=== PATIENT | male | born 1945 | race Hispanic/Latino ===

== ENCOUNTER 2019-01-19 22:57 | Inpatient (IN) | payer MEDICARE, MEDICAID ==
[2019-01-19 23:26] LABS: Mean Corpuscular HGB CONC 32.3 g/dL (32.0-36.0); Mean Corpuscular Hemoglobin 27.6 pg (27.0-31.0); Mean Corpuscular Volume 85.4 fL (78.0-98.0); Mean Platelet Volume 9.8 fL (7.4-10.4); Platelet Count 172 thou/uL (130-400); RBC Distribution Width 13.4 % (11.5-14.5); Red Blood Cell (RBC) Count 4.71 mill/uL (4.70-6.10)
[2019-01-19 23:33] LABS: Actual Bicarbonate (HCO3a) 19.3 mEq/L (22-28); Analyzer IN Cardio ER; Base Excess (BEa) -4.5 mEq/L (-2.0 to +3.0); CO2 Tension 31.7 mmHg (35.0-45.0); Calcium, Ionized 1.06 mmol/L (1.12-1.30); Carboxyhemoglobin (COHb) 0.2 gm% (0.0-3.0); Hemoglobin (Hb) 13.2 g/dL (14.0-18.0); Potassium - ABG Lab 3.93 mmol/L (3.70-5.30)
[2019-01-19 23:34] LABS: Puncture Site LRA
[2019-01-19 23:35] LABS: ALV-art Gradient 305.175 (0-20)
[2019-01-19] MEDS ORDERED: cefTRIAXone\\ROCEPHIN 1 GM VIAL ONE (23:39)
[2019-01-19 23:43] LABS: Band 10 % (5-11); Eosinophils 3 % (0-10); Lymphocytes 7 % (21-51); MDiff Complete? YES; Monocytes 11 % (0-10); Neutrophil 69 % (42-75)
--- NOTE | 2019-01-20 00:06 | RAD ---
PORTABLE CHEST: 01/19/19 HISTORY: Dyspnea. COMPARISON: 05/25/15. Heart size is upper normal. Vascularity upper normal. There is hazy perihilar opacity bilaterally whi ch could represent edema or infiltrate. No confluent consolidation. No significant effusion. IMPRESSION: Perihilar haziness which may represent mild perihilar edema. Follow-up recommended. POS: [facility]
[2019-01-20 00:08] LABS: CKMB 3.6 ng/mL (0-6.6)
[2019-01-20] MEDS ORDERED: methylPREDNISolone Sod Succ/PF 125 MG/2 ML VIAL ONE (00:23)
[2019-01-20 00:36] LABS: ALT (SGPT) 85 U/L (8-55); AST (SGOT) 91 U/L (5-34); Albumin 3.9 g/dL (3.4-4.8); Alkaline Phosphatase 138 U/L (40-150); Anion Gap 16 mmol/L (10-20); BUN (Urea Nitrogen) 77 mg/dL (8.4-25.7); Bilirubin, Total 0.5 mg/dL (0.2-1.2); Calc. Creatinine Clearance 0 mL/min (70-130); Calcium 8.5 mg/dL (7.8-10.44); Carbon Dioxide 20 mmol/L (23-31); Chloride 107 mmol/L (98-107); Estimated GFR-MDRD 16; Globulin 3.3 g/dL (2.4-3.5); Glucose 137 mg/dL (83-110); Potassium 5.4 mmol/L (3.5-5.1); Protein, Total 7.2 g/dL (5.8-8.1); Sodium 138 mmol/L (136-145)
[2019-01-20 00:49] LABS: Bilirubin Negative (Negative); Blood, Urine Large (Negative); Clarity CLEAR (Clear); Glucose, Urine (Dipstick) 100 mg/dL (Negative); Leukocyte Negative (Negative); Nitrite Negative (Negative); Protein, Urine (Dipstick) 300 mg/dL (Neg-Trace); Specific Gravity, Urine 1.017 (1.002-1.036); Urobilinogen 0.2 mg/dL (0.2-1.0)
[2019-01-20 00:58] LABS: Bacteria/HPF Rare-Few HPF (None Seen); Hyaline Casts/LPF 0-3 HYALINE CAST LPF (0-3 Hyaline); Other Casts/LPF 0-3 COARSE GRAN LPF (0-3 Hyaline); RBC/HPF 0-3 HPF (0-3); Squamous Epithelial 0-3 HPF (0-3); WBC/HPF 0-3 HPF (0-3)
[2019-01-20] MEDS ORDERED: Aspirin Chewable 81 MG TAB ONE (01:12)
[2019-01-20] MEDS ORDERED: Acetaminophen 500 MG TAB ONE (01:12)
[2019-01-20] MEDS ORDERED: Bisacodyl 5 MG TAB PO PRN (03:17)
[2019-01-20] MEDS ORDERED: Guaifenesin DM 100-10/5 ML UDCUP PO PRN (03:17)
[2019-01-20] MEDS ORDERED: Acetaminophen 325 MG TAB PO PRN (03:17)
[2019-01-20] MEDS ORDERED: Senokot S 8.6-50 MG TAB PO PRN (03:17)
[2019-01-20] MEDS ORDERED: Dextrose 5% in Water 1,000 ML IV PRN (03:21)
[2019-01-20] MEDS ORDERED: Dextrose 50% Abboject 50 ML SYRINGE SLOW IVP PRN (03:21)
[2019-01-20 04:01] LABS: Troponin I 0.773 ng/mL (< 0.028)
[2019-01-20] MEDS ORDERED: cefTRIAXone\\ROCEPHIN 1 GM in Sodium Chloride 0.9% 100 ML IVPB SCH (05:00)
[2019-01-20 06:27] LABS: Troponin I 1.041 ng/mL (< 0.028)
[2019-01-20 06:28] LABS: Band 13 % (5-11); Hemoglobin 12.6 g/dL (14.0-18.0); Lymphocytes 11 % (21-51); MDiff Complete? YES; Mean Corpuscular HGB CONC 33.5 g/dL (32.0-36.0); Mean Corpuscular Hemoglobin 28.5 pg (27.0-31.0); Mean Corpuscular Volume 85.1 fL (78.0-98.0); Mean Platelet Volume 9.9 fL (7.4-10.4); Neutrophil 76 % (42-75); Platelet Count 141 thou/uL (130-400); Platelet Morphology Comment Appears Adequate; RBC Distribution Width 13.3 % (11.5-14.5); Red Blood Cell (RBC) Count 4.42 mill/uL (4.70-6.10); White Blood Cell (WBC) Count 7.4 thou/uL (4.8-10.8)
[2019-01-20 06:30] LABS: Anion Gap 15 mmol/L (10-20); BUN (Urea Nitrogen) 76 mg/dL (8.4-25.7); Calc. Creatinine Clearance 0 mL/min (70-130); Calcium 8.6 mg/dL (7.8-10.44); Carbon Dioxide 17 mmol/L (23-31); Chloride 110 mmol/L (98-107); Estimated GFR-MDRD 16; Glucose 168 mg/dL (83-110); Potassium 4.8 mmol/L (3.5-5.1); Sodium 137 mmol/L (136-145)
[2019-01-20 06:33] VITALS: BMI 31.6
--- NOTE | 2019-01-20 06:52 | HP ---
CHIEF COMPLAINT: Shortness of breath, fever. HISTORY OF PRESENT ILLNESS: The patient is a 73-year-old male with a history of diabetes, hypertension, who presents to the hospital with complaints of shortness of breath and fever. The patient's daughter who is at the bedside stated that the patient was in [place] about 2 weeks ago. After his return, he has been feeling well. However, today the patient had sudden onset of chills, chest pain and some shortness of breath. At this time, the daughter brought him to the hospital for further evaluation. The patient denies any nausea, however, stated that he did have some diarrhea about a couple days ago. He denies any sick contacts; however, per the patient's while he was in [place], he had been exposed to some friends who had TB. This is unclear, if they had a history of TB or actually having TB currently, this is very unclear. The patient's daughter who is at the bedside could not clarify this with me. The patient denies any weight loss or any night sweats. The patient currently denies any chest pain, shortness of breath. He is sleeping without any discomfort. PAST MEDICAL HISTORY: 1. Diabetes. 2. Hypertension. 3. Hyperlipidemia. 4. BPH. 5. Chronic iron deficiency anemia. PAST SURGICAL HISTORY: 1. He has had a stomach surgery. 2. Appendectomy. 3. EGD and colonoscopy. MEDICATIONS: As of the following, the patient is on; 1. Norvasc 5 mg daily. 2. Aspirin 81 mg daily. 3. Atorvastatin 20 mg daily. 4. Carvedilol 6.25 daily. 5. Clopidogrel 75 mg daily. 6. Fluoxetine 30 mg daily. 7. Iron 325 daily. 8. Insulin 16 units q.a.m. ALLERGIES: THE PATIENT HAS ALLERGIES TO PENICILLIN. FAMILY HISTORY: The patient has no family history of heart disease or strokes. SOCIAL HISTORY: He denies any alcohol use, drug use. He is a nonsmoker. He lives with family and is a full code. REVIEW OF SYSTEMS: All negative for the ones mentioned above in HPI. PHYSICAL EXAMINATION: VITAL SIGNS: As of the following; temperature of 98.8, the patient did have a fever in the ER of 102, blood pressure of 130/60, heart rate of 78, 99% on room air. GENERAL: He is awake, alert, and oriented x3. Does not appear in distress. HEENT: Normocephalic, atraumatic. NECK: No lymphadenopathy noted. CV: S1, S2 present. No murmurs, rubs, or gallops. LUNGS: Clear to auscultation. No rhonchi or wheezes noted. ABDOMEN: Soft and nontender. Bowel sounds are present x2. EXTREMITIES: No edema. Pedal pulses are present x2. NEUROVASCULAR: No focal deficits noted. SKIN: No cuts, lesions, bruises noted. LABORATORY RESULTS: WBC of 7.0, hemoglobin of 13.0, hematocrit of 40.2. His urine today was completely benign, which has had some large amount of blood. Chemistry: Sodium of 138, potassium of 5.4, BUN of 77, creatinine of 3.68. His initial troponin was 0.054. BNP was 295. The patient did have a chest x-ray, which indicated perihilar haziness, which may represent mild perihilar edema. Opacity versus edema was noted on the chest x-ray. ASSESSMENT AND PLAN: 1. The patient is a 73-year-old male who presents to the hospital with chest pain and shortness of breath. 2. Pneumonia. I will start the patient on Levaquin based on his renal function. Blood cultures are done. Influenza was negative. The patient currently does not have a cough. The patient's interferon gold was sent, unlikely to be tuberculosis. However, I will get a CT chest for better evaluation of his lungs. I will add a mild dose of vancomycin on this patient that will cover the atypicals and also possibly any staphylococcus. 3. Acute kidney injury on chronic kidney disease. We will continue to monitor. We will consult Dr. Brown. He does have a mild elevated potassium of 5.0. We will continue to monitor. 4. Elevated troponins. The patient has not had an echocardiogram since 2014. I will go ahead and order an echocardiogram. The patient currently is chest pain-free. We will trend the troponins. This could be secondary to demand ischemia. I will continue to follow along. 5. Diabetes. We will start the patient on his home medications and we will check Accu-Cheks before meals and at bedtime. 6. Deep venous thrombosis prophylaxis. We will put the patient on some sequential compression devices. 7. If his troponins continue to trend up, may consider getting Cardiology involved. However, currently patient is chest pain free and only has some elevated troponins. This could be from demand ischemia. Job ID: [id number]
--- NOTE | 2019-01-20 08:59 | CT ---
CT CHEST WITHOUT CONTRAST: HISTORY: Shortness of breath. FINDINGS: Limited evaluation of the mediastinum by the lack of IV contrast. No mediastinal mass, lymphadenopath y, or hematoma. Heart size is normal. No significant pericardial fluid. There are coronary artery calcifications. Visualized aorta has a normal caliber. Visualized solid organs are unremarkable. A 2 cm cyst in the right renal cortex is noted. Trachea and central bronchi are patent. There are patchy groundglass and interstitial opacities which may be due to edema or infiltrate. A 2 mm nodule in the right upper lobe. There are groundglass and linear opacities involving both lower lobes due to edema or infiltrate. Small bilateral effusions with adjacent consolidation. There is thickening of the left major fissure. No lytic or blastic lesions. Previous bariatric surgical changes along the greater curvature of the stomach are suspected. IMPRESSION: Predominantly bibasilar interstitial and groundglass opacities suggesting edema or infiltrate. Contin ued surveillance is recommended. Transcribed Date/Time: 01/20/2019 9:16 AM
[2019-01-20] MEDS ORDERED: Non-Formulary Item 1 EACH (Insulin Glargine,Hum.Rec.Anlog [Lantus Solostar] 16 UNIT) SQ SCH (09:00)
[2019-01-20] MEDS ORDERED: Vancomycin HCl 500 MG in Sodium Chloride 0.9% 100 ML IVPB SCH ×2 (09:00→23:59)
[2019-01-20] MEDS: Ferrous Sulfate 325 MG TAB PO SCH (10:48)
[2019-01-20] MEDS: Sodium Bicarbonate Tab 325 MG TAB PO SCH ×2 (10:48→22:22)
[2019-01-20] MEDS: Famotidine 20 MG TAB PO SCH (10:48)
[2019-01-20] MEDS: Aspirin 81 mg Enteric Coated Tablet PO SCH (10:48)
[2019-01-20] MEDS: DULoxetine 30 MG CAP PO SCH (10:48)
[2019-01-20] MEDS: Amlodipine 5 MG TAB PO SCH (10:49)
[2019-01-20] MEDS: Heparin 5,000 UNITS/ML VIAL SC SCH ×3 (10:50→22:23)
[2019-01-20] MEDS: Clopidogrel Bisulfate 75 MG TAB PO SCH (10:50)
[2019-01-20] MEDS: Insulin Glargine 16 UNITS in Pre-Filled Syringe 1 EACH SC SCH (10:50)
--- NOTE | 2019-01-20 11:04 | PDOC.PN ---
- Subjective Encounter Start Date: 01/20/19 Encounter Start Time: 08:00 -: old records requested/rev pt has dyspnea, cough, and fever, no chest pain Patient seen and examined. No overnight events - Objective Resuscitation Status - Order Detail: 01/20/19 03:17 Resuscitation Status Routine Resuscitation Status: FULL: Full Resuscitation MAR Reviewed: Yes Vital Signs & Weight: Vital Signs (12 hours) Temp Pulse Resp BP BP Pulse Ox 01/20/19 10:49 58 L 151/75 H 01/20/19 07:27 60 12 01/20/19 06:12 98 F 58 L 18 151/75 H 96 Weight Weight 190 lb 6 oz Result Diagrams: 01/20/19 05:28 01/20/19 05:28 Additional Labs: Accuchecks 01/20/19 10:38 POC Glucose 223 H Radiology Reviewed by me: Yes (chest xray and CT chest reviewed) EKG Reviewed by me: Yes Phys Exam - Physical Examination Constitutional: NAD HEENT: PERRLA, moist MMs, sclera anicteric Neck: no JVD, supple Respiratory: no wheezing, no rhonchi bilateral basilar rales, more on right side Cardiovascular: RRR, no significant murmur, no rub Gastrointestinal: soft, non-tender, no distention, positive bowel sounds obesity+ Musculoskeletal: pulses present, edema present Neurological: non-focal, normal sensation, moves all 4 limbs Lymphatic: no nodes Psychiatric: normal affect, A&O x 3 Skin: no rash, normal turgor Dx/Plan (1) Acute on chronic diastolic ACC/AHA stage C congestive heart failure Code(s): I50.33 - ACUTE ON CHRONIC DIASTOLIC (CONGESTIVE) HEART FAILURE Status : Acute (2) Acute respiratory failure with hypoxia Code(s): J96.01 - ACUTE RESPIRATORY FAILURE WITH HYPOXIA Status: Acute (3) Community acquired bacterial pneumonia Code(s): J15.9 - UNSPECIFIED BACTERIAL PNEUMONIA Status: Acute (4) Hyperkalemia Code(s): E87.5 - HYPERKALEMIA Status: Acute (5) Severe sepsis Code(s): A41.9 - SEPSIS, UNSPECIFIED ORGANISM; R65.20 - SEVERE SEPSIS WITHOUT SEPTIC SHOCK Status: Acute (6) Type [address] elevation Code(s): I21.A1 - MYOCARDIAL INFARCTION TYPE 2 Status: Acute (7) Anxiety and depression Code(s): F41.9 - ANXIETY DISORDER, UNSPECIFIED; F32.9 - MAJOR DEPRESSIVE DISORDER, SINGLE EPISODE, UNSPECIFIED Status: Chronic (8) BPH (benign prostatic hyperplasia) Code(s): N40.0 - BENIGN PROSTATIC HYPERPLASIA WITHOUT LOWER URINRY TRACT SYMP Status: Chronic (9) CKD (chronic kidney disease) stage 4, GFR 15-29 ml/min Code(s): N18.4 - CHRONIC KIDNEY DISEASE, STAGE 4 (SEVERE) Status: Chronic (10) Diabetes type 2, controlled Code(s): E11.9 - TYPE 2 DIABETES MELLITUS WITHOUT COMPLICATIONS Status: Chronic (11) Dyslipidemia Code(s): E78.5 - HYPERLIPIDEMIA, UNSPECIFIED Status: Chronic (12) Hypertension Code(s): I10 - ESSENTIAL (PRIMARY) HYPERTENSION Status: Chronic (13) Obesity (BMI 30.0-34.9) Code(s): E66.9 - OBESITY, UNSPECIFIED Status: Chronic - Plan cont current plan of care, plan discussed w/ family, continue antibiotics, respiratory therapy * suspecting diastolic CHF, will give one time lasix 80 mg * cardiology consulted for elevated troponin * will get echo today * pt is on empirically antibiotics, vancomycin, levaquin * follow up on culture result * medication reviewed as below * symptomatic treatment * discussed with daughter bedside. Review of Systems - Review of Systems Constitutional: fever, weakness. negative: chills, sweats, malaise, other ENT: negative: Ear Pain, Ear Discharge, Nose Pain, Nose Discharge, Nose Congestion, Mouth Pain, Mouth Swelling, Throat Pain, Throat Swelling, Other Respiratory: Cough, Shortness of Breath, SOB with Excertion. negative: Dry, Hemoptysis, Pleuritic Pain, Sputum, Wheezing Cardiovascular: edema. negative: chest pain, palpitations, orthopnea, paroxysmal nocturnal dyspnea, light headedness, other Gastrointestinal: negative: Nausea, Vomiting, Abdominal Pain, Diarrhea, Constipation, Melena, Hematochezia, Other Genitourinary: negative: Dysuria, Frequency, Incontinence, Hematuria, Retention , Other Musculoskeletal: negative: Neck Pain, Shoulder Pain, Arm Pain, Back Pain, Hand Pain, Leg Pain, Foot Pain, Other Skin: negative: Rash, Lesions, Brian, Bruising, Other - Medications/Allergies Allergies/Adverse Reactions: Allergies Allergy/AdvReac Type Severity Reaction Status Date / Time Penicillins Allergy Intermediate Short of Verified 01/20/19 08:28 Breath Medications: Current Medications Acetaminophen (Tylenol) 650 mg PO Q4H PRN PRN Reason: Headache/Fever/Mild Pain (1-3) Albuterol/Ipratropium (Duoneb) 3 ml NEB [id number] [facility] Last Admin: 01/20/19 07:27 Dose: 3 ml Amitriptyline HCl (Elavil) 75 mg PO HS [facility] Amlodipine Besylate (Norvasc) 5 mg PO DAILY [facility] Last Admin: 01/20/19 10:49 Dose: 5 mg Aspirin (Ecotrin) 81 mg PO DAILY [facility] Last Admin: 01/20/19 10:48 Dose: 81 mg Atorvastatin Calcium (Lipitor) 20 mg PO QPM [facility] Bisacodyl (Dulcolax) 10 mg PO DAILYPRN PRN PRN Reason: Constipation Carvedilol (Coreg) 6.25 mg PO QPM [facility] Cholecalciferol (Vitamin D3) 1,000 units PO QAM [facility] Last Admin: 01/20/19 10:50 Dose: 1,000 units Clopidogrel Bisulfate (Plavix) 75 mg PO DAILY [facility] Last Admin: 01/20/19 10:50 Dose: 75 mg Dextrose/Water (Dextrose 50%) 25 gm SLOW IVP PRN PRN PRN Reason: Hypoglycemia Duloxetine HCl (Cymbalta) 30 mg PO DAILY [facility] Last Admin: 01/20/19 10:48 Dose: 30 mg Famotidine (Pepcid) 20 mg PO QAM [facility] Last Admin: 01/20/19 10:48 Dose: 20 mg Ferrous Sulfate (Feosol) 325 mg PO QAM [facility] Last Admin: 01/20/19 10:48 Dose: 325 mg Furosemide (Lasix) 80 mg SLOW IVP ONE [facility] Glucagon (Glucagon) 1 mg IM PRN PRN PRN Reason: Hypoglycemia Guaifenesin/Dextromethorphan (Robitussin Dm) 15 ml PO Q4H PRN PRN Reason: Cough Heparin Sodium (Porcine) (Heparin) 5,000 units SC TID [facility] Last Admin: 01/20/19 10:50 Dose: 5,000 units Dextrose/Water (D5w) 1,000 mls @ 0 mls/hr IV .Q0M PRN PRN Reason: Hypoglycemia Insulin Glargine 16 units/ (Miscellaneous Medication) 0.16 mls @ 0 mls/hr SC QAM [facility] Last Admin: 01/20/19 10:50 Dose: 0.16 mls Levofloxacin 250 mg/ Device 50 mls @ 100 mls/hr IVPB Q48H [facility] Last Admin: 01/20/19 10:47 Dose: 50 mls Vancomycin HCl 500 mg/ Sodium (Chloride) 100 mls @ 100 mls/hr IVPB 2359 [place] Insulin Human Lispro (Humalog) 0 units SC .MILD SLIDING SCALE PRN PRN Reason: Mild Correctional Scale Miscellaneous Medication (Pharmacy To Dose) 1 each IVPB PRN PRN PRN Reason: Pharmacy to dose Senna/Docusate Sodium (Senokot S) 2 tab PO BIDPRN PRN PRN Reason: Constipation Sodium Bicarbonate (Bicarbonate, Sodium) 650 mg PO BID [facility] Last Admin: 01/20/19 10:48 Dose: 650 mg Sodium Chloride (Flush - Normal Saline) 10 ml IVF Q12HR [facility] Last Admin: 01/20/19 10:51 Dose: 10 ml Sodium Chloride (Flush - Normal Saline) 10 ml IVF PRN PRN PRN Reason: Saline Flush
[2019-01-20] MEDS ORDERED: Furosemide 100 MG/10 ML VIAL SLOW IVP SCH (11:15)
--- NOTE | 2019-01-20 13:06 | CON ---
DATE OF CONSULTATION: 01/20/2019 CONSULTING PHYSICIAN: Sujatha Amaya MD REASON FOR CONSULTATION: Chronic kidney disease stage 4. REASON FOR ADMISSION: Shortness of breath, stable. HISTORY OF PRESENT ILLNESS: A 73-year-old male with history of diabetes, hypertension, who came to the hospital with shortness of breath and evaluated for possible pneumonia. Nephrology consulted for elevated creatinine. The patient denies any nausea or vomiting. No chest pain or palpitation, but he is having fever and not feeling well. PAST MEDICAL HISTORY: Positive for type 2 diabetes, hypertension, hyperlipidemia, BPH, anemia. PAST SURGICAL HISTORY: Appendectomy, EGD, and colonoscopy. HOME MEDICATIONS: 1. Norvasc. 2. Aspirin. 3. Atorvastatin. 4. Carvedilol. 5. Clopidogrel. 6. Fluoxetine. 7. Iron. 8. Insulin. ALLERGIES: TO PENICILLIN. SOCIAL HISTORY: No smoking, alcohol, or illicit drugs. FAMILY HISTORY: No history of heart or kidney disease. REVIEW OF SYSTEMS: CONSTITUTIONAL: Negative for weight loss or gain, ability to conduct usual activities. SKIN: Negative for rash, itching. EYES: Negative for double vision, pain. ENT/MOUTH: Negative for nose bleeding, neck stiffness, pain, tenderness. CARDIOVASCULAR: Negative for palpitations, dyspnea on exertion, orthopnea. RESPIRATORY: Negative for shortness of breath, wheezing, cough, hemoptysis, fever or night sweats. GASTROINTESTINAL: Negative for poor appetite, abdominal pain, heartburn, nausea, vomiting, constipation, or diarrhea. GENITOURINARY: Negative for urgency, frequency, dysuria, nocturia. MUSCULOSKELETAL: Negative for pain, swelling. NEUROLOGIC/PSYCHIATRIC: Negative for anxiety, depression. ALLERGY/IMMUNOLOGIC: Negative for skin rash, bleeding tendency. PHYSICAL EXAMINATION: GENERAL: This is an elderly male, in no apparent distress. VITAL SIGNS: Temperature 98.0, pulse 60, respiratory rate 18, blood pressure 150/75. HEENT: Atraumatic and normocephalic. Oral mucosa is moist. NECK: Supple. CV: S1 and S2 heard. Rate and rhythm are regular. RESPIRATORY: Clear. GASTROINTESTINAL: Abdomen is soft. MUSCULOSKELETAL: 1+ edema. DERMATOLOGIC: No skin rash. NEUROLOGIC: Alert and awake. PSYCHIATRIC: Mood and affect normal. LABORATORY DATA: Hemoglobin is 12.6. Potassium is 4.8, BUN is 76, creatinine is 3.7. ASSESSMENT AND PLAN: 1. Chronic kidney disease, stage 4, stable. 2. Hyperkalemia, better. 3. Metabolic acidosis. 4. Edema. 5. Elevated BNP. 6. Anemia, mild. 7. Overall renal function is stable. His baseline creatinine is around 3.8 to 4 and is currently 3.7. We will monitor. Avoid nephrotoxins. Continue supportive care. We will continue to follow. Thank you for the consult. Job ID: [id number]
[2019-01-20] MEDS ORDERED: Prevnar 13-Val Conj/PF 0.5 ML SYRINGE IM ONE (13:15)
--- NOTE | 2019-01-20 13:26 | CON ---
DATE OF CONSULTATION: 01/20/2019 REASON FOR CONSULTATION: Elevated troponins. PRIMARY REAMING MACHINE TENDER: Dr. Adalberto Corley. HISTORY OF PRESENT ILLNESS: Mr. Diego Montelongo is a pleasant 73-year-old gentleman, [place]erratian-speaking only, who comes to the hospital for fevers and chills. He was in [place] and came back about 2 weeks ago. He started noticing fevers and chills. He came in, he was 102.8, and admitted with a possible diagnosis of pneumonia. He did have an episode of chest pain before coming in as well. Currently, he is pain free. PAST MEDICAL HISTORY: 1. Type 2 diabetes. 2. Hypertension. 3. Hyperlipidemia. 4. BPH. 5. Chronic iron-deficiency anemia. 6. Chronic kidney disease stage 4. PAST SURGICAL HISTORY: 1. Appendectomy. 2. EGD. 3. Colonoscopy. OUTPATIENT MEDICATIONS: 1. Norvasc 5 mg a day. 2. Aspirin 81 mg a day. 3. Atorvastatin 20 mg at bedtime. 4. Carvedilol 6.25 b.i.d. 5. Plavix 75 mg a day. 6. Fluoxetine 30 mg a day. 7. Iron supplements. 8. Insulin 60 units q.a.m. ALLERGIES: PENICILLIN. FAMILY HISTORY: Noncontributory. SOCIAL HISTORY: No alcohol, tobacco, or drugs. REVIEW OF SYSTEMS: A 12-point review of systems was done and was all negative unless stated in the History of Present Illness. PHYSICAL EXAMINATION: VITAL SIGNS: Temperature 98.2, pulse 66, respiratory rate 18, saturating 95% on room air, blood pressure 149/73. GENERAL: Awake, alert, oriented x3. No distress. HEENT: Normocephalic and atraumatic. NECK: Supple. LUNGS: No crackles. ABDOMEN: Soft. Positive bowel sounds. EXTREMITIES: Trace edema. SKIN: Warm and dry. LABORATORY DATA: Laboratory work was reviewed. CBC with a white count of 7, hemoglobin of 13, hematocrit of 40, platelet count of 172. ABG was reviewed. Chemistries were reviewed. Troponin has increased from 0.05 to 0.7 to 1.0, but his creatinine is above baseline at 3.7 with a potassium of 5.4 on admission, now 4.8. The AST and ALT are elevated. UA was unremarkable. EKG was reviewed. Chest x-ray and CT of the chest were reviewed. ASSESSMENT: 1. Type 2 [employer] type of infarct demand ischemia. 2. Acute kidney injury on chronic kidney disease. 3. Possible pneumonia. 4. Possible tuberculosis exposure, however, when talking with him, he does not know where this story came from. He has not had any tuberculosis exposure recently as far as he can tell. PLAN: 1. Conservative therapy. At this time, he is pain free. 2. Continue to treat pneumonia per Primary Team. 3. He will be prohibitive to perform a heart catheterization given elevated creatinine. We have had several attempts to try to do heart catheterization on him in the past, however, his creatinine was never letting us do this, and he had an abnormal stress with an inferior scar, so he probably does have coronary artery disease, however, at this point, prohibitive to further risk stratify. 4. Echocardiogram pending. 5. Further recommendations per results of echo. Already on medical therapy for his heart. Job ID: [id number]
[2019-01-20] MEDS ORDERED: Non-Formulary Item 1 EACH (Pravastatin Sodium [Pravastatin Sodium] 80 MG) PO SCH (21:00)
[2019-01-20] MEDS: Carvedilol 6.25 MG TAB PO SCH (22:21)
[2019-01-20] MEDS: Atorvastatin Calcium 20 MG TAB PO SCH (22:21)
[2019-01-20] MEDS: HumaLOG 300 UNITS/3 ML VIAL SC PRN (22:27)
[2019-01-20 23:56] LABS: Vancomycin, Random 10.5 ug/mL (See Comment)
[2019-01-21 05:21] LABS: #Lymphocytes 0.6 thou/uL (1.20-3.40); #Monocytes 0.9 thou/uL (0.11-0.59); #Neutrophils 10.4 thou/uL (1.40-6.50); %Lymphocytes 5.1 % (21.0-51.0); %Monocytes 7.7 % (0.0-10.0); %Neutrophils 87.1 % (42.0-75.0); Hemoglobin 11.2 g/dL (14.0-18.0); Mean Corpuscular HGB CONC 32.7 g/dL (32.0-36.0); Mean Corpuscular Hemoglobin 27.8 pg (27.0-31.0); Mean Corpuscular Volume 85.1 fL (78.0-98.0); Mean Platelet Volume 9.4 fL (7.4-10.4); Platelet Count 132 thou/uL (130-400); RBC Distribution Width 13.1 % (11.5-14.5); Red Blood Cell (RBC) Count 4.02 mill/uL (4.70-6.10); White Blood Cell (WBC) Count 11.9 thou/uL (4.8-10.8)
[2019-01-21 05:40] LABS: Anion Gap 16 mmol/L (10-20); BUN (Urea Nitrogen) 90 mg/dL (8.4-25.7); Calc. Creatinine Clearance 20 mL/min (70-130); Calcium 8.7 mg/dL (7.8-10.44); Carbon Dioxide 18 mmol/L (23-31); Chloride 108 mmol/L (98-107); Estimated GFR-MDRD 15; Glucose 130 mg/dL (83-110); Potassium 4.4 mmol/L (3.5-5.1); Sodium 138 mmol/L (136-145)
[2019-01-21] MEDS: Clopidogrel Bisulfate 75 MG TAB PO SCH (10:01)
[2019-01-21] MEDS: Amlodipine 5 MG TAB PO SCH (10:02)
[2019-01-21] MEDS: Famotidine 20 MG TAB PO SCH (10:02)
[2019-01-21] MEDS: Aspirin 81 mg Enteric Coated Tablet PO SCH (10:03)
[2019-01-21] MEDS: Ferrous Sulfate 325 MG TAB PO SCH (10:05)
[2019-01-21] MEDS: DULoxetine 30 MG CAP PO SCH (10:05)
[2019-01-21] MEDS: Sodium Bicarbonate Tab 325 MG TAB PO SCH ×2 (10:06→20:59)
[2019-01-21] MEDS: Heparin 5,000 UNITS/ML VIAL SC SCH ×3 (10:11→21:00)
[2019-01-21] MEDS: Insulin Glargine 16 UNITS in Pre-Filled Syringe 1 EACH SC SCH (10:15)
[2019-01-21] MEDS: Bicitra 30 ML UDCUP PO SCH ×4 (10:29→21:02)
--- NOTE | 2019-01-21 13:14 | PDOC.PN ---
- Subjective Encounter Start Date: 01/21/19 Encounter Start Time: 13:12 Patient seen and examined, daughter at bedside, no new issues. - Objective Resuscitation Status - Order Detail: 01/20/19 03:17 Resuscitation Status Routine Resuscitation Status: FULL: Full Resuscitation Vital Signs & Weight: Vital Signs (12 hours) Temp Pulse Resp BP BP Pulse Ox 01/21/19 11:39 92 L 01/21/19 11:31 99.4 F 73 20 165/82 H 79 L 01/21/19 11:30 79 24 H 01/21/19 10:02 59 L 147/84 H 01/21/19 07:59 98.4 F 59 L 18 147/84 H 92 L 01/21/19 06:35 62 16 01/21/19 04:00 98.1 F 61 19 146/76 H 92 L Weight Weight 190 lb 6 oz Result Diagrams: 01/21/19 05:00 01/21/19 05:00 Additional Labs: Accuchecks 01/21/19 01/21/19 01/21/19 10:48 10:16 06:06 POC Glucose 129 H 125 H 123 H 01/20/19 01/20/19 20:10 16:53 POC Glucose 254 H 300 H Phys Exam - Physical Examination Constitutional: NAD HEENT: PERRLA, moist MMs, sclera anicteric Neck: no nodes, no JVD, supple Respiratory: no wheezing, no rales, no rhonchi Cardiovascular: RRR, no significant murmur, no rub Gastrointestinal: soft, non-tender, no distention Musculoskeletal: no edema, pulses present Dx/Plan (1) Acute on chronic diastolic ACC/AHA stage C congestive heart failure Code(s): I50.33 - ACUTE ON CHRONIC DIASTOLIC (CONGESTIVE) HEART FAILURE Status : Acute (2) Community acquired bacterial pneumonia Code(s): J15.9 - UNSPECIFIED BACTERIAL PNEUMONIA Status: Acute (3) Hyperkalemia Code(s): E87.5 - HYPERKALEMIA Status: Acute (4) Type [address] elevation Code(s): I21.A1 - MYOCARDIAL INFARCTION TYPE 2 Status: Acute (5) Anxiety and depression Code(s): F41.9 - ANXIETY DISORDER, UNSPECIFIED; F32.9 - MAJOR DEPRESSIVE DISORDER, SINGLE EPISODE, UNSPECIFIED Status: Chronic (6) CKD (chronic kidney disease) stage 4, GFR 15-29 ml/min Code(s): N18.4 - CHRONIC KIDNEY DISEASE, STAGE 4 (SEVERE) Status: Chronic (7) Diabetes type 2, controlled Code(s): E11.9 - TYPE 2 DIABETES MELLITUS WITHOUT COMPLICATIONS Status: Chronic (8) Dyslipidemia Code(s): E78.5 - HYPERLIPIDEMIA, UNSPECIFIED Status: Chronic (9) Hypertension Code(s): I10 - ESSENTIAL (PRIMARY) HYPERTENSION Status: Chronic - Plan * will DC vanc * start bicitra * unlikely TB but work up being gone so will wait for results * no changes in plan of care for now * patient appears to be close to dialysis and will need close follow up out patient with nephrology * for now continue current plan of care with above mentioned changes * labs in AM * case and plan d/w patient and daughter at length, they understood and agreed with this plan.
--- NOTE | 2019-01-21 15:35 | PRG ---
DATE OF SERVICE: 01/21/2019 SUBJECTIVE: Patient was seen and examined at bedside and overnight events noted. Patient denies any shortness of breath or chest pain or palpitation. No history of nausea or vomiting or diarrhea or fever or chills or cramps. OBJECTIVE: GENERAL: This is a well-built male in no apparent distress. VITAL SIGNS: Temperature 99.5. Heart rate 76. Respiratory rate 20. Blood pressure 165/82. HEENT: Atraumatic, normocephalic. Oral mucosa is moist NECK: Supple. CARDIOVASCULAR: S1, S2 heard. Rate and rhythm regular. RESPIRATORY: Clear to auscultation. GASTROINTESTINAL: Abdomen is soft. MUSCULOSKELETAL: No tenderness. No edema. DERMATOLOGIC: No skin rash. NEUROLOGIC: Alert and awake and oriented X3. No focal neurologic deficits. Moving all the extremities. PSYCHIATRIC: Mood and affect normal. LABORATORY DATA: Potassium 4.4, BUN is 90, creatinine is 3.9. ASSESSMENT AND PLAN: 1. Chronic kidney disease, stage 4, stable. 2. Metabolic acidosis. 3. Edema. 4. Anemia. Overall renal function is stable. Avoid nephrotoxins. We will continue to follow. Job ID: [id number]
--- NOTE | 2019-01-21 16:39 | RAD ---
Exam: Chest one view HISTORY:Dyspnea. Chest pain. Decreased O2 saturation. Comparison: 01/19/2019 FINDINGS: Cardiac silhouette:Enlarged. Pulmonary vessels: Prominent Costophrenic angles: Clear LUNGS: Bilateral perihilar interstitial and alveolar infiltrates. Pneumothorax: None Osseous abnormalities: None IMPRESSION: Cardiomegaly. Bilateral perihilar initial and alveolar infiltrates due to volume overload/congestive heart failure.
[2019-01-21 17:19] LABS: Actual Bicarbonate (HCO3a) 21.4 mEq/L (22-28); CO2 Tension 32.8 mmHg (35.0-45.0); Calcium, Ionized 1.18 mmol/L (1.12-1.30); Carboxyhemoglobin (COHb) 0.8 gm% (0.0-3.0); Hemoglobin (Hb) 13.4 g/dL (14.0-18.0); Potassium - ABG Lab 4.02 mmol/L (3.70-5.30); pH, Arterial 7.43 (7.35-7.45)
[2019-01-21 17:25] LABS: Troponin I 0.541 ng/mL (< 0.028)
[2019-01-21 17:28] LABS: O2 Tension (PaO2) 48.7 mmHg (> 70.0)
[2019-01-21 17:29] LABS: Puncture Site RRA
[2019-01-21] MEDS ORDERED: Furosemide 20 MG/2 ML VIAL SLOW IVP SCH (17:30)
--- NOTE | 2019-01-21 17:37 | PDOC.CTH ---
Cardiology Progress Note - Subjective He is much more SOB today. Needing venti mask to maintain sats. - Objective Vital Signs Temp Pulse Resp BP BP Pulse Ox 01/21/19 16:01 100.9 F H 88 20 156/84 H 89 L 01/21/19 15:18 73 16 01/21/19 11:39 92 L 01/21/19 11:31 99.4 F 73 20 165/82 H 79 L 01/21/19 11:30 79 24 H 01/21/19 11:23 93 L 01/21/19 10:02 59 L 147/84 H 01/21/19 10:01 92 L 01/21/19 07:59 98.4 F 59 L 18 147/84 H 92 L 01/21/19 06:35 62 16 Weight 190 lb 6 oz - Physical Examination General/Neuro: alert & oriented x3, other: (mode resp distress. ) Neck: no JVD present Lungs: other: (Crackles at bases.) Heart: RRR Abdomen: NT/ND Extremities: + edema B (1+) - Telemetry Telemetry Rhythm: NSR - Labs Result Diagrams: 01/21/19 05:00 01/21/19 05:00 Troponin/CKMB CK-MB (CK-2) 3.6 ng/mL (0-6.6) 01/19/19 23:20 Troponin I 0.541 ng/mL (< 0.028) H* 01/21/19 16:45 - Assessment/Plan 1. Acute on chronic systolic heart failure., 2. Ischemic CM EF at 45% 3. Never had a cath due to renal dysfunction 4. Inferior ischemia on MPI in the past. 5. MELY on CKD 6. Pneumonia PLAN: - Agree with IV diuresis. Will increase dose to 80 mg IV twice a day. - Abx per primary team.
--- NOTE | 2019-01-21 20:57 | CON ---
DATE OF CONSULTATION: HISTORY OF PRESENT ILLNESS: Reginald Cortez is a 73-year-old gentleman, who presented to the ER after being 2 weeks in [place] with a temperature of 102.8, fever, and chills. His sats were 86% on 4 L. Called today to see the patient on an emergency basis 6:00 p.m. in the evening after he was having worsening hypoxemia on a non-rebreather. He was transferred to the ICU and placed on a non-invasive ventilation. He appears to be in less distress at this present time. He is coughing sputum, which is relatively clear. PAST MEDICAL HISTORY: Pertinent for end-stage renal disease, CHF, diabetes, hypertension, hyperlipidemia, previous RI. I reviewed his previous extensive history. In the past, he has been here several times, referred by Cardiology, mainly Dr. Corley. He has a known coronary artery disease and apparently because of his renal function, they have not done a cath. PAST SURGICAL HISTORY: Appendix, EGD, colonoscopy. HOME MEDICATIONS: 1. Insulin. 2. Myrbetriq 25. 3. Neurontin 200 three times a day. 4. Dexilant 60. 5. Coreg 12.5. 6. Amlodipine 10. 7. Aspirin 81. 8. Lasix 40 b.i.d. 9. Plavix 75. 10. Actos 15. ALLERGIES: PENICILLIN. SOCIAL HISTORY: No alcohol. No tobacco. No drugs. PHYSICAL EXAMINATION: VITAL SIGNS: Sats are 94% on the BiPAP, pulse 80, blood pressure 138/80. CHEST: Minimal crackles. CARDIAC: Normal S1 and S2. No gallops. ABDOMEN: No masses. IMAGING STUDIES: X-ray shows findings consistent with fluid overload CHF. I do not see any masses, consolidation, or cavitary infiltrates to suggest TB. IMPRESSION: 1. Probably viral syndrome, possibly superimposed atypical pneumonia. 2. Renal failure. 3. Diabetes. 4. Hypertension. 5. Cardiomyopathy. PLAN: The patient does not have TB at least on x-ray findings. Most suggestive of fluid overload. Continue treatment as per Cardiology and Nephrology. He may require dialysis, empiric antibiotics. I agree sputum for culture. If condition gets worse, he may require intubation and support. TIME SPENT: This is a 45-minute critical time. Job ID: [id number]
[2019-01-21] MEDS: Atorvastatin Calcium 20 MG TAB PO SCH (20:59)
[2019-01-21] MEDS: Cefepime 0.5 GM in Sodium Chloride 0.9% 100 ML IVPB SCH (21:00)
[2019-01-21] MEDS: Carvedilol 6.25 MG TAB PO SCH (21:00)
[2019-01-22 01:12] LABS: Troponin I 1.749 ng/mL (< 0.028)
[2019-01-22] MEDS: Furosemide 100 MG/10 ML VIAL SLOW IVP SCH ×2 (05:16→14:11)
[2019-01-22 06:24] LABS: #Lymphocytes 0.7 thou/uL (1.20-3.40); #Monocytes 0.9 thou/uL (0.11-0.59); #Neutrophils 12.6 thou/uL (1.40-6.50); %Basophils 0.1 % (0.0-1.0); %Eosinophils 0.1 % (0.0-10.0); %Monocytes 6.4 % (0.0-10.0); %Neutrophils 88.4 % (42.0-75.0); Hemoglobin 12.2 g/dL (14.0-18.0); Mean Corpuscular HGB CONC 31.6 g/dL (32.0-36.0); Mean Corpuscular Hemoglobin 26.8 pg (27.0-31.0); Mean Corpuscular Volume 84.8 fL (78.0-98.0); Mean Platelet Volume 9.6 fL (7.4-10.4); Platelet Count 139 thou/uL (130-400); RBC Distribution Width 13.3 % (11.5-14.5); Red Blood Cell (RBC) Count 4.56 mill/uL (4.70-6.10); White Blood Cell (WBC) Count 14.3 thou/uL (4.8-10.8)
[2019-01-22 06:42] LABS: Anion Gap 17 mmol/L (10-20); BUN (Urea Nitrogen) 84 mg/dL (8.4-25.7); Calc. Creatinine Clearance 20 mL/min (70-130); Carbon Dioxide 23 mmol/L (23-31); Chloride 104 mmol/L (98-107); Estimated GFR-MDRD 15; Glucose 102 mg/dL (83-110); Potassium 3.6 mmol/L (3.5-5.1); Sodium 140 mmol/L (136-145)
[2019-01-22 07:07] LABS: CKMB 4.5 ng/mL (0-6.6)
[2019-01-22] MEDS: Mometasone/Formoterol 120 PUFF INHALER INH SCH ×2 (07:47→18:49)
[2019-01-22] MEDS ORDERED: Furosemide 40 MG/4 ML VIAL SLOW IVP SCH (09:00)
[2019-01-22] MEDS: Sodium Bicarbonate Tab 325 MG TAB PO SCH ×2 (09:06→21:13)
[2019-01-22] MEDS: Famotidine 20 MG TAB PO SCH (09:07)
[2019-01-22] MEDS: DULoxetine 30 MG CAP PO SCH (09:07)
[2019-01-22] MEDS: Ferrous Sulfate 325 MG TAB PO SCH (09:07)
[2019-01-22] MEDS: Clopidogrel Bisulfate 75 MG TAB PO SCH (09:08)
[2019-01-22] MEDS: Cefepime 0.5 GM in Sodium Chloride 0.9% 100 ML IVPB SCH ×2 (09:08→21:15)
[2019-01-22] MEDS: Amlodipine 5 MG TAB PO SCH (09:08)
[2019-01-22] MEDS: Aspirin 81 mg Enteric Coated Tablet PO SCH (09:08)
[2019-01-22] MEDS: Insulin Glargine 16 UNITS in Pre-Filled Syringe 1 EACH SC SCH (09:09)
[2019-01-22] MEDS: Heparin 5,000 UNITS/ML VIAL SC SCH ×2 (09:09→14:11)
--- NOTE | 2019-01-22 10:14 | RAD ---
CHEST 1 VIEW: HISTORY: Decreased O2 saturation. Pain. Congestive heart failure. FINDINGS: Slight improved aeration of lung parenchyma. Persistent bilateral interstitial and alveolar infiltra finn do remain. Persistent cardiomegaly. No pneumothorax. IMPRESSION: Slight improved aeration. There is still radiographic evidence for congestive heart failure. POS: OFF
[2019-01-22] MEDS: Bicitra 30 ML UDCUP PO SCH ×4 (10:40→21:12)
--- NOTE | 2019-01-22 12:52 | PRG ---
DATE OF SERVICE: 01/22/2019 SUBJECTIVE: The patient was transferred to ICU and then IMCU because of the shortness of breath and currently getting some breathing treatment. OBJECTIVE: GENERAL: This is a well-built, seen in IMCU. VITAL SIGNS: Temperature 98.8, pulse 76, respiratory rate 24, and blood pressure 155/75. HEENT: Atraumatic, normocephalic. Oral mucosa is moist NECK: Supple. CARDIOVASCULAR: S1, S2 heard. Rate and rhythm regular. RESPIRATORY: Clear to auscultation. GASTROINTESTINAL: Abdomen is soft. MUSCULOSKELETAL: 1+ edema. DERMATOLOGIC: No skin rash. NEUROLOGIC: Alert and awake and oriented X3. No focal neurologic deficits. Moving all the extremities. PSYCHIATRIC: Mood and affect normal. LABORATORY DATA: Hemoglobin is 12.2, potassium 3.6, BUN is 84, and creatinine is 3.8 from 3.9 yesterday. ASSESSMENT AND PLAN: 1. Chronic kidney disease, stage 4. Stable labs. Currently on Lasix 80 mg IV b.i.d., continue. 2. Cardiorenal syndrome. Follow with Cardiology. 3. Edema. Agree with Lasix and monitor renal function. If worsens, might need renal replacement therapy. 4. Metabolic acidosis. 5. Anemia of chronic disease. 6. Hypertension, stable. 7. Obesity. Plan to continue Lasix and monitor renal function closely. Job ID: [id number]
--- NOTE | 2019-01-22 14:56 | PDOC.PN ---
- Subjective Encounter Start Date: 01/22/19 Encounter Start Time: 14:54 Patient seen and examined, no new issues or complaints. - Objective Resuscitation Status - Order Detail: 01/20/19 03:17 Resuscitation Status Routine Resuscitation Status: FULL: Full Resuscitation Vital Signs & Weight: Vital Signs (12 hours) Temp Pulse Resp BP Pulse Ox 01/22/19 14:46 73 26 H 91 L 01/22/19 11:14 96 01/22/19 11:11 76 21 H 968 H 01/22/19 10:04 94 L 01/22/19 09:08 71 171/79 H 01/22/19 08:00 98.8 F 94 L 01/22/19 07:37 71 01/22/19 07:36 71 21 H 95 01/22/19 04:00 98.7 F Weight Weight 187 lb 7.417 oz Most Recent Monitor Data Heart Rate from ECG 72 NIBP 132/48 NIBP BP-Mean 76 Respiration from ECG 24 SpO2 92 I&O: 01/21/19 01/22/19 01/23/19 06:59 06:59 06:59 Intake Total 800 340 Output Total 2300 1275 Balance -1500 -935 Result Diagrams: 01/22/19 06:15 01/22/19 06:15 Additional Labs: Accuchecks 01/22/19 01/22/19 01/21/19 10:16 05:45 20:39 POC Glucose 130 H 93 124 H 01/21/19 16:51 POC Glucose 115 H Phys Exam - Physical Examination Constitutional: NAD HEENT: PERRLA, moist MMs Neck: no nodes, no JVD, supple Respiratory: no wheezing, no rales, no rhonchi Cardiovascular: RRR, no significant murmur Gastrointestinal: soft, non-tender, no distention, positive bowel sounds Musculoskeletal: pulses present, edema present (trace) Dx/Plan (1) Acute on chronic diastolic ACC/AHA stage C congestive heart failure Code(s): I50.33 - ACUTE ON CHRONIC DIASTOLIC (CONGESTIVE) HEART FAILURE Status : Acute (2) Community acquired bacterial pneumonia Code(s): J15.9 - UNSPECIFIED BACTERIAL PNEUMONIA Status: Acute (3) Hyperkalemia Code(s): E87.5 - HYPERKALEMIA Status: Acute (4) Type [address] elevation Code(s): I21.A1 - MYOCARDIAL INFARCTION TYPE 2 Status: Acute (5) Anxiety and depression Code(s): F41.9 - ANXIETY DISORDER, UNSPECIFIED; F32.9 - MAJOR DEPRESSIVE DISORDER, SINGLE EPISODE, UNSPECIFIED Status: Chronic (6) CKD (chronic kidney disease) stage 4, GFR 15-29 ml/min Code(s): N18.4 - CHRONIC KIDNEY DISEASE, STAGE 4 (SEVERE) Status: Chronic (7) Diabetes type 2, controlled Code(s): E11.9 - TYPE 2 DIABETES MELLITUS WITHOUT COMPLICATIONS Status: Chronic (8) Dyslipidemia Code(s): E78.5 - HYPERLIPIDEMIA, UNSPECIFIED Status: Chronic (9) Hypertension Code(s): I10 - ESSENTIAL (PRIMARY) HYPERTENSION Status: Chronic (10) NSTEMI (non-ST elevated myocardial infarction) Code(s): I21.4 - NON-ST ELEVATION (NSTEMI) MYOCARDIAL INFARCTION Status: Acute - Plan * Patient having worsening SOB yestrerday evening and chest pain, I placed orders to transfer patient to CCU and place on bipap and obtain troponins, the patient's trops this AM are 2.5, will start heparin drip, cardio following * vitals stable * high risk for renal injury if cardiac cath needed, final decision on cardiac cath to be made by cardiology team * cont current plan of care otherwise * case and plan d/w patient and family at length, they understood and agreed with this plan.
[2019-01-22 15:14] LABS: Hemoglobin 12.5 g/dL (14.0-18.0); Platelet Count 134 thou/uL (130-400)
[2019-01-22] MEDS: hydrALAZINE 25 MG TAB PO SCH ×2 (15:32→21:13)
[2019-01-22] MEDS: Isosorbide Dinitrate 20 MG TAB PO SCH ×2 (15:32→21:14)
[2019-01-22] MEDS: Heparin 25,000 units/D5W 500 ML IVPB SCH (15:33)
[2019-01-22] MEDS: Heparin 10,000 UNITS/ 10 ML VIAL SLOW IVP SCH (15:45)
[2019-01-22] MEDS: Atorvastatin Calcium 20 MG TAB PO SCH (21:13)
[2019-01-22] MEDS: Carvedilol 6.25 MG TAB PO SCH (21:15)
[2019-01-23] MEDS: Furosemide 100 MG/10 ML VIAL SLOW IVP SCH ×2 (05:42→14:34)
[2019-01-23] MEDS: Mometasone/Formoterol 120 PUFF INHALER INH SCH ×2 (06:39→18:35)
[2019-01-23] MEDS: Famotidine 20 MG TAB PO SCH (08:52)
[2019-01-23] MEDS: Aspirin 81 mg Enteric Coated Tablet PO SCH (08:52)
[2019-01-23] MEDS: Ferrous Sulfate 325 MG TAB PO SCH (08:53)
[2019-01-23] MEDS: Sodium Bicarbonate Tab 325 MG TAB PO SCH ×2 (08:53→21:34)
[2019-01-23] MEDS: DULoxetine 30 MG CAP PO SCH (08:53)
[2019-01-23] MEDS: Clopidogrel Bisulfate 75 MG TAB PO SCH (08:53)
[2019-01-23] MEDS: Isosorbide Dinitrate 20 MG TAB PO SCH ×3 (08:53→21:32)
[2019-01-23] MEDS: hydrALAZINE 25 MG TAB PO SCH ×3 (08:53→21:33)
[2019-01-23] MEDS: Amlodipine 5 MG TAB PO SCH (08:53)
[2019-01-23] MEDS: Cefepime 0.5 GM in Sodium Chloride 0.9% 100 ML IVPB SCH ×2 (08:54→21:31)
[2019-01-23] MEDS: Insulin Glargine 16 UNITS in Pre-Filled Syringe 1 EACH SC SCH (08:54)
[2019-01-23] MEDS: Bicitra 30 ML UDCUP PO SCH ×4 (08:54→21:35)
--- NOTE | 2019-01-23 10:44 | PRG ---
DATE OF SERVICE: 01/23/2019 SUBJECTIVE: Reginald Cortez is a 73-year-old Palestinian gentleman, on high-flow oxygen. OBJECTIVE: VITAL SIGNS: His saturations are blood pressure 154/73, pulse 67, afebrile. CHEST: Decreased breath sounds. No wheezing. CARDIAC: Normal S1 and S2. No gallops. ABDOMEN: Soft. No masses. IMPRESSION: Respiratory failure, renal failure, congestive heart failure, abnormal troponin, febrile illness. PLAN: Continue Maxipime, adjust for renal failure. Await input from Cardiology. PT, supportive care. We will follow. Job ID: [id number]
[2019-01-23] MEDS: HumaLOG 300 UNITS/3 ML VIAL SC PRN (11:04)
[2019-01-23 12:13] LABS: Anion Gap 14 mmol/L (10-20); BUN (Urea Nitrogen) 68 mg/dL (8.4-25.7); Calc. Creatinine Clearance 20 mL/min (70-130); Calcium 8.2 mg/dL (7.8-10.44); Carbon Dioxide 30 mmol/L (23-31); Chloride 98 mmol/L (98-107); Estimated GFR-MDRD 16; Glucose 249 mg/dL (83-110); Sodium 139 mmol/L (136-145)
[2019-01-23 12:15] LABS: Potassium 2.9 mmol/L (3.5-5.1)
[2019-01-23] MEDS: Potassium Chloride 20 MEQ TAB PO SCH ×2 (12:38→21:32)
--- NOTE | 2019-01-23 12:42 | PRG ---
DATE OF SERVICE: 01/23/2019 SUBJECTIVE: Patient was seen and examined at bedside and overnight events noted. Patient denies any shortness of breath or chest pain or palpitation. No history of nausea or vomiting or diarrhea or fever or chills or cramps. OBJECTIVE: GENERAL: This is a well-built male, in no apparent distress. VITAL SIGNS: Temperature . HEENT: Atraumatic, normocephalic. Oral mucosa is moist NECK: Supple. CARDIOVASCULAR: S1, S2 heard. Rate and rhythm regular. RESPIRATORY: Clear to auscultation. GASTROINTESTINAL: Abdomen is soft. MUSCULOSKELETAL: No tenderness. No edema. DERMATOLOGIC: No skin rash. NEUROLOGIC: Alert and awake and oriented x3. No focal neurologic deficits. Moving all the extremities. PSYCHIATRIC: Mood and affect normal. LABORATORY DATA: Not done today. ASSESSMENT AND PLAN: 1. Acute kidney injury on chronic kidney disease, stage 4 . 2. Metabolic acidosis. 3. Hypertension, stable. 4. Obesity. Continue Lasix and monitor renal function. Job ID: [id number]
--- NOTE | 2019-01-23 14:02 | PDOC.PN ---
- Subjective Encounter Start Date: 01/23/19 Encounter Start Time: 13:54 Patient seen and examined, no new issues or complaints. - Objective Resuscitation Status - Order Detail: 01/20/19 03:17 Resuscitation Status Routine Resuscitation Status: FULL: Full Resuscitation Vital Signs & Weight: Vital Signs (12 hours) Temp Pulse Resp BP Pulse Ox 01/23/19 11:03 97.6 F 01/23/19 11:00 100 01/23/19 10:59 67 20 100 01/23/19 08:53 66 134/72 01/23/19 07:30 93 L 01/23/19 07:03 98.6 F 01/23/19 06:39 98 01/23/19 06:38 62 17 98 01/23/19 03:43 99.0 F 01/23/19 02:31 96 Weight Weight 184 lb 11.2 oz Most Recent Monitor Data Heart Rate from ECG 73 NIBP 161/75 NIBP BP-Mean 103 Respiration from ECG 22 SpO2 99 I&O: 01/22/19 01/23/19 01/24/19 06:59 06:59 06:59 Intake Total 800 1989 Output Total 2300 3850 Balance -1500 -1861 Result Diagrams: 01/22/19 15:06 01/23/19 11:38 Additional Labs: Accuchecks 01/23/19 01/23/19 01/22/19 10:42 05:33 19:49 POC Glucose 255 H 123 H 209 H 01/22/19 16:09 POC Glucose 168 H Phys Exam - Physical Examination Constitutional: NAD HEENT: PERRLA, moist MMs, sclera anicteric Neck: no nodes, no JVD, supple Respiratory: no wheezing, no rales, no rhonchi Cardiovascular: RRR, no significant murmur, no rub Gastrointestinal: soft, non-tender, no distention Dx/Plan (1) Acute on chronic diastolic ACC/AHA stage C congestive heart failure Code(s): I50.33 - ACUTE ON CHRONIC DIASTOLIC (CONGESTIVE) HEART FAILURE Status : Acute (2) Community acquired bacterial pneumonia Code(s): J15.9 - UNSPECIFIED BACTERIAL PNEUMONIA Status: Acute (3) Hyperkalemia Code(s): E87.5 - HYPERKALEMIA Status: Acute (4) Type [address] elevation Code(s): I21.A1 - MYOCARDIAL INFARCTION TYPE 2 Status: Acute (5) Anxiety and depression Code(s): F41.9 - ANXIETY DISORDER, UNSPECIFIED; F32.9 - MAJOR DEPRESSIVE DISORDER, SINGLE EPISODE, UNSPECIFIED Status: Chronic (6) CKD (chronic kidney disease) stage 4, GFR 15-29 ml/min Code(s): N18.4 - CHRONIC KIDNEY DISEASE, STAGE 4 (SEVERE) Status: Chronic (7) Diabetes type 2, controlled Code(s): E11.9 - TYPE 2 DIABETES MELLITUS WITHOUT COMPLICATIONS Status: Chronic (8) Dyslipidemia Code(s): E78.5 - HYPERLIPIDEMIA, UNSPECIFIED Status: Chronic (9) Hypertension Code(s): I10 - ESSENTIAL (PRIMARY) HYPERTENSION Status: Chronic (10) NSTEMI (non-ST elevated myocardial infarction) Code(s): I21.4 - NON-ST ELEVATION (NSTEMI) MYOCARDIAL INFARCTION Status: Acute - Plan * remains on high flow in ICU * cont heparin drip for NSTEMI * cardio and renal following * potassium very low, will replace * repeat labs in AM * case and plan d/w patient and daughter at length, in panamanian, they understood and agreed with this plan.
[2019-01-23] MEDS: Heparin 25,000 units/D5W 500 ML IVPB SCH (14:35)
[2019-01-23] MEDS: Atorvastatin Calcium 20 MG TAB PO SCH (21:32)
[2019-01-23] MEDS: Carvedilol 6.25 MG TAB PO SCH (21:33)
[2019-01-24 03:32] LABS: #Eosinphils 0.3 thou/uL (0.0-0.7); #Lymphocytes 0.7 thou/uL (1.20-3.40); #Monocytes 0.5 thou/uL (0.11-0.59); #Neutrophils 5.3 thou/uL (1.40-6.50); %Basophils 0.3 % (0.0-1.0); %Eosinophils 4.7 % (0.0-10.0); %Lymphocytes 10.9 % (21.0-51.0); %Neutrophils 77.1 % (42.0-75.0); Mean Corpuscular HGB CONC 32.4 g/dL (32.0-36.0); Mean Corpuscular Hemoglobin 27.8 pg (27.0-31.0); Mean Corpuscular Volume 85.7 fL (78.0-98.0); Mean Platelet Volume 9.1 fL (7.4-10.4); Platelet Count 139 thou/uL (130-400); RBC Distribution Width 12.9 % (11.5-14.5); Red Blood Cell (RBC) Count 4.33 mill/uL (4.70-6.10); White Blood Cell (WBC) Count 6.8 thou/uL (4.8-10.8)
[2019-01-24] MEDS: Heparin 10,000 UNITS/ 10 ML VIAL SLOW IVP SCH ×3 (03:50→22:44)
[2019-01-24 03:57] LABS: ALT (SGPT) 29 U/L (8-55); AST (SGOT) 18 U/L (5-34); Albumin 3.1 g/dL (3.4-4.8); Alkaline Phosphatase 66 U/L (40-150); Anion Gap 16 mmol/L (10-20); BUN (Urea Nitrogen) 75 mg/dL (8.4-25.7); Bilirubin, Total 0.9 mg/dL (0.2-1.2); Calc. Creatinine Clearance 20 mL/min (70-130); Calcium 8.4 mg/dL (7.8-10.44); Carbon Dioxide 30 mmol/L (23-31); Chloride 98 mmol/L (98-107); Estimated GFR-MDRD 15; Globulin 3.4 g/dL (2.4-3.5); Glucose 197 mg/dL (83-110); Potassium 3.6 mmol/L (3.5-5.1); Protein, Total 6.5 g/dL (5.8-8.1); Sodium 140 mmol/L (136-145)
[2019-01-24] MEDS: Furosemide 100 MG/10 ML VIAL SLOW IVP SCH ×2 (05:55→13:18)
[2019-01-24] MEDS: HumaLOG 300 UNITS/3 ML VIAL SC PRN ×4 (05:56→20:38)
[2019-01-24] MEDS: Mometasone/Formoterol 120 PUFF INHALER INH SCH ×2 (07:30→19:00)
--- NOTE | 2019-01-24 07:57 | PRG ---
DATE OF SERVICE: 01/22/2019 SUBJECTIVE: Reginald Cortez this morning, is awake, alert, responsive, on BiPAP, appears to be in no distress. OBJECTIVE: VITAL SIGNS: His saturations are clearly low. Blood pressure 154/74, saturations are , respiratory rate 18, and pulse 80. CHEST: Decreased breath sounds. Bilateral crackles. CARDIAC: Normal S1 and S2. No gallops or masses. LABORATORY DATA: Lab shows white count of 14,000, H and H 12 and 38. BUN and creatinine are elevated at 84 and 3.8. His chest x-ray shows bilateral interstitial alveolar infiltrates consistent with CHF. IMPRESSION: 1. Respiratory failure. 2. Renal failure. 3. . 4. Abnormal troponin. 5. Diabetes. 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 He is going to need some coronary intervention to assess the cause of his pulmonary edema. He may very well require dialysis. Await sputum results, though I doubt this is MTB. Will follow. Job ID: [id number]
--- NOTE | 2019-01-24 08:36 | PRG ---
DATE OF SERVICE: 01/24/2019 SUBJECTIVE: This morning, he is better. X-ray looks surprisingly much improved. OBJECTIVE: VITAL SIGNS: His sats are on high-flow 100%, blood pressure 138/80, respirations 18, pulse 80. CHEST: Decreased breath sounds. No wheezing. CARDIAC: Normal S1 and S2. No gallops. ABDOMEN: No masses. IMPRESSION: Congestive heart failure, renal failure, coronary artery disease, no evidence of any tuberculosis. PLAN: Discontinue TB isolation. Switch over to oral antibiotics, neb treatment, supportive care. We will follow. Job ID: [id number]
[2019-01-24] MEDS: Amlodipine 5 MG TAB PO SCH (08:52)
[2019-01-24] MEDS: Cefdinir 300 MG CAP PO SCH ×2 (08:53→20:36)
[2019-01-24] MEDS: Ferrous Sulfate 325 MG TAB PO SCH (08:53)
[2019-01-24] MEDS: Famotidine 20 MG TAB PO SCH (08:53)
[2019-01-24] MEDS: Aspirin 81 mg Enteric Coated Tablet PO SCH (08:53)
[2019-01-24] MEDS: DULoxetine 30 MG CAP PO SCH (08:53)
[2019-01-24] MEDS: Clopidogrel Bisulfate 75 MG TAB PO SCH (08:53)
[2019-01-24] MEDS: hydrALAZINE 25 MG TAB PO SCH ×3 (08:54→20:37)
[2019-01-24] MEDS: Insulin Glargine 16 UNITS in Pre-Filled Syringe 1 EACH SC SCH (08:54)
[2019-01-24] MEDS: Isosorbide Dinitrate 20 MG TAB PO SCH ×3 (08:54→20:36)
[2019-01-24] MEDS: Sodium Bicarbonate Tab 325 MG TAB PO SCH ×2 (08:54→20:36)
[2019-01-24] MEDS: Bicitra 30 ML UDCUP PO SCH ×4 (08:55→22:44)
--- NOTE | 2019-01-24 09:04 | RAD ---
CHEST 1 VIEW: INDICATION: CHF. COMPARISON: Prior exam dated 01/22/2019. FINDINGS: There is stable cardiomegaly and pulmonary vascular congestion. The extent of the pulmonary edema resendiz s improved. No pneumothorax is evident. IMPRESSION: Improving central edema pattern. Persistent cardiomegaly and pulmonary vascular congestion. POS: BH
--- NOTE | 2019-01-24 10:28 | PDOC.PN ---
- Subjective Encounter Start Date: 01/24/19 Encounter Start Time: 11:40 Subjective: Patient doing better. Breathing more easily. No fever. Mild cough. Weaning -: O2 down. - Objective Resuscitation Status - Order Detail: 01/20/19 03:17 Resuscitation Status Routine Resuscitation Status: FULL: Full Resuscitation MAR Reviewed: Yes Vital Signs & Weight: Vital Signs (12 hours) Temp Pulse Resp Pulse Ox 01/24/19 08:54 70 01/24/19 08:52 70 01/24/19 08:00 97 01/24/19 07:31 97.6 F 01/24/19 07:29 99 01/24/19 07:27 68 16 99 01/24/19 04:00 98.6 F 01/24/19 02:22 93 L 01/24/19 00:00 99.4 F Weight Weight 182 lb 15.739 oz Most Recent Monitor Data Heart Rate from ECG 73 NIBP 150/79 NIBP BP-Mean 102 Respiration from ECG 21 SpO2 95 I&O: 01/23/19 01/24/19 01/25/19 06:59 06:59 06:59 Intake Total 1988 1669 Output Total 3850 2225 Balance -8971 -053 Result Diagrams: 01/24/19 15:20 01/24/19 03:24 Additional Labs: Accuchecks 01/24/19 01/23/19 01/23/19 05:52 20:14 16:45 POC Glucose 156 H 208 H 168 H 01/23/19 10:42 POC Glucose 255 H Phys Exam - Physical Examination Constitutional: NAD HEENT: moist MMs Respiratory: no wheezing, no rales, no rhonchi Cardiovascular: RRR, no significant murmur Gastrointestinal: soft, positive bowel sounds Neurological: non-focal Psychiatric: normal affect, A&O x 3 Dx/Plan (1) Acute respiratory failure with hypoxia Code(s): J96.01 - ACUTE RESPIRATORY FAILURE WITH HYPOXIA Status: Acute Comment: O2 weaned down to 3L, improving with diuresis over the weekend (2) Acute on chronic diastolic ACC/AHA stage C congestive heart failure Code(s): I50.33 - ACUTE ON CHRONIC DIASTOLIC (CONGESTIVE) HEART FAILURE Status : Acute (3) Community acquired bacterial pneumonia Code(s): J15.9 - UNSPECIFIED BACTERIAL PNEUMONIA Status: Acute Comment: Cefepime d/c'd and on Omnicef and Levaquin (4) Hypokalemia Code(s): E87.6 - HYPOKALEMIA Status: Resolved (5) CKD (chronic kidney disease) stage 4, GFR 15-29 ml/min Code(s): N18.4 - CHRONIC KIDNEY DISEASE, STAGE 4 (SEVERE) Status: Chronic (6) Type [address] elevation Code(s): I21.A1 - MYOCARDIAL INFARCTION TYPE 2 Status: Acute Comment: on heparin drip, unable to cath due to renal function (7) Diabetes type 2, controlled Code(s): E11.9 - TYPE 2 DIABETES MELLITUS WITHOUT COMPLICATIONS Status: Chronic (8) Dyslipidemia Code(s): E78.5 - HYPERLIPIDEMIA, UNSPECIFIED Status: Chronic (9) Hypertension Code(s): I10 - ESSENTIAL (PRIMARY) HYPERTENSION Status: Chronic (10) Obesity (BMI 30.0-34.9) Code(s): E66.9 - OBESITY, UNSPECIFIED Status: Chronic - Plan cont current plan of care, continue antibiotics, PT/OT, respiratory therapy, DVT proph w/heparin * . - Discharge Day Encounter end time: 11:50
--- NOTE | 2019-01-24 11:41 | PDOC.CTH ---
Cardiology Progress Note - Subjective Breathing better. No more fevers. - Objective Vital Signs Temp Pulse Resp Pulse Ox 01/24/19 11:15 98.4 F 01/24/19 11:11 76 15 99 01/24/19 08:54 70 01/24/19 08:52 70 01/24/19 08:00 97 01/24/19 07:31 97.6 F 01/24/19 07:29 99 01/24/19 07:27 68 16 99 01/24/19 04:00 98.6 F 01/24/19 02:22 93 L 01/24/19 00:00 99.4 F Weight 182 lb 15.739 oz 01/23/19 01/24/19 01/25/19 06:59 06:59 06:59 Intake Total 19880 Output Total 385 222 500 Balance -1566 -023 -819 - Physical Examination General/Neuro: alert & oriented x3, NAD Neck: no JVD present Lungs: CTA, unlabored respirations Heart: RRR Abdomen: NT/ND Extremities: + edema B (1+) - Telemetry Telemetry Rhythm: NSR - Labs Result Diagrams: 01/24/19 03:24 01/24/19 03:24 Troponin/CKMB CK-MB (CK-2) 4.5 ng/mL (0-6.6) 01/22/19 06:15 Troponin I 2.357 ng/mL (< 0.028) H* 01/22/19 06:15 - Assessment/Plan 1. Acute on chronic systolic heart failure., 2. Ischemic CM EF at 45% 3. Never had a cath due to renal dysfunction 4. Inferior ischemia on MPI in the past. 5. MELY on CKD 6. Pneumonia PLAN: - Diuresing well, continue for now. - Abx per primary team. - We had a long conversation about how to proceed to check for ischemia. He is not at the point of needing dialysis and a LHC would increase his risk of having to undergo permanent dialysis significantly. Will continue to treat medically for now. - heparin for a total of 48 hrs, May stop tomorrow.
--- NOTE | 2019-01-24 12:13 | PRG ---
DATE OF SERVICE: 01/24/2019 SUBJECTIVE: A 73-year-old gentleman being seen for acute kidney injury. The patient denies any nausea, vomiting, or chest pain. OBJECTIVE: CONSTITUTIONAL: The patient is awake and alert. VITAL SIGNS: Pulse 80, breathing 16, and blood pressure 150/79. GENERAL APPEARANCE AND MENTAL STATUS: Fair. HEAD/NECK: Normocephalic. Atraumatic. EYES: EOMI. No deformity. EARS: Clear. No ulcers. NOSE: Intact. No lesions. MOUTH: Clear. No discharge. THROAT: Clear. No exudate. LUNGS: Clear. No crackles. CARDIAC: S1, S2. No rub. ABDOMEN: Benign. Bowel sounds positive. GENITALIA/RECTUM: [place] absent. BACK/EXTREMITIES: Edema 0+. NEUROLOGICAL: Alert and motor intact. SKIN: LABORATORY DATA: Reviewed. IMPRESSION: 1. Chronic kidney disease, stage 4, stable. 2. Hypertension, stable. 3. Anemia, stable. 4. No indication for dialysis. We will follow renal function closely. If the renal function does not improve, we will consider renal replacement therapy. Job ID: [id number]
[2019-01-24] MEDS: Heparin 25,000 units/D5W 500 ML IVPB SCH (13:17)
--- NOTE | 2019-01-24 13:43 | PQF ---
DATE: 01-24-19 ATTN: DR. ALBER CEDILLO Please exercise your independent, professional judgment in responding to the clarification form. Clinical indicators are provided on the bottom of this form for your review Please check appropriate box(s) to clarify if the following diagnosis has been ruled in or ruled out: SEVERE SEPSIS [ X ] Ruled in diagnosis [ ] Continue to treat [ X ] Resolved [ ] Ruled out diagnosis [ ] Other diagnosis [ ] Unable to determine In addition, please specify: Present on Admission (POA): [ X ] Yes [ ] No [ ] Unable to determine For continuity of documentation, please document condition throughout progress notes and discharge summary. Thank You. CLINICAL INDICATORS - SIGNS / SYMPTOMS / LABS: ER DX: SEPSIS, BILATERAL PNEUMONIA, RESPIRATORY DISTRESS H&P: PNEUMONIA, MELY ON CKD PN DR. SHEIKH 01-20-19: ACUTE ON CHRONIC DIASTOLIC CHF, ACUTE RESPIRATORY FAILURE W/ HYPOXIA, COMMUNITY ACQUIRED BACTERIAL PNEUMONIA, SEVERE SEPSIS WBC: 01-19-19: 7.0 01-21-19: 11.9 01-22-19: 14.3 BANDS: 01-19-19: 10% 01-20-19: 13% TEMP: 01-21-19: 100.9 ER: 102.8 RR: ER: 24, 28, 32, 32, 23, 23 RISK FACTORS: ER: HX RENAL FAILURE, CHF, DM, HTN, HYPERLIPIDEMIA, DE ER DX: SEPSIS, BILATERAL PNEUMONIA, RESPIRATORY DISTRESS TREATMENTS: ER: VANCOMYCIN IV, CEFTRIAXONE IV MAR: 01-21-19: CEFEPIME IV (This form is maintained as a part of the permanent medical record) 2014 [employer]. All Rights Reserved ABHIJIT [email or web address] Office: [phone] DELANEY
[2019-01-24 15:28] LABS: Hemoglobin 12.2 g/dL (14.0-18.0); Platelet Count 158 thou/uL (130-400)
[2019-01-24] MEDS: Carvedilol 6.25 MG TAB PO SCH (20:36)
[2019-01-24] MEDS: Atorvastatin Calcium 20 MG TAB PO SCH (20:36)
[2019-01-25 05:08] LABS: #Eosinphils 0.4 thou/uL (0.0-0.7); #Lymphocytes 0.9 thou/uL (1.20-3.40); #Monocytes 0.6 thou/uL (0.11-0.59); #Neutrophils 5.1 thou/uL (1.40-6.50); %Basophils 0.6 % (0.0-1.0); %Eosinophils 5.7 % (0.0-10.0); %Lymphocytes 12.4 % (21.0-51.0); %Monocytes 8.8 % (0.0-10.0); %Neutrophils 72.5 % (42.0-75.0); Hemoglobin 11.6 g/dL (14.0-18.0); Mean Corpuscular HGB CONC 32.6 g/dL (32.0-36.0); Mean Corpuscular Hemoglobin 27.7 pg (27.0-31.0); Mean Platelet Volume 9.1 fL (7.4-10.4); Platelet Count 153 thou/uL (130-400); RBC Distribution Width 12.7 % (11.5-14.5); Red Blood Cell (RBC) Count 4.17 mill/uL (4.70-6.10)
[2019-01-25 05:26] LABS: Anion Gap 19 mmol/L (10-20); BUN (Urea Nitrogen) 80 mg/dL (8.4-25.7); Calc. Creatinine Clearance 19 mL/min (70-130); Calcium 8.4 mg/dL (7.8-10.44); Carbon Dioxide 28 mmol/L (23-31); Chloride 96 mmol/L (98-107); Estimated GFR-MDRD 15; Glucose 141 mg/dL (83-110); Potassium 3.1 mmol/L (3.5-5.1); Sodium 140 mmol/L (136-145)
[2019-01-25] MEDS: Potassium Chloride 20 MEQ TAB PO SCH ×2 (06:12→11:58)
[2019-01-25] MEDS: Furosemide 100 MG/10 ML VIAL SLOW IVP SCH ×2 (06:12→14:16)
[2019-01-25] MEDS: Mometasone/Formoterol 120 PUFF INHALER INH SCH ×2 (07:27→19:12)
--- NOTE | 2019-01-25 08:34 | PDOC.CTH ---
Cardiology Progress Note - Subjective No new issues. Breathing better. No edema. - Objective Vital Signs Temp Pulse Resp BP Pulse Ox 01/25/19 07:32 98 01/25/19 07:27 99 01/25/19 07:23 66 14 99 01/25/19 07:11 98.2 F 01/25/19 03:57 99.2 F 01/25/19 00:28 99.5 F 01/24/19 20:37 80 129/83 01/24/19 20:36 129/83 Weight 181 lb 14.4 oz 01/24/19 01/25/19 01/26/19 06:59 06:59 06:59 Intake Total 1670 1040 Output Total 2225 2300 Balance -555 -1260 - Physical Examination General/Neuro: alert & oriented x3, NAD Neck: no JVD present Lungs: unlabored respirations Heart: RRR Abdomen: NT/ND Extremities: other: (no edema) - Telemetry Telemetry Rhythm: NSR - Labs Result Diagrams: 01/25/19 04:53 01/25/19 04:53 Troponin/CKMB CK-MB (CK-2) 4.5 ng/mL (0-6.6) 01/22/19 06:15 Troponin I 2.357 ng/mL (< 0.028) H* 01/22/19 06:15 - Assessment/Plan 1. Acute on chronic systolic heart failure, improved. 2. Ischemic CM EF at 45% 3. Never had a cath due to renal dysfunction 4. Inferior ischemia on MPI in the past. 5. MELY on CKD 6. Pneumonia 7. Type 2 MN, NSTEMI, demand ischemia from pneumonia likely. PLAN: - Continues to diurese. Will cut back on Lasix today to 40 IV BID. - Abx per primary team. - Continue medical therapy for his elevated troponins. - Stop heparin drip today, switch to DVT prophylaxis. - Replace K.
[2019-01-25] MEDS: Amlodipine 5 MG TAB PO SCH (08:53)
[2019-01-25] MEDS: Clopidogrel Bisulfate 75 MG TAB PO SCH (08:53)
[2019-01-25] MEDS: Famotidine 20 MG TAB PO SCH (08:53)
[2019-01-25] MEDS: Cefdinir 300 MG CAP PO SCH ×2 (08:53→20:27)
[2019-01-25] MEDS: Ferrous Sulfate 325 MG TAB PO SCH (08:54)
[2019-01-25] MEDS: Sodium Bicarbonate Tab 325 MG TAB PO SCH ×2 (08:54→20:28)
[2019-01-25] MEDS: Aspirin 81 mg Enteric Coated Tablet PO SCH (08:54)
[2019-01-25] MEDS: hydrALAZINE 25 MG TAB PO SCH ×3 (08:54→20:27)
[2019-01-25] MEDS: Isosorbide Dinitrate 20 MG TAB PO SCH ×3 (08:54→20:27)
[2019-01-25] MEDS: DULoxetine 30 MG CAP PO SCH (08:54)
[2019-01-25] MEDS: Insulin Glargine 16 UNITS in Pre-Filled Syringe 1 EACH SC SCH (08:55)
[2019-01-25] MEDS: Bicitra 30 ML UDCUP PO SCH ×4 (08:55→20:31)
--- NOTE | 2019-01-25 09:19 | PDOC.PN ---
- Subjective Encounter Start Date: 01/25/19 Encounter Start Time: 12:10 Subjective: Patient without complaints. Breathing easily at rest. No chest pain. - Objective Resuscitation Status - Order Detail: 01/20/19 03:17 Resuscitation Status Routine Resuscitation Status: FULL: Full Resuscitation MAR Reviewed: Yes Vital Signs & Weight: Vital Signs (12 hours) Temp Pulse Resp BP Pulse Ox 01/25/19 08:54 75 174/92 H 01/25/19 08:53 75 174/92 H 01/25/19 07:32 98 01/25/19 07:27 99 01/25/19 07:23 66 14 99 01/25/19 07:11 98.2 F 01/25/19 03:57 99.2 F 01/25/19 00:28 99.5 F Weight Weight 181 lb 14.4 oz Most Recent Monitor Data Heart Rate from ECG 68 NIBP 174/92 NIBP BP-Mean 119 Respiration from ECG 9 SpO2 99 I&O: 01/24/19 01/25/19 01/26/19 06:59 06:59 06:59 Intake Total 1670 1040 Output Total 2225 2300 Balance -555 -1260 Result Diagrams: 01/25/19 04:53 01/25/19 04:53 Additional Labs: Accuchecks 01/25/19 01/24/19 01/24/19 05:49 20:01 16:44 POC Glucose 141 H 269 H 247 H 01/24/19 10:38 POC Glucose 189 H Phys Exam - Physical Examination Constitutional: NAD HEENT: moist MMs Respiratory: no wheezing, no rales, no rhonchi Cardiovascular: RRR Gastrointestinal: soft, non-tender, positive bowel sounds Musculoskeletal: no edema Neurological: non-focal, moves all 4 limbs Psychiatric: normal affect, A&O x 3 Dx/Plan (1) Acute respiratory failure with hypoxia Code(s): J96.01 - ACUTE RESPIRATORY FAILURE WITH HYPOXIA Status: Acute Comment: O2 weaned down to 1L, improving with diuresis over the weekend (2) Acute on chronic diastolic ACC/AHA stage C congestive heart failure Code(s): I50.33 - ACUTE ON CHRONIC DIASTOLIC (CONGESTIVE) HEART FAILURE Status : Acute (3) Community acquired bacterial pneumonia Code(s): J15.9 - UNSPECIFIED BACTERIAL PNEUMONIA Status: Acute Comment: Cefepime d/c'd and on Omnicef and Levaquin (4) Hypokalemia Code(s): E87.6 - HYPOKALEMIA Status: Acute Comment: continue oral replacement (5) CKD (chronic kidney disease) stage 4, GFR 15-29 ml/min Code(s): N18.4 - CHRONIC KIDNEY DISEASE, STAGE 4 (SEVERE) Status: Chronic (6) Type [address] elevation Code(s): I21.A1 - MYOCARDIAL INFARCTION TYPE 2 Status: Acute Comment: unable to cath due to renal function, heparin drip stopped by cardiology (7) Diabetes type 2, controlled Code(s): E11.9 - TYPE 2 DIABETES MELLITUS WITHOUT COMPLICATIONS Status: Chronic (8) Dyslipidemia Code(s): E78.5 - HYPERLIPIDEMIA, UNSPECIFIED Status: Chronic (9) Hypertension Code(s): I10 - ESSENTIAL (PRIMARY) HYPERTENSION Status: Chronic (10) Obesity (BMI 30.0-34.9) Code(s): E66.9 - OBESITY, UNSPECIFIED Status: Chronic - Plan cont current plan of care, continue antibiotics, out of bed/ambulate * . - Discharge Day Encounter end time: 12:25
--- NOTE | 2019-01-25 09:42 | PRG ---
DATE OF SERVICE: SUBJECTIVE: This morning, he is doing much better. OBJECTIVE: VITAL SIGNS: His sats are 98% on 3 L. His pulse is 66, respiratory rate 14, and blood pressure 174/92. CHEST: Decreased breath sounds. No wheezing. CARDIAC: Normal S1 and S2. No gallops. ABDOMEN: No masses. IMPRESSION: Respiratory failure , congestive heart failure, probably atypical pneumonia, culture negative. PLAN: Switch over to oral antibiotics. PT, supportive care. DISPOSITION: As per Cardiology. We will follow. Job ID: [id number]
[2019-01-25] MEDS ORDERED: Furosemide 100 MG/10 ML VIAL SLOW IVP SCH (10:00)
[2019-01-25] MEDS: Heparin 5,000 UNITS/ML VIAL SC SCH ×3 (10:09→20:26)
[2019-01-25] MEDS: HumaLOG 300 UNITS/3 ML VIAL SC PRN ×3 (11:58→20:26)
--- NOTE | 2019-01-25 13:31 | PRG ---
DATE OF SERVICE: 01/25/2019 SUBJECTIVE: This is a 73-year-old gentleman being seen for acute kidney injury. The patient denies nausea, vomiting, or chest pain. OBJECTIVE: CONSTITUTIONAL: The patient is awake and alert. VITAL SIGNS: Afebrile, pulse 75, breathing 16, blood pressure 164/72. GENERAL APPEARANCE AND MENTAL STATUS: Fair. HEAD/NECK: Normocephalic. Atraumatic. EYES: EOMI. No deformity. EARS: Clear. No ulcers. NOSE: Intact. No lesions. MOUTH: Clear. No discharge. THROAT: Clear. No exudate. LUNGS: Clear. No crackles. CARDIAC: S1, S2. No rub. ABDOMEN: Benign. Bowel sounds positive. GENITALIA/RECTUM: [place] absent. BACK/EXTREMITIES: Edema 0+. NEUROLOGICAL: Alert and motor intact. SKIN: LYMPHATICS: LABORATORY DATA: Labs show creatinine 3.8, potassium 3.1. ASSESSMENT AND PLAN: 1. Chronic kidney disease, stage 4, stable. 2. Hypertension, stable. 3. Anemia, stable. 4. Hypokalemia. Recommend high potassium diet. Recheck labs. No indication for dialysis. Job ID: [id number]
[2019-01-25 20:07] LABS: QuantiFERON-TB Gold Plus Negative (Negative)
[2019-01-25] MEDS: Atorvastatin Calcium 20 MG TAB PO SCH (20:27)
[2019-01-25] MEDS: Carvedilol 6.25 MG TAB PO SCH (20:27)
[2019-01-26] MEDS: Furosemide 100 MG/10 ML VIAL SLOW IVP SCH ×2 (05:34→13:51)
[2019-01-26] MEDS: Mometasone/Formoterol 120 PUFF INHALER INH SCH (07:30)
[2019-01-26] MEDS: Insulin Glargine 16 UNITS in Pre-Filled Syringe 1 EACH SC SCH (09:18)
[2019-01-26] MEDS: Sodium Bicarbonate Tab 325 MG TAB PO SCH (09:19)
[2019-01-26] MEDS: Bicitra 30 ML UDCUP PO SCH ×2 (09:19→13:51)
[2019-01-26] MEDS: DULoxetine 30 MG CAP PO SCH (09:20)
[2019-01-26] MEDS: Famotidine 20 MG TAB PO SCH (09:20)
[2019-01-26] MEDS: Isosorbide Dinitrate 20 MG TAB PO SCH ×2 (09:20→14:05)
[2019-01-26] MEDS: Aspirin 81 mg Enteric Coated Tablet PO SCH (09:20)
[2019-01-26] MEDS: hydrALAZINE 25 MG TAB PO SCH ×2 (09:21→14:04)
[2019-01-26] MEDS: Clopidogrel Bisulfate 75 MG TAB PO SCH (09:21)
[2019-01-26] MEDS: Amlodipine 5 MG TAB PO SCH (09:21)
[2019-01-26] MEDS: Heparin 5,000 UNITS/ML VIAL SC SCH ×2 (09:22→13:52)
[2019-01-26] MEDS: Ferrous Sulfate 325 MG TAB PO SCH (09:22)
--- NOTE | 2019-01-26 09:22 | PRG ---
DATE OF SERVICE: 01/26/2019 SUBJECTIVE: This morning, he is awake, alert, and responsive. OBJECTIVE: VITAL SIGNS: His saturations are 98% on liter, temperature 97, pulse 72, blood pressure 160/70. GENERAL: Denies any pain or discomfort. In fact, he walked the halls without getting markedly short of breath. CHEST: Decreased breath sounds. No wheezing. CARDIAC: Normal S1, S2. No gallops. ABDOMEN: No masses. IMPRESSION AND PLAN: Status post respiratory failure, probably combination of fluid overload from congestive heart failure, chronic disease and renal failure. No evidence of any TB. No evidence of any obvious pneumonia, but he may have atypical process. Otherwise, he can be discharged home any time as per the primary care physician. Follow up with his invoice checker and lead housekeeper. Job ID: [id number]
[2019-01-26 11:39] VITALS: TEMP 98.2
--- NOTE | 2019-01-26 11:40 | PDOC.PN ---
- Subjective Encounter Start Date: 01/26/19 Encounter Start Time: 11:30 Subjective: Patient with no complaints today. Was a little light headed on first -: getting up and ambulating yesterday, but doing better now. Did well -: with PT. Off O2. No SOB. No cough. - Objective Resuscitation Status - Order Detail: 01/20/19 03:17 Resuscitation Status Routine Resuscitation Status: FULL: Full Resuscitation MAR Reviewed: Yes Vital Signs & Weight: Vital Signs (12 hours) Temp Pulse Resp BP Pulse Ox 01/26/19 10:35 80 19 98 01/26/19 09:21 70 173/94 H 01/26/19 07:43 97.0 F L 01/26/19 07:41 99 01/26/19 07:32 96 01/26/19 07:30 72 12 96 01/26/19 03:48 98.3 F 01/25/19 23:43 99.4 F Weight Weight 177 lb 3.2 oz Most Recent Monitor Data Heart Rate from ECG 90 NIBP 155/75 NIBP BP-Mean 101 Respiration from ECG 19 SpO2 94 I&O: 01/25/19 01/26/19 01/27/19 06:59 06:59 06:59 Intake Total 1040 1767.7 Output Total 2300 1125 Balance -1260 642.7 Result Diagrams: 01/25/19 04:53 01/25/19 04:53 Additional Labs: Accuchecks 01/26/19 01/26/19 01/25/19 11:28 06:01 20:10 POC Glucose 148 H 126 H 216 H 01/25/19 16:27 POC Glucose 227 H Phys Exam - Physical Examination Constitutional: NAD HEENT: moist MMs Respiratory: no wheezing, no rales, no rhonchi Cardiovascular: RRR, no significant murmur Gastrointestinal: soft, positive bowel sounds Musculoskeletal: no edema Neurological: non-focal, moves all 4 limbs Psychiatric: normal affect, A&O x 3 Dx/Plan (1) Acute respiratory failure with hypoxia Code(s): J96.01 - ACUTE RESPIRATORY FAILURE WITH HYPOXIA Status: Resolved Comment: off O2 (2) Acute on chronic diastolic ACC/AHA stage C congestive heart failure Code(s): I50.33 - ACUTE ON CHRONIC DIASTOLIC (CONGESTIVE) HEART FAILURE Status : Acute (3) Community acquired bacterial pneumonia Code(s): J15.9 - UNSPECIFIED BACTERIAL PNEUMONIA Status: Acute Comment: Cefepime d/c'd and on Omnicef and Levaquin, today is 7th day, can d/c abx after today (4) Hypokalemia Code(s): E87.6 - HYPOKALEMIA Status: Acute Comment: continue oral replacement (5) CKD (chronic kidney disease) stage 4, GFR 15-29 ml/min Code(s): N18.4 - CHRONIC KIDNEY DISEASE, STAGE 4 (SEVERE) Status: Chronic (6) Type [address] elevation Code(s): I21.A1 - MYOCARDIAL INFARCTION TYPE 2 Status: Acute Comment: unable to cath due to renal function, heparin drip stopped by cardiology (7) Diabetes type 2, controlled Code(s): E11.9 - TYPE 2 DIABETES MELLITUS WITHOUT COMPLICATIONS Status: Chronic (8) Dyslipidemia Code(s): E78.5 - HYPERLIPIDEMIA, UNSPECIFIED Status: Chronic (9) Hypertension Code(s): I10 - ESSENTIAL (PRIMARY) HYPERTENSION Status: Chronic (10) Obesity (BMI 30.0-34.9) Code(s): E66.9 - OBESITY, UNSPECIFIED Status: Chronic - Plan cont current plan of care, continue antibiotics finishing abx today, off O2, cleared for d/c by pulm and cardiology -: d/c home on oral Lasix, f/u Dr. Arrington in one week * . - Discharge Day Encounter end time: 11:55
[2019-01-26 12:36] LABS: Anion Gap 18 mmol/L (10-20); BUN (Urea Nitrogen) 80 mg/dL (8.4-25.7); Calc. Creatinine Clearance 18 mL/min (70-130); Calcium 8.9 mg/dL (7.8-10.44); Carbon Dioxide 30 mmol/L (23-31); Chloride 96 mmol/L (98-107); Estimated GFR-MDRD 14; Glucose 174 mg/dL (83-110); Potassium 3.5 mmol/L (3.5-5.1); Sodium 140 mmol/L (136-145)
[2019-01-26 14:05] VITALS: BP 146/75
--- NOTE | 2019-01-26 15:04 | PRG ---
DATE OF SERVICE: 01/26/2019 SUBJECTIVE: This is a 73-year-old gentleman, being seen for acute kidney injury. The patient denied nausea, vomiting, or chest pain. OBJECTIVE: CONSTITUTIONAL: The patient is awake and alert. VITAL SIGNS: Afebrile. Pulse 75, breathing 16, blood pressure 146/75. GENERAL APPEARANCE AND MENTAL STATUS: Fair. HEAD/NECK: Normocephalic. Atraumatic. EYES: EOMI. No deformity. EARS: Clear. No ulcers. NOSE: Intact. No lesions. MOUTH: Clear. No discharge. THROAT: Clear. No exudate. LUNGS: Clear. No crackles. CARDIAC: S1, S2. No rub. ABDOMEN: Benign. Bowel sounds positive. GENITALIA/RECTUM: [place] absent. BACK/EXTREMITIES: Edema 0+. NEUROLOGICAL: Alert and motor intact. SKIN: LYMPHATICS: LABORATORY DATA: Labs show hemoglobin 11.6. Creatinine is 4.0. ASSESSMENT AND PLAN: 1. Chronic kidney disease, stage 5, with acute kidney injury due to cardiorenal syndrome and diabetes mellitus. No indication for dialysis. 2. Hypertension, stable. 3. Anemia stable. We will follow renal function closely. If potassium gets high or if the patient has decreased urine output, we will start dialysis. Job ID: [id number]
[2019-01-26 15:19] LABS: Hemoglobin 12.4 g/dL (14.0-18.0); Platelet Count 173 thou/uL (130-400)
--- NOTE | 2019-01-26 20:06 | PDOC.CTH ---
Cardiology Progress Note - Subjective Doing much better today, not needing O2 supplementation. - Objective Vital Signs Temp Pulse Resp BP Pulse Ox 01/26/19 14:04 80 146/75 H 01/26/19 11:38 98.2 F 01/26/19 10:35 80 19 98 01/26/19 09:21 70 173/94 H Weight 177 lb 3.2 oz 01/25/19 01/26/19 01/27/19 06:59 06:59 06:59 Intake Total 1040 1767.7 Output Total 2300 1125 Balance -1260 642.7 - Physical Examination General/Neuro: alert & oriented x3, NAD Neck: no JVD present Lungs: unlabored respirations Heart: RRR Abdomen: NT/ND Extremities: other: (no edema) - Telemetry Telemetry Rhythm: NSR - Labs Result Diagrams: 01/26/19 15:06 01/26/19 12:03 Troponin/CKMB CK-MB (CK-2) 4.5 ng/mL (0-6.6) 01/22/19 06:15 Troponin I 2.357 ng/mL (< 0.028) H* 01/22/19 06:15 - Assessment/Plan 1. Acute on chronic systolic heart failure, improved. 2. Ischemic CM EF at 45% 3. Never had a cath due to renal dysfunction 4. Inferior ischemia on MPI in the past. 5. MELY on CKD 6. Pneumonia 7. Type 2 TX, NSTEMI, demand ischemia from pneumonia likely. PLAN: - PO lasix to 40 mg daily. - Abx per primary team. - CV stable. No new recs. May discharge any time from cardiac perspective.
--- NOTE | 2019-01-27 11:33 | DIS ---
DATE OF ADMISSION: 01/20/2019 DATE OF DISCHARGE: 01/26/2019 PRIMARY CARE PHYSICIAN: Dr. Hollis. REASON FOR ADMISSION: Pneumonia and elevated troponin. DIAGNOSES AT DISCHARGE: 1. Community-acquired bacterial pneumonia. 2. Acute respiratory failure with hypoxia, resolved. 3. Acute on chronic diastolic congestive heart failure, stage C. 4. Type 2 nsg-DX-sglovalze myocardial infarction. 5. Hypokalemia. 6. Chronic kidney disease, stage IV. 7. Diabetes mellitus type 2, insulin dependent. 8. Dyslipidemia. 9. Hypertension. 10. Obesity. PROCEDURES: 1. CT of the chest without contrast showing predominantly bibasilar interstitial and ground-glass opacities suggesting edema or infiltrate. 2. Echocardiogram showing an ejection fraction of 45% to 50% and grade 2/3 diastolic dysfunction. CONSULTATIONS: 1. Nephrology, Dr. Siddiqui and Dr. Arrington. 2. Cardiology, Dr. Corley. 3. Pulmonology, Dr. Valenzuela. SUMMARY OF HOSPITAL COURSE: This is a 73-year-old male with history of diabetes and hypertension, who presented to the emergency room with shortness of breath and fever. He had had a recent travel to [place] and has been exposed to some friends who had some TB history, but not notices any active TB. He had no weight loss or night sweats. The patient was admitted to the hospital, found to have a pneumonia, started on antibiotics. Dr. Valenzuela was consulted. We did try and get some sputum; however, he was not really coughing up any sputum and we were unable to get any AFB tests on him. Eventually, it was determined this does not look like tuberculosis at all. The patient did have chronic kidney disease, this was monitored by Dr. Siddiqui and Dr. Arrington in the hospital. The patient was also noted to be in congestive heart failure. He had an echocardiogram done as above. He was increased to IV Lasix from his home p.o. Lasix with good removal of fluid. He initially was hypoxic on room air, requiring large amounts of oxygen. This was able to be weaned off over his hospitalization. The patient did have elevated troponins initially, these went up as high as 2. Dr. Corley was consulted and determined this was a non-ST elevation myocardial infarction type 2. He was put on a heparin drip and they were unable to cath him due to his renal function. The patient improved during his hospitalization. He was asymptomatic at time of discharge. He was cleared by all consultants and is being discharged home. DISCHARGE MANAGEMENT: Discharged home. ACTIVITY: As tolerated. DIET: Diabetic fluid-restricted low-sodium diet. FOLLOWUP: Follow up with Dr. Corley in 1-2 months, with Dr. Arrington in next week, and with Dr. Hollis in 1 to 2 weeks. DISCHARGE MEDICATIONS: 1. Hydralazine 50 mg 3 times a day, 90 tablets dispensed. 2. Isosorbide dinitrate 20 mg 3 times a day, 90 tablets dispensed. 3. Amitriptyline 75 mg at night. 4. Amlodipine 10 mg daily. 5. Aspirin 81 mg daily. 6. Carvedilol was decreased to 6.25 mg daily, 30 tablets dispensed. 7. Continue furosemide 40 mg twice a day. 8. Vitamin D3 1000 units daily. 9. Clopidogrel 75 mg daily. 10. Duloxetine 30 mg daily. 11. Ferrous sulfate 65 mg daily. 12. Pravastatin 80 mg at night. 13. Dexilant 60 mg daily. 14. Dicyclomine 20 mg 3 times a day as needed. 15. Gabapentin 200 mg 3 times a day. 16. Myrbetriq 25 mg daily. The patient is to stop his Actos due to his congestive heart failure. TIME SPENT: Arranging the details of this discharge took 35 minutes. Job ID: [id number]
== END 2019-01-26 15:40 | disposition home or self-care (01) | DRG 871 ==
LOC: ERS 22:57 → 2SE 01-20 02:15 → ERHOLD 01-20 03:09 → 2SE 01-20 05:55 → CCU 01-21 18:47 → IMCU/EMU 01-22 10:00
PROVIDERS: ADMIT Internal Medicine; ATTEND Internal Medicine
DX: A41.9 Sepsis, unspecified organism (principal); J15.9 Unspecified bacterial pneumonia; J96.01 Acute respiratory failure with hypoxia; I50.33 Acute on chronic diastolic (congestive) heart failure; I21.A1 Myocardial infarction type 2; N17.9 Acute kidney failure, unspecified; N18.4 Chronic kidney disease, stage 4 (severe); I13.0 Hypertensive heart and chronic kidney disease with heart failure and stage 1 through stage 4 chronic kidney disease, or unspecified chronic kidney disease; E87.2 Acidosis; E78.5 Hyperlipidemia, unspecified; N40.0 Benign prostatic hyperplasia without lower urinary tract symptoms; D50.9 Iron deficiency anemia, unspecified; E87.5 Hyperkalemia; R65.20 Severe sepsis without septic shock; F41.9 Anxiety disorder, unspecified; F32.9 Major depressive disorder, single episode, unspecified; E11.22 Type 2 diabetes mellitus with diabetic chronic kidney disease; E66.9 Obesity, unspecified; D63.1 Anemia in chronic kidney disease; E87.6 Hypokalemia; Z68.29 Body mass index [BMI] 29.0-29.9, adult; Z79.4 Long term (current) use of insulin; I25.2 Old myocardial infarction; Z79.82 Long term (current) use of aspirin; Z79.899 Other long term (current) drug therapy; Z88.0 Allergy status to penicillin
CPT/HCPCS: 36415; 36416; 71045; 71250; 80048; 80053; 80061; 80202; 81003; 81015; 82553; 82805; 83036; 83605; 83880; 84484; 85014; 85018; 85025; 85049; 85652; 85730; 86480; 87040; 87070; 87086; 87116; 87205; 87206; 87804; 90471; 90670; 93005; 93010; 93306; 94640; 94660; 96365; 96367; 96375; G0009; J0692; J0696; J1644; J1825; J1940; J1956; J2930; J3370; J3490; J7620

== ENCOUNTER 2019-04-29 11:09 | Outpatient (CLI) | payer MEDICARE, MEDICAID ==
--- NOTE | 2019-04-29 13:16 | CT ---
CT OF THE ABDOMEN AND PELVIS NONCONTRAST: INDICATION: Periumbilical pain, fecal incontinence. COMPARISON: 05/09/2013. FINDINGS: There are bilateral areas of perinephric fat stranding. The contrast-opacified small bowel is normal in caliber. No free air or portal vein gas. There is no acute pericolonic inflammation. Scattered vascular disease is present. Mild volume loss is seen at the lung bases. No acute process identifi ed within the unenhanced liver, spleen, pancreas, or adrenal glands. Surgical sutures seen along the left lateral margin of the gastric body. Indistinct hypodensity anteriorly within the right kidney likely represents a cyst, although is incompletely characterized. IMPRESSION: 1. No acute bowel obstruction or colonic inflammation. 2. Nonspecific bilateral perinephric stranding. No overt hydronephrosis. 3. Additional details as described above. POS: [facility]
== END 2019-04-29 11:10 | disposition home or self-care (01) ==
LOC: BICCT 11:09
PROVIDERS: ATTEND Physician Assistant Medical
DX: K21.9 Gastro-esophageal reflux disease without esophagitis (principal); R10.33 Periumbilical pain; R15.9 Full incontinence of feces
CPT/HCPCS: 74176

== ENCOUNTER 2019-05-13 10:02 | Outpatient (CLI) | payer MEDICARE, MEDICAID ==
--- NOTE | 2019-05-13 10:16 | RAD ---
EXAM: Chest PA and lateral: HISTORY: Dyspnea COMPARISON: none FINDINGS: Lung fontanez are clear. Vascular markings are normal. Heart and mediastinum appear unremarkable. Vascularity is normal. Osseous structures are unremarkable. IMPRESSION: Unremarkable chest
== END 2019-05-13 10:03 | disposition home or self-care (01) ==
LOC: RAD 10:02
PROVIDERS: ATTEND Internal Medicine
DX: R06.00 Dyspnea, unspecified (principal)
CPT/HCPCS: 71046

== ENCOUNTER 2019-06-17 20:30 | Outpatient (CLI) | payer MEDICARE, MEDICAID | END 2019-06-17 20:31 | disposition home or self-care (01) | LOC: SLEEPLAB 20:30 | PROVIDERS: ATTEND Internal Medicine | DX: G47.33 Obstructive sleep apnea (adult) (pediatric) (principal); R53.83 Other fatigue; R09.89 Other specified symptoms and signs involving the circulatory and respiratory systems; R35.0 Frequency of micturition; I11.9 Hypertensive heart disease without heart failure; I50.9 Heart failure, unspecified; R06.83 Snoring; G47.10 Hypersomnia, unspecified; E66.3 Overweight; Z68.29 Body mass index [BMI] 29.0-29.9, adult | CPT/HCPCS: 95811 ==

== ENCOUNTER 2019-07-20 18:19 | Emergency (ER) | payer MEDICAID, MEDICARE ==
[2019-07-20] MEDS ORDERED: Metoclopramide HCl 10 MG/2 ML VIAL ONE (18:51)
[2019-07-20 18:56] LABS: Base Excess-Venous -2.9 mmol/L (-2.0 to 3.0); Bicarbonate (HCO3v) 21.7 mmol/L (22.0-28.0); CO2 Tension (PvCO2) 36.4 mmHg (40.0-50.0); Calcium, Ionized 1.05 mmol/L (See Comments:); Chloride 104 mmol/L (98-107); Hemoglobin - Calc 13.9 g/dL (14.0-18.0); Potassium 4.5 mmol/L (3.5-5.1); Sodium 135 mmol/L (138-145); T. Carbon Dioxide 22.8 mmol/L (22.0-28.0); vO2 Saturation-calc 98.6 % (60.0-85.0)
[2019-07-20 18:59] LABS: #Eosinphils 0.2 thou/uL (0.0-0.7); #Monocytes 0.6 thou/uL (0.11-0.59); #Neutrophils 3.3 thou/uL (1.40-6.50); %Basophils 0.6 % (0.0-1.0); %Lymphocytes 20.3 % (21.0-51.0); %Monocytes 11.4 % (0.0-10.0); %Neutrophils 64.7 % (42.0-75.0); Hemoglobin 13.2 g/dL (14.0-18.0); Mean Corpuscular HGB CONC 33.2 g/dL (32.0-36.0); Mean Corpuscular Hemoglobin 28.7 pg (27.0-31.0); Mean Corpuscular Volume 86.5 fL (78.0-98.0); Mean Platelet Volume 8.9 fL (7.4-10.4); Platelet Count 162 thou/uL (130-400); Red Blood Cell (RBC) Count 4.61 mill/uL (4.70-6.10); White Blood Cell (WBC) Count 5.1 thou/uL (4.8-10.8)
--- NOTE | 2019-07-20 19:01 | CT ---
CT BRAIN WITHOUT CONTRAST: HISTORY:Headache COMPARISON:05/21/2015 FINDINGS: There are foci of decreased attenuation in the periventricular white matter, consistent with chronic small vessel ischemic disease. No evidence of acute infarct, hemorrhage, midline shift or abnormal extra-axial fluid collections is seen. The ventricular size is appropriate and the basilar cisterns are patent. The bony calvarium is intact. The visualized paranasal sinuses and mastoid air cells are well aerated. IMPRESSION: No CT evidence of acute intracranial process.
[2019-07-20] MEDS ORDERED: diphenhydrAMINE 50 MG/ML VIAL ONE (19:02)
--- NOTE | 2019-07-20 19:07 | RAD ---
XR Chest 1 View Portable HISTORY: Headache, hypertension, hyperglycemia COMPARISON: 01/24/2019 FINDINGS: The heart size is enlarged.. The lungs are well expanded without focal areas of consolidati on, pneumothorax or pleural effusions. No deanne pulmonary edema is seen. There is continued elevation the right hemidiaphragm. IMPRESSION: No radiographic evidence of acute cardiopulmonary process.
[2019-07-20 19:12] LABS: INR-International Normal Ratio 0.9; Prothrombin Time 12.4 SEC (12.0-14.7)
[2019-07-20 19:13] LABS: PTT 28.8 SEC (22.9-36.1)
[2019-07-20 19:19] LABS: ALT (SGPT) 26 U/L (8-55); AST (SGOT) 21 U/L (5-34); Albumin 3.6 g/dL (3.4-4.8); Alkaline Phosphatase 140 U/L (40-110); Anion Gap 13 mmol/L (10-20); BUN (Urea Nitrogen) 45 mg/dL (8.4-25.7); Bilirubin, Total 0.3 mg/dL (0.2-1.2); CK (CPK) 147 U/L (30-200); Calc. Creatinine Clearance 0 mL/min (70-130); Calcium 8.2 mg/dL (7.8-10.44); Carbon Dioxide 20 mmol/L (23-31); Chloride 104 mmol/L (98-107); Estimated GFR-MDRD 17; Glucose 354 mg/dL (83-110); Lipase 49 U/L (8-78); Potassium 4.4 mmol/L (3.5-5.1); Protein, Total 6.6 g/dL (5.8-8.1); Sodium 133 mmol/L (136-145)
[2019-07-20 19:38] LABS: Bacteria/HPF None Seen HPF (None Seen); Bilirubin Negative (Negative); Blood, Urine Trace (Negative); Clarity Clear (Clear); Glucose, Urine (Dipstick) >=1000 mg/dL (Negative); Leukocyte Negative Leu/uL (Negative); Nitrite Negative (Negative); Protein, Urine (Dipstick) 100 mg/dL (Neg-Trace); RBC/HPF 0-3 HPF (0-3); Squamous Epithelial None Seen HPF (0-3); Urobilinogen Normal mg/dL (Less than 2); WBC/HPF 0-3 HPF (0-3)
[2019-07-20 19:41] LABS: CKMB 4.4 ng/mL (0-6.6)
--- NOTE | 2019-07-22 16:14 | EKG ---
Test Reason : HTN Blood Pressure : / mmHG Vent. Rate : 057 BPM Atrial Rate : 057 BPM P-R Int : 204 ms QRS Dur : 116 ms QT Int : 452 ms P-R-T Axes : 034 -16 109 degrees QTc Int : 439 ms Sinus bradycardia Left ventricular hypertrophy with QRS widening and repolarization abnormality Inferior infarct , age undetermined Abnormal ECG Confirmed by DESMOND BLAND, TRAVIS ([id number]), news video editor OSVALDO CISSE ([id number]) on 07/22/2019 4:13:09 PM Referred By: DESMOND Confirmed By:TRAVIS LOGAN MD
== END 2019-07-20 20:38 | disposition home or self-care (01) ==
LOC: ERS 18:19
DX: I10 Essential (primary) hypertension (principal); E11.65 Type 2 diabetes mellitus with hyperglycemia; E78.5 Hyperlipidemia, unspecified; Z79.899 Other long term (current) drug therapy; Z79.82 Long term (current) use of aspirin
CPT/HCPCS: 36416; 70450; 71045; 80053; 81003; 81015; 82010; 82330; 82550; 82553; 82803; 83690; 84484; 85025; 85610; 85730; 93005; 96365; 96375; J1200; J2765

== ENCOUNTER 2019-08-06 20:31 | Inpatient (IN) | payer MEDICARE, MEDICAID ==
[2019-08-06 21:11] LABS: #Eosinphils 0.1 thou/uL (0.0-0.7); #Lymphocytes 0.9 thou/uL (1.20-3.40); #Monocytes 0.5 thou/uL (0.11-0.59); #Neutrophils 2.9 thou/uL (1.40-6.50); %Basophils 0.7 % (0.0-1.0); %Eosinophils 3.1 % (0.0-10.0); %Lymphocytes 20.9 % (21.0-51.0); %Monocytes 10.5 % (0.0-10.0); %Neutrophils 64.9 % (42.0-75.0); Hemoglobin 13.1 g/dL (14.0-18.0); Mean Corpuscular HGB CONC 32.5 g/dL (32.0-36.0); Mean Corpuscular Volume 86.2 fL (78.0-98.0); Mean Platelet Volume 8.8 fL (7.4-10.4); Platelet Count 176 thou/uL (130-400); RBC Distribution Width 12.7 % (11.5-14.5); Red Blood Cell (RBC) Count 4.66 mill/uL (4.70-6.10); White Blood Cell (WBC) Count 4.5 thou/uL (4.8-10.8)
--- NOTE | 2019-08-06 21:19 | RAD ---
Chest AP view INDICATION: Chest pain and hypertension COMPARISON: July 20, 2019 FINDINGS: Lungs:The lungs are clear Cardiac silhouette:Stable mild cardiomegaly Pulmonary vasculature:Normal Pleural spaces:No pleural effusion or pneumothorax is demonstrated. Upper abdomen:No abnormality seen. Osseous structures: No acute osseous abnormality. Additional findings:None. IMPRESSION: Stable mild cardiomegaly
[2019-08-06 21:36] LABS: ALT (SGPT) 12 U/L (8-55); AST (SGOT) 16 U/L (5-34); Albumin 3.7 g/dL (3.4-4.8); Alkaline Phosphatase 110 U/L (40-110); Anion Gap 15 mmol/L (10-20); BUN (Urea Nitrogen) 55 mg/dL (8.4-25.7); Bilirubin, Total 0.3 mg/dL (0.2-1.2); Calc. Creatinine Clearance 0 mL/min (70-130); Calcium 8.5 mg/dL (7.8-10.44); Carbon Dioxide 21 mmol/L (23-31); Chloride 105 mmol/L (98-107); Estimated GFR-MDRD 15; Glucose 269 mg/dL (83-110); Potassium 4.5 mmol/L (3.5-5.1); Protein, Total 6.7 g/dL (5.8-8.1); Sodium 136 mmol/L (136-145)
[2019-08-06 21:54] LABS: CKMB 3.4 ng/mL (0-6.6)
[2019-08-06] MEDS ORDERED: Aspirin Chewable 81 MG TAB ONE (22:43)
[2019-08-06] MEDS ORDERED: Nitroglycerin 2% Ointment 1 INCH/1 GM Packet ONE (22:43)
[2019-08-06] MEDS ORDERED: Enoxaparin Sodium 80 MG/0.8 ML SYRINGE ONE (23:16)
[2019-08-06 23:39] LABS: Bacteria/HPF None Seen HPF (None Seen); Bilirubin Negative (Negative); Blood, Urine Trace (Negative); Clarity Clear (Clear); Glucose, Urine (Dipstick) 500 mg/dL (Negative); Leukocyte Negative Leu/uL (Negative); Nitrite Negative (Negative); Protein, Urine (Dipstick) 100 mg/dL (Neg-Trace); RBC/HPF 0-3 HPF (0-3); Squamous Epithelial None Seen HPF (0-3); Urobilinogen Normal mg/dL (Less than 2); WBC/HPF None Seen HPF (0-3)
[2019-08-06] MEDS ORDERED: hydrALAZINE 20 MG/ML VIAL ONE (23:57)
[2019-08-07 00:47] LABS: Troponin I 0.053 ng/mL (< 0.028)
[2019-08-07] MEDS ORDERED: Acetaminophen 325 MG TAB PO PRN ×2 (00:51→08:58)
[2019-08-07] MEDS ORDERED: Ondansetron ODT 4 MG TAB SL PRN (00:51)
[2019-08-07] MEDS ORDERED: Ondansetron PF 4 MG/2 ML Vial IVP PRN ×2 (00:51→08:58)
[2019-08-07 03:35] LABS: Troponin I 0.039 ng/mL (< 0.028)
[2019-08-07 03:51] VITALS: BMI 28.0
[2019-08-07] MEDS ORDERED: HumaLOG 300 UNITS/3 ML VIAL SC PRN ×2 (08:58)
[2019-08-07] MEDS ORDERED: HYDROcodone/Acetaminophen 5/325 mg Tablet PO PRN (08:58)
[2019-08-07] MEDS ORDERED: Dextrose 5% in Water 1,000 ML IV PRN (08:58)
[2019-08-07] MEDS ORDERED: Dextrose 50% Abboject 50 ML SYRINGE SLOW IVP PRN (08:58)
[2019-08-07] MEDS ORDERED: Ondansetron ODT 4 MG TAB PO PRN (08:58)
[2019-08-07] MEDS ORDERED: Aspirin 325 MG TAB PO SCH (09:00)
[2019-08-07] MEDS ORDERED: hydrALAZINE 25 MG TAB PO SCH (09:00)
--- NOTE | 2019-08-07 09:24 | HP ---
PRIMARY CARE PHYSICIAN: Colleen Hollis MD. CHIEF COMPLAINT: Elevated blood pressure. HISTORY OF PRESENT ILLNESS: Mr. Diego Montelongo was brought in by his daughter who is also acting as a technician semiconductor development. He was recently hospitalized due to elevated blood pressure. When he was discharged, he was given medication to take if his blood pressure was elevated. He believes the medicine was clonidine. He was told to take it if his blood pressure was more than 180 systolic. Since then, he has had to take the pills at least five times and more recently when he took the medication it would not bring his pressure down. He says that his blood pressure has been elevated most of the time. He also noted a little bit of dizziness when he stood up and he also noted a headache as well and some numbness in his tongue. For this reason, he came to the ER for evaluation. In the ER, it was noted that his blood pressure was 237/104. He was given aspirin as well as nitroglycerin patch was placed and his blood pressure has improved and he is being admitted for hypertensive urgency. It was also noted that his troponins were slightly elevated as well. The patient denies having any chest pain or having any shortness of breath. He denies any PND nor orthopnea. He does note some occasional lower extremity edema off and on, but otherwise no complaints. REVIEW OF SYSTEMS: All systems were reviewed and are negative except for that mentioned in the history of present illness. PAST MEDICAL HISTORY: Significant for hypertension, hyperlipidemia, diabetes mellitus type 2, chronic kidney disease stage 4. PAST SURGICAL HISTORY: He has had an appendectomy and polypectomy. ALLERGIES: TO PENICILLIN. SOCIAL HISTORY: He is retired. He is a nonsmoker and nondrinker. He is , has 6 children. Code status is full code. FAMILY HISTORY: Significant for cancer and diabetes in his brothers. CURRENT MEDICATIONS: He is not sure of the names and doses of his medications and says that his other daughter will bring those up later today. PHYSICAL EXAMINATION: GENERAL: He is alert and oriented. He appears to be in no acute distress. VITAL SIGNS: Currently, blood pressure is 153/70, heart rate 59, respiratory rate of 18, and he is afebrile. HEENT: Pupils are equal, round, and reactive. Extraocular muscles are intact. His sclerae are anicteric. Throat, no erythema, no exudates. NECK: No adenopathy. No bruits. LUNGS: Clear to auscultation. There is no wheezing, no rales, no rhonchi. CARDIOVASCULAR: He has a normal S1 and S2. There is no S3 or S4. No murmurs, clicks, or rubs. He did have slight grade 2/6 systolic murmur. ABDOMEN: Soft, it is nontender and nondistended. Positive for bowel sounds. No rebound. No guarding. He does have a midline abdominal scar. EXTREMITIES: There is no edema. No calf tenderness. No joint effusions. NEUROLOGIC: The exam is grossly intact. SKIN AND INTEGUMENT: No skin changes. No rash. LABORATORY RESULTS: White blood cell count 4.5, hemoglobin 13.1, hematocrit is 40.2, and platelet count is 176. Sodium 136, potassium 4.5, chloride is 105, CO2 is 21, BUN 55, creatinine 3.89, glucose is 269, and troponin is 0.036. Urinalysis was essentially negative. ASSESSMENT: This is a pleasant 73-year-old gentleman who presents with difficult to control blood pressure and hypertensive urgency. I suspect some of the difficulty in managing his blood pressure is due to his advanced kidney disease. He will be admitted and started on his antihypertensive medications after the doses have been reconciled and then we will titrate from there. Given his advanced kidney disease, we will consult his flour inspector to aid in management. 1. Elevated troponins. I suspect this is due to demand ischemia from the elevated blood pressure plus decrease in clearance of the troponin due to his chronic kidney disease. However, he does see a mobile equipment servicer on a regular basis. So therefore, we will consult Cardiology. 2. Diabetes mellitus. We will need to reconcile and restart his home medicines as well as sliding scale insulin. The patient will be placed on deep venous thrombosis and gastrointestinal prophylaxis. Job ID: [id number]
[2019-08-07] MEDS: Famotidine 20 MG TAB PO SCH (09:33)
[2019-08-07] MEDS: Heparin 5,000 UNITS/ML VIAL SC SCH ×3 (09:34→20:22)
[2019-08-07] MEDS: Aspirin 325 mg Enteric Coated Tablet PO SCH (09:42)
[2019-08-07] MEDS ORDERED: Carvedilol 6.25 MG TAB PO SCH (09:45)
--- NOTE | 2019-08-07 13:05 | CON ---
DATE OF CONSULTATION: 08/07/2019 CONSULTING PHYSICIAN: Jean Marie Perrin MD REASON FOR CONSULTATION: Acute kidney injury. REASON FOR ADMISSION: Hypertension. HISTORY OF PRESENT ILLNESS: A 73-year-old male with history of hypertension, hyperlipidemia, and diabetes, came to the hospital with above complaints and not feeling well, headache, and dizziness. The patient is being treated. He does follow with Dr. Arrington. Nephrology consult for acute kidney injury. The patient is feeling better. No chest pain or palpitation. No fever or chills. No nausea or vomiting. PAST MEDICAL HISTORY: Positive for hypertension; hyperlipidemia; type 2 diabetes, and CKD, stage 4. PAST SURGICAL HISTORY: Appendectomy and polypectomy. HOME MEDICATIONS: Include: 1. Clonidine. 2. Lantus. 3. Actos. 4. Dexilant. 5. Plavix. 6. Isosorbide. 7. Furosemide. 8. Pravastatin. 9. Hydralazine. ALLERGIES: PENICILLIN. SOCIAL HISTORY: No smoking, alcohol, or illicit drug abuse. FAMILY HISTORY: Positive for diabetes. REVIEW OF SYSTEMS: CONSTITUTIONAL: Negative for weight loss or gain, ability to conduct usual activities. SKIN: Negative for rash, itching. EYES: Negative for double vision, pain. ENT/MOUTH: Negative for nose bleeding, neck stiffness, pain, tenderness. CARDIOVASCULAR: Negative for palpitations, dyspnea on exertion, orthopnea. RESPIRATORY: Negative for shortness of breath, wheezing, cough, hemoptysis, fever or night sweats. GASTROINTESTINAL: Negative for poor appetite, abdominal pain, heartburn, nausea, vomiting, constipation, or diarrhea. GENITOURINARY: Negative for urgency, frequency, dysuria, nocturia. MUSCULOSKELETAL: Negative for pain, swelling. NEUROLOGIC/PSYCHIATRIC: Negative for anxiety, depression. ALLERGY/IMMUNOLOGIC: Negative for skin rash, bleeding tendency. PHYSICAL EXAMINATION: GENERAL: Reveals a well-built male, in no apparent distress. VITAL SIGNS: Temperature 98.3, pulse 69, respiratory rate 16, blood pressure 133/62. HEENT: Atraumatic and normocephalic. Oral mucosa is moist. NECK: Supple. CARDIOVASCULAR: S1 and S2 heard. Rate and rhythm regular. RESPIRATORY: Clear. GASTROINTESTINAL: Abdomen is soft. MUSCULOSKELETAL: No tenderness. No edema. DERMATOLOGIC: No skin rash. NEUROLOGIC: Alert and awake. PSYCHIATRIC: Mood and affect normal. LABORATORY DATA: Hemoglobin 13.1. Potassium is 4.5, BUN is 55, creatinine is 3.8. ASSESSMENT AND PLAN: 1. Acute kidney injury on chronic kidney disease, stage 4. We will monitor. No acute indication for dialysis. 2. Edema, controlled. 3. History of hypertension. 4. History of anemia. 5. Diabetic nephropathy. No acute indication for dialysis. We will follow. Continue medical management. Job ID: [id number]
[2019-08-07] MEDS: hydrALAZINE 25 MG TAB PO SCH ×2 (14:12→20:23)
[2019-08-07] MEDS: Nitroglycerin 2% Ointment 1 INCH/1 GM Packet TOP SCH ×2 (14:13→21:35)
[2019-08-07] MEDS: hydrALAZINE 20 MG/ML VIAL SLOW IVP PRN ×2 (15:51→23:32)
[2019-08-07] MEDS: Carvedilol 6.25 MG TAB PO SCH (17:40)
[2019-08-07] MEDS: Furosemide 40 MG TAB PO SCH (20:23)
[2019-08-07] MEDS ORDERED: Atorvastatin Calcium 20 MG TAB PO SCH (21:00)
[2019-08-07] MEDS ORDERED: Pravastatin Sodium 40 MG TAB PO SCH (21:00)
[2019-08-08] MEDS: hydrALAZINE 20 MG/ML VIAL SLOW IVP PRN (05:09)
[2019-08-08] MEDS: Nitroglycerin 2% Ointment 1 INCH/1 GM Packet TOP SCH (05:10)
[2019-08-08 05:11] LABS: #Basophils 0.1 thou/uL (0.0-0.2); #Eosinphils 0.1 thou/uL (0.0-0.7); #Monocytes 0.5 thou/uL (0.11-0.59); #Neutrophils 3.6 thou/uL (1.40-6.50); %Basophils 1.6 % (0.0-1.0); %Eosinophils 2.6 % (0.0-10.0); %Lymphocytes 19.2 % (21.0-51.0); %Neutrophils 67.6 % (42.0-75.0); Hemoglobin 13.2 g/dL (14.0-18.0); Mean Corpuscular HGB CONC 32.1 g/dL (32.0-36.0); Mean Corpuscular Hemoglobin 27.7 pg (27.0-31.0); Mean Corpuscular Volume 86.3 fL (78.0-98.0); Mean Platelet Volume 7.9 fL (7.4-10.4); Platelet Count 174 thou/uL (130-400); RBC Distribution Width 12.6 % (11.5-14.5); Red Blood Cell (RBC) Count 4.77 mill/uL (4.70-6.10); White Blood Cell (WBC) Count 5.3 thou/uL (4.8-10.8)
[2019-08-08 05:29] LABS: Anion Gap 12 mmol/L (10-20); BUN (Urea Nitrogen) 55 mg/dL (8.4-25.7); Calc. Creatinine Clearance 19 mL/min (70-130); Calcium 8.2 mg/dL (7.8-10.44); Carbon Dioxide 23 mmol/L (23-31); Chloride 108 mmol/L (98-107); Cholesterol 165 mg/dl (< 200 Desired); Estimated GFR-MDRD 16; Glucose 94 mg/dL (83-110); HDL Cholesterol 33 mg/dL (>60 Neg Risk); LDL Cholesterol, Calculated 105 mg/dL; Potassium 3.9 mmol/L (3.5-5.1); Sodium 139 mmol/L (136-145); Triglycerides 133 mg/dL (Less than 150)
[2019-08-08] MEDS ORDERED: hydrALAZINE 25 MG TAB PO PRN (08:00)
[2019-08-08] MEDS: hydrALAZINE 25 MG TAB PO SCH (08:48)
[2019-08-08] MEDS: Carvedilol 6.25 MG TAB PO SCH (08:49)
[2019-08-08] MEDS: Furosemide 40 MG TAB PO SCH (08:49)
[2019-08-08] MEDS: Aspirin 325 mg Enteric Coated Tablet PO SCH (08:49)
[2019-08-08] MEDS: Famotidine 20 MG TAB PO SCH (08:49)
[2019-08-08] MEDS: Heparin 5,000 UNITS/ML VIAL SC SCH (08:49)
[2019-08-08] MEDS ORDERED: Amlodipine 5 MG TAB PO SCH (09:00)
[2019-08-08] MEDS ORDERED: Insulin Glargine 16 UNITS in Pre-Filled Syringe 1 EACH SC SCH (09:00)
[2019-08-08] MEDS ORDERED: Isosorbide Dinitrate 20 MG TAB PO SCH (09:00)
[2019-08-08] MEDS ORDERED: Non-Formulary Item 1 EACH (Insulin Glargine,Hum.Rec.Anlog [Lantus Solostar] 16 UNIT) SQ SCH (09:00)
[2019-08-08] MEDS ORDERED: Clopidogrel Bisulfate 75 MG TAB PO SCH (09:00)
[2019-08-08] MEDS ORDERED: Dicyclomine 20 MG TAB PO SCH (09:00)
[2019-08-08] MEDS ORDERED: Pioglitazone HCl 15 MG TAB PO SCH (09:00)
--- NOTE | 2019-08-08 10:13 | CON ---
DATE OF CONSULTATION: HISTORY OF PRESENT ILLNESS: The patient is a pleasant 73-year-old gentleman with a history of hypertension, who presented with dizziness and was noted to have an elevated blood pressure. The patient was seen in December of this year with hypertension and an elevated troponin level. The patient was placed on medical therapy. He has been compliant with his medications. The patient had an echocardiogram, which revealed him to have a mild decrease in left ventricular ejection fraction 45% to 50% with evidence of pulmonary hypertension. The patient states that he has been compliant with his diet,and he has not been out of any of his medications. He started feeling dizzy and presented with a headache. The patient denied having any chest discomfort. PAST MEDICAL HISTORY: 1. Hypertension. 2. Diabetes mellitus. 3. History of chronic renal insufficiency. PAST SURGICAL HISTORY: Appendectomy, and polypectomy. ALLERGIES: PENICILLIN. SOCIAL HISTORY: Nonsmoker. FAMILY HISTORY: No strong family history of heart disease. MEDICATIONS: 1. Isordil 20 t.i.d. 2. Lasix 40 b.i.d. 3. Pravachol 80 daily. 4. Hydralazine 100 t.i.d. 5. Coreg 6.25 b.i.d. 6. Actos 15 daily. 7. Aspirin 81 daily. REVIEW OF SYSTEMS: Ten-point system otherwise unremarkable. PHYSICAL EXAMINATION: GENERAL: Obese gentleman, in no acute distress. VITAL SIGNS: Blood pressure 153/70. NECK: No jugular venous distention. LUNGS: Clear to auscultation. HEART: Regular rate and rhythm. Normal S1 and S2. No murmurs. ABDOMEN: Nondistended. EXTREMITIES: Show no edema. Vascular and radial pulses 2+. LABORATORY DATA: Sodium 136, potassium 4.5, chloride 105, bicarbonate 21, BUN 55, creatinine 3.89. Troponin 0.039. White blood cell count 4.5, hemoglobin 13.1, hematocrit 40.2, platelet count 176. EKG sinus bradycardia with voltage criteria for left ventricular hypertrophy. IMPRESSION: 1. Hypertensive crisis. 2. Diabetes mellitus. 3. Renal failure. This gentleman presents with a hypertensive crisis. He has been started on amlodipine. He states that he has had difficulty at times with low blood pressure. We will follow this patient with you through his hospitalization. Job ID: [id number] [facility]
--- NOTE | 2019-08-08 10:54 | PRG ---
DATE OF SERVICE: 08/08/2019 SUBJECTIVE: This is a 73-year-old gentleman being seen for acute kidney injury. The patient denied nausea, vomiting, or chest pain. OBJECTIVE: CONSTITUTIONAL: The patient is awake and alert. VITAL SIGNS: Afebrile, pulse 60, breathing 16, and blood pressure 156/60. GENERAL APPEARANCE AND MENTAL STATUS: Fair. HEAD/NECK: Normocephalic. Atraumatic. EYES: EOMI. No deformity. EARS: Clear. No ulcers. NOSE: Intact. No lesions. MOUTH: Clear. No discharge. THROAT: Clear. No exudate. LUNGS: Clear. No crackles. CARDIAC: S1, S2. No rub. ABDOMEN: Benign. Bowel sounds positive. GENITALIA/RECTUM: [place] absent. BACK/EXTREMITIES: Edema 0+. NEUROLOGICAL: Alert and motor intact. SKIN: LYMPHATICS: LABORATORY DATA: Labs show hemoglobin 13.2 and creatinine 3.6. ASSESSMENT AND PLAN: Chronic kidney disease stage 4 with acute kidney injury, stable. Hypertension, recommend increasing the Coreg to 12.5 q.12. Anemia, stable. Medication based on GFR appropriate. Job ID: [id number]
[2019-08-08 11:41] VITALS: BP 130/56; TEMP 98.9
--- NOTE | 2019-08-08 13:26 | PDOC.HOSPP ---
- Subjective Encounter Date: 08/08/19 Encounter Time: 13:24 Subjective: Mr. Cortez was seen today in follow-up of hypertensive urgency. He does not have any complaints today. - Objective Vital Signs & Weight: Vital Signs (12 hours) Temp Pulse Resp BP BP Pulse Ox 08/08/19 11:40 98.9 F 55 L 16 130/56 L 96 08/08/19 08:49 156/60 H 08/08/19 08:48 63 156/60 H 08/08/19 08:00 95 08/08/19 07:49 97.9 F 63 16 156/60 H 95 08/08/19 04:00 98.5 F 62 16 186/67 H 95 Weight Weight 174 lb I&O: 08/07/19 08/08/19 08/09/19 06:59 06:59 06:59 Intake Total 300 2410 Output Total 1350 Balance 300 1060 Result Diagrams: 08/08/19 05:02 08/08/19 05:02 Additional Labs: Accuchecks 08/07/19 08/07/19 20:46 17:20 POC Glucose 275 H 144 H Hospitalist ROS - Medication Medications: Active Medications Generic Name Dose Route Start Last Admin Trade Name Freq PRN Reason Stop Dose Admin Acetaminophen 650 mg 08/07/19 08:58 08/08/19 08:55 Tylenol PO 650 mg Q4H PRN Administration Headache/Fever/Mild Pain (1-3) Aspirin 325 mg 08/07/19 09:00 08/08/19 08:49 Ecotrin PO 325 mg DAILY BONITA Administration Carvedilol 6.25 mg 08/07/19 17:00 08/08/19 08:49 Coreg PO 6.25 mg BID-WM BONITA Administration Clopidogrel Bisulfate 75 mg 08/08/19 09:00 08/08/19 08:48 Plavix PO 75 mg DAILY BONITA Administration Dicyclomine HCl 20 mg 08/08/19 09:00 08/08/19 08:55 Bentyl PO 20 mg TID BONITA Administration Famotidine 20 mg 08/07/19 09:00 08/08/19 08:49 Pepcid PO 20 mg DAILY BONITA Administration Furosemide 40 mg 08/07/19 21:00 08/08/19 08:49 Lasix PO 40 mg BID BONITA Administration Heparin Sodium (Porcine) 5,000 units 08/07/19 09:00 08/08/19 08:49 Heparin SC 5,000 units TID BONITA Administration Hydralazine HCl 10 mg 08/07/19 08:58 08/08/19 05:09 Apresoline SLOW IVP 10 mg Q4H PRN Administration SBP > 180 and HR < 70 Hydralazine HCl 100 mg 08/07/19 15:00 08/08/19 08:48 Apresoline PO 100 mg TID BONITA Administration Insulin Glargine 16 units/ 0.16 mls @ 0 mls/hr 08/08/19 09:00 08/08/19 10:36 Miscellaneous Medication SC 0.16 mls QAM BONITA Administration As Directed Insulin Human Lispro 0 units 08/07/19 08:58 08/07/19 11:42 Humalog SC 2 units .MODERATE SLIDING SC PRN Administration Moderate Correctional Scale Insulin Human Lispro 0 units 08/07/19 08:58 08/07/19 21:35 Humalog SC 3 unit .BEDTIME SLIDING SC PRN Administration Bedtime Correctional Scale Isosorbide Dinitrate 20 mg 08/08/19 09:00 08/08/19 08:49 Isordil PO 20 mg BID BONITA Administration Mirabegron 25 mg 08/08/19 09:00 08/08/19 08:49 Myrbetriq Er PO 25 mg DAILY BONITA Administration Pioglitazone HCl 15 mg 08/08/19 09:00 08/08/19 08:49 Actos PO 15 mg DAILY BONITA Administration Pravastatin Sodium 40 mg 08/07/19 21:00 08/07/19 20:22 Pravachol PO 40 mg HS BONITA Administration - Exam Eye: PERRL Heart: RRR, no murmur, no gallops, no rubs, normal peripheral pulses Respiratory: CTAB, no wheezes, no rales, no ronchi, normal chest expansion, no tachypnea Gastrointestinal: soft, non-tender, non-distended, normal bowel sounds, no palpable masses, no hepatomegaly Hosp A/P (1) Hypertensive urgency Code(s): I16.0 - HYPERTENSIVE URGENCY Status: Acute (2) CKD (chronic kidney disease) stage 4, GFR 15-29 ml/min Code(s): N18.4 - CHRONIC KIDNEY DISEASE, STAGE 4 (SEVERE) Status: Chronic (3) Diabetes type 2, controlled Code(s): E11.9 - TYPE 2 DIABETES MELLITUS WITHOUT COMPLICATIONS Status: Chronic (4) Hypertension Code(s): I10 - ESSENTIAL (PRIMARY) HYPERTENSION Status: Chronic - Plan * Hypertensive urgency- blood pressure is much better * Will add a low dose Amlodipine * Stable for discharge home.
--- NOTE | 2019-08-09 10:14 | DIS ---
DATE OF ADMISSION: 08/06/2019 DATE OF DISCHARGE: 08/08/2019 DISCHARGE DISPOSITION: Home. PRIMARY DISCHARGE DIAGNOSES: 1. Hypertensive urgency. 2. Chronic kidney disease, stage 4. 3. Diabetes mellitus, type 2. 4. Hyperlipidemia. DISCHARGE MEDICATIONS: 1. Amlodipine was added at 2.5 mg p.o. daily. 2. Clonidine was discontinued. 3. Hydralazine 10 mg p.o. q.i.d. as needed for elevated blood pressure is in its place. 4. Pravastatin 80 mg at bedtime. 5. Actos 15 mg daily. 6. Myrbetriq 25 mg extended release daily. 7. Isosorbide dinitrate 20 mg twice a day. 8. Lantus 16 units subcu q.a.m. 9. Hydralazine 100 mg p.o. t.i.d. 10. Lasix 40 mg twice daily. 11. Dicyclomine 20 mg t.i.d. 12. Dexilant 60 mg daily. 13. Plavix 75 mg p.o. daily. 14. Carvedilol 6.25 mg twice daily. 15. Aspirin 81 mg daily. CODE STATUS: Full code. ALLERGIES: TO PENICILLINS. HOSPITAL COURSE: Mr. Diego Montelongo is a very pleasant 73-year-old gentleman, who presented to the emergency room after it was noted that his blood pressure was extremely difficult to control. He had been taken off amlodipine because his blood pressure had gone too low. He had been placed on clonidine as needed in addition to his scheduled hydralazine and carvedilol. However, he noted that the clonidine did not seem to help bring his blood pressure down and for this reason, he came to the ER. He did note some headache and a little bit of dizziness as well. During his hospital stay, his blood pressure medications were adjusted by adding amlodipine and instead of clonidine as needed, he will be changed to hydralazine. This regimen seemed to stabilize his blood pressure and he is being discharged home with close followup. During his hospital stay, he was seen by Cardiology as well as Nephrology. Job ID: [id number]
== END 2019-08-08 15:02 | disposition home or self-care (01) | DRG 305 ==
LOC: ERS 20:31 → 2SE 22:59
PROVIDERS: ADMIT Internal Medicine; ATTEND Internal Medicine
DX: I16.1 Hypertensive emergency (principal); N18.4 Chronic kidney disease, stage 4 (severe); I12.9 Hypertensive chronic kidney disease with stage 1 through stage 4 chronic kidney disease, or unspecified chronic kidney disease; E78.5 Hyperlipidemia, unspecified; D63.1 Anemia in chronic kidney disease; E11.21 Type 2 diabetes mellitus with diabetic nephropathy; E11.22 Type 2 diabetes mellitus with diabetic chronic kidney disease; Z90.49 Acquired absence of other specified parts of digestive tract; Z88.0 Allergy status to penicillin
CPT/HCPCS: 36415; 36416; 71045; 80048; 80053; 80061; 81003; 81015; 82553; 84484; 85025; 93005; 94760; J0360; J1644; J1650; J1815

== ENCOUNTER 2019-09-05 22:11 | Inpatient (IN) | payer MEDICARE, MEDICAID ==
[2019-09-05] MEDS ORDERED: hydrALAZINE 25 MG TAB ONE (22:56)
--- NOTE | 2019-09-05 23:00 | CT ---
CT head noncontrast HISTORY: Headache. COMPARISON: 07/20/2019. FINDINGS: No evidence of acute intracranial hemorrhage or infarct. Mild physiologic calcification at the basal ganglia is stable. There is no mass effect or shift of midline structures. Visualized paranasal sinuses remain well-aerated. IMPRESSION: No acute intracranial abnormalities are demonstrated.
[2019-09-05 23:03] LABS: #Basophils 0.1 thou/uL (0.0-0.2); #Eosinphils 0.2 thou/uL (0.0-0.7); #Lymphocytes 0.9 thou/uL (1.20-3.40); #Monocytes 0.5 thou/uL (0.11-0.59); #Neutrophils 3.5 thou/uL (1.40-6.50); %Lymphocytes 17.9 % (21.0-51.0); %Monocytes 10.4 % (0.0-10.0); %Neutrophils 67.8 % (42.0-75.0); Hemoglobin 13.1 g/dL (14.0-18.0); Mean Corpuscular HGB CONC 33.1 g/dL (32.0-36.0); Mean Corpuscular Hemoglobin 28.5 pg (27.0-31.0); Mean Corpuscular Volume 86.1 fL (78.0-98.0); Mean Platelet Volume 10.1 fL (7.4-10.4); Platelet Count 167 thou/uL (130-400); RBC Distribution Width 12.3 % (11.5-14.5); Red Blood Cell (RBC) Count 4.59 mill/uL (4.70-6.10); White Blood Cell (WBC) Count 5.1 thou/uL (4.8-10.8)
[2019-09-05] MEDS ORDERED: Isosorbide Dinitrate 20 MG TAB PO SCH (23:15)
[2019-09-05] MEDS ORDERED: Carvedilol 6.25 MG TAB PO SCH (23:15)
[2019-09-05 23:44] LABS: ALT (SGPT) 23 U/L (8-55); AST (SGOT) 18 U/L (5-34); Alkaline Phosphatase 94 U/L (40-110); Anion Gap 15 mmol/L (10-20); BUN (Urea Nitrogen) 53 mg/dL (8.4-25.7); Bilirubin, Total 0.4 mg/dL (0.2-1.2); Calc. Creatinine Clearance 0 mL/min (70-130); Calcium 8.5 mg/dL (7.8-10.44); Carbon Dioxide 21 mmol/L (23-31); Chloride 105 mmol/L (98-107); Estimated GFR-MDRD 15; Globulin 3.1 g/dL (2.4-3.5); Glucose 148 mg/dL (83-110); Potassium 4.1 mmol/L (3.5-5.1); Protein, Total 7.1 g/dL (5.8-8.1); Sodium 137 mmol/L (136-145)
[2019-09-05 23:48] LABS: CKMB 3.1 ng/mL (0-6.6)
[2019-09-05] MEDS ORDERED: Aspirin Chewable 81 MG TAB ONE (23:49)
[2019-09-06 01:56] VITALS: BMI 29.5
[2019-09-06] MEDS ORDERED: hydrALAZINE 20 MG/ML VIAL SLOW IVP PRN (02:05)
[2019-09-06] MEDS ORDERED: Acetaminophen 650 MG Suppository PR PRN (02:05)
[2019-09-06] MEDS ORDERED: Dextrose 5% in Water 1,000 ML IV PRN (02:07)
[2019-09-06] MEDS ORDERED: Dextrose 50% Abboject 50 ML SYRINGE SLOW IVP PRN (02:07)
[2019-09-06] MEDS ORDERED: HumaLOG 300 UNITS/3 ML VIAL SC PRN (02:07)
[2019-09-06] MEDS ORDERED: Amlodipine 5 MG TAB PO SCH (02:30)
[2019-09-06 03:07] LABS: Troponin I 0.081 ng/mL (< 0.028)
--- NOTE | 2019-09-06 03:40 | HP ---
TIME OF ASSESSMENT: 0100 hours. CHIEF COMPLAINT: Headache and left hand numbness. HISTORY OF PRESENT ILLNESS: Mr. Cortez is a 73-year-old gentleman who presents with complaints of headache associated with uncontrolled blood pressure. The patient states he began to feel badly around 9:00 p.m. He was not due for his evening blood pressure medicines until 11:00 p.m., therefore opted to come to the emergency department as he had associated symptoms including left thumb numbness , and numbness and tingling involving the right foot. He denies any extremity weakness. He states he at one point experienced tingling in the right hand, but that resolved. The patient feels these symptoms tend to occur when his blood pressure is very elevated. He denies having any facial weakness or numbness. No slurred speech. No dizziness. Reports having slightly blurred vision as well as pain behind both eyes. He states this also does happen when he has a very elevated blood pressure. The patient was recently seen by his primary care physician for the second time, who has been adjusting his medications. However, given the fact that the patient is new to her, she deferred further adjustments to Cardiology. He is scheduled for a followup with Dr. Corley later today. The patient denies experiencing any chest pain or shortness of breath. Denies any dizziness or gait disturbances. All other review of systems are negative. Has not had any recent fevers, chills, or sweats. Denies any nausea or vomiting, but does report increased elevation again, also associated with elevated blood pressure. ED COURSE: In the emergency department, the patient underwent an EKG that showed first-degree AV block, similar to previous EKG. He was given aspirin 324 mg given concern for possible TIA. For his elevated blood pressure, he received his usual nighttime medications, which included isosorbide dinitrate 20 mg, carvedilol 6.25 mg, hydralazine 100 mg. He underwent laboratory studies that showed a white count of 5.1, hemoglobin 13.1, hematocrit 39.6, platelets 167, sodium 137, potassium 4.1, BUN 53, creatinine 3.88, GFR 15. Renal function is actually stable. Initial troponin 0.096 and CK-MB 3.1. CT imaging of the brain showed no acute intracranial abnormalities. PAST MEDICAL HISTORY: 1. Hypertension. 2. Chronic kidney disease. 3. Diabetes mellitus. 4. Hyperlipidemia. 5. Coronary artery disease. 6. Obesity. PAST SURGICAL HISTORY: 1. Appendectomy. 2. Polypectomy. SOCIAL HISTORY: The patient denies any tobacco use, alcohol consumption, or illicit drug use. FAMILY HISTORY: Noncontributory. ALLERGIES: PENICILLIN. CURRENT MEDICATIONS: 1. Amlodipine. 2. Aspirin. 3. Carvedilol. 4. Vitamin D3. 5. Clopidogrel. 6. Dicyclomine. 7. Ferrous sulfate. 8. Furosemide. 9. Hydralazine. 10. Insulin. 11. Isosorbide dinitrate. 12. Mirabegron. 13. Pioglitazone. 14. Pravastatin. PHYSICAL EXAMINATION: GENERAL: The patient appears well developed, well nourished, is in no acute distress. VITAL SIGNS: Temperature 97.6, pulse 58, respirations 18, O2 saturation 98% on room air, and blood pressure 189/76. HEENT: Normocephalic and atraumatic. Pupils are equal, round, and reactive to light. Sclerae without icterus. Visual fontanez intact. Extraocular movements normal. Oropharynx is clear. NECK: Supple. LUNGS: Clear to auscultation bilaterally. CARDIAC: Regular rate and rhythm. ABDOMEN: Soft, nontender, nondistended. Normoactive bowel sounds present. No guarding or rigidity. No renal angle tenderness. NEUROLOGIC: Alert and oriented x3. Facial movements normal. Facial sensation intact. Power 5/5 in all limbs with normal sensation. No neuro deficits. INVESTIGATIONS: As mentioned above in HPI. Of note, the patient underwent an echo in December 2018, which showed an EF of 45% to 50% with grade 2/3 diastolic dysfunction. He had inferolateral hypokinesis with mildly dilated left atrium, mildly enlarged right atrium size, mitral annular calcification, [id number] mitral regurgitation, calcified aortic valve with decreased cusp opening. He is noted to have mild aortic valve stenosis and mild tricuspid regurgitation. IMPRESSION AND PLAN: Mr. Thompson is a 73-year-old gentleman, who is being referred for management of the followin. Transient ischemic attack workup. The patient with uncontrolled blood pressure and associated headache as well as numbness and tingling involving the left thumb and right foot. The patient's symptoms are unlikely associated with transient ischemic attack/cerebrovascular accident, though he does have multiple risk factors. It is more likely associated with uncontrolled blood pressure. He is asymptomatic at present. He has undergone an echo in December 2018. We will go ahead and consult Neurology. Carotid Dopplers ordered. Echocardiogram ordered as well. We will continue to monitor overnight. 2. Uncontrolled blood pressure. The patient requesting to see Dr. Corley, who he was scheduled to see later today for management of his blood pressure medicines. Blood pressure improved with evening medications. However, on arrival to floor, his blood pressure increased to the 190s. We will give amlodipine 5 mg p.o. x1 given the fact that his heart rate is in the 50s, and it is too soon to give hydralazine. 3. Chronic kidney disease. Renal function appears essentially stable. We will continue to monitor and await any nephrotoxic agents. We will hold furosemide. 4. Diabetes mellitus. Monitor blood glucose. Initiate insulin sliding scale. 5. Hyperlipidemia. Resume home medications once verified. 6. Gastrointestinal prophylaxis with famotidine. 7. Deep venous thrombosis prophylaxis with mechanical SCDs. The patient is ambulatory. 8. Code status: Full. Surrogate decision maker is his daughter, Carmen Spann. The patient's case was discussed with attending, who agrees with plan of care as described above. Job ID: [id number] MTDD
[2019-09-06 05:21] LABS: #Eosinphils 0.2 thou/uL (0.0-0.7); #Monocytes 0.5 thou/uL (0.11-0.59); #Neutrophils 2.8 thou/uL (1.40-6.50); %Basophils 0.3 % (0.0-1.0); %Eosinophils 4.1 % (0.0-10.0); %Lymphocytes 22.5 % (21.0-51.0); %Monocytes 10.3 % (0.0-10.0); %Neutrophils 62.8 % (42.0-75.0); Hemoglobin 11.3 g/dL (14.0-18.0); Mean Corpuscular Hemoglobin 27.7 pg (27.0-31.0); Mean Corpuscular Volume 86.8 fL (78.0-98.0); Platelet Count 150 thou/uL (130-400); RBC Distribution Width 12.2 % (11.5-14.5); Red Blood Cell (RBC) Count 4.08 mill/uL (4.70-6.10); White Blood Cell (WBC) Count 4.5 thou/uL (4.8-10.8)
[2019-09-06 05:43] LABS: Anion Gap 10 mmol/L (10-20); BUN (Urea Nitrogen) 55 mg/dL (8.4-25.7); Calc. Creatinine Clearance 20 mL/min (70-130); Calcium 7.9 mg/dL (7.8-10.44); Carbon Dioxide 25 mmol/L (23-31); Cardiac Risk 4.7 (Less than 4.5); Chloride 109 mmol/L (98-107); Cholesterol 154 mg/dl (< 200 Desired); Estimated GFR-MDRD 16; Glucose 158 mg/dL (83-110); HDL Cholesterol 33 mg/dL (>60 Neg Risk); LDL Cholesterol, Calculated 93 mg/dL; Sodium 140 mmol/L (136-145); Triglycerides 140 mg/dL (Less than 150)
[2019-09-06 05:45] LABS: Troponin I 0.112 ng/mL (< 0.028)
[2019-09-06] MEDS ORDERED: [UNRECOGNIZED DRUG - OTHER] SC SCH (09:00)
[2019-09-06] MEDS ORDERED: Aspirin Chewable 81 MG TAB PO SCH (09:00)
[2019-09-06] MEDS ORDERED: Amlodipine 10 MG TAB PO SCH (09:00)
[2019-09-06] MEDS ORDERED: Insulin Glargine 18 UNITS in Pre-Filled Syringe 1 EACH SC SCH (09:00)
[2019-09-06] MEDS ORDERED: Isosorbide Dinitrate 20 MG TAB PO SCH (09:00)
[2019-09-06] MEDS ORDERED: Famotidine/PF 20 mg/2ml Vial SLOW IVP SCH (09:00)
[2019-09-06] MEDS ORDERED: Aspirin 81 mg Enteric Coated Tablet PO SCH (09:00)
[2019-09-06] MEDS ORDERED: INSULIN GLARGINE HUM REC ANLOG SC SCH (09:00)
--- NOTE | 2019-09-06 10:32 | PDOC.HOSPP ---
- Subjective Encounter Date: 09/06/19 Encounter Time: 10:15 Subjective: awake, responds well to verbal stimuli no weakness in any extremities now daughter at bedside - Objective Vital Signs & Weight: Vital Signs (12 hours) Temp Pulse Resp BP Pulse Ox 09/06/19 07:27 98.5 F 64 15 171/76 H 97 09/06/19 04:12 58 L 09/06/19 04:00 98.6 F 57 L 18 147/64 H 95 09/06/19 01:30 97.6 F 58 L 18 189/76 H 98 Weight Weight 182 lb 12.8 oz I&O: 09/05/19 09/06/19 09/07/19 06:59 06:59 06:59 Intake Total 150 Output Total 300 Balance -150 Result Diagrams: 09/06/19 05:06 09/06/19 05:06 Additional Labs: Accuchecks 09/06/19 05:29 POC Glucose 155 H - Exam General Appearance: NAD, awake alert Eye: PERRL, anicteric sclera ENT: no oropharyngeal lesions, moist mucosa Neck: supple, no JVD Heart: RRR, no murmur Respiratory: no wheezes, no rales Gastrointestinal: soft, non-tender, non-distended, normal bowel sounds Extremities: no cyanosis, no edema Neurological: cranial nerve grossly intact, no focal deficits Psychiatric: normal affect, A&O x 3 Hosp A/P (1) TIA (transient ischemic attack) Code(s): G45.9 - TRANSIENT CEREBRAL ISCHEMIC ATTACK, UNSPECIFIED Status: Acute (2) Anxiety and depression Code(s): F41.9 - ANXIETY DISORDER, UNSPECIFIED; F32.9 - MAJOR DEPRESSIVE DISORDER, SINGLE EPISODE, UNSPECIFIED Status: Chronic (3) BPH (benign prostatic hyperplasia) Code(s): N40.0 - BENIGN PROSTATIC HYPERPLASIA WITHOUT LOWER URINRY TRACT SYMP Status: Chronic Qualifiers: Lower urinary tract symptom presence: symptoms absent Qualified Code(s): N40.0 - Benign prostatic hyperplasia without lower urinary tract symptoms (4) CKD (chronic kidney disease) stage 4, GFR 15-29 ml/min Code(s): N18.4 - CHRONIC KIDNEY DISEASE, STAGE 4 (SEVERE) Status: Chronic (5) Diabetes type 2, controlled Code(s): E11.9 - TYPE 2 DIABETES MELLITUS WITHOUT COMPLICATIONS Status: Chronic Qualifiers: Diabetes mellitus keno terminal operator insulin use: with keno terminal operator use Diabetes mellitus complication status: with kidney complications Diabetes mellitus complication detail: with chronic kidney disease Chronic kidney disease stage : stage 4 (severe) Qualified Code(s): E11.22 - Type 2 diabetes mellitus with diabetic chronic kidney disease; N18.4 - Chronic kidney disease, stage 4 (severe ); Z79.4 - terminal clerk (current) use of insulin (6) Dyslipidemia Code(s): E78.5 - HYPERLIPIDEMIA, UNSPECIFIED Status: Chronic (7) Hypertension Code(s): I10 - ESSENTIAL (PRIMARY) HYPERTENSION Status: Chronic Qualifiers: Hypertension type: essential hypertension Qualified Code(s): I10 - Essential (primary) hypertension - Plan htn a bit uncontrolled with sbp going upto 170's at home he keeps a record of BP tid at home (ranges for sbp are 150 - 170's) has close f/u with for his ckd no motor deficits on clinical exam, amb by himself at home, 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 gave full updates to patient and daughter at bedside
[2019-09-06] MEDS: hydrALAZINE 25 MG TAB PO SCH ×3 (10:35→20:39)
[2019-09-06] MEDS: Clopidogrel Bisulfate 75 MG TAB PO SCH (10:35)
[2019-09-06] MEDS: Carvedilol 6.25 MG TAB PO SCH ×2 (10:36→20:40)
[2019-09-06] MEDS: Ferrous Sulfate 325 MG TAB PO SCH (10:36)
[2019-09-06] MEDS: Aspirin 81 mg Enteric Coated Tablet PO SCH (10:44)
--- NOTE | 2019-09-06 13:34 | CON ---
DATE OF CONSULTATION: 09/06/2019 REASON FOR CONSULTATION: Hypertensive urgency. HISTORY OF PRESENT ILLNESS: Mr. Cortez is a pleasant 73-year-old gentleman, who comes to the hospital for headache and elevated blood pressure. He was feeling tingling in his hand and his feet as well as a headache for the last few days. His blood pressure has been above in the 180s. He states that he would take medicines to make it come down. He is on several blood pressure medications, and when he would come under 185 systolic, he would feel much better back to normal. He was not feeling any better yesterday, so he came in for evaluation. He was evaluated for possible stroke, which has been negative so far. PAST MEDICAL HISTORY: 1. Hypertension. 2. Chronic kidney disease. 3. Type 2 diabetes. 4. Hyperlipidemia. 5. Coronary artery disease, presumed from an abnormal stress test. 6. Obesity. PAST SURGICAL HISTORY: 1. Appendectomy. 2. Polypectomy. SOCIAL HISTORY: No alcohol, tobacco or drugs. FAMILY HISTORY: Noncontributory. ALLERGIES: PENICILLIN. OUTPATIENT MEDICATIONS: 1. Insulin glargine. 2. Dicyclomine. 3. Myrbetriq. 4. Isosorbide dinitrate 20 mg b.i.d. 5. Furosemide 40 mg b.i.d. 6. Pioglitazone. 7. Plavix 75 mg a day. 8. Carvedilol 6.25 b.i.d. 9. Ferrous sulfate. 10. Amlodipine 10 mg a day. 11. Vitamin D3. 12. Aspirin 81 a day. 13. Hydralazine 100 mg 3 times a day. 14. Pravastatin 80 mg q.p.m. REVIEW OF SYSTEMS: A 12-point review of systems was done and was all negative unless in the history of present illness. PHYSICAL EXAMINATION: VITAL SIGNS: Temperature 99.1, pulse 65, respiratory rate 12, saturating 98% on room air, and blood pressure 134/62. GENERAL: Awake, alert, and oriented x3, in no distress. HEENT: Normocephalic and atraumatic. NECK: Supple. LUNGS: Clear. CARDIOVASCULAR: S1 and S2. No S3 or S4. No murmurs. ABDOMEN: Soft. Positive bowel sounds. EXTREMITIES: No edema. SKIN: Warm and dry. LABORATORY DATA: Laboratory work was reviewed CBC with a white count of 4, hemoglobin of 11.3, hematocrit of 35, and platelet count of 150. Chemistries with a BUN of 53, creatinine 3.88, and GFR of 15. Troponin was 0.09, 0.08, and 0.11 with a normal CK-MB. Triglycerides of 140, cholesterol of 154, LDL of 93, and HDL of 33. DIAGNOSTIC DATA: EKG was reviewed. Chest x-ray was reviewed. CT of the brain was unremarkable. ASSESSMENT AND PLAN: 1. Hypertensive urgency. 2. Chronic kidney disease, stage 4. 3. Presumed coronary artery disease from abnormal stress test. PLAN: 1. We will increase his Imdur to 40 mg twice a day. 2. We will change amlodipine to nifedipine at 90 mg and try to up titrate as needed. 3. We will give a prescription for p.r.n. clonidine before he leaves at 0.1 mg p.r.n. every 6 hours as needed for systolic blood pressure above 170. 4. Already follows with Dr. Arrington for his kidneys. He will follow up with him as well. 5. We would keep overnight to make sure his blood pressure is more stable. Thank you for letting us to participate in care of your patient. We will follow. Job ID: [id number]
[2019-09-06] MEDS: HumaLOG 300 UNITS/3 ML VIAL SC PRN (19:11)
[2019-09-06] MEDS: Isosorbide Dinitrate 20 MG TAB PO SCH (20:40)
[2019-09-06] MEDS: Atorvastatin Calcium 20 MG TAB PO SCH (20:40)
[2019-09-06] MEDS ORDERED: Non-Formulary Item 1 EACH (Pravastatin Sodium [Pravastatin Sodium] 80 MG) PO SCH (21:00)
[2019-09-06] MEDS ORDERED: Atorvastatin Calcium 40 MG TAB PO SCH (21:00)
--- NOTE | 2019-09-06 22:27 | CON ---
DATE OF CONSULTATION: 09/06/2019 CONSULTING PHYSICIAN: Hospitalist Service. IMPRESSION: Transient ischemic attack versus hypertensive crisis. PLAN: Review MRI of the brain. HISTORY OF PRESENT ILLNESS: Mr. Montelongo is a 73-year-old gentleman with a past history of hypertension, hyperlipidemia, renal insufficiency, and a prior stroke. He was on aspirin and a statin prior to admission. He came in with complaints of pressure behind his eyes, some blurred vision, and feeling of numbness on the right side of the body. His symptoms have since resolved. His initial CT scan of the brain did not show any evidence of hemorrhage. His blood pressure is improved and is running around 170/76. He is in a sinus rhythm. Dr. Corley was consulted and has made some adjustments in his medication. PAST HISTORY: As listed above. ALLERGIES: NONE REPORTED. SOCIAL HISTORY: No tobacco. FAMILY HISTORY: Noncontributory. REVIEW OF SYSTEMS: Ten-system review of systems is otherwise negative. PHYSICAL EXAMINATION: GENERAL: Reasonably healthy-appearing elderly man, in no distress. VITAL SIGNS: Blood pressure 152/63, pulse 60, respirations 18, and temperature 98.3. HEENT: Pupils equal and reactive. Conjunctivae clear. Oropharynx clear. NECK: Supple. EXTREMITIES: No cyanosis or edema. NEUROLOGIC: He is alert and cooperative. His speech is fluent and clear. Cranial nerves are intact. He has equal strength and walk independently. He has no abnormal movements. Sensation is intact. SUMMARY: A 73-year-old gentleman who came in hypertensive with symptoms more suggestive of hypertensive encephalopathy rather than a stroke. His MRI is pending, as well as his echocardiogram. If there is evidence of an acute ischemic injury, I would add Plavix. Otherwise, I would continue his current care. Job ID: [id number]
[2019-09-07] MEDS: hydrALAZINE 25 MG TAB PO SCH ×3 (08:16→20:42)
[2019-09-07] MEDS: Isosorbide Dinitrate 20 MG TAB PO SCH ×2 (08:17→20:42)
[2019-09-07] MEDS: Ferrous Sulfate 325 MG TAB PO SCH (08:17)
[2019-09-07] MEDS: Carvedilol 6.25 MG TAB PO SCH (08:17)
[2019-09-07] MEDS: Aspirin 81 mg Enteric Coated Tablet PO SCH (08:18)
[2019-09-07] MEDS: Clopidogrel Bisulfate 75 MG TAB PO SCH (08:18)
--- NOTE | 2019-09-07 08:51 | ULT ---
BILATERAL CAROTID DUPLEX ULTRASOUND: HISTORY: TIA TECHNIQUE: Grayscale, color-flow and spectral Doppler ultrasound imaging of the extracranial carotid artery syst ems was performed bilaterally. FINDINGS: There is a small amount of plaque in the left carotid bulb. The peak systolic velocity in the right ICA measures 102 cm/s with an end-diastolic velocity of 19 cm /s and a systolic ratio of 1.14. The peak systolic velocity in the left ICA measures 108 cm/s with an end-diastolic velocity of 23 cm/s and a systolic ratio of 0.93. Flow in both vertebral arteries remains antegrade. IMPRESSION: No evidence of hemodynamically significant stenosis.
[2019-09-07] MEDS ORDERED: NIFEdipine XL 90 MG TAB PO SCH (09:00)
[2019-09-07] MEDS: Insulin Glargine 16 UNITS in Pre-Filled Syringe 1 EACH SC SCH (11:21)
[2019-09-07] MEDS: HumaLOG 300 UNITS/3 ML VIAL SC PRN ×2 (12:37→17:04)
[2019-09-07] MEDS: Acetaminophen 325 MG TAB PO PRN (12:41)
[2019-09-07] MEDS ORDERED: Ondansetron ODT 4 MG TAB PO PRN (12:43)
--- NOTE | 2019-09-07 13:15 | PDOC.HOSPP ---
- Subjective Encounter Date: 09/07/19 Encounter Time: 11:00 Subjective: pt had code delmar when he was at MRI, he felt diaphoresis and he was less responsive, he was bradycardic and he was given atropin, he was transferred to CCU, his pulse and BP improved, he was feeling better, he did not have any focal deficit - Objective Vital Signs & Weight: Vital Signs (12 hours) Temp Pulse Resp BP BP Pulse Ox 09/07/19 12:00 97.7 F 09/07/19 11:00 97.7 F 71 12 125/60 100 09/07/19 07:35 98.3 F 58 L 15 196/80 H 98 09/07/19 04:00 98.3 F 57 L 16 137/63 96 Weight Weight 182 lb 12.8 oz I&O: 09/06/19 09/07/19 09/08/19 06:59 06:59 06:59 Intake Total 150 690 Output Total 300 Balance -150 690 Result Diagrams: 09/06/19 05:06 09/06/19 05:06 Additional Labs: Accuchecks 09/07/19 09/07/19 09/06/19 11:26 06:06 20:52 POC Glucose 170 H 75 145 H 09/06/19 15:57 POC Glucose 256 H Radiology Reviewed by me: Yes EKG Reviewed by me: Yes Hospitalist ROS - Review of Systems Constitutional: denies: fever, chills, sweats, weakness, malaise, other ENT: denies: ear pain, ear discharge, nose pain, nose discharge, nose congestion , mouth pain, mouth swelling, throat pain, throat swelling, other Respiratory: denies: cough, dry, shortness of breath, hemoptysis, SOB with excertion, pleuritic pain, sputum, wheezing, other Cardiovascular: denies: chest pain, palpitations, orthopnea, paroxysmal noc. dyspnea, edema, light headedness, other Gastrointestinal: denies: nausea, vomiting, abdominal pain, diarrhea, constipation, melena, hematochezia, other Genitourinary: denies: dysuria, frequency, incontinence, hematuria, retention, other Musculoskeletal: denies: neck pain, shoulder pain, arm pain, back pain, hand pain, leg pain, foot pain, other Skin: denies: rash, lesions, eli, bruising, other Neurological: denies: weakness, numbness, incoordination, change in speech, confusion, seizures, other - Medication Medications: Active Medications Generic Name Dose Route Start Last Admin Trade Name Brittni PRN Reason Stop Dose Admin Acetaminophen 650 mg 09/06/19 02:05 09/07/19 12:41 Tylenol PO 650 mg Q4H PRN Administration Headache/Fever/Mild Pain (1-3) Aspirin 81 mg 09/06/19 09:00 09/07/19 08:18 Ecotrin PO 81 mg DAILY BONITA Administration Atorvastatin Calcium 20 mg 09/06/19 21:00 09/06/19 20:40 Lipitor PO 20 mg QPM [facility] Administration Carvedilol 6.25 mg 09/06/19 09:00 09/07/19 08:17 Coreg PO 6.25 mg BID [facility] Administration Cholecalciferol 1,000 units 09/06/19 09:00 09/07/19 08:18 Vitamin D3 PO 1,000 units DAILY [facility]ON[facility] Administration Clopidogrel Bisulfate 75 mg 09/06/19 09:00 09/07/19 08:18 Plavix PO 75 mg DAILY [facility] Administration Ferrous Sulfate 325 mg 09/06/19 09:00 09/07/19 08:17 Feosol PO 325 mg DAILY [facility] Administration Hydralazine HCl 100 mg 09/06/19 09:00 09/07/19 08:16 Apresoline PO 100 mg TID BON[facility] Administration Insulin Glargine 16 units/ 0.16 mls @ 0 mls/hr 09/07/19 09:00 09/07/19 11:21 Miscellaneous Medication SC 0.16 mls QAM BONITA Administration Insulin Human Lispro 0 units 09/06/19 02:07 09/07/19 12:37 Humalog SC 2 unit .MILD SLIDING SCALE PRN Administration Mild Correctional Scale Isosorbide Dinitrate 40 mg 09/06/19 21:00 09/07/19 08:17 Isordil PO 40 mg BID [facility] Administration Mirabegron 25 mg 09/06/19 09:00 09/07/19 08:17 Myrbetriq Er PO 25 mg DAILY [facility] Administration Nifedipine 90 mg 09/07/19 09:00 09/07/19 08:17 Procardia Xl PO 90 mg DAILY [facility] Administration - Exam General Appearance: NAD, awake alert Eye: PERRL, anicteric sclera ENT: normocephalic atraumatic, no oropharyngeal lesions Neck: supple, symmetric, no JVD, no thyromegaly Heart: RRR, no murmur, no gallops, no rubs, normal peripheral pulses Respiratory: CTAB, no wheezes, no rales, no ronchi Gastrointestinal: soft, non-tender, non-distended, normal bowel sounds Extremities: no cyanosis, no clubbing, no edema Skin: normal turgor, no lesions, no rashes Neurological: cranial nerve grossly intact, normal sensation to touch, no weakness, no focal deficits Musculoskeletal: normal tone, normal strength Psychiatric: normal affect, normal behavior, A&O x 3 Hosp A/P (1) TIA (transient ischemic attack) Code(s): G45.9 - TRANSIENT CEREBRAL ISCHEMIC ATTACK, UNSPECIFIED Status: Acute (2) Hypertensive urgency Code(s): I16.0 - HYPERTENSIVE URGENCY Status: Acute (3) Anxiety and depression Code(s): F41.9 - ANXIETY DISORDER, UNSPECIFIED; F32.9 - MAJOR DEPRESSIVE DISORDER, SINGLE EPISODE, UNSPECIFIED Status: Chronic (4) BPH (benign prostatic hyperplasia) Code(s): N40.0 - BENIGN PROSTATIC HYPERPLASIA WITHOUT LOWER URINRY TRACT SYMP Status: Chronic Qualifiers: Lower urinary tract symptom presence: symptoms absent Qualified Code(s): N40.0 - Benign prostatic hyperplasia without lower urinary tract symptoms (5) CKD (chronic kidney disease) stage 4, GFR 15-29 ml/min Code(s): N18.4 - CHRONIC KIDNEY DISEASE, STAGE 4 (SEVERE) Status: Chronic (6) Diabetes type 2, controlled Code(s): E11.9 - TYPE 2 DIABETES MELLITUS WITHOUT COMPLICATIONS Status: Chronic Qualifiers: Diabetes mellitus loan service officer insulin use: with fci use Diabetes mellitus complication status: with kidney complications Diabetes mellitus complication detail: with chronic kidney disease Chronic kidney disease stage : stage 4 (severe) Qualified Code(s): E11.22 - Type 2 diabetes mellitus with diabetic chronic kidney disease; N18.4 - Chronic kidney disease, stage 4 (severe ); 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 (7) Dyslipidemia Code(s): E78.5 - HYPERLIPIDEMIA, UNSPECIFIED Status: Chronic (8) Hypertension Code(s): I10 - ESSENTIAL (PRIMARY) HYPERTENSION Status: Chronic Qualifiers: Hypertension type: essential hypertension Qualified Code(s): I10 - Essential (primary) hypertension - Plan old records reviewed/req 09/07/19 will change to inpt status will need MRI when more stable medication reviewed and continue to provide symptomatic care and supportive care neurology and cardiology recommendation noted will adjust BP medication suspecting either vasovagal episode at MRI or orthostatic hypotension, will monitor
[2019-09-07] MEDS ORDERED: HYDROcodone/Acetaminophen 5/325 mg Tablet PO PRN (14:04)
[2019-09-07] MEDS ORDERED: Atropine Sulfate 1 mg/10 ml Syringe ONE (14:30)
--- NOTE | 2019-09-07 17:38 | PDOC.CPN ---
- Subjective Date: 09/07/19 Time: 17:29 Interval history: He was about get an MRI brain and he had loss of consciousness. Salvador gramajo was called and his initial HR was 20 and low BP. He eventually regained consciousness. He is doing better now in the ICU on my evaluation. He had received the increased BP meds this morning. - Review of Systems General: denies: fever/chills, weight/appetite/sleep changes, night sweats, fatigue Respiratory: denies: cough, congestion, shortness of breath, exercise intolerance Cardiovascular: denies: chest pain, palpitation, edema, paroxysmal nocturnal dyspnea, orthopnea Gastrointestinal: denies: nausea, vomiting, diarrhea, constipation, abd pain, GI bleeding Musculoskeletal: denies: pain, tenderness, stiffness, swelling, arthritis/ arthralgias Neurological: denies: numbness, syncope, seizure, weakness - Objective Allergies/Adverse Reactions: Allergies Allergy/AdvReac Type Severity Reaction Status Date / Time Penicillins Allergy Intermediate Short of Verified 01/20/19 08:28 Breath Visit Medications: Current Medications Acetaminophen (Tylenol) 650 mg PO Q4H PRN PRN Reason: Headache/Fever/Mild Pain (1-3) Last Admin: 09/07/19 12:41 Dose: 650 mg Acetaminophen (Tylenol) 650 mg IN Q4H PRN PRN Reason: Headache/Fever/Mild Pain (1-3) Hydrocodone Bitart/Acetaminophen ([place] 5/325) 1 tab PO Q4H PRN PRN Reason: Moderate Pain (4-6) Last Admin: 09/07/19 15:05 Dose: 1 tab Aspirin (Ecotrin) 81 mg PO DAILY [facility] Last Admin: 09/07/19 08:18 Dose: 81 mg Atorvastatin Calcium (Lipitor) 20 mg PO QPM [facility] Last Admin: 09/06/19 20:40 Dose: 20 mg Cholecalciferol (Vitamin D3) 1,000 units PO DAILY [facility] Last Admin: 09/07/19 08:18 Dose: 1,000 units Clopidogrel Bisulfate (Plavix) 75 mg PO DAILY [facility] Last Admin: 09/07/19 08:18 Dose: 75 mg Dextrose/Water (Dextrose 50%) 25 gm SLOW IVP PRN PRN PRN Reason: Hypoglycemia Ferrous Sulfate (Feosol) 325 mg PO DAILY [facility] Last Admin: 09/07/19 08:17 Dose: 325 mg Glucagon (Glucagon) 1 mg IM PRN PRN PRN Reason: Hypoglycemia Hydralazine HCl (Apresoline) 10 mg SLOW IVP Q4H PRN PRN Reason: SBP Greater Than 180 Hydralazine HCl (Apresoline) 100 mg PO TID [facility] Last Admin: 09/07/19 15:04 Dose: 100 mg Dextrose/Water (D5w) 1,000 mls @ 0 mls/hr IV .Q0M PRN PRN Reason: Hypoglycemia Insulin Glargine 16 units/ (Miscellaneous Medication) 0.16 mls @ 0 mls/hr SC QAM [facility] Last Admin: 09/07/19 11:21 Dose: 0.16 mls Insulin Human Lispro (Humalog) 0 units SC .MILD SLIDING SCALE PRN PRN Reason: Mild Correctional Scale Last Admin: 09/07/19 17:04 Dose: 3 unit Insulin Human Lispro (Humalog) 0 units SC .BEDTIME SLIDING SC PRN PRN Reason: Bedtime Correctional Scale Isosorbide Dinitrate (Isordil) 40 mg PO BID [facility] Last Admin: 09/07/19 08:17 Dose: 40 mg Mirabegron (Myrbetriq Er) 25 mg PO DAILY [facility] Last Admin: 09/07/19 08:17 Dose: 25 mg Nifedipine (Procardia Xl) 60 mg PO DAILY [facility] Ondansetron HCl (Zofran Odt) 4 mg PO Q6H PRN PRN Reason: Nausea/Vomiting Sodium Chloride (Flush - Normal Saline) 10 ml IVF Q12HR PRN PRN Reason: Saline Flush Sodium Chloride (Flush - Normal Saline) 10 ml IVF PRN PRN PRN Reason: Saline Flush Vital Signs & Weight: Vital Signs Temp Pulse Resp BP BP Pulse Ox 09/07/19 15:24 97.6 F 09/07/19 15:04 71 125/60 09/07/19 15:00 100 09/07/19 12:00 97.7 F 09/07/19 11:00 97.7 F 71 12 125/60 100 09/07/19 07:35 98.3 F 58 L 15 196/80 H 98 Weight 182 lb 12.8 oz - Physical Exam General: alert & oriented x3 HEENT: mucus membranes moist Neck: supple neck Cardiac: regular rate and rhythm, no murmur Lungs: clear to auscultation Neuro: grossly intact Abdomen: active bowel sounds Extremities: no edema Skin: clear Musculoskeletal: no pain - Labs Result Diagrams: 09/06/19 05:06 09/06/19 05:06 Troponin/CKMB CK-MB (CK-2) 3.1 ng/mL (0-6.6) 09/05/19 22:53 Troponin I 0.112 ng/mL (< 0.028) H 09/06/19 05:06 - Telemetry Sinus rhythms and dysrhythmias: sinus rhythm - Assessment/Plan Assessment/Plan: 1. Hypertension emergency 2. Syncope, 3. CKD stage 4 4. Ischemic CM 5. EF at 40-45% 6. Pressumed CAD from abnormal MPI. 7. Syncope. May have been vasovagal or from increased BP meds. PLAN: - Will cut back on nifedipine and will stop coreg. - Continue to monitor inpt for now. - Critical Care Time Critical care time (mins): 30
[2019-09-07 20:43] VITALS: BP 161/60
[2019-09-07] MEDS: Atorvastatin Calcium 20 MG TAB PO SCH (20:43)
[2019-09-08] MEDS ORDERED: NIFEdipine XL 60 MG TAB PO SCH (09:00)
[2019-09-08] MEDS: hydrALAZINE 25 MG TAB PO SCH ×2 (09:31→16:21)
[2019-09-08] MEDS: Aspirin 81 mg Enteric Coated Tablet PO SCH (09:33)
[2019-09-08] MEDS: Acetaminophen 325 MG TAB PO PRN (09:33)
[2019-09-08] MEDS: Insulin Glargine 16 UNITS in Pre-Filled Syringe 1 EACH SC SCH (09:33)
[2019-09-08] MEDS: Isosorbide Dinitrate 20 MG TAB PO SCH (09:34)
[2019-09-08] MEDS: Clopidogrel Bisulfate 75 MG TAB PO SCH (09:34)
[2019-09-08] MEDS: Ferrous Sulfate 325 MG TAB PO SCH (09:35)
[2019-09-08 11:24] VITALS: TEMP 98.6
--- NOTE | 2019-09-08 11:42 | MRI ---
Exam: Brain MRI without contrast HISTORY: Evaluate for CVA. Evaluate for transient ischemic attack. COMPARISON: 05/22/2015 FINDINGS: Calvarial marrow signal intensity: Appropriate T1 signal Gradient echo sequence: No hemorrhage Brain parenchyma: No mass, mass effect or midline shift. Brain volume, age-appropriate. Cortical cochran-white matter differentiation: Preserved Restricted diffusion: Central arterial flow voids are maintained. Absent restricted diffusion White matter signal intensities:Scattered T2 and FLAIR white matter hyperintensities, unchanged from the previous examination. Findings likely represent minimal chronic small vessel ischemic change Sinuses: Adequate aeration of the paranasal sinuses and mastoid air cells. IMPRESSION: 1. Absent restricted diffusion. No acute infarct 2. Age-appropriate atrophy. 3. Minimal chronic small vessel ischemic changes white matter.
--- NOTE | 2019-09-09 08:58 | DIS ---
DATE OF ADMISSION: 09/06/2019 DATE OF DISCHARGE: 09/08/2019 PRIMARY CARE PHYSICIAN: Ranjith Call Admission. DISCHARGE DISPOSITION: Home. PRIMARY DISCHARGE DIAGNOSES: 1. Transient ischemic attack. 2. Hypertensive urgency. SECONDARY DISCHARGE DIAGNOSES: Obesity, hypertension, dyslipidemia, chronic kidney disease stage 4, benign enlargement of prostate, anxiety and depression, chronic diastolic heart failure. PRIMARY PROCEDURE/OPERATION: None. RADIOLOGICAL INVESTIGATION: CT brain negative for any acute intracranial process. Echocardiography showed normal EF. Carotid Doppler negative for any stenosis. MRI brain negative for any acute stroke. SIGNIFICANT LABORATORY DATA: WBC 4.5, hemoglobin 11.3, platelet 150. Sodium 140, potassium 4.0, BUN 55, creatinine 3.82, calcium 7.9. LFT normal. LDL 93. DISCHARGE MEDICATIONS: 1. Aspirin 81 mg p.o. daily. 2. Plavix 75 mg p.o. daily. 3. Ferrous sulfate 325 mg p.o. daily. 4. Lasix 40 mg p.o. b.i.d. 5. Hydralazine 100 mg t.i.d. 6. Lantus 16 units subcu daily. 7. Isosorbide dinitrate 20 mg p.o. b.i.d. 8. Mirabegron 25 mg p.o. daily. 9. Pravastatin 80 mg p.o. at bedtime. 10. Vitamin D3 1000 units p.o. daily. 11. Procardia XL 60 mg p.o. daily. CONTRAINDICATION: None. CODE STATUS: Full code. 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 Corley was consulted while in hospital. Dr. Antolin Tavera, Neurology was consulted while in hospital. TEST RESULT PENDING ON DISCHARGE: None. ALLERGIES: PENICILLIN. DISCHARGE PLAN: Posthospital, the patient will follow up with primary care physician. HOSPITAL COURSE: A 73-year-old male who was admitted by Ashley Koch. Please see her H and P for further details. The patient was admitted for headache. The patient's presentation was consistent with symptomatic hypertensive urgency. The patient was not having any classic or TIA symptoms, but we suspected TIA as well. The patient was admitted to Stroke Floor as observation status. His CT brain was negative. After admission, we did echocardiography which showed normal EF. Carotid Doppler was negative for any stenosis, we did MRI brain as well and that came back negative. Yesterday when we tried to do MRI, the patient had a vasovagal versus orthostatic hypotension episode at MRI center and that is why procedure was hold and transferred to [facility] and we observed him another 24 hours. When the patient had code green, at that time, the patient was having low pulse rate and he was relatively diaphoretic and having low blood pressure, but that improved after giving atropine and we observed another 24 hours. Subsequently, MRI came back negative. We continued with his above-mentioned medication. Cardiology was consulted, Neurology was consulted while in hospital. Neurology recommended MRI done and they recommended to continue above-mentioned medication. The patient is seen and examined at bedside today. PHYSICAL EXAMINATION: VITAL SIGNS: Currently, temperature 98.6, blood pressure 156/65, saturation 95% on room air, pulse 68. Weight 181 pounds. GENERAL: The patient is currently alert and awake. No acute distress. HEENT: Head; normocephalic, atraumatic. Eyes; pupils round, reactive to light. Extraocular muscle intact. ENT; oropharynx within normal limits. Moist mucous membranes. No oral lesion. No pharyngeal erythema. No exudate. NECK: Supple. No JVD. No meningeal signs of irritation. LUNGS: Clear to auscultation without any rhonchi or rales. CARDIAC: S1 and S2 regular without any murmur. No gallop. No rub. ABDOMEN: Soft and benign without any tenderness. EXTREMITIES: No edema. NEUROLOGIC: Nonfocal examination. Overall, the patient is medically stable for discharge today. Job ID: [id number]
--- NOTE | 2019-09-10 01:01 | PQF ---
CRISTHIAN RODRIGUEZ SALIM NOORJIBHAI MD [id number] CLINICAL DOCUMENTATION CLARIFICATION FORM: POST DISCHARGE Addendum to original discharge summary date: ____ Late entry note date: __ DATE: 09/10/19 ATTN:Johanna Tong Please exercise your independent, professional judgment in responding to the clarification form. Clinical indicators are provided on the bottom of this form for your review Can you please further clarify the etiology of patient headache and left hand numbness? Please check appropriate box(s): [ x ] TIA [ ] Hypertensive encephalopathy [ ] Other diagnosis please specify [ ] Unable to determine In addition, please specify: Present on Admission (POA): [x ] Yes [ ] No [ ] Unable to determine For continuity of documentation, please document condition throughout progress notes and discharge summary. Thank You. CLINICAL INDICATORS - SIGNS / SYMPTOMS / LABS Consult 09/06 Dr. Tavera pg.1- TIA vs hypertensive crisis Consult 09/06 Dr. Tavera pg.1- he came in with complaints of pressure behind his eyes,some blurred vision and feeling numbness on the right side of the body Consult 09/06 Dr. Tavera pg.2- came in hypertensive with symptoms more suggestive of hypertensive encephalopathy rather than stroke Brain MRI pg.1- absent restricted diffusion. No acute infarct DS pg.1- Transient ischemic attack DS pg 2- presentation consistent with symptomatic hypertensive urgency. The patient not having any classic or TIA symptoms, but we suspect TIA as well RISK FACTORS Hypertensive emergency-Cardiology PN pg4 CAD-Cardiology PN pg4 CKD stage 4-Cardiology PN pg4 ischemic CM-Cardiology PN pg4 Hypertensive Urgency DS pg.1- TREATMENTS: CT Brain 09/05 Carotid Doppler study 09/07 TTE- echocardiogram 114 Brain MRI 09/08 BP Monitoring- VS Neurology Consult Dr. Tavera 09/06 Antihypertensive medication- MAR (This form is maintained as a part of the permanent medical record) 2014 [employer] All Rights Reserved [email or web address] [not provided] KATHERIND
--- NOTE | 2019-09-10 09:02 | ER ---
DATE OF SERVICE: Mr. Diego Montelongo was called as a Code Blue while in MRI. We responded emergently from the emergency department. When we got there, the patient was pale, diaphoretic and had a heart rate in the 20s. He was given 0.25 of an amp of atropine and his history and reason for his visit were tried to be obtained. There was not much information acutely available. Eventually, we were able to find more of his history and understand why he was there. He was hooked up to the crash cart ekg monitor tech and pads. His heart rate improves to around 60. His color improved. His mentation improved. Total time spent there was approximately 20 minutes and care was handed back over to the inpatient team, who wound continue taking care of him. Job ID: [id number]
--- NOTE | 2019-09-10 12:36 | EKG ---
Test Reason : Blood Pressure : / mmHG Vent. Rate : 061 BPM Atrial Rate : 061 BPM P-R Int : 216 ms QRS Dur : 108 ms QT Int : 426 ms P-R-T Axes : 026 -14 031 degrees QTc Int : 428 ms Sinus rhythm with 1st degree A-V block Moderate voltage criteria for LVH, may be normal variant Inferior infarct , age undetermined Abnormal ECG Confirmed by ANANT BECKWITH M.D. ([id number]), telegraph editor BIRDIE JUNIOR ([id number]) on 09/10/2019 12:35:50 PM Referred By: Confirmed By:ANANT BECKWITH M.D.
== END 2019-09-08 16:53 | disposition home or self-care (01) | DRG 69 ==
LOC: ERS 22:11 → 2SE 09-06 01:19 → OBSVTOIN 09-06 01:19 → CCU 09-07 09:50 → IMCU/EMU 09-07 14:07
PROVIDERS: ADMIT Internal Medicine; ATTEND Internal Medicine
DX: G45.9 Transient cerebral ischemic attack, unspecified (principal); N18.4 Chronic kidney disease, stage 4 (severe); I13.0 Hypertensive heart and chronic kidney disease with heart failure and stage 1 through stage 4 chronic kidney disease, or unspecified chronic kidney disease; I50.32 Chronic diastolic (congestive) heart failure; E78.5 Hyperlipidemia, unspecified; I44.0 Atrioventricular block, first degree; E11.22 Type 2 diabetes mellitus with diabetic chronic kidney disease; I25.10 Atherosclerotic heart disease of native coronary artery without angina pectoris; F41.9 Anxiety disorder, unspecified; F32.9 Major depressive disorder, single episode, unspecified; N40.0 Benign prostatic hyperplasia without lower urinary tract symptoms; I16.0 Hypertensive urgency; I25.5 Ischemic cardiomyopathy; I95.1 Orthostatic hypotension; E66.9 Obesity, unspecified; Z90.49 Acquired absence of other specified parts of digestive tract; Z88.0 Allergy status to penicillin; Z79.82 Long term (current) use of aspirin; Z79.899 Other long term (current) drug therapy; Z68.29 Body mass index [BMI] 29.0-29.9, adult
CPT/HCPCS: 36415; 36416; 70450; 70551; 80048; 80053; 80061; 82553; 84484; 85025; 93005; 93010; 93306; 93880; J0461; J1815

== ENCOUNTER 2019-09-10 17:13 | Inpatient (IN) | payer MEDICARE, MEDICAID ==
[2019-09-10 17:40] LABS: #Eosinphils 0.2 thou/uL (0.0-0.7); #Lymphocytes 0.9 thou/uL (1.20-3.40); #Monocytes 0.5 thou/uL (0.11-0.59); %Basophils 0.3 % (0.0-1.0); %Eosinophils 3.1 % (0.0-10.0); %Monocytes 8.8 % (0.0-10.0); %Neutrophils 71.8 % (42.0-75.0); Hemoglobin 12.5 g/dL (14.0-18.0); Mean Corpuscular HGB CONC 31.1 g/dL (32.0-36.0); Mean Corpuscular Hemoglobin 26.7 pg (27.0-31.0); Mean Corpuscular Volume 85.9 fL (78.0-98.0); Mean Platelet Volume 8.5 fL (7.4-10.4); Platelet Count 175 thou/uL (130-400); RBC Distribution Width 12.2 % (11.5-14.5); Red Blood Cell (RBC) Count 4.68 mill/uL (4.70-6.10); White Blood Cell (WBC) Count 5.5 thou/uL (4.8-10.8)
--- NOTE | 2019-09-10 17:48 | RAD ---
PORTABLE CHEST: 09/10/19 PROVIDED CLINICAL HISTORY: Chest pain. FINDINGS: Comparison 08/06/19. Cardiac and mediastinal silhouette is unchanged in appearance. No focal consolidation, pleural fluid or pneumothorax apparent. IMPRESSION: No evidence for an acute cardiopulmonary process. POS: DEANNE
[2019-09-10] MEDS ORDERED: Nitroglycerin 2% Ointment 1 INCH/1 GM Packet ONE (17:52)
[2019-09-10 17:59] LABS: ALT (SGPT) 24 U/L (8-55); AST (SGOT) 27 U/L (5-34); Albumin 4.2 g/dL (3.4-4.8); Alkaline Phosphatase 95 U/L (40-110); Anion Gap 16 mmol/L (10-20); BUN (Urea Nitrogen) 50 mg/dL (8.4-25.7); Bilirubin, Total 0.3 mg/dL (0.2-1.2); Calc. Creatinine Clearance 0 mL/min (70-130); Calcium 8.4 mg/dL (7.8-10.44); Carbon Dioxide 18 mmol/L (23-31); Chloride 109 mmol/L (98-107); Estimated GFR-MDRD 17; Globulin 2.9 g/dL (2.4-3.5); Glucose 103 mg/dL (83-110); Potassium 4.3 mmol/L (3.5-5.1); Protein, Total 7.1 g/dL (5.8-8.1); Sodium 139 mmol/L (136-145)
[2019-09-10 18:18] LABS: CKMB 3.1 ng/mL (0-6.6)
[2019-09-10] MEDS ORDERED: Acetaminophen 500 MG TAB ONE (18:24)
[2019-09-10] MEDS ORDERED: Enoxaparin Sodium 80 MG/0.8 ML SYRINGE ONE (18:24)
[2019-09-10] MEDS ORDERED: Aspirin Chewable 81 MG TAB ONE (19:22)
--- NOTE | 2019-09-10 20:00 | PDOC.HHP ---
Hospitalist HPI - History of Present Illness Chest pain, dizziness, headache History of Present Illness: Patient is a 73 year old male with PMH T2DM, HLD, HTN, CKD who presents to ED for chest pain, headache, dizziness, nausea that began this AM, patient recently admitted for HTN urgency from 09/06 to 09/08 and discharged home, patient reports compliance with all home meds without missing doses, did well until today when problem recurred. In ED, BP noted with SBP above 200, recieved nitropatch which improved BP and resolved symptoms. EKG w/ Q waves and nonspecific T wave changes compared to previous no acute ST changes. Of note, last admission patient had carotid doppler, MRI brain, CT head without stroke, cardiology consulted that admission as well. ED Course: NIFEdipine tablet extended release : Strength - 60 mg : ORAL Patient Dose: 1 tab(s) Oral once a day (in the morning). Dexilant CAPSULE, DELAYED RELEASE, BIPHASIC : Strength - 60 mg : ORAL Patient Dose: 1 tab(s) Oral 3 times a day (before meals). furosemide oral TABLET : Strength - 40 mg : ORAL Patient Dose: 1 tab(s) Oral 2 times a day. Myrbetriq TABLET, EXTENDED RELEASE 24 HR : Strength - 25 mg : ORAL Patient Dose: 1 tab(s) Oral once a day. pioglitazone TABLET : Strength - 15 mg : ORAL Patient Dose: 15 mg Oral once a day. aspirin oral TABLET : Strength - 81 mg : ORAL Patient Dose: 81 mg Oral once a day. carvedilol TABLET : Strength - 3.125 mg : ORAL Patient Dose: 6.25 mg Oral 2 times a day. hydrALAZINE oral TABLET : Strength - 100 mg : ORAL Patient Dose: 100 mg Oral 3 times a day. pravastatin TABLET : Strength - 80 mg : ORAL Patient Dose: 80 mg Oral once a day. VITAL SIGNS Sat Sep 10, 2019 17:15 ABHIJIT Gallegos Jessica BP: 223/93 Pulse: 65 Resp: 16 (Non-Labored) Temp: 97.9 (Oral) Pain: 9 O2 sat: 97 on (Room Air) Time: 09/10/2019 17:15. VITAL SIGNS Sat Sep 10, 2019 17:19 ABHIJIT House Kassidy Pulse: 61 Resp: 18 Temp: 98.3 (Oral) Pain: 9 O2 sat: 100 on (Room Air) Time: 09/10/2019 17:19. VITAL SIGNS Sat Sep 10, 2019 17:27 ABHIJIT House Kassidy BP: 209/77 Time: 09/10/2019 17:27. VITAL SIGNS Sat Sep 10, 2019 18:09 ABHIJIT House Kassidy BP: 191/74 Pulse: 60 Resp: 16 Temp: 98.3 (Oral) Pain: 0 O2 sat: 99 on (Room Air) Time: 09/10/2019 18:09. VITAL SIGNS Sat Sep 10, 2019 18:38 ABHIJIT House Kassidy BP: 170/86 Pulse: 64 Resp: 16 Temp: 98.3 Pain: 0 O2 sat: 99 Time: 09/10/2019 18:38. VITAL SIGNS Sat Sep 10, 2019 19:18 ABHIJIT Franz Miranda BP: 138/58 Pulse: 65 Resp: 17 Pain: 0 O2 sat: 97 on (Room Air) Time: 09/10/2019 19:18. EKG NSR, Q waves III, aVF, QRS 118, [facility] Hospitalist ROS - Review of Systems Constitutional: reports: weakness (dizziness). denies: fever, chills, sweats, malaise, other Eyes: denies: pain, vision change, conjunctivae inflammation, eyelid inflammation, redness, other ENT: denies: ear pain, ear discharge, nose pain, nose discharge, nose congestion , mouth pain, mouth swelling, throat pain, throat swelling, other Respiratory: denies: cough, dry, shortness of breath, hemoptysis, SOB with excertion, pleuritic pain, sputum, wheezing, other Cardiovascular: reports: chest pain, light headedness. denies: palpitations, orthopnea, paroxysmal noc. dyspnea, edema, other Gastrointestinal: denies: nausea, vomiting, abdominal pain, diarrhea, constipation, melena, hematochezia, other Genitourinary: denies: dysuria, frequency, incontinence, hematuria, retention, other Musculoskeletal: denies: neck pain, shoulder pain, arm pain, back pain, hand pain, leg pain, foot pain, other Skin: denies: rash, lesions, eli, bruising, other Neurological: denies: weakness, numbness, incoordination, change in speech, confusion, seizures, other All other systems reviewed; all pertinent +/- noted in HPI/Subj Hospitalist History - Past Medical History Other Medical History: diabetes type II, hyperlipidemia, HTN, renal disease - Past Surgical History Other Surgical History: appendectomy, STOMACH SX x2 FOR BLEEDING POLYP (2013) - Family History Family History: reports: no pertinent history - Social History Other Social History: Patient denies alcohol use Patient denies drug use Patient has no smoking history Lives at home with family. - Exam General Appearance: NAD, awake alert Eye: PERRL, anicteric sclera ENT: normocephalic atraumatic, no oropharyngeal lesions, moist mucosa Neck: supple, symmetric, no JVD, no thyromegaly, no lymphadenopathy, no carotid bruit Heart: RRR, no murmur, no gallops, no rubs, normal peripheral pulses Respiratory: CTAB, no wheezes, no rales, no ronchi, normal chest expansion, no tachypnea, normal percussion Gastrointestinal: soft, non-tender, non-distended, normal bowel sounds, no palpable masses, no hepatomegaly, no splenomegaly, no bruit Extremities: no cyanosis, no clubbing, no edema Skin: normal turgor, no lesions, no rashes Neurological: cranial nerve grossly intact, normal sensation to touch, no weakness, no focal deficits, no new deficit Musculoskeletal: normal tone, normal strength, no muscle wasting Psychiatric: normal affect, normal behavior, A&O x 3 Hospitalist Results - Labs Result Diagrams: 09/10/19 17:25 09/10/19 17:25 Lab results: WBC 5.5 thou/uL (4.8-10.8) 09/10/19 17:25 Hgb 12.5 g/dL (14.0-18.0) L 09/10/19 17:25 Hct 40.2 % (42.0-52.0) L 09/10/19 17:25 MCV 85.9 fL (78.0-98.0) 09/10/19 17:25 Plt Count 175 thou/uL (130-400) 09/10/19 17:25 Neutrophils % 71.8 % (42.0-75.0) 09/10/19 17:25 Sodium 139 mmol/L (136-145) 09/10/19 17:25 Potassium 4.3 mmol/L (3.5-5.1) 09/10/19 17:25 Chloride 109 mmol/L (98-107) H 09/10/19 17:25 Carbon Dioxide 18 mmol/L (23-31) L 09/10/19 17:25 BUN 50 mg/dL (8.4-25.7) H 09/10/19 17:25 Creatinine 3.60 mg/dL (0.7-1.3) H 09/10/19 17:25 Glucose 103 mg/dL (83-110) 09/10/19 17:25 Calcium 8.4 mg/dL (7.8-10.44) 09/10/19 17:25 Total Bilirubin 0.3 mg/dL (0.2-1.2) 09/10/19 17:25 AST 27 U/L (5-34) 09/10/19 17:25 ALT 24 U/L (8-55) 09/10/19 17:25 Alkaline Phosphatase 95 U/L (40-110) 09/10/19 17:25 CK-MB (CK-2) 3.1 ng/mL (0-6.6) 09/10/19 17:25 Troponin I 0.070 ng/mL (< 0.028) H 09/10/19 17:25 Serum Total Protein 7.1 g/dL (5.8-8.1) 09/10/19 17:25 Albumin 4.2 g/dL (3.4-4.8) 09/10/19 17:25 - EKG Interpretation EKG: EKG NSR, Q waves III, aVF, QRS 118, [facility] Hospitalist H&P A/P - Plan Plan: Patient is a 73 year old male with PMH T2DM, HLD, HTN, CKD who presents to ED for chest pain, headache, dizziness, nausea. # HTN urgency - recurrent sx of headache, chest pain, dizziness, nausea with SBP above 200s complaint with all meds at home and symptoms resolved with nitropatch - admit to telemetry - trend enzymes - continue nitropatch - consult cardiology for reevaluation Dr Corley # elevated troponin - trend, consult cardiology in AM, NPO past midnight # stage IV CKD - nephrology Dr Arrington consider consultation or close outpatient follow up # DM - SSI # HLD - continue home meds
[2019-09-10 20:50] LABS: Troponin I 0.063 ng/mL (< 0.028)
[2019-09-10 20:59] VITALS: BMI 27.7
[2019-09-10] MEDS ORDERED: Dicyclomine 20 MG TAB PO PRN (21:42)
[2019-09-10] MEDS ORDERED: Dextrose 5% in Water 1,000 ML IV PRN (21:44)
[2019-09-10] MEDS ORDERED: Promethazine HCl 12.5 MG in Sodium Chloride 0.9% 50 ML IVPB PRN (21:44)
[2019-09-10] MEDS ORDERED: HYDROcodone/Acetaminophen 5/325 mg Tablet PO PRN (21:44)
[2019-09-10] MEDS ORDERED: HumaLOG 300 UNITS/3 ML VIAL SC PRN (21:44)
[2019-09-10] MEDS ORDERED: Ondansetron PF 4 MG/2 ML Vial IVP PRN (21:44)
[2019-09-10] MEDS ORDERED: Dextrose 50% Abboject 50 ML SYRINGE SLOW IVP PRN (21:44)
[2019-09-10] MEDS ORDERED: cloNIDine 0.1 MG TAB PO PRN (21:44)
[2019-09-10] MEDS ORDERED: Morphine 2 MG/ML SYRINGE SLOW IVP PRN (21:44)
[2019-09-10] MEDS ORDERED: hydrALAZINE 20 MG/ML VIAL SLOW IVP PRN (21:44)
[2019-09-10] MEDS ORDERED: Acetaminophen 325 MG TAB PO PRN (21:44)
[2019-09-11 04:45] LABS: #Eosinphils 0.1 thou/uL (0.0-0.7); #Monocytes 0.5 thou/uL (0.11-0.59); #Neutrophils 2.8 thou/uL (1.40-6.50); %Basophils 0.8 % (0.0-1.0); %Lymphocytes 22.1 % (21.0-51.0); %Monocytes 11.7 % (0.0-10.0); %Neutrophils 62.3 % (42.0-75.0); Hemoglobin 11.6 g/dL (14.0-18.0); Mean Corpuscular HGB CONC 33.7 g/dL (32.0-36.0); Mean Corpuscular Hemoglobin 29.3 pg (27.0-31.0); Mean Platelet Volume 8.4 fL (7.4-10.4); Platelet Count 175 thou/uL (130-400); RBC Distribution Width 12.3 % (11.5-14.5); Red Blood Cell (RBC) Count 3.95 mill/uL (4.70-6.10); White Blood Cell (WBC) Count 4.5 thou/uL (4.8-10.8)
[2019-09-11 05:16] LABS: Anion Gap 14 mmol/L (10-20); BUN (Urea Nitrogen) 51 mg/dL (8.4-25.7); Calc. Creatinine Clearance 19 mL/min (70-130); Calcium 8.1 mg/dL (7.8-10.44); Carbon Dioxide 21 mmol/L (23-31); Chloride 111 mmol/L (98-107); Estimated GFR-MDRD 16; Glucose 131 mg/dL (83-110); Potassium 3.9 mmol/L (3.5-5.1); Sodium 142 mmol/L (136-145)
[2019-09-11 05:20] LABS: Troponin I 0.075 ng/mL (< 0.028)
[2019-09-11] MEDS ORDERED: Carvedilol 6.25 MG TAB PO SCH ×2 (08:00→17:00)
[2019-09-11] MEDS ORDERED: NIFEdipine XL 60 MG TAB PO SCH (09:00)
[2019-09-11] MEDS ORDERED: [UNRECOGNIZED DRUG - OTHER] SC SCH (09:00)
[2019-09-11] MEDS ORDERED: INSULIN GLARGINE HUM REC ANLOG SC SCH (09:00)
[2019-09-11] MEDS ORDERED: Furosemide 40 MG TAB PO SCH (09:00)
[2019-09-11] MEDS ORDERED: Isosorbide Dinitrate 20 MG TAB PO SCH ×2 (09:00→11:15)
[2019-09-11] MEDS: hydrALAZINE 25 MG TAB PO SCH ×4 (09:10→20:21)
[2019-09-11] MEDS: Ferrous Sulfate 325 MG TAB PO SCH (09:10)
[2019-09-11] MEDS: Aspirin 81 mg Enteric Coated Tablet PO SCH (09:10)
[2019-09-11] MEDS: Enoxaparin Sodium 30 MG/0.3 ML SYRINGE SC SCH (09:10)
[2019-09-11] MEDS: Clopidogrel Bisulfate 75 MG TAB PO SCH (09:11)
[2019-09-11] MEDS: Nitroglycerin 2% Ointment 1 INCH/1 GM Packet TOP SCH ×2 (09:11→20:25)
[2019-09-11 10:05] LABS: Troponin I 0.071 ng/mL (< 0.028)
[2019-09-11] MEDS: Polyethylene Glycol 3350 17 GM Packet PO SCH (10:37)
[2019-09-11] MEDS: Insulin Glargine 16 UNITS in Pre-Filled Syringe 1 EACH SC SCH (10:39)
[2019-09-11] MEDS ORDERED: Lisinopril/Hydrochlorothiazide 20 mg/12.5 mg Tablet PO SCH (11:45)
[2019-09-11] MEDS ORDERED: cloNIDine 0.1 MG TAB PO SCH (12:15)
--- NOTE | 2019-09-11 13:44 | PDOC.CPN ---
- Subjective Date: 09/11/19 Time: 13:44 Interval history: The pt seen and examined. No overnight events. No cardiac complaints. He presented to ER for HTN urgency (SBP> 200 at home) with severe headache. He denied CP or discomfort, SOB, dizziness, lightheadedness, or other cardiac complaints. After he was d/jung to home on 09/08/2019, he cont taking Nifidipine 60mg qd, Coreg 6.25mg BID(which was stopped at last hospitalization due to bradycardia), Isodiol 20mg BID, Hydralazine 100mg TID. He has taken Hydralazine 10mg as PRN for HTN urgency at home, which has not improved his BP. At this moment, he denied any cardiac complaints. - Objective Allergies/Adverse Reactions: Allergies Allergy/AdvReac Type Severity Reaction Status Date / Time Penicillins Allergy Intermediate Short of Verified 01/20/19 08:28 Breath Visit Medications: Current Medications Acetaminophen (Tylenol) 650 mg PO Q4H PRN PRN Reason: Headache/Fever/Mild Pain (1-3) Hydrocodone Bitart/Acetaminophen ([place] 5/325) 1 tab PO Q4H PRN PRN Reason: Moderate Pain (4-6) Albuterol/Ipratropium (Duoneb) 3 ml NEB Q2H PRN PRN Reason: SOB &/or Wheezing Aspirin (Ecotrin) 81 mg PO DAILY [facility] Last Admin: 09/11/19 09:10 Dose: 81 mg Atorvastatin Calcium (Lipitor) 20 mg PO QPM [facility] Clonidine (Catapres) 0.1 mg PO Q8H [facility] Clopidogrel Bisulfate (Plavix) 75 mg PO DAILY [facility] Last Admin: 09/11/19 09:11 Dose: 75 mg Dextrose/Water (Dextrose 50%) 25 gm SLOW IVP PRN PRN PRN Reason: Hypoglycemia Dicyclomine HCl (Bentyl) 20 mg PO QID PRN PRN Reason: Muscle Spasm Enoxaparin Sodium (Lovenox) 30 mg SC 0900 [facility] Last Admin: 09/11/19 09:10 Dose: 30 mg Ferrous Sulfate (Feosol) 325 mg PO QAM-WM [facility] Last Admin: 09/11/19 09:10 Dose: 325 mg Glucagon (Glucagon) 1 mg IM PRN PRN PRN Reason: Hypoglycemia Lisinopril/HCTZ (Prinizide 20-12.5) 1 tab PO DAILY [facility] Lisinopril/HCTZ (Prinizide 20-12.5) 1 tab PO NOW [facility] Stop: 09/11/19 13:45 Hydralazine HCl (Apresoline) 100 mg PO TID [facility] Last Admin: 09/11/19 09:10 Dose: 100 mg Dextrose/Water (D5w) 1,000 mls @ 0 mls/hr IV .Q0M PRN PRN Reason: Hypoglycemia Promethazine HCl 12.5 mg/ (Sodium Chloride) 50.5 mls @ 202 mls/hr IVPB Q6H PRN PRN Reason: Nausea/vomiting, use second Insulin Glargine 16 units/ (Miscellaneous Medication) 0.16 mls @ 0 mls/hr SC QAM [facility] Last Admin: 09/11/19 10:39 Dose: 0.16 mls Insulin Human Lispro (Humalog) 0 units SC .MILD SLIDING SCALE PRN PRN Reason: Mild Correctional Scale Isosorbide Dinitrate (Isordil) 40 mg PO BID [facility] Mirabegron (Myrbetriq Er) 25 mg PO DAILY [facility] Last Admin: 09/11/19 09:10 Dose: 25 mg Morphine Sulfate (Morphine) 2 mg SLOW IVP Q4H PRN PRN Reason: Breakthrough Pain Nifedipine (Procardia Xl) 60 mg PO BID [facility] Nitroglycerin (Nitro-Bid 2% Ointment) 1 inch TOP BID [facility] Last Admin: 09/11/19 09:11 Dose: 1 inch Ondansetron HCl (Zofran) 4 mg IVP Q6H PRN PRN Reason: Nausea/Vomiting, use 1st Pantoprazole Sodium (Protonix) 40 mg PO DAILY [facility] Last Admin: 09/11/19 09:11 Dose: 40 mg Polyethylene Glycol (Miralax) 17 gm PO DAILY [facility] Last Admin: 09/11/19 10:37 Dose: Not Given Vital Signs & Weight: Vital Signs Temp Pulse Resp BP Pulse Ox 09/11/19 11:10 97.9 F 63 18 179/71 H 96 09/11/19 07:20 98.4 F 62 18 167/72 H 96 09/11/19 03:56 98.3 F 65 22 H 155/67 H 97 Weight 177 lb 1.6 oz - Physical Exam General: alert & oriented x3 HEENT: mucus membranes moist Neck: supple neck Cardiac: regular rate and rhythm, S1/S2 Lungs: decreased breath sounds Extremities: no edema Musculoskeletal: normal range of motion - Labs Result Diagrams: 09/11/19 04:09 09/11/19 04:09 Troponin/CKMB CK-MB (CK-2) 3.1 ng/mL (0-6.6) 09/10/19 17:25 Troponin I 0.071 ng/mL (< 0.028) H 09/11/19 09:39 - Telemetry Sinus rhythms and dysrhythmias: sinus rhythm - Assessment/Plan Assessment/Plan: 1. HTN urgency - Nifedipine 60mg will be increased to BID; Isodiol from 20mg BID to 40mg BID; Lisinopril/HCTZ 20/12.5mg qd was prescribed from this AM; and Clonidine 0.1mg q8hrs PRN for SBP > 180 2. Indeterminate NSTEMI type 2 - due to HTN urgency 3. CKD stage 4 - unchanged 4. DM type 2 - managed by PCP 5. HLD - 6. hx of Bradycardia on 09/07/2019 - stable HR; He cont. taking coreg 6.25mg BID at home since he was discharged at 09/08/2019 MAR reviewed * Echo on 09/06/2019 with EF 55-60%, grade I dd, mild dilated LA, mild AR, mild- mod MR, mild TR * Dr Corley's pt Pt. seen and eval. by me. I agree with the A/P by the [employer]. I just saw this pt. and he is still complaining of nausea and H/A. The BP mis not stable. In 2 hours BP decreased from 180-> 108 syst. and is now back up to 150 syst. I agree wthat his bump in troponin - I is likely due to the HTN. He denied chest pain. He is not a good candidate for cardiac cath due to his CKD. The EKGindicates LVH but no acute ischemic changes. Continue to monitor the pt. ,adjust his BP meds and hopefully home in AM.
[2019-09-11] MEDS ORDERED: cloNIDine 0.1 MG TAB PO PRN (15:40)
[2019-09-11 16:00] LABS: Troponin I 0.039 ng/mL (< 0.028)
--- NOTE | 2019-09-11 18:58 | PDOC.BPN ---
- Brief Progress Note Patient was about to be discharged after he was deemed stable for discharge after two blood pressure readings in which SBP was 130s-150s, but per nurse, complained of nausea and the family measured blood pressure and systolic was 179. Cardiology was on the floor at the time and decided to keep the patient overnight for further monitoring. Will reassess tomorrow
--- NOTE | 2019-09-11 19:03 | PDOC.HOSPP ---
- Subjective Encounter Date: 09/11/19 Encounter Time: 12:00 Subjective: no overnight events. Patient feeling better and nausea and headache have resolved. - Objective Vital Signs & Weight: Vital Signs (12 hours) Temp Pulse Resp BP BP Pulse Ox 09/11/19 15:43 98.2 F 63 16 135/63 94 L 09/11/19 13:44 67 108/55 L 09/11/19 11:10 97.9 F 63 18 179/71 H 96 09/11/19 07:20 98.4 F 62 18 167/72 H 96 Weight Weight 177 lb 1.6 oz I&O: 09/10/19 09/11/19 09/12/19 06:59 06:59 06:59 Intake Total 960 Balance 960 Result Diagrams: 09/11/19 04:09 09/11/19 04:09 Additional Labs: Accuchecks 09/11/19 09/11/19 09/11/19 17:58 11:46 06:30 POC Glucose 191 H 178 H 87 09/10/19 22:43 POC Glucose 260 H Hospitalist ROS - Review of Systems Constitutional: denies: fever, chills, sweats, weakness, malaise, other Eyes: denies: pain, vision change, conjunctivae inflammation, eyelid inflammation, redness, other ENT: denies: ear pain, ear discharge, nose pain, nose discharge, nose congestion , mouth pain, mouth swelling, throat pain, throat swelling, other Respiratory: denies: cough, dry, shortness of breath, hemoptysis, SOB with excertion, pleuritic pain, sputum, wheezing, other Cardiovascular: denies: chest pain, palpitations, orthopnea, paroxysmal noc. dyspnea, edema, light headedness, other Gastrointestinal: denies: nausea, vomiting, abdominal pain, diarrhea, constipation, melena, hematochezia, other Genitourinary: denies: dysuria, frequency, incontinence, hematuria, retention, other Musculoskeletal: denies: neck pain, shoulder pain, arm pain, back pain, hand pain, leg pain, foot pain, other Skin: denies: rash, lesions, eli, bruising, other Neurological: denies: weakness, numbness, incoordination, change in speech, confusion, seizures, other - Medication Medications: Active Medications Generic Name Dose Route Start Last Admin Trade Name Freq PRN Reason Stop Dose Admin Aspirin 81 mg 09/11/19 09:00 09/11/19 09:10 Ecotrin PO 81 mg DAILY [facility] Administration Clopidogrel Bisulfate 75 mg 09/11/19 09:00 09/11/19 09:11 Plavix PO 75 mg DAILY [facility] Administration Enoxaparin Sodium 30 mg 09/11/19 09:00 09/11/19 09:10 Lovenox SC 30 mg 0900 [facility] Administration Ferrous Sulfate 325 mg 09/11/19 08:00 09/11/19 09:10 Feosol PO 325 mg QAM-WM [facility] Administration Hydralazine HCl 100 mg 09/11/19 09:00 09/11/19 14:51 Apresoline PO Not Given TID [facility] Insulin Glargine 16 units/ 0.16 mls @ 0 mls/hr 09/11/19 09:00 09/11/19 10:39 Miscellaneous Medication SC 0.16 mls QAM [facility] Administration Mirabegron 25 mg 09/11/19 09:00 09/11/19 09:10 Myrbetriq Er PO 25 mg DAILY [facility] Administration Nitroglycerin 1 inch 09/11/19 09:00 09/11/19 09:11 Nitro-Bid 2% Ointment TOP 1 inch BID [facility] Administration Ondansetron HCl 4 mg 09/10/19 21:44 09/11/19 17:39 Zofran IVP 4 mg Q6H PRN Administration Nausea/Vomiting, use 1st Pantoprazole Sodium 40 mg 09/11/19 09:00 09/11/19 09:11 Protonix PO 40 mg DAILY [facility] Administration Polyethylene Glycol 17 gm 09/11/19 09:00 09/11/19 10:37 Miralax PO Not Given DAILY [facility] - Exam General Appearance: NAD, awake alert Eye: PERRL, anicteric sclera ENT: normocephalic atraumatic, moist mucosa Neck: supple, symmetric, no JVD, no thyromegaly, no lymphadenopathy, no carotid bruit Heart: RRR, no murmur, no gallops, no rubs, normal peripheral pulses Respiratory: CTAB, no wheezes, no rales, no ronchi, normal chest expansion, no tachypnea, normal percussion Gastrointestinal: soft, non-tender, non-distended, normal bowel sounds, no palpable masses, no hepatomegaly, no splenomegaly, no bruit Extremities: no cyanosis, no clubbing, no edema Psychiatric: normal affect, normal behavior, A&O x 3 Hosp A/P - Plan Patient is a 73 year old male with PMH T2DM, HLD, HTN, CKD who presents with hypertensive urgency. # HTN urgency - blood pressure at goal but early AM lower than goal -later during the day SBP 130-150s -started on lisinopril/HCTZ in context CKD, history of ischemic cardiomyopathy -patient has been taking his coreg despite being advised against it due to recent episode of bradycardia; will continue -per cardiology, increased nifedipine, continuing clonidine 0.1mg PO PRN, hydralazine 100mg PO tid -will continue to monitor today and possible discharge based on BP and symptoms # stage IV CKD - nephrology will follow up as outpatient # DM - SSI # HLD - continue home meds
[2019-09-11] MEDS: NIFEdipine XL 60 MG TAB PO SCH (20:25)
[2019-09-11] MEDS: Isosorbide Dinitrate 20 MG TAB PO SCH (20:25)
[2019-09-11] MEDS ORDERED: Atorvastatin Calcium 20 MG TAB PO SCH (21:00)
[2019-09-12 05:54] LABS: Anion Gap 15 mmol/L (10-20); BUN (Urea Nitrogen) 55 mg/dL (8.4-25.7); Calc. Creatinine Clearance 19 mL/min (70-130); Calcium 7.7 mg/dL (7.8-10.44); Carbon Dioxide 21 mmol/L (23-31); Chloride 108 mmol/L (98-107); Estimated GFR-MDRD 15; Glucose 78 mg/dL (83-110); Magnesium 1.9 mg/dL (1.6-2.6); Potassium 3.9 mmol/L (3.5-5.1); Sodium 140 mmol/L (136-145)
[2019-09-12 07:27] VITALS: BP 133/60; TEMP 98
[2019-09-12] MEDS: Nitroglycerin 2% Ointment 1 INCH/1 GM Packet TOP SCH (08:49)
[2019-09-12] MEDS: hydrALAZINE 25 MG TAB PO SCH (08:50)
[2019-09-12] MEDS: Clopidogrel Bisulfate 75 MG TAB PO SCH (08:50)
[2019-09-12] MEDS: Ferrous Sulfate 325 MG TAB PO SCH (08:50)
[2019-09-12] MEDS: Isosorbide Dinitrate 20 MG TAB PO SCH (08:51)
[2019-09-12] MEDS: Enoxaparin Sodium 30 MG/0.3 ML SYRINGE SC SCH (08:51)
[2019-09-12] MEDS: NIFEdipine XL 60 MG TAB PO SCH (08:51)
[2019-09-12] MEDS: Aspirin 81 mg Enteric Coated Tablet PO SCH (08:51)
[2019-09-12] MEDS: Polyethylene Glycol 3350 17 GM Packet PO SCH (08:52)
[2019-09-12] MEDS: Insulin Glargine 16 UNITS in Pre-Filled Syringe 1 EACH SC SCH (08:52)
[2019-09-12] MEDS ORDERED: Lisinopril/Hydrochlorothiazide 20 mg/12.5 mg Tablet PO SCH (09:00)
[2019-09-12] MEDS ORDERED: Lisinopril/Hydrochlorothiazide 10 mg/12.5 mg Tablet PO SCH (09:00)
--- NOTE | 2019-09-14 02:43 | DIS ---
DATE OF ADMISSION: 09/10/2019 DATE OF DISCHARGE: 09/12/2019 HOSPITAL COURSE: Mr. Cortez is a 73-year-old male with a medical history of hypertension, who presented to the ED because of headaches. The patient and his family take blood pressure measurements regularly at home and they found that the pressure had a blood pressure of above 180, so they came to the ED. In the ED, the patient complained about mild diffuse headache. He was found to have hypertensive urgency, so was admitted to the telemetry floor for further followup. Once on the floor, the patient was found to have CKD stage 4, which along with his history of ischemic cardiomyopathy was indication to start lisinopril and hydrochlorothiazide, so these medications were started as well as the medications he was on at home. Cardiology was consulted and recommended to also increase nifedipine. The patient was monitored for an additional day and was discharged after his blood pressure was well controlled and at goal and his headaches completely resolved. On the day of discharge, vitals were unremarkable. PHYSICAL EXAMINATION: GENERAL: He was in no apparent distress. Awake and alert. HEENT: Eye exam, PERRL. Anicteric sclera. NECK: Showed no JVD. CARDIAC: Regular rate and rhythm. No murmur. LUNGS: Clear to auscultation bilaterally. No wheezes, no rales, no rhonchi. No tachypnea. GI: Soft, nontender, and nondistended. EXTREMITIES: No edema. ASSESSMENT AND PLAN: This is a 73-year-old male with a medical history of hypertension, type 2 diabetes and newly diagnosed chronic kidney disease 4, who presented with hypertensive urgency. The patient's blood pressure was well controlled on the day of discharge. He was started on lisinopril due to multiple indications. He was discharged home after elaborate discussion regarding red flags, new medications and followup appointment with Nephrology due to chronic kidney disease 4. Job ID: [id number]
== END 2019-09-12 13:15 | disposition home or self-care (01) | DRG 281 ==
LOC: ERS 17:13 → 2NO 19:02
PROVIDERS: ADMIT Internal Medicine; ATTEND Internal Medicine
DX: I16.0 Hypertensive urgency (principal); I21.A1 Myocardial infarction type 2; N18.4 Chronic kidney disease, stage 4 (severe); I20.0 Unstable angina; I12.9 Hypertensive chronic kidney disease with stage 1 through stage 4 chronic kidney disease, or unspecified chronic kidney disease; E11.22 Type 2 diabetes mellitus with diabetic chronic kidney disease; E78.5 Hyperlipidemia, unspecified; Z98.890 Other specified postprocedural states
CPT/HCPCS: 36415; 36416; 71045; 80048; 80053; 82553; 83735; 84484; 85025; 93005; J1650; J1815; J2405

== ENCOUNTER 2019-09-20 15:54 | Observation (INO) | payer MEDICARE, MEDICAID ==
[2019-09-20 16:25] LABS: #Eosinphils 0.1 thou/uL (0.0-0.7); #Lymphocytes 0.8 thou/uL (1.20-3.40); #Monocytes 0.4 thou/uL (0.11-0.59); #Neutrophils 4.2 thou/uL (1.40-6.50); %Basophils 0.1 % (0.0-1.0); %Eosinophils 2.5 % (0.0-10.0); %Lymphocytes 14.9 % (21.0-51.0); %Monocytes 6.7 % (0.0-10.0); %Neutrophils 75.9 % (42.0-75.0); Hemoglobin 12.4 g/dL (14.0-18.0); Mean Corpuscular HGB CONC 32.6 g/dL (32.0-36.0); Mean Corpuscular Hemoglobin 28.1 pg (27.0-31.0); Mean Corpuscular Volume 86.1 fL (78.0-98.0); Mean Platelet Volume 8.3 fL (7.4-10.4); Platelet Count 184 thou/uL (130-400); RBC Distribution Width 12.4 % (11.5-14.5); White Blood Cell (WBC) Count 5.6 thou/uL (4.8-10.8)
--- NOTE | 2019-09-20 16:50 | RAD ---
EXAM: Single view of the chest HISTORY: Headache and weakness COMPARISON: 09/10/2019 FINDINGS: Single view of the chest shows a normal sized cardiomediastinal silhouette. There is no amos dence of consolidation, mass, or pleural effusion. The bones are unremarkable. IMPRESSION: No evidence of acute cardiopulmonary disease
[2019-09-20 16:53] LABS: ALT (SGPT) 18 U/L (8-55); AST (SGOT) 14 U/L (5-34); Alkaline Phosphatase 95 U/L (40-110); Anion Gap 14 mmol/L (10-20); BUN (Urea Nitrogen) 61 mg/dL (8.4-25.7); Bilirubin, Total 0.4 mg/dL (0.2-1.2); CK (CPK) 146 U/L (30-200); Calc. Creatinine Clearance 0 mL/min (70-130); Calcium 8.5 mg/dL (7.8-10.44); Carbon Dioxide 19 mmol/L (23-31); Chloride 109 mmol/L (98-107); Estimated GFR-MDRD 15; Globulin 3.1 g/dL (2.4-3.5); Glucose 200 mg/dL (83-110); Lipase 50 U/L (8-78); Potassium 4.9 mmol/L (3.5-5.1); Protein, Total 7.1 g/dL (5.8-8.1); Sodium 137 mmol/L (136-145)
[2019-09-20 17:15] LABS: CKMB 2.3 ng/mL (0-6.6)
[2019-09-20] MEDS ORDERED: Aspirin 325 MG TAB ONE (17:26)
[2019-09-20] MEDS ORDERED: Acetaminophen 500 MG TAB ONE (17:41)
--- NOTE | 2019-09-20 18:44 | CT ---
CT OF BRAIN PERFORMED WITHOUT CONTRAST ENHANCEMENT: 09/20/19 HISTORY: Headache. COMPARISON: A 09/05/19 exam. The ventricular and cisternal system shows fairly age appropriate changes. There is some decreased a ttenuation of the periventricular white matter suggesting element of chronic white matter change. There are no signs of intracerebral hemorrhage or extra-axial fluid collections. The mastoid air cell s and visualized sinuses are clear. IMPRESSION: No acute intracranial abnormalities. POS: [facility]
--- NOTE | 2019-09-20 20:30 | PDOC.HHP ---
Hospitalist HPI - History of Present Illness Headache, weakness, dizziness History of Present Illness: 73 year old male with PMH HTN, CKD IV, DM, CAD who presents to ED for headache, weakness, dizziness, chest pain. M73 presents to the ED with c/o headache and nausea onset yesterday. Pt reports dizziness, chest pain, described as pressure, HTN and worsened headache onset today. Pt reports he was seen by his technical research scientist, Dr. Dickerson, earlier today. Pt states he came to the ER because his headache continued to get worse. Headache is posterior and is similar to previous HTN related headaches. In ED, CT head/CXR without acute findings. Patient was recently discharged after being admitted here 09/10/19-09/12/19 for uncontrolled symptomatic HTN (SBP in 180s that admission). CKD IV was diagnosed that admission, patient was instructed to follow up nephrology after d/c. He saw Dr Arrington once. He was taken off lisinopril a week ago by one of his specialist. In ED BP initially 180 SBP. Hospitalist ROS - Review of Systems Constitutional: denies: fever, chills, sweats, weakness, malaise, other Eyes: denies: pain, vision change, conjunctivae inflammation, eyelid inflammation, redness, other ENT: reports: other (headache) Respiratory: denies: cough, dry, shortness of breath, hemoptysis, SOB with excertion, pleuritic pain, sputum, wheezing, other Cardiovascular: reports: chest pain Gastrointestinal: denies: nausea, vomiting, abdominal pain, diarrhea, constipation, melena, hematochezia, other Genitourinary: denies: dysuria, frequency, incontinence, hematuria, retention, other Musculoskeletal: denies: neck pain, shoulder pain, arm pain, back pain, hand pain, leg pain, foot pain, other Skin: denies: rash, lesions, eli, bruising, other Neurological: denies: weakness, numbness, incoordination, change in speech, confusion, seizures, other All other systems reviewed; all pertinent +/- noted in HPI/Subj - Medication Medications: NIFEdipine tablet extended release : Strength - 60 mg : ORAL Patient Dose: 1 tab(s) Oral once a day (in the morning). Dexilant CAPSULE, DELAYED RELEASE, BIPHASIC : Strength - 60 mg : ORAL Patient Dose: 1 tab(s) Oral 3 times a day (before meals). furosemide oral TABLET : Strength - 40 mg : ORAL Patient Dose: 1 tab(s) Oral 2 times a day. Myrbetriq TABLET, EXTENDED RELEASE 24 HR : Strength - 25 mg : ORAL Patient Dose: 1 tab(s) Oral once a day. pioglitazone TABLET : Strength - 15 mg : ORAL Patient Dose: 15 mg Oral once a day. aspirin oral TABLET : Strength - 81 mg : ORAL Patient Dose: 81 mg Oral once a day. carvedilol TABLET : Strength - 3.125 mg : ORAL Patient Dose: 6.25 mg Oral 2 times a day. hydrALAZINE oral TABLET : Strength - 100 mg : ORAL Patient Dose: 100 mg Oral 3 times a day. pravastatin TABLET : Strength - 80 mg : ORAL Patient Dose: 80 mg Oral once a day. Hospitalist History - Past Medical History Other Medical History: HTN CKD DM HLD CAD obesity - Past Surgical History Past Surgical History: reports: Appendectomy Other Surgical History: polypectomy - Family History Family History: reports: no pertinent history - Social History Smoking Status: Never smoker Alcohol: reports: None Drugs: reports: none - Exam General Appearance: NAD, awake alert Eye: PERRL, anicteric sclera ENT: normocephalic atraumatic, no oropharyngeal lesions, moist mucosa Neck: supple, symmetric, no JVD, no thyromegaly, no lymphadenopathy, no carotid bruit Heart: RRR, no murmur, no gallops, no rubs, normal peripheral pulses Respiratory: CTAB, no wheezes, no rales, no ronchi, normal chest expansion, no tachypnea, normal percussion Gastrointestinal: soft, non-tender, non-distended, normal bowel sounds, no palpable masses, no hepatomegaly, no splenomegaly, no bruit Extremities: no cyanosis, no clubbing, no edema Skin: normal turgor, no lesions, no rashes Neurological: cranial nerve grossly intact, normal sensation to touch, no weakness, no focal deficits, no new deficit Musculoskeletal: normal tone, normal strength, no muscle wasting Psychiatric: normal affect, normal behavior, A&O x 3 Hospitalist Results - Labs Result Diagrams: 09/21/19 04:17 09/21/19 04:17 Lab results: WBC 5.6 thou/uL (4.8-10.8) 09/20/19 16:16 Hgb 12.4 g/dL (14.0-18.0) L 09/20/19 16:16 Hct 37.9 % (42.0-52.0) L 09/20/19 16:16 MCV 86.1 fL (78.0-98.0) 09/20/19 16:16 Plt Count 184 thou/uL (130-400) 09/20/19 16:16 Neutrophils % 75.9 % (42.0-75.0) H 09/20/19 16:16 Sodium 137 mmol/L (136-145) 09/20/19 16:16 Potassium 4.9 mmol/L (3.5-5.1) 09/20/19 16:16 Chloride 109 mmol/L (98-107) H 09/20/19 16:16 Carbon Dioxide 19 mmol/L (23-31) L 09/20/19 16:16 BUN 61 mg/dL (8.4-25.7) H 09/20/19 16:16 Creatinine 3.85 mg/dL (0.7-1.3) H 09/20/19 16:16 Glucose 200 mg/dL (83-110) H 09/20/19 16:16 Calcium 8.5 mg/dL (7.8-10.44) 09/20/19 16:16 Total Bilirubin 0.4 mg/dL (0.2-1.2) 09/20/19 16:16 AST 14 U/L (5-34) 09/20/19 16:16 ALT 18 U/L (8-55) 09/20/19 16:16 Alkaline Phosphatase 95 U/L (40-110) 09/20/19 16:16 Creatine Kinase 146 U/L (30-200) 09/20/19 16:16 CK-MB (CK-2) 2.3 ng/mL (0-6.6) 09/20/19 16:16 Troponin I 0.030 ng/mL (< 0.028) H 09/20/19 16:16 Serum Total Protein 7.1 g/dL (5.8-8.1) 09/20/19 16:16 Albumin 4.0 g/dL (3.4-4.8) 09/20/19 16:16 Lipase 50 U/L (8-78) 09/20/19 16:16 Additional comment: VITAL SIGNS Tue Sep 20, 2019 15:55 ABHIJIT Mcgregor, Ron BP: 180/72 Pulse: 69 Resp: 18 Temp: 98.0 (Oral) Pain: 9 O2 sat: 98 on (Room Air) Time: 09/20/2019 15:55. - EKG Interpretation EKG: NSR, no acute ST changes, borderline LVH, Q waves inferior leads, rate 69, reviewed by me Hospitalist H&P A/P - Plan Plan: 73 year old male with PMH HTN, CKD IV, DM, CAD who presents to ED for headache, weakness, dizziness, chest pain. # chest pain - EKG without acute findings, first troponin elevated somewhat in setting of CKD and chronic mild elevated troponin, echo on 09/06 w/ preserved EF , grade 1 diastolic dysfunction, mild-mod valve disease - will trend troponin - Dr Corley is home technical research scientist, saw patient in office today reportedly, will request consultation given recurrent admission for HTN - need for cath complicated by advanced CKD per most recent cardiology inpatient notes, will consult nephrology as well since renal issues becoming problematic # CAD - continue DAPT, other meds, trend troponin # uncontrolled HTN - continue nifedipine, lasix, isordil, hydralazine, coreg - taken off of isinopril/hctz by specialist # CKD IV - Cr at baseline, trend BMP, nephrology consult placed # DM - continue lantus 16u qHS, SSI # HLD - continue home meds once med rec complete GI/DVT ppx Code: full, daughter Chuy surrogate
[2019-09-20] MEDS ORDERED: Furosemide 40 MG TAB PO PRN (20:57)
[2019-09-20] MEDS ORDERED: Dicyclomine 20 MG TAB PO PRN (20:57)
[2019-09-20] MEDS ORDERED: Promethazine HCl 12.5 MG in Sodium Chloride 0.9% 50 ML IVPB PRN (21:20)
[2019-09-20] MEDS ORDERED: cloNIDine 0.1 MG TAB PO PRN (21:20)
[2019-09-20] MEDS ORDERED: hydrALAZINE 20 MG/ML VIAL SLOW IVP PRN (21:20)
[2019-09-20] MEDS ORDERED: Ondansetron PF 4 MG/2 ML Vial IVP PRN (21:20)
[2019-09-20] MEDS ORDERED: Bisacodyl 5 MG TAB PO PRN (21:21)
[2019-09-20] MEDS ORDERED: Senokot S 8.6-50 MG TAB PO PRN (21:21)
[2019-09-20] MEDS ORDERED: HYDROcodone/Acetaminophen 5/325 mg Tablet PO PRN (21:21)
[2019-09-20] MEDS ORDERED: Acetaminophen 325 MG TAB PO PRN (21:21)
[2019-09-20] MEDS ORDERED: Bisacodyl 10 MG SUPP PR PRN (21:21)
[2019-09-20] MEDS ORDERED: Dextrose 5% in Water 1,000 ML IV PRN (21:29)
[2019-09-20] MEDS ORDERED: HumaLOG 300 UNITS/3 ML VIAL SC PRN (21:29)
[2019-09-20] MEDS ORDERED: Dextrose 50% Abboject 50 ML SYRINGE SLOW IVP PRN (21:29)
[2019-09-20] MEDS: Carvedilol 6.25 MG TAB PO SCH (21:30)
[2019-09-20] MEDS: Atorvastatin Calcium 20 MG TAB PO SCH (21:30)
[2019-09-20] MEDS: Isosorbide Dinitrate 20 MG TAB PO SCH (21:31)
[2019-09-20] MEDS: NIFEdipine XL 60 MG TAB PO SCH (21:31)
[2019-09-20 23:33] VITALS: BMI 28.4
[2019-09-20] MEDS: hydrALAZINE 25 MG TAB PO SCH (23:44)
[2019-09-21 04:37] LABS: #Eosinphils 0.2 thou/uL (0.0-0.7); #Lymphocytes 1.1 thou/uL (1.20-3.40); #Monocytes 0.5 thou/uL (0.11-0.59); #Neutrophils 2.9 thou/uL (1.40-6.50); %Basophils 0.5 % (0.0-1.0); %Eosinophils 3.6 % (0.0-10.0); %Lymphocytes 23.2 % (21.0-51.0); %Monocytes 10.1 % (0.0-10.0); %Neutrophils 62.6 % (42.0-75.0); Hemoglobin 10.9 g/dL (14.0-18.0); Mean Corpuscular HGB CONC 32.1 g/dL (32.0-36.0); Mean Corpuscular Hemoglobin 27.8 pg (27.0-31.0); Mean Corpuscular Volume 86.7 fL (78.0-98.0); Platelet Count 158 thou/uL (130-400); RBC Distribution Width 12.2 % (11.5-14.5); Red Blood Cell (RBC) Count 3.91 mill/uL (4.70-6.10); White Blood Cell (WBC) Count 4.6 thou/uL (4.8-10.8)
[2019-09-21 05:00] LABS: Anion Gap 14 mmol/L (10-20); BUN (Urea Nitrogen) 55 mg/dL (8.4-25.7); Calc. Creatinine Clearance 20 mL/min (70-130); Calcium 7.9 mg/dL (7.8-10.44); Carbon Dioxide 18 mmol/L (23-31); Chloride 113 mmol/L (98-107); Estimated GFR-MDRD 16; Glucose 100 mg/dL (83-110); Potassium 4.5 mmol/L (3.5-5.1); Sodium 140 mmol/L (136-145)
[2019-09-21 05:06] LABS: Troponin I 0.037 ng/mL (< 0.028)
[2019-09-21] MEDS ORDERED: Lisinopril/Hydrochlorothiazide 10 mg/12.5 mg Tablet PO SCH (09:00)
[2019-09-21] MEDS ORDERED: Insulin Glargine 16 UNITS in Pre-Filled Syringe 1 EACH SC SCH (09:00)
[2019-09-21] MEDS: Aspirin 81 mg Enteric Coated Tablet PO SCH (09:28)
[2019-09-21] MEDS: Clopidogrel Bisulfate 75 MG TAB PO SCH (09:28)
[2019-09-21] MEDS: hydrALAZINE 25 MG TAB PO SCH ×3 (09:28→23:05)
[2019-09-21] MEDS: Ferrous Sulfate 325 MG TAB PO SCH (09:28)
[2019-09-21] MEDS: NIFEdipine XL 60 MG TAB PO SCH ×2 (09:29→20:35)
--- NOTE | 2019-09-21 10:15 | CON ---
DATE OF CONSULTATION: REASON FOR CONSULTATION: Elevated creatinine. HISTORY OF PRESENT ILLNESS: This is a 73-year-old gentleman, who presented to the hospital with headache and mildly elevated blood pressure. The patient has progressive CKD and congestive heart failure. The patient denies any chest pain or nausea, but has had poor appetite. PAST MEDICAL HISTORY: Significant for hypertension, CKD, diabetes mellitus, congestive heart failure, coronary artery disease, appendectomy. SOCIAL HISTORY: No alcohol or drug use. FAMILY HISTORY: Negative for ESRD. ALLERGIES: REVIEWED. MEDICATIONS: Home medications, list reviewed. Hospital medications, list reviewed. REVIEW OF SYSTEMS: 15-point review of system was performed and was negative except for positives noted above. GENERAL: HEAD: NECK: No swelling or lumps. NOSE: No epistaxis or discharge. EYES: No diplopia or pain. RESPIRATORY: CARDIOVASCULAR: GASTROINTESTINAL: /LEASING SALES CONSULTANT: MUSCULOSKELETAL: No joint pain. NEUROPSYCHIATIC SYSTEMS: No suicidal ideation. No ideation. SKIN: Denies any rash or ulcer. CONSTITUTIONAL: No fever or chills. PHYSICAL EXAMINATION: CONSTITUTIONAL: The patient is awake, alert. VITAL SIGNS: Afebrile, pulse 62, breathing 16, blood pressure 157/83. GENERAL APPEARANCE AND MENTAL STATUS: Fair. HEAD/NECK: Normocephalic. Atraumatic. EYES: EOMI. No deformity. EARS: Clear. No ulcers. NOSE: Intact. No lesions. MOUTH: Clear. No discharge. THROAT: Clear. No exudate. LUNGS: Clear. No crackles. CARDIAC: S1, S2. No rub. ABDOMEN: Benign. Bowel sounds positive. GENITALIA/RECTUM: [place] absent. BACK/EXTREMITIES: Edema 0+. NEUROLOGICAL: Alert and motor intact. SKIN: LYMPHATICS: LABORATORY DATA: Labs reviewed. ASSESSMENT: 1. Chronic kidney disease stage 4 with progressively worsening GFR. The patient has had a gradual decline in renal function because of diabetes mellitus and cardiorenal syndrome. We will continue Lasix. If the patient has poor appetite, we will consider renal replacement therapy. 2. Anemia, stable. 3. Medication based on GFR appropriate. 4. No urgent indication for dialysis. 5. We will discuss risks versus benefits of renal replacement therapy. Job ID: [id number]
[2019-09-21 12:21] LABS: Troponin I 0.031 ng/mL (< 0.028)
[2019-09-21] MEDS: Carvedilol 6.25 MG TAB PO SCH ×2 (13:15→20:36)
[2019-09-21] MEDS: Isosorbide Dinitrate 20 MG TAB PO SCH ×2 (13:16→20:35)
[2019-09-21] MEDS: Polyethylene Glycol 3350 17 GM Packet PO SCH (13:16)
[2019-09-21] MEDS: Heparin 5,000 UNITS/ML VIAL SC SCH ×3 (13:18→20:36)
--- NOTE | 2019-09-21 13:33 | ULT ---
EXAM: Vein mapping for dialysis access HISTORY: End-stage renal disease. TECHNIQUE: Multiplanar grayscale and color Doppler images were obtained in a bilateral upper extremit y venous ultrasound. Spectral analysis of the Doppler waveforms of the vessels were performed. FINDINGS: The bilateral internal jugular veins and subclavian veins are patent without evidence of th rombus. Right brachial artery 5.3 mm Right radial artery 3.7 mm Right ulnar artery 2.4 mm Left brachial artery 5.1 mm Left radial artery 2.5 mm Left ulnar artery 2.8 mm RIGHT CEPHALIC VEIN in millimeters 3.4 -- Shoulder 3.3 -- Upper arm 3.9 -- Mid upper arm 3.9-- Just proximal to the elbow 4.1 -- Just distal to the elbow 3.6 -- Forearm 3.2 -- Wrist RIGHT BASILIC VEIN in millimeters 3.7 -- Shoulder 4.0 -- Upper arm 3.3 -- Mid upper arm 3.0 -- Just proximal to the elbow 1.1 -- Just distal to the elbow 1.2 -- Forearm 1.3 -- Wrist LEFT CEPHALIC VEIN in millimeters 2.6 -- Shoulder 3.3 -- Upper arm 2.9 -- Mid upper arm 3.4 -- Just proximal to the elbow 3.2 -- Just distal to the elbow 2.7 -- Forearm 1.7 -- Wrist LEFT BASILIC VEIN in millimeters 5.0 -- Shoulder 3.1 -- Upper arm 3.3 -- Mid upper arm 2.3 -- Just proximal to the elbow 1.2 -- Just distal to the elbow 1.0 -- Forearm 0.8 -- Wrist IMPRESSION: Vein mapping for dialysis access as above
--- NOTE | 2019-09-21 15:24 | PRG ---
DATE OF SERVICE: 09/21/2019 SUBJECTIVE: The patient is seen and examined at the bedside. He does not have much complaints to offer at this point. He does not have any chest pressure anymore. His headache has completely gone and he is tolerating food fine. OBJECTIVE: VITAL SIGNS: Blood pressure is 149/67, it was down from 192/82; pulse is 60; respiratory rate is 16; O2 saturation is 96% on room air; temperature is 98.6. HEENT: Head is atraumatic and normocephalic. Eyes are PERRLA. Sclerae are nonicteric. Oral mucosa is moist. NECK: Supple. LUNGS: Clear. HEART: S1, S2 normal. No S3. No S4. ABDOMEN: Soft, nontender. Bowel sounds are present. EXTREMITIES: No clubbing, cyanosis, or edema. NEUROLOGICAL: He is alert and oriented x4. There is no any motor or sensory deficits. LABORATORY DATA: Labs showed white count of 4.6, hemoglobin 10.9, hematocrit 33.9, platelet count is 158,000. Sodium is 140, potassium 4.5, chloride 113, CO2 of 18, BUN 55, creatinine 3.64, calcium 7.9, magnesium 2.0, glucose 108. Troponins 0.037, 0.031. ultrasound was done dialysis access was assessed. IMPRESSION AND PLAN: 1. Chest pain, resolved. Troponin is indeterminate, most likely related to renal insufficiency. Environmental Construction Engineer is consulted. The patient will be seen today by Dr. Corley. 2. Diabetes mellitus relatively well controlled. Glycemia prior to meals in good range. Hemoglobin A1c 7.2. I asked him to check his Accu-Cheks 2 hours after the meal from time to time to look for explanation why hemoglobin A1c is still elevated in view of good premeal readings. 3. Coronary artery disease. 4. Uncontrolled hypertension. 5. Chronic kidney disease stage 4, worsening according to Dr. Arrington, who is seeing the patient for nephrology evaluation. General Surgery is consulted for further assessment of renal dialysis access. Job ID: [id number]
--- NOTE | 2019-09-21 17:09 | CON ---
DATE OF CONSULTATION: HISTORY OF PRESENT ILLNESS: Marco Montelongo is a 73-year-old male, [place]ian-speaking only, admitted for chronic kidney disease secondary to diabetes, hypertension, obesity, 5 feet 7 inches, 181 pounds, 28 BMI, followed by Dr. Arrington. Dr. Arrington has asked me to see him regarding dialysis access. He is right handed. 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 ALLERGIES: PENICILLIN. SOCIAL HISTORY: Tobacco, none. Alcohol, none. MEDICATIONS: 1. Vitamin D3. 2. Aspirin. 3. Plavix. 4. Carvedilol. 5. Lipitor. 6. Isosorbide. 7. Insulin. 8. Furosemide. 9. Ferrous sulfate. 10. Nifedipine. 11. Hydralazine. 12. Myrbetriq. PAST SURGICAL HISTORY: February 2013, Dr. Jarrell performed endoscopy, finding a large gastric mass and Dr. Diego on 03/10/2013, performed a laparotomy. Partial wedge resection of the stomach, pathology revealing benign polypoid vascular neoplasm. This was benign. The patient has undergone repeat endoscopy in June 2018. He has had a colonoscopy in 2013 and had a TURP on 02/26/2017 and has had an open appendectomy in the past. He reports having another operation 40 years ago in [place] for unknown reasons. PAST MEDICAL HISTORY: Diabetes mellitus, hypertension, and coronary artery disease followed by Dr. Corley. The patient is asymptomatic from a cardiac standpoint. He was told he had some kind of cardiac event by EKG, but intervention was not performed due to his chronic kidney disease. Marking ultrasound performed today reveals good veins on the right side down to his wrist and veins on the left. He is right-handed. PHYSICAL EXAMINATION: VITAL SIGNS: 5 feet 7 inches, 181 pounds, and 28 BMI. 99.5, 71, and 150/67. HEENT: Head, ears, eyes, nose, and throat, unremarkable. LUNGS: Clear to auscultation. CARDIAC: Regular rate and rhythm without murmur or gallop. ABDOMEN: Soft, obese, and scars from above history. EXTREMITIES: Unremarkable. Palpable distal radial pulses strong bilaterally. Extremities, no ankle edema. LABORATORY DATA: White count 4 and hemoglobin 10.9. Sodium 140, potassium 4.5, GFR 16, creatinine 3.6, and BUN 55. ASSESSMENT AND PLAN: Chronic kidney disease stage 4, not yet need to start dialysis. I have been asked by Dr. Arrington to place a dialysis access. With his obesity, he has a good cephalic vein at the wrist by ultrasound, although not visibly so on exam. We would recommend right arm AV fistula [place] wrist type, possibly more proximal pending the operative findings. He is agreeable. We will plan this under regional and TIVA anesthesia in the next 24 to 48 hours pending OR availability. Job ID: [id number]
[2019-09-21 17:27] LABS: Troponin I 0.051 ng/mL (< 0.028)
--- NOTE | 2019-09-21 20:31 | CON ---
DATE OF CONSULTATION: 09/21/2019 REASON FOR CONSULTATION: Hypertension. HISTORY OF PRESENT ILLNESS: Mr. Cortez is a very pleasant 73-year-old white gentleman, who comes to the hospital for not feeling well. He had a headache and blood pressure was high. Blood pressure 160s/70s. He had a headache and felt nausea and vomiting. He was seen in the office yesterday as he was having headache. His blood pressure at that time was 156/68, so the headache was not related to high blood pressure at that time. He has had labile hypertension, worsening renal function. He states that he came in yesterday, he received Tylenol, and his blood pressure has been up and down but he has not had a headache all day long today. Denies any chest pain, however, he had some chest tightness yesterday afternoon. PAST MEDICAL HISTORY: 1. Chronic kidney disease, stage 4. 2. Hypertension. 3. Type 2 diabetes. 4. Hyperlipidemia. 5. Presumed CAD from abnormal stress test. 6. Obesity. PAST SURGICAL HISTORY: 1. Appendectomy. 2. Polypectomy. SOCIAL HISTORY: No alcohol, tobacco, or drugs. FAMILY HISTORY: Noncontributory. ALLERGIES: PENICILLIN. OUTPATIENT MEDICATIONS: Reviewed on the MAR. Please review MAR for further details. REVIEW OF SYSTEMS: A 12-point review of systems negative unless stated in the history of present illness. PHYSICAL EXAMINATION: VITAL SIGNS: Temperature 99.6, pulse 66, respiratory rate 16, sat 93% on room air, blood pressure 151/70. GENERAL: Awake, alert, oriented x3. No distress. HEENT: Normocephalic, atraumatic. NECK: Supple. LUNGS: Clear. CARDIOVASCULAR: S1, S2. No S3 or S4. No murmurs. ABDOMEN: Soft. Positive bowel sounds. EXTREMITIES: No edema. SKIN: Warm and dry. LABORATORY DATA: Laboratory work was reviewed. White count of 4, hemoglobin of 10.9, hematocrit 33, platelet count of 158. Chemistries with BUN of 55, creatinine 3.64. Troponin of 0.03, 0.02, 0.03, 0.03, 0.05. EKG was unchanged. ASSESSMENT: 1. Headache. 2. Labile hypertension. 3. Chronic kidney disease, stage 4. 4. Nausea and vomiting. PLAN: 1. Currently cannot do heart catheterization unless he wants to undergo dialysis as more than likely the contrast load would push him onto dialysis with his current renal function. He has not had an acute coronary syndrome as his troponins have not had a rise and fall pattern. We will continue conservative therapy for now. 2. Headache, nausea and vomiting. I cannot explain from high blood pressure as his blood pressure was close to his baseline. All day today, he has had blood pressures high in the 190s over 90s, and he did not have headache all day today. 3. Nephrology considering initiation of dialysis in the near future. 4. Monitor in the hospital until fistula placement is done. He has good days and bad days, and he has been in and out of the hospital for the last few weeks. Thank you for letting us to participate in the care of your patient. We will continue to monitor closely. Job ID: [id number]
[2019-09-21] MEDS: Atorvastatin Calcium 20 MG TAB PO SCH (20:35)
[2019-09-22 04:49] LABS: #Eosinphils 0.1 thou/uL (0.0-0.7); #Lymphocytes 0.9 thou/uL (1.20-3.40); #Monocytes 0.4 thou/uL (0.11-0.59); #Neutrophils 2.7 thou/uL (1.40-6.50); %Basophils 0.8 % (0.0-1.0); %Eosinophils 3.1 % (0.0-10.0); %Lymphocytes 21.7 % (21.0-51.0); %Monocytes 9.9 % (0.0-10.0); %Neutrophils 64.4 % (42.0-75.0); Hemoglobin 11.6 g/dL (14.0-18.0); Mean Corpuscular HGB CONC 32.2 g/dL (32.0-36.0); Mean Corpuscular Hemoglobin 27.8 pg (27.0-31.0); Mean Corpuscular Volume 86.4 fL (78.0-98.0); Mean Platelet Volume 8.2 fL (7.4-10.4); Platelet Count 174 thou/uL (130-400); RBC Distribution Width 12.2 % (11.5-14.5); Red Blood Cell (RBC) Count 4.18 mill/uL (4.70-6.10); White Blood Cell (WBC) Count 4.2 thou/uL (4.8-10.8)
[2019-09-22 05:30] LABS: Anion Gap 10 mmol/L (10-20); BUN (Urea Nitrogen) 55 mg/dL (8.4-25.7); Calc. Creatinine Clearance 19 mL/min (70-130); Calcium 8.2 mg/dL (7.8-10.44); Carbon Dioxide 22 mmol/L (23-31); Chloride 112 mmol/L (98-107); Estimated GFR-MDRD 15; Glucose 120 mg/dL (83-110); Potassium 4.6 mmol/L (3.5-5.1); Sodium 139 mmol/L (136-145)
[2019-09-22 08:11] VITALS: BP 155/93; TEMP 98.7
[2019-09-22] MEDS: hydrALAZINE 25 MG TAB PO SCH (08:22)
[2019-09-22] MEDS ORDERED: Insulin Glargine 16 UNITS in Pre-Filled Syringe 1 EACH SC SCH (09:00)
[2019-09-22] MEDS: Polyethylene Glycol 3350 17 GM Packet PO SCH (09:26)
[2019-09-22] MEDS: Heparin 5,000 UNITS/ML VIAL SC SCH (09:26)
[2019-09-22] MEDS: Aspirin 81 mg Enteric Coated Tablet PO SCH (09:27)
[2019-09-22] MEDS: Isosorbide Dinitrate 20 MG TAB PO SCH (09:27)
[2019-09-22] MEDS: NIFEdipine XL 60 MG TAB PO SCH (09:27)
[2019-09-22] MEDS: Clopidogrel Bisulfate 75 MG TAB PO SCH (09:27)
[2019-09-22] MEDS: Ferrous Sulfate 325 MG TAB PO SCH (09:27)
[2019-09-22] MEDS: Carvedilol 6.25 MG TAB PO SCH (09:28)
--- NOTE | 2019-09-22 10:50 | PRG ---
DATE OF SERVICE: 09/22/2019 SUBJECTIVE: A 73-year-old male being seen for acute kidney injury. The patient denied any nausea, vomiting, or chest pain. OBJECTIVE: CONSTITUTIONAL: The patient is awake and alert. VITAL SIGNS: Afebrile. Pulse 75, breathing 16, blood pressure 165/93. GENERAL APPEARANCE AND MENTAL STATUS: Fair. HEAD/NECK: Normocephalic. Atraumatic. EYES: EOMI. No deformity. EARS: Clear. No ulcers. NOSE: Intact. No lesions. MOUTH: Clear. No discharge. THROAT: Clear. No exudate. LUNGS: Clear. No crackles. CARDIAC: S1, S2. No rub. ABDOMEN: Benign. Bowel sounds positive. GENITALIA/RECTUM: [place] absent. BACK/EXTREMITIES: Edema 0+. NEUROLOGICAL: Alert and motor intact. SKIN: LYMPHATICS: LABORATORY DATA: Reviewed. ASSESSMENT AND RECOMMENDATIONS: 1. Stage 4 chronic kidney disease, stable. 2. Hypertension, stable. 3. Anemia, stable. The patient noted to have outpatient fistula. No urgent indication for dialysis. Continue diuretics. Job ID: [id number]
--- NOTE | 2019-09-22 11:29 | DIS ---
DATE OF ADMISSION: 09/20/2019 DATE OF DISCHARGE: 09/22/2019 FINAL DIAGNOSES: 1. Chest pain, resolved. Acute coronary syndrome was ruled out. Elevated troponins are most likely related to renal failure. 2. Worsening renal failure. The patient is scheduled for a right arm fistula placement by Dr. Hodge tomorrow. 3. Diabetes mellitus, relatively well controlled. 4. Coronary artery disease. 5. Uncontrolled hypertension, improved. CONSULTANTS: Dr. Corley, Cardiology Service. Dr. Hodge, General Surgery. Dr. Arrington, Nephrology Service. HOSPITAL COURSE: The patient is a 73-year-old male with past medical history of hypertension, CKD stage 4, diabetes mellitus, coronary artery disease, who presented to the ED for headache, weakness, dizziness and chest pain. He had some nausea the day prior to this hospitalization. Reported dizziness and chest pain described as pressure. He was seen by cutting machine fixer the day before this admission. The headache was posterior and was similar to previous hypertensive-related headaches. In the ED, CAT scan of the head was done and chest x-ray was done without any acute findings. The patient was diagnosed with stage 4 chronic kidney disease and he got admitted to the floor for further management of his blood pressure. At the time of admission to hospital by hospitalist, blood pressure was 180/72. His EKG showed normal sinus rhythm, no acute ST-T wave changes, borderline LVH, and Q-waves in inferior leads. The rate was 69. The patient's blood pressure was treated with additional antihypertensives. His blood pressure is down to 155/93 today. It is not clear whether this headache is related to his blood pressure issue at this point, but the CAT scan did not show any acute abnormalities. The patient was seen by Dr. Arrington, his dye worker, who requested Dr. Hodge to see the patient. Marking ultrasound was done on him and Dr. Hodge scheduled him for right arm fistula placement tomorrow. Clinically, the patient is doing well. He does not have much complaints to offer today. He was seen by Dr. Corley, his cutting machine fixer, who did not feel that he needs any cardiac catheterization at this point. Obviously, IV contrast would make his kidney function even worse and he did not have any acute coronary syndrome, and his troponins have not had a rise and fall pattern, so he was observed for additional 24 hours. Clinically, he did not have more chest discomfort. His nausea and vomiting and headache subsided. His blood pressure is under better control and all subspecialists agreed that he can be discharged home and have followup with Dr. Hodge tomorrow for fistula. I am going to give him clonidine p.r.n. for the blood pressure control in case the blood pressure goes up more than 160 systolic or more than 100 diastolic. So, at the time of discharge, his medications are, 1. Aspirin 81 mg once a day. 2. Atorvastatin 20 mg once a day. 3. Carvedilol 6.25 mg twice a day. 4. Clonidine 0.1 mg p.o. q.4 hours p.r.n. for systolic blood pressure more than 160 and diastolic more than 100. 5. Clopidogrel 75 mg once a day. 6. Ferrous sulfate 325 mg a day. 7. Furosemide 40 mg daily p.r.n. 8. Hydralazine 100 mg 3 times a day. 9. Isosorbide dinitrate 20 mg twice a day. 10. Myrbetriq 25 mg daily. 11. Nifedipine 60 mg twice a day. 12. Pantoprazole 40 mg once a day. FOLLOWUP: He is going to follow up with Dr. Hodge tomorrow, then he will follow up with the primary doctor in a week. Job ID: [id number]
== END 2019-09-22 11:39 | disposition home health service (06) ==
LOC: ERS 15:54 → ERHOLD 20:42 → 2SW 23:32
PROVIDERS: ADMIT Internal Medicine; ATTEND Internal Medicine
DX: I13.0 Hypertensive heart and chronic kidney disease with heart failure and stage 1 through stage 4 chronic kidney disease, or unspecified chronic kidney disease (principal); E11.22 Type 2 diabetes mellitus with diabetic chronic kidney disease; N18.4 Chronic kidney disease, stage 4 (severe); I50.9 Heart failure, unspecified; D63.1 Anemia in chronic kidney disease; R07.89 Other chest pain; R51 Headache; R53.1 Weakness; R42 Dizziness and giddiness; I25.10 Atherosclerotic heart disease of native coronary artery without angina pectoris; E66.9 Obesity, unspecified; Z68.28 Body mass index [BMI] 28.0-28.9, adult; Z79.02 Long term (current) use of antithrombotics/antiplatelets; Z79.4 Long term (current) use of insulin; Z79.82 Long term (current) use of aspirin; Z79.899 Other long term (current) drug therapy; Z88.0 Allergy status to penicillin; Z90.3 Acquired absence of stomach [part of]
CPT/HCPCS: 70450; 71045; 80048 ×2; 80053; 82550; 82553; 82962 ×2; 83690; 83735 ×2; 84484 ×4; 85025 ×3; 93005; 94760; 96360; 96372 ×2; 97139; 99285; G0365; G0378 ×4; 36415; 36416; 93970; J1644; J1815

== ENCOUNTER 2019-09-23 05:54 | Day surgery (SDC) | payer MEDICARE, MEDICAID ==
[2019-09-22 12:08] VITALS: BMI 29.9
[2019-09-23] MEDS ORDERED: Fentanyl 100 MCG/2 ML VIAL ONE ×2 (06:25→06:40)
[2019-09-23] MEDS ORDERED: Midazolam HCl 2 mg/2 ml Vial ONE ×2 (06:25→06:39)
[2019-09-23] MEDS ORDERED: Lidocaine 1% (PF) 30 ML VIAL ONE (06:43)
[2019-09-23] MEDS ORDERED: Protamine Sulfate 50 MG/5 ML VIAL ONE (06:45)
[2019-09-23] MEDS ORDERED: Lidocaine 1% w/Epinephrine 1:100K 20 ML VIAL ONE (06:45)
[2019-09-23] MEDS ORDERED: Heparin 5,000 UNITS/ML VIAL ONE (06:45)
[2019-09-23] MEDS ORDERED: Bupivacaine PF 0.5% 30 ML VIAL ONE (06:45)
[2019-09-23] MEDS ORDERED: Levofloxacin 500 mg/D5W 100 ml Premix Bag ONE (06:57)
[2019-09-23] MEDS ORDERED: Bupivacaine HCl 0.5%/Epinephrine 1:200,000/PF 30 ml Vial ONE (09:25)
[2019-09-23] MEDS ORDERED: PROPOFOL 200 MG/20 ML VIAL ONE (09:25)
--- NOTE | 2019-09-23 09:52 | OP ---
DATE OF PROCEDURE: 09/23/2019 PREOPERATIVE DIAGNOSIS: Chronic kidney disease, stage 4, not yet started dialysis. POSTOPERATIVE DIAGNOSIS: Chronic kidney disease, stage 4, not yet started dialysis. PROCEDURE PERFORMED: Right [place] fistula, wrist, cephalic vein to radial artery, 3.5 coronary dilator. Good Doppler signal at the end of the procedures. ANESTHESIA: Regional with sedation. DESCRIPTION OF PROCEDURE: The patient was taken to the operating room, where under intravenous sedation and regional anesthesia, right upper extremity was prepared with ChloraPrep and draped in routine fashion. Incision was made longitudinally in the right wrist between the cephalic vein and radial artery, carried down to skin and subcutaneous tissue. Cephalic vein and radial artery dissected free. Branches were divided between clips and 4-0 silk ties. Stump of the cephalic vein on the hand side ligated with 2 large clips. Vein spatulated to a branch point and then the patient given 6000 units of heparin intravenously. Vein calibrated to the coronary dilators, passing coronary dilators throughout the vein from a 2 mm to a 3.5 mm coronary dilator. It was then flushed with heparinized saline solution and an atraumatic bulldog clamp applied. A longitudinal radial arteriotomy was made sharply, elongated with Up scissors and for 2.5 cm anastomosis between the end cephalic vein and the radial artery, noting good Doppler signal with venous outflow and good hemostasis. The patient was given 25 mg of protamine intravenously by Anesthesia. Branch point clipped. Subcutaneous tissue was approximated with 3-0 Monocryl, skin with subdermal 4-0 Monocryl, and Chamisal glue applied. Job ID: [id number]
== END 2019-09-23 10:50 | disposition home or self-care (01) ==
LOC: SDC 05:54
PROVIDERS: ATTEND Specialist
PROC: 031B0ZF Bypass Right Radial Artery to Lower Arm Vein, Open Approach (ICD-10-PCS; principal; 2019-09-23)
DX: I12.9 Hypertensive chronic kidney disease with stage 1 through stage 4 chronic kidney disease, or unspecified chronic kidney disease (principal); E11.22 Type 2 diabetes mellitus with diabetic chronic kidney disease; N18.4 Chronic kidney disease, stage 4 (severe); I25.10 Atherosclerotic heart disease of native coronary artery without angina pectoris; E66.9 Obesity, unspecified; Z68.30 Body mass index [BMI] 30.0-30.9, adult; Z79.02 Long term (current) use of antithrombotics/antiplatelets; Z79.4 Long term (current) use of insulin; Z79.82 Long term (current) use of aspirin; Z79.899 Other long term (current) drug therapy; Z88.0 Allergy status to penicillin; Z90.3 Acquired absence of stomach [part of]
CPT/HCPCS: 36416; J0670; J1644; J1956; J2001; J2250; J2704; J2720; J3010; S0020

== ENCOUNTER 2019-11-07 19:04 | Inpatient (IN) | payer MEDICARE, MEDICAID, OTHER ==
[2019-11-07] MEDS ORDERED: Succinylcholine Chloride 20 MG/ML 10 ml SYRINGE FS ONE (19:11)
[2019-11-07] MEDS ORDERED: Nitroglycerin 0.4 MG TAB 1 EACH ONE (19:14)
[2019-11-07] MEDS ORDERED: Nitroglycerin 50 MG/250 ML BOT 250 ML ONE (19:22)
[2019-11-07] MEDS ORDERED: Furosemide 40 MG/4 ML VIAL ONE (19:24)
[2019-11-07] MEDS ORDERED: Fentanyl 100 MCG/2 ML VIAL ONE ×2 (19:37→19:51)
[2019-11-07 19:42] LABS: #Basophils 0.1 thou/uL (0.0-0.2); #Eosinphils 0.3 thou/uL (0.0-0.7); #Lymphocytes 3.9 thou/uL (1.20-3.40); #Monocytes 1.4 thou/uL (0.11-0.59); #Neutrophils 9.5 thou/uL (1.40-6.50); %Basophils 0.5 % (0.0-1.0); %Eosinophils 1.8 % (0.0-10.0); %Lymphocytes 25.5 % (21.0-51.0); %Monocytes 9.4 % (0.0-10.0); %Neutrophils 62.7 % (42.0-75.0); Hemoglobin 12.9 g/dL (14.0-18.0); Mean Corpuscular HGB CONC 32.6 g/dL (32.0-36.0); Mean Corpuscular Hemoglobin 28.8 pg (27.0-31.0); Mean Corpuscular Volume 88.2 fL (78.0-98.0); Mean Platelet Volume 8.6 fL (7.4-10.4); Platelet Count 254 thou/uL (130-400); RBC Distribution Width 13.1 % (11.5-14.5); Red Blood Cell (RBC) Count 4.49 mill/uL (4.70-6.10); White Blood Cell (WBC) Count 15.1 thou/uL (4.8-10.8)
[2019-11-07] MEDS ORDERED: fentaNYL Citrate/PF 2,000 MCG in Sodium Chloride 0.9% 60 ML IV SCH (19:43)
--- NOTE | 2019-11-07 19:59 | RAD ---
PORTABLE CHEST: Indications: Dyspnea. Comparison: 09-20-2019 FINDINGS: There are new bilateral perihilar alveolar infiltrates. Perihilar distribution suggests bilateral pul monary edema. ET tube is in place with tip above the joshua. An NG tube is noted with tip not visuali zed. IMPRESSION: New bilateral perihilar infiltrates. POS: [facility]
[2019-11-07 20:02] LABS: Bacteria/HPF None Seen HPF (None Seen); Bilirubin Negative (Negative); Blood, Urine 1+ (Negative); Clarity Turbid (Clear); Glucose, Urine (Dipstick) 100 mg/dL (Negative); Leukocyte Negative Leu/uL (Negative); Nitrite Negative (Negative); Protein, Urine (Dipstick) 200 mg/dL (Neg-Trace); RBC/HPF None Seen HPF (0-3); Squamous Epithelial 0-3 HPF (0-3); Urobilinogen Normal mg/dL (Less than 2); WBC/HPF 0-3 HPF (0-3)
[2019-11-07 20:06] LABS: ALT (SGPT) 15 U/L (8-55); AST (SGOT) 16 U/L (5-34); Albumin 4.2 g/dL (3.4-4.8); Alkaline Phosphatase 105 U/L (40-110); Anion Gap 18 mmol/L (10-20); BUN (Urea Nitrogen) 64 mg/dL (8.4-25.7); Bilirubin, Total 0.4 mg/dL (0.2-1.2); CK (CPK) 170 U/L (30-200); Calc. Creatinine Clearance 0 mL/min (70-130); Carbon Dioxide 16 mmol/L (23-31); Chloride 106 mmol/L (98-107); Estimated GFR-MDRD 14; Globulin 3.8 g/dL (2.4-3.5); Glucose 224 mg/dL (83-110); Potassium 5.4 mmol/L (3.5-5.1); Sodium 135 mmol/L (136-145)
[2019-11-07] MEDS ORDERED: Midazolam HCl 5 mg/ml Vial ONE (20:12)
[2019-11-07] MEDS ORDERED: Cefepime 2 GM VIAL ONE (20:12)
[2019-11-07] MEDS ORDERED: Vancomycin HCl 1.25 GM in Sodium Chloride 0.9% 250 ML 250 ML IVPB SCH (20:30)
[2019-11-07] MEDS ORDERED: Dextrose 5% in Water 1,000 ML IV PRN (22:18)
[2019-11-07] MEDS ORDERED: hydrALAZINE 20 MG/ML VIAL SLOW IVP PRN (22:18)
[2019-11-07] MEDS ORDERED: Ventilator Sedation Protocol 1 EACH FS ONE (22:18)
[2019-11-07] MEDS ORDERED: Dextrose 50% Abboject 50 ML SYRINGE SLOW IVP PRN (22:18)
[2019-11-07] MEDS ORDERED: Morphine 2 MG/ML SYRINGE SLOW IVP PRN (22:20)
[2019-11-07] MEDS ORDERED: DISCONTINUE PREVIOUS NARCOTIC PAIN MEDICATIONS AND BENZODIAZEPINES FS SCH (22:20)
[2019-11-07] MEDS ORDERED: Fentanyl BOLUS 250 ML IVPB PRN (22:20)
[2019-11-07] MEDS ORDERED: Propofol BOLUS 1,000 MG/100 ML VIAL IV PRN (22:20)
[2019-11-07] MEDS ORDERED: Lorazepam 2 MG/ML VIAL SLOW IVP PRN (22:20)
[2019-11-07] MEDS ORDERED: Nitroglycerin 2% Ointment 1 INCH/1 GM Packet TOP SCH (22:30)
[2019-11-07 22:45] LABS: Lactic Acid 0.8 mmol/L (0.5-2.2)
[2019-11-07 22:55] LABS: Troponin I 0.936 ng/mL (< 0.028)
[2019-11-07] MEDS: Propofol 1,000 MG/100 ML VIAL IV PRN (23:01)
[2019-11-08 00:31] LABS: HBSAB Concentration 1.71 mIU/mL; HBSAg Index 0.23 S/CO (0-0.99); Hep B Core Total Ab Non-Reactive (NonReactive); Hep B Core Total Index 0.13 S/CO (0-0.79); Hep B Surf AB Non-Reactive (NonReactive); Hep B Surf Ag Non-Reactive S/CO (NonReactive); Hep C IgG Ab Non-Reactive (NonReactive); Hep C Index 0.18 S/CO (0-0.79)
[2019-11-08] MEDS ORDERED: Furosemide 100 MG/10 ML VIAL SLOW IVP SCH (00:45)
--- NOTE | 2019-11-08 01:55 | HP ---
PRIMARY CARE PHYSICIAN: Bailey Harvey MD CHIEF COMPLAINT: Cough and shortness of breath. HISTORY OF PRESENT ILLNESS: Mr. Montelongo is a pleasant 73-year-old gentleman, who has a history of hypertension as well as chronic kidney disease, stage 4 and coronary artery disease. He was in his usual state of health until Thursday. They had returned the family from [place] and he said he was fine at that time, but on and Thursday, he started coughing and felt a little dizzy and then on Thursday, he noticed some difficulty breathing. His daughter says that by 5:30 p.m., he was having difficulty breathing and noticed some wheezing sounds and he looked like he was almost about to pass out. She says that he did have a little bit of chest pain and did have some phlegm as well. No known fever that they are aware of and some nausea. They brought him to the ER, where he became hypoxic and chest x-ray showed bilateral pulmonary infiltrates. He required intubation, and he is being admitted to the ICU. No other information is unknown as the patient is currently intubated. There is no history of any foreign travel. No history of any fever and no known contacts with the coronavirus. It is to mention that the patient does have advanced kidney disease. He recently had an AV fistula placed back in the end of August and it was noted that he was having frothy clear sputum coming up through the ET tube. In the ER, the patient was given a dose of Levaquin as well as IV vancomycin. He was given 80 mg of Lasix IV as well as sublingual nitroglycerin and fentanyl for sedation. REVIEW OF SYSTEMS: Unobtainable as the patient is currently intubated. PAST MEDICAL HISTORY: Taken from the patient's daughter and include hypertension; chronic kidney disease, stage 4; diabetes mellitus, type 2; coronary artery disease; and he has had three heart attacks. PAST SURGICAL HISTORY: He has had an appendectomy and polypectomy. ALLERGIES: TO PENICILLIN. SOCIAL HISTORY: He is . He is a nonsmoker and nondrinker. Code status is full code. FAMILY HISTORY: Significant for cancer and diabetes mellitus. CURRENT MEDICATIONS: Taken from the ER records and include, 1. Nifedipine extended release 60 mg daily. 2. Dexilant 60 mg one tablet daily. 3. Furosemide 40 mg one tablet twice a day. 4. Myrbetriq extended release 25 mg daily. 5. Pioglitazone 15 mg daily. 6. Aspirin 81 mg daily. 7. Carvedilol 6.25 mg twice a day. 8. Hydralazine 100 mg 3 times a day. PHYSICAL EXAMINATION: GENERAL: He is awake, alert. He is trying to respond by mouthing words even though intubated. HEENT: His pupils are equal, round, and reactive. Extraocular muscles are intact. NECK: There is some evidence of jugular venous distention. LUNGS: He has bilateral rhonchi as well as rales throughout most of his lung fontanez. CARDIOVASCULAR: He had a normal S1 and S2. There is no S3 or S4. No murmurs, clicks, or rubs. ABDOMEN: Obese. He slightly has abdominal distention. It is tympanic to percussion. Positive for bowel sounds. EXTREMITIES: There is trace edema, especially on the feet. No calf tenderness or edema. No joint effusions. NEUROLOGIC: He is moving all extremities. SKIN AND INTEGUMENT: There are no skin changes. No rash. LABORATORY RESULTS: White blood cell count 15.1, hemoglobin 12.9, hematocrit is 39.6, and platelet count is 254. Sodium 135, potassium 5.4, chloride is 106, CO2 is 16, BUN of 64, creatinine 4.2, GFR is 14, and glucose is 224. Urinalysis; it is turbid, but no bacteria or white blood cells seen. IMAGING DATA: On his chest x-ray, he has mild cardiomegaly and bilateral increase in pulmonary vascular markings and this is by my reading. ASSESSMENT: This is a pleasant 73-year-old gentleman, who presents with acute respiratory failure with hypoxemia, I suspect due to pulmonary edema and this is related to his advanced kidney disease. I suspect he has reached end-stage renal disease. He is acidotic with elevated potassium. He is being admitted to the ICU and also being treated for presumptive pneumonia and also for rule out of the COVID-19, although this is much less likely. 1. For the acute respiratory failure with hypoxemia, we will continue vent support. Consult Pulmonary and Critical Care. Also consult his field broomer as I suspect he will need urgent hemodialysis. Treat him empirically for bacterial pneumonia, although this is likely and continue respiratory isolation. 2. Elevated troponin. I suspect this is a demand ischemia from the acute respiratory failure. We will continue to trend his troponins, however. It is noted that he had a recent echo back in August of this year. 3. Diabetes mellitus. For the time being, he will be treated with a sliding scale insulin. 4. Hypertension. We will treat with p.r.n. hydralazine and once more stable, we can reinstitute his home medications either via NG tube or orally if he is extubated soon. The patient will also be placed on DVT and GI prophylaxis. Job ID: [id number]
[2019-11-08 02:10] LABS: #Eosinphils 0.1 thou/uL (0.0-0.7); #Lymphocytes 0.7 thou/uL (1.20-3.40); #Monocytes 0.8 thou/uL (0.11-0.59); #Neutrophils 7.8 thou/uL (1.40-6.50); %Basophils 0.1 % (0.0-1.0); %Eosinophils 0.6 % (0.0-10.0); %Lymphocytes 7.2 % (21.0-51.0); %Monocytes 8.7 % (0.0-10.0); %Neutrophils 83.5 % (42.0-75.0); Hemoglobin 11.1 g/dL (14.0-18.0); Mean Corpuscular HGB CONC 32.7 g/dL (32.0-36.0); Mean Corpuscular Hemoglobin 28.4 pg (27.0-31.0); Mean Corpuscular Volume 86.8 fL (78.0-98.0); Mean Platelet Volume 8.1 fL (7.4-10.4); Platelet Count 200 thou/uL (130-400); Red Blood Cell (RBC) Count 3.91 mill/uL (4.70-6.10); White Blood Cell (WBC) Count 9.3 thou/uL (4.8-10.8)
[2019-11-08 02:27] LABS: Anion Gap 18 mmol/L (10-20); BUN (Urea Nitrogen) 67 mg/dL (8.4-25.7); Calc. Creatinine Clearance 17 mL/min (70-130); Calcium 7.9 mg/dL (7.8-10.44); Carbon Dioxide 15 mmol/L (23-31); Chloride 107 mmol/L (98-107); Estimated GFR-MDRD 14; Glucose 166 mg/dL (83-110); Potassium 5.8 mmol/L (3.5-5.1); Sodium 134 mmol/L (136-145)
[2019-11-08 02:32] LABS: Troponin I 2.837 ng/mL (< 0.028)
[2019-11-08] MEDS: Nitroglycerin 2% Ointment 1 INCH/1 GM Packet TOP SCH ×3 (05:26→20:49)
[2019-11-08] MEDS: Propofol 1,000 MG/100 ML VIAL IV PRN ×3 (08:13→19:43)
[2019-11-08] MEDS: Heparin 5,000 UNITS/ML VIAL SC SCH ×3 (08:13→19:44)
[2019-11-08] MEDS ORDERED: Prevnar 13-Val Conj/PF 0.5 ML SYRINGE IM ONE (09:00)
[2019-11-08] MEDS ORDERED: Famotidine/PF 20 mg/2ml Vial SLOW IVP SCH (09:00)
[2019-11-08] MEDS ORDERED: FLU VACC TS2019-20(65YR UP)/PF 180 MCG/0.5 ML SYRINGE IM ONE (09:00)
--- NOTE | 2019-11-08 12:46 | CON ---
DATE OF CONSULTATION: 11/08/2019 SERVICE: Pulmonary Medicine. REASON FOR CONSULTATION: ICU patient. HISTORY OF PRESENT ILLNESS: The patient is a 73-year-old male with past medical history significant for advanced kidney disease and sleep apnea. He was in his usual state of health when he started having increasing swelling in the lower extremities as well as weight gain. He started developing shortness of breath yesterday. This was progressive in nature and did not come on all the sudden. Overnight, he had a really good night sleeping because he wear CPAP. The next morning, he woke up normal, but as the day progressed, he got increasingly winded once again. As such, he presented to the emergency department. Because he was having respiratory symptoms, COVID was on the differential and he was intubated because of hypoxemia, and placed in isolation. Overnight, his oxygen requirements has basically improved to room air. He cannot provide any additional elements of the history because he got a tube in his throat, but he is cool, calm, and collected on the ventilator and indicates he did not have any chest discomfort, fevers, or sputum with color to it. He is bringing up a little bit of mares phlegm. He denies any chest discomfort. Otherwise, he is in his usual state of health. PAST MEDICAL HISTORY: 1. Chronic kidney disease, stage 4-5, progressing to end-stage renal disease with recent AV fistula placed. 2. Obstructive sleep apnea. 3. Hypertension. 4. Type 2 diabetes mellitus. 5. Coronary artery disease. PAST SURGICAL HISTORY: 1. Appendectomy. 2. Polypectomy on colonoscopy. 3. Placement of right forearm AV fistula. ALLERGIES: PENICILLIN. MEDICATIONS: List of his inpatient medications was reviewed. Multiple updates were made at this time. SOCIAL HISTORY: He does not use alcohol, tobacco, or illicit drug use currently. He has no exposure to chemicals, dust, asbestos, or tuberculosis. REVIEW OF SYSTEMS: General; head, ears, eyes, nose, throat; cardiovascular; respiratory; GI; ; musculoskeletal; neurologic; and skin are negative except as mentioned in the HPI. PHYSICAL EXAMINATION: VITAL SIGNS: Afebrile, pulse 60, blood pressure 153/76, respirations 14, saturations 98% currently on 23% FiO2 delivered via pressure support ventilation at 5/5. GENERAL: The patient is intubated and sedated. HEENT: Normocephalic and atraumatic. Sclerae white. Conjunctivae pink. Oral mucosa is moist without lesions. LUNGS: Good air entry bilaterally. Crackles are present. HEART: Normal rate and regular. ABDOMEN: Soft, nontender, and nondistended. Bowel sounds are positive. MUSCULOSKELETAL: No cyanosis or clubbing. There is diffuse 2+ pitting throughout. NEUROLOGIC: Grossly nonfocal. LABORATORY DATA: WBC 9.3, hemoglobin 11.1, platelets 200,000. Neutrophil count was originally 83% on presentation, but is downtrending to 62.7%. He does not have lymphopenia any longer. It was present on presentation. Creatinine 4.16 and gently downtrending above baseline of the upper threes. Potassium 5.8. Troponins are 2.8 and gently uptrending, BNP 968, which is in historic high. Liver function studies are unremarkable. Lactic acid was originally 5.9, but is downtrending to 0.8. Urinalysis is negative. Blood cultures x2, and influenza A and B are unremarkable. ASSESSMENT: 1. Acute hypoxic respiratory failure. 2. Chronic kidney disease, likely progressing to end-stage renal disease. 3. Volume overload. 4. Sxr-GD-symwqctit infarction, likely secondary to demand. DISCUSSION AND PLAN: I am doubtful this patient has rene virus. That being said, panel was sent off and we will keep him in isolation until the results come back. We will put him on a spontaneous breathing trial and if he meets criteria, extubation will be considered. I believe that his chest x-ray is more consistent with a volume overload event with bat wing pulmonary edema. Typically, rene virus causes peripheral inflammatory lung changes not central. Additionally, he has multiple other features including cephalization, widened carinal angle, and Don B lines that would be more consistent with volume overload event. Additionally, his rapid recovery would also be suggestive of a primary cardiac issue. Echocardiogram will be pursued, particularly if we have not had one recently. CRITICAL CARE TIME: 30 minutes. Job ID: [id number]
--- NOTE | 2019-11-08 12:54 | CON ---
DATE OF CONSULTATION: 11/08/2019 INDICATION FOR CONSULTATION: A 73-year-old gentleman with multiple hospital admissions due to end-stage renal disease as well as hypertension. He has been seen in the past by Dr. Corley on several occasions, most recently back in August of this year. At that time, he was seen with again hypertension. He also has had some abnormal cardiac enzymes in the past. He has had what is felt to be underlying coronary artery disease due to an abnormal stress test in the past. However, he has not undergone cardiac catheterization. He had a dialysis fistula placed for hemodialysis. Apparently, he was seen and admitted today, there was an attempt to undergo dialysis; however, his dialysis shunt was occluded. Apparently, would not take the flow and he is now waiting for a temporary dialysis catheter be placed, so he can be dialyzed. Apparently, according to his family for the last 2 to 3 weeks, he has been complaining of a cough and not feeling well with some dizziness, but has not had any chest pain. He did not want to come to the emergency room, then on yesterday, he became more short of breath and more coughing, was presented to the emergency room and was admitted. His O2 saturation was in the 70%. According to the records, he was brought in by family by car. While he was in the emergency room, during the questioning, he did say he had some mild chest discomfort, but his family said he had not had complained of any chest pain at home. He was in the hospital previously also, I believe last year with a pneumonia and at this time, it appears he also again has pneumonia may be septic. He is being ruled out for the coronavirus at this time. This will take 2 to 3 days to get the results back. In the meantime, he is on the ventilator and sedated. One of the family members at the bedside and answers questions during the history prior to the taking of the exam. Please note that his cardiac enzymes are elevated. His first troponin I when he arrived was 0.25 and then increased up to 0.93 and subsequently on the last evaluation at 2 o'clock this morning was 2.8. His BNP was elevated at 968, which would not be unusual with volume overload associated with his end-stage renal disease. His EKG showed evidence of hyperacute T-waves. The potassium is elevated. There was no acute ST-segment elevation. He has some biphasic T-waves in the inferior lateral leads, but otherwise no acute ST-segment elevation was noted. He did have some strain type pattern in V5 and V6. He did have evidence of left ventricular hypertrophy. The family says that he started coughing about three weeks ago and he attributed that to his starting recently on lisinopril. PAST MEDICAL HISTORY: Significant for the chronic kidney disease. He is a dialysis candidate. I believe he is already started on dialysis. He has had a history of hypertension, diabetes type 2, hyperlipidemia, obesity, history of presumed CAD based on previous stress test, but no cardiac catheterization has been performed. SOCIAL HISTORY: He lives at home. He has no alcohol or tobacco abuse. FAMILY HISTORY: Noncontributory. ALLERGIES: HE IS ALLERGIC TO PENICILLIN. MEDICATIONS: His medications at home included: 1. Plavix 75 mg a day. 2. Aspirin 81 mg a day. 3. Myrbetriq 25 mg a day. 4. Ferrous sulfate 325 mg a day. 5. Vitamin D3 of 1000 units daily. 6. Lipitor 20 mg a day. 7. He was also taking insulin as well as Lasix 40 mg once a day. 8. Coreg 6.25 mg b.i.d. 9. Ondansetron/HCL 4 mg q.4 hours p.r.n. 10. Nifedipine 90 mg a day. 11. Isosorbide dinitrate, he takes 40 mg b.i.d. 12. Lisinopril 10 mg a day. 13. Tramadol 50 mg q.i.d. p.r.n. for pain. His medications at this time include: 1. IV fluids. 2. Insulin as needed on sliding scale. 3. He is on p.r.n. medications such as hydralazine. 4. He is on Zofran as needed. 5. Fentanyl as needed as well as lorazepam. 6. Diprivan. 7. Nitroglycerin ointment 0.5 inch has been placed on the chest area. 8. Pepcid. 9. He is on heparin 5000 units t.i.d. 10. Levofloxacin IV. REVIEW OF SYSTEMS: HEENT: According to the family, he has had no new HEENT complaints. PULMONARY: He complained of coughing and shortness of breath, especially since Thursday that his symptoms have worsened. GI: He has had some nausea, but no vomiting. He has had no hematuria or dysuria. He has had no or GI complaints otherwise. MUSCULOSKELETAL: No edema or claudication symptoms. NEUROLOGIC: No history of syncope or seizures. He has had some dizziness. PHYSICAL EXAMINATION: GENERAL: Reveals an elderly gentleman, who is on the ventilator. He is sedated. VITAL SIGNS: Heart rate 59 and shows a sinus rhythm, O2 saturation is 100% at this time, respiratory rate 16 on the ventilator, and blood pressure is 104/64. HEENT: Reveals the head to be normocephalic and atraumatic. Carotid pulses are present. I do not hear any significant bruits. CHEST: I do not hear any coarse rhonchi or wheezing; however, breath sounds are somewhat difficult to auscultate while the patient is on the ventilator, but did not hear any coarse sounds. CARDIOVASCULAR: Heart sounds are distant, but I do not hear any gross murmurs, heaves, thrills, bruits or rubs. ABDOMEN: Soft and nontender. Positive bowel sounds were present. EXTREMITIES: Show no clubbing, cyanosis, or edema. I could palpate pedal pulses. NEUROLOGIC: The patient is sedated. LABORATORY DATA: The most pertinent finding show his potassium was 5.8 and BUN was 67 with a creatinine of 4.16 and blood sugar was 166 and troponin I as noted was 2.83. We will repeat that level and BNP was 968. His WBC was 15.1, decreased down to 9.3, hemoglobin 11.1, hematocrit 33.9, and platelet count was 200,000. IMPRESSION AND PLAN: 1. Elderly gentleman, who has what appears to be most likely pneumonia. He had a chest x-ray performed yesterday. This indicated bilateral perihilar infiltrates compatible with possible pneumonia. At this time, the patient is being ruled out for coronavirus. 2. End-stage renal disease. A temporary catheter will be placed shortly for him to undergo dialysis. 3. Abnormal cardiac enzymes, which may be reflection of his underlying sepsis and also end-stage renal disease. We will keep these numbers elevated. However, we will continue to trend these. He certainly may have had a vjt-XS-txoridx elevation myocardial infarction due to demand ischemia in the heart and there is some thought that the patient most likely does have some underlying coronary artery disease as he has had an abnormal stress test in the past, but this has not yet been documented by cardiac catheterization, likely when the patient stabilizes and is on hemodialysis. If he returns back to his baseline, then probably a cardiac catheterization would be indicated. 4. History of diabetes. This will be dealt with by the Primary Care Service. 5. Hyperlipidemia. We will continue his statin medications once he is able to take p.o. medications. 6. Hypertension. At this time, the blood pressure is under good control. We will continue to monitor. 7. Cough, which has been present for about three weeks. This may be due to underlying infection or maybe due to the lisinopril. We will consider changing from the angiotensin-converting enzyme inhibitor over to an angiotensin receptor blockers to see whether or not this will decrease his coughing. At this time, overall prognosis is certainly is guarded, given the situation of the patient on the ventilator with his multiple medical problems. We will consider repeating an echocardiogram tomorrow or the next day. At this time, I do not feel that this would be a significant indication as the patient will need to undergo dialysis at this time on an urgent basis. Job ID: [id number]
--- NOTE | 2019-11-08 14:52 | CON ---
DATE OF CONSULTATION: 11/08/2019 CONSULTING PHYSICIAN: Jean Marie Perrin MD REASON FOR CONSULTATION: Shortness of breath. HISTORY OF PRESENT ILLNESS: This is a 73-year-old male with history of hypertension, CKD, and coronary artery disease, who came to the hospital with shortness of breath and was seen in the ER and actually intubated. The patient has chronic kidney disease, and he has had a fistula placed. The patient is intubated. Daughter was at the bedside. PAST MEDICAL HISTORY: Positive for hypertension, CKD, type 2 diabetes, and coronary artery disease. PAST SURGICAL HISTORY: Appendectomy and polypectomy. HOME MEDICATIONS: Reviewed. ALLERGIES: PENICILLIN. SOCIAL HISTORY: No smoking, alcohol, or illicit drug abuse. FAMILY HISTORY: No history of kidney disease. REVIEW OF SYSTEMS: Could not be obtained. He is intubated. PHYSICAL EXAMINATION: GENERAL: This is a well-built male, intubated. VITAL SIGNS: Temperature 98.2, pulse 73, respiratory rate 18, blood pressure reviewed HEENT: Intubated. CV: S1 and S2 heard. RESPIRATORY: Clear. GI: Abdomen is soft. MUSCULOSKELETAL: 1+ edema. DERMATOLOGIC: No skin rash. NEUROLOGIC: Intubated. LABORATORY DATA: Potassium 5.8, BUN is 67, creatinine is 4.1. ASSESSMENT AND PLAN: 1. Acute kidney injury on chronic kidney disease, stage 5. Appreciate help from Surgery for femoral dialysis catheter. 2. Edema, controlled. 3. History of hypertension. 4. Hyperkalemia. 5. Acidosis. 6. Chronic anemia. Plan is to have dialysis today for hyperkalemia and also fluid overload. The patient is making urine on Lasix. We will continue to monitor. Might need few sessions of dialysis for fluid overload. Does not seem like he needs long-term dialysis at this point. We will continue close monitoring and decide based on the clinical course. We will follow. Job ID: [id number] [facility]
--- NOTE | 2019-11-08 15:46 | OP ---
DATE OF PROCEDURE: 11/08/2019 PREOPERATIVE DIAGNOSES: 1. Chronic kidney disease. 2. Acute on chronic renal failure. 3. Acute hyperkalemia. 4. Fluid overload. POSTOPERATIVE DIAGNOSES: 1. Chronic kidney disease. 2. Acute on chronic renal failure. 3. Acute hyperkalemia. 4. Fluid overload. PROCEDURE PERFORMED: Placement of triple-lumen right femoral central venous catheter for hemodialysis. INDICATIONS FOR PROCEDURE: A 73-year-old man with history of chronic kidney disease, who is admitted in intensive care unit on mechanical ventilator support. The patient has been diagnosed with acute on chronic renal failure, complicated by acute hyperkalemia and fluid overload requiring urgent hemodialysis. I was asked to place a temporary dialysis access to facilitate therapeutics. DESCRIPTION OF PROCEDURE: Informed consent was obtained from the patient's power of [place] attorney. The patient was placed in supine position. Right groin was sterilely prepped and draped in usual fashion. The right femoral artery was palpated at the groin. The skin medial to the palpated artery was anesthetized with 1% lidocaine. The right femoral vein was then cannulated with an 18-gauge introducer needle returning dark venous blood. Guidewire was passed through the needle and advanced into the right femoral vein without resistance. The needle was withdrawn over the guidewire. A stab incision was made adjacent to the guidewire using 11 scalpel. A dilator was passed over the guidewire dilating the subcutaneous tissues. Dilator was removed and triple-lumen Trialysis catheter was then advanced over the guidewire and placed into the right femoral vein advancing this to the hub. Guidewire was removed. Dark venous blood was vigorously aspirated from all 3 ports, which were individually flushed with saline followed by heparin. The catheter was secured to right groin using 3-0 nylon suture at two points. Sterile dressings were applied. The patient tolerated the procedure without any apparent complication and remains hemodynamically stable following completion of procedure. Job ID: [id number]
[2019-11-08] MEDS ORDERED: Fentanyl 100 MCG/2 ML VIAL SLOW IVP PRN (17:17)
[2019-11-08] MEDS ORDERED: Propofol BOLUS 1,000 MG/100 ML VIAL IV PRN (17:17)
--- NOTE | 2019-11-08 19:41 | PDOC.HOSPP ---
- Subjective Encounter Date: 11/08/19 Encounter Time: 19:35 Subjective: f/u for acute resp failure due to volume overload in context of ESRD requiring urgent HD. - Objective Vital Signs & Weight: Vital Signs (12 hours) Temp Pulse Resp BP Pulse Ox 11/08/19 18:58 91 143/68 H 11/08/19 18:00 19 11/08/19 16:00 100.8 F H 11/08/19 15:30 79 11/08/19 14:00 99.3 F 11/08/19 13:45 85 11/08/19 12:00 98.2 F 13 11/08/19 10:47 60 11/08/19 10:00 14 11/08/19 08:00 99.1 F 14 100 Weight Admit Weight 177 lb Weight 177 lb 0.499 oz Most Recent Monitor Data Heart Rate from ECG 88 NIBP 138/88 NIBP BP-Mean 104 Respiration from ECG 15 SpO2 100 I&O: 11/07/19 11/08/19 11/09/19 06:59 06:59 06:59 Intake Total 8 136 Output Total 1325 1385 Balance -1317 -1249 Result Diagrams: 11/08/19 02:02 11/08/19 02:02 Additional Labs: Accuchecks 11/08/19 11/08/19 11/08/19 18:36 12:35 00:57 POC Glucose 111 H 109 183 H Microbiology 11/07/19 19:14 Nasal swab Influenza Types A,B Direct EIA - Final 11/07/19 19:46 Urine osorio catheter Urine Culture - Preliminary NO GROWTH AT 12 HOURS 11/07/19 19:21 Venous blood - Right Arm Blood Culture - Preliminary Specimen has been received and culture in progress. No Growth to date. 11/07/19 19:05 Venous blood - Left Arm Blood Culture - Preliminary Specimen has been received and culture in progress. No Growth to date. Laboratory Tests 01/19/19 11/07/19 11/07/19 23:20 19:21 19:21 WBC 15.1 H Hgb 12.9 L Troponin I 0.251 H B-Natriuretic Peptide 295.9 H 11/07/19 11/07/19 11/08/19 19:21 22:20 02:02 WBC Hgb Troponin I 0.936 H* 2.837 H* B-Natriuretic Peptide 968.6 H Radiology Reviewed by me: Yes (PCXR - bilateral pulm edema) EKG Reviewed by me: Yes (Tele - SR) Hospitalist ROS - Medication Medications: Active Medications Generic Name Dose Route Start Last Admin Trade Name Freq PRN Reason Stop Dose Admin Heparin Sodium (Porcine) 5,000 units 11/08/19 09:00 11/08/19 14:10 Heparin SC 5,000 units TID BONITA Administration Nitroglycerin 0.5 inch 11/08/19 06:00 11/08/19 14:10 Nitro-Bid 2% Ointment TOP 0.5 inch Q8HR BONITA Administration Propofol 1,000 mg 11/08/19 17:17 11/08/19 18:36 Diprivan IV 12/08/19 17:17 1,000 mg INF PRN Administration TO ACHIEVE GOAL RASS Protocol - Exam General Appearance: NAD General - [facility]: anicteric sclera ENT: normocephalic atraumatic, no oropharyngeal lesions ENT - other findings: ETT in place Neck: supple, symmetric, no JVD, no thyromegaly Heart: RRR, no murmur, no gallops, normal peripheral pulses Heart - other findings: S1, S2 Respiratory: CTAB, no wheezes, no rales, normal chest expansion Gastrointestinal: soft, non-tender, non-distended, normal bowel sounds Extremities: no cyanosis, 2+ LE edema Skin: normal turgor, no lesions Psychiatric: somnolent, lethargic Psychiatric - other findings: sedate on [facility] ventilation Hosp A/P (1) Acute respiratory failure with hypoxia Code(s): J96.01 - ACUTE RESPIRATORY FAILURE WITH HYPOXIA Status: Acute Plan: Secondary to volume overload in context of ESRD, continue volume mgmt as documented below, [facility] ventilation support (2) ESRD (end stage renal disease) on dialysis Code(s): N18.6 - END STAGE RENAL DISEASE; Z99.2 - DEPENDENCE ON RENAL DIALYSIS Status: Acute Plan: HD per Renal service, serial monitoring of volume status (3) Hyperkalemia Code(s): E87.5 - HYPERKALEMIA Status: Acute Plan: Improved with HD, serial K+ monitoring (4) Type [address] elevation Code(s): I21.A1 - MYOCARDIAL INFARCTION TYPE 2 Status: Acute Plan: Secondary to demand state in context of volume overload and ESRD (5) Diabetes type 2, controlled Code(s): E11.9 - TYPE 2 DIABETES MELLITUS WITHOUT COMPLICATIONS Status: Chronic Qualifiers: Diabetes mellitus senior care insulin use: with senior care use Diabetes mellitus complication status: with kidney complications Diabetes mellitus complication detail: with chronic kidney disease Chronic kidney disease stage : stage 4 (severe) Qualified Code(s): E11.22 - Type 2 diabetes mellitus with diabetic chronic kidney disease; N18.4 - Chronic kidney disease, stage 4 (severe ); 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
[2019-11-09] MEDS: Propofol 1,000 MG/100 ML VIAL IV PRN (02:45)
[2019-11-09 04:11] LABS: Band 11 % (5-11); Hemoglobin 11.4 g/dL (14.0-18.0); Lymphocytes 11 % (21-51); MDiff Complete? YES; Mean Corpuscular Hemoglobin 29.3 pg (27.0-31.0); Mean Corpuscular Volume 86.2 fL (78.0-98.0); Mean Platelet Volume 8.7 fL (7.4-10.4); Monocytes 6 % (0-10); Neutrophil 72 % (42-75); Platelet Count 183 thou/uL (130-400); RBC Distribution Width 12.9 % (11.5-14.5); Red Blood Cell (RBC) Count 3.89 mill/uL (4.70-6.10); White Blood Cell (WBC) Count 9.8 thou/uL (4.8-10.8)
[2019-11-09 04:16] LABS: ALT (SGPT) 13 U/L (8-55); AST (SGOT) 24 U/L (5-34); Albumin 3.5 g/dL (3.4-4.8); Alkaline Phosphatase 77 U/L (40-110); Anion Gap 18 mmol/L (10-20); BUN (Urea Nitrogen) 49 mg/dL (8.4-25.7); Bilirubin, Total 0.4 mg/dL (0.2-1.2); Calc. Creatinine Clearance 17 mL/min (70-130); Calcium 8.8 mg/dL (7.8-10.44); Carbon Dioxide 21 mmol/L (23-31); Chloride 102 mmol/L (98-107); Estimated GFR-MDRD 14; Globulin 3.6 g/dL (2.4-3.5); Glucose 126 mg/dL (83-110); Potassium 4.4 mmol/L (3.5-5.1); Protein, Total 7.1 g/dL (5.8-8.1); Sodium 137 mmol/L (136-145)
[2019-11-09] MEDS: Nitroglycerin 2% Ointment 1 INCH/1 GM Packet TOP SCH ×3 (05:22→20:37)
[2019-11-09] MEDS: Heparin 5,000 UNITS/ML VIAL SC SCH ×3 (07:35→20:30)
--- NOTE | 2019-11-09 07:37 | RAD ---
EXAM: Single view of the chest HISTORY: Respiratory failure COMPARISON: 11/07/2019 FINDINGS: Single view of the chest shows a normal sized cardiomediastinal silhouette. Bilateral perih ilar infiltrates are improving but still present. The endotracheal tube and NG tube are unchanged in position. The bones are unremarkable. IMPRESSION: Improvement in bilateral perihilar infiltrates.
[2019-11-09] MEDS ORDERED: Heparin 10,000 UNITS/ 10 ML VIAL ONE (08:39)
--- NOTE | 2019-11-09 12:56 | PRG ---
DATE OF SERVICE: 11/09/2019 SERVICE: Pulmonary Medicine INTERVAL HISTORY: The patient is doing great from respiratory standpoint. He got dialysis yesterday and over 3.5 L were removed. He cannot provide any additional elements of the history. Denies any chest discomfort, nausea, or vomiting. He is on mechanical ventilator. He is breathing comfortably with no issues. He is on 21% FiO2 and has been weaned down to a PEEP of 5. I find him cool, calm, and collected, and following all commands. PHYSICAL EXAMINATION: VITAL SIGNS: Afebrile currently with a T-max of 100.8, pulse 72, blood pressure 177/91, respirations 15, saturation 99% on 21% FiO2 and a PEEP of 5. GENERAL: The patient is intubated and sedated. HEENT: Normocephalic and atraumatic. Sclerae white. Conjunctivae pink. Oral mucosa is moist without lesions. LUNGS: Good air entry. Crackles are improved. HEART: Normal rate, regular. ABDOMEN: Soft, nontender, nondistended. Bowel sounds are positive. MUSCULOSKELETAL: No cyanosis or clubbing. There is no pitting in the bilateral lower extremities. NEUROLOGIC: Grossly nonfocal. LABORATORY DATA: WBC 9.8, hemoglobin 11.4, platelets 183,000. Creatinine 4.2, BUN 49. Basic metabolic profile and liver function studies are otherwise unremarkable. Troponin 2.8. Blood cultures x2, urine culture, influenza A and B are all unremarkable. IMAGING: Chest x-ray demonstrates interval improvement in the pulmonary edema pattern. ASSESSMENT: 1. Acute hypoxic respiratory failure, resolved. 2. Chronic kidney disease, likely progressing to end-stage renal disease with volume overload state. 3. Lim-OY-uvsutsibn myocardial infarction secondary to demand. 4. Obstructive sleep apnea. DISCUSSION AND PLAN: At the end of his spontaneous breathing trial, if he meets criteria, extubation will be considered. If he does well in the afternoon, he can be transitioned to the telemetry unit. At this point, he has no further requirements for Pulmonary or Critical Care opinion, and I will sign off. Please call with additional questions or concerns through time. Job ID: [id number]
--- NOTE | 2019-11-09 14:25 | EKG ---
Test Reason : STAT Blood Pressure : / mmHG Vent. Rate : 082 BPM Atrial Rate : 082 BPM P-R Int : 162 ms QRS Dur : 110 ms QT Int : 382 ms P-R-T Axes : 034 004 121 degrees QTc Int : 446 ms Normal sinus rhythm Left ventricular hypertrophy with repolarization abnormality Inferior infarct , age undetermined Abnormal ECG Confirmed by MICKI BLAND, DR. Rojas ([id number]) on 11/09/2019 2:25:19 PM Referred By: SEAN Confirmed By:DR. Bob SWEET MD
--- NOTE | 2019-11-09 14:36 | PDOC.HOSPP ---
- Subjective Encounter Date: 11/09/19 Encounter Time: 14:15 Subjective: f/u for volume overload with resp failure requiring mech ventilation now extubated. Awaiting COVID-19 r/o and remains on airborne isolation. - Objective Vital Signs & Weight: Vital Signs (12 hours) Temp Pulse Resp BP Pulse Ox 11/09/19 12:00 100 11/09/19 11:00 97.7 F 11/09/19 08:30 100 11/09/19 08:00 100 11/09/19 07:42 70 11/09/19 07:32 15 11/09/19 07:00 98.6 F 11/09/19 06:00 15 11/09/19 04:00 98.9 F 15 11/09/19 02:36 76 117/63 Weight Admit Weight 177 lb Weight 177 lb 0.499 oz Most Recent Monitor Data Heart Rate from ECG 72 NIBP 177/91 NIBP BP-Mean 119 Respiration from ECG 15 SpO2 99 I&O: 11/08/19 11/09/19 11/10/19 06:59 06:59 06:59 Intake Total 8 395 215 Output Total 1325 1465 195 Balance -1317 -1070 20 Result Diagrams: 11/09/19 03:00 11/09/19 03:00 Additional Labs: Accuchecks 11/09/19 11/08/19 00:21 18:36 POC Glucose 131 H 111 H Microbiology 11/07/19 19:14 Nasal swab Influenza Types A,B Direct EIA - Final 11/07/19 19:46 Urine osorio catheter Urine Culture - Preliminary NO GROWTH AT 12 HOURS 11/07/19 19:21 Venous blood - Right Arm Blood Culture - Preliminary Specimen has been received and culture in progress. No Growth to date. 11/07/19 19:21 Venous blood - Right Arm Blood Culture - Preliminary NO GROWTH AT 48 HOURS 11/07/19 19:05 Venous blood - Left Arm Blood Culture - Preliminary Specimen has been received and culture in progress. No Growth to date. 11/07/19 19:05 Venous blood - Left Arm Blood Culture - Preliminary NO GROWTH AT 48 HOURS Laboratory Tests 01/19/19 11/07/19 11/07/19 23:20 19:21 19:21 WBC 15.1 H Hgb 12.9 L Troponin I 0.251 H B-Natriuretic Peptide 295.9 H 11/07/19 11/07/19 11/08/19 19:21 22:20 02:02 WBC Hgb Troponin I 0.936 H* 2.837 H* B-Natriuretic Peptide 968.6 H Radiology Reviewed by me: Yes (PCXR - decreased pulm edema) EKG Reviewed by me: Yes (Tele - SR) Hospitalist ROS - Medication Medications: Active Medications Generic Name Dose Route Start Last Admin Trade Name Freq PRN Reason Stop Dose Admin Heparin Sodium (Porcine) 5,000 units 11/08/19 09:00 11/09/19 07:35 Heparin SC 5,000 units TID BONITA Administration Levofloxacin 250 mg/ Device 50 mls @ 100 mls/hr 11/08/19 21:00 11/08/19 19:43 IVPB 11/12/19 21:29 50 mls 2100 BONITA Administration Nitroglycerin 0.5 inch 11/08/19 06:00 11/09/19 05:22 Nitro-Bid 2% Ointment TOP 0.5 inch Q8HR BONITA Administration - Exam General Appearance: NAD, awake alert Eye: PERRL, anicteric sclera ENT: normocephalic atraumatic, no oropharyngeal lesions Neck: supple, symmetric, no JVD, no thyromegaly Heart: RRR, no gallops, no rubs, normal peripheral pulses Respiratory: no wheezes, normal chest expansion Respiratory - other findings: scattered rhonchi Gastrointestinal: soft, non-tender, non-distended, normal bowel sounds, no palpable masses Extremities: no cyanosis, no clubbing, no edema Skin: normal turgor, no lesions Neurological: cranial nerve grossly intact, no new deficit Musculoskeletal: normal tone, generalized weakness Psychiatric: A&O x 3 Hosp A/P (1) Acute respiratory failure with hypoxia Code(s): J96.01 - ACUTE RESPIRATORY FAILURE WITH HYPOXIA Status: Acute Plan: s/p intubation and now tolerating extubation, continue O2 support (2) ESRD (end stage renal disease) on dialysis Code(s): N18.6 - END STAGE RENAL DISEASE; Z99.2 - DEPENDENCE ON RENAL DIALYSIS Status: Acute Plan: HD per Renal service, overall volume overload improved (3) Hyperkalemia Code(s): E87.5 - HYPERKALEMIA Status: Acute Plan: Resolving with HD (4) Type [address] elevation Code(s): I21.A1 - MYOCARDIAL INFARCTION TYPE 2 Status: Acute Plan: Demand state in context of volume overload and resp failure, med mgmt (5) Diabetes type 2, controlled Code(s): E11.9 - TYPE 2 DIABETES MELLITUS WITHOUT COMPLICATIONS Status: Chronic Qualifiers: Diabetes mellitus terminal carman insulin use: with snf use Diabetes mellitus complication status: with kidney complications Diabetes mellitus complication detail: with chronic kidney disease Chronic kidney disease stage : stage 4 (severe) Qualified Code(s): E11.22 - Type 2 diabetes mellitus with diabetic chronic kidney disease; N18.4 - Chronic kidney disease, stage 4 (severe ); 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
--- NOTE | 2019-11-09 17:12 | PRG ---
DATE OF SERVICE: 11/09/2019 SUBJECTIVE: Patient was seen and examined at bedside and overnight events noted. Patient denies any shortness of breath or chest pain or palpitation. No history of nausea or vomiting or diarrhea or fever or chills or cramps. OBJECTIVE: GENERAL: This is a well-built male, in no apparent distress. VITAL SIGNS: Temperature 98.9. Heart Rate 81. Respiratory rate 14. Blood pressure 155/101. HEENT: Atraumatic, normocephalic. Oral mucosa is moist. NECK: Supple. CARDIOVASCULAR: S1, S2 heard. Rate and rhythm regular. RESPIRATORY: Clear to auscultation. GASTROINTESTINAL: Abdomen is soft. MUSCULOSKELETAL: No tenderness. No edema. DERMATOLOGIC: No skin rash. NEUROLOGIC: Alert and awake and oriented x3. No focal neurologic deficits. Moving all the extremities. PSYCHIATRIC: Mood and affect normal. LABORATORY DATA: Potassium 4.4, BUN is 49, and creatinine is 4.2. ASSESSMENT AND PLAN: 1. Acute kidney injury on chronic kidney disease, stage 5, dialysis dependent. He had a session of dialysis yesterday, had good clearance, but remains fluid overloaded. Plan is to have dialysis today for ultrafiltration. We will attempt to remove 3 L of fluid today. 2. Edema. Remove fluid with dialysis. 3. Hypertension. 4. Hyperkalemia, better. 5. Anemia. 6. Acidosis. We will have dialysis today for ultrafiltration and attempt to remove 3 L if tolerated. Job ID: [id number]
--- NOTE | 2019-11-09 17:13 | PDOC.CPN ---
- Subjective Date: 11/09/19 Time: 17:12 Interval history: He has been extubated and is on NC only feeling better. His SOB has improved significantly. He is currently on dialysis. - Review of Systems General: denies: fever/chills, weight/appetite/sleep changes, night sweats, fatigue Respiratory: reports: shortness of breath, exercise intolerance. denies: cough , congestion Cardiovascular: denies: chest pain, palpitation, edema, paroxysmal nocturnal dyspnea, orthopnea Gastrointestinal: denies: nausea, vomiting, diarrhea, constipation, abd pain, GI bleeding Musculoskeletal: denies: pain, tenderness, stiffness, swelling, arthritis/ arthralgias Neurological: denies: numbness, syncope, seizure, weakness - Objective Allergies/Adverse Reactions: Allergies Allergy/AdvReac Type Severity Reaction Status Date / Time Penicillins Allergy Intermediate Short of Verified 11/07/19 22:48 Breath Visit Medications: Current Medications Aspirin (Ecotrin) 81 mg PO DAILY [facility] Atorvastatin Calcium (Lipitor) 20 mg PO QPM [facility] Carvedilol (Coreg) 6.25 mg PO BID [facility] Cholecalciferol (Vitamin D3) 1,000 units PO DAILY [facility] Clopidogrel Bisulfate (Plavix) 75 mg PO DAILY [facility] Dextrose/Water (Dextrose 50%) 25 gm SLOW IVP PRN PRN PRN Reason: Hypoglycemia Ferrous Sulfate (Feosol) 325 mg PO DAILY [facility] Glucagon (Glucagon) 1 mg IM PRN PRN PRN Reason: Hypoglycemia Heparin Sodium (Porcine) (Heparin) 5,000 units SC TID [facility] Last Admin: 11/09/19 14:57 Dose: 5,000 units Hydralazine HCl (Apresoline) 10 mg SLOW IVP Q4H PRN PRN Reason: SBP > 180 and HR < 70 Dextrose/Water (D5w) 1,000 mls @ 0 mls/hr IV .Q0M PRN PRN Reason: Hypoglycemia Levofloxacin 250 mg/ Device 50 mls @ 100 mls/hr IVPB 2100 [facility] Stop: 11/12/19 21:29 Last Admin: 11/08/19 19:43 Dose: 50 mls Insulin Glargine 16 units/ (Miscellaneous Medication) 0.16 mls @ 0 mls/hr SC QAM [facility] Insulin Human Lispro (Humalog) 0 units SC .MILD SLIDING SCALE PRN PRN Reason: Mild Correctional Scale Insulin Human Lispro (Humalog) 0 units SC .BEDTIME SLIDING SC PRN PRN Reason: Bedtime Correctional Scale Isosorbide Dinitrate (Isordil) 40 mg PO BID [facility] Mirabegron (Myrbetriq Er) 25 mg PO DAILY [facility] Nitroglycerin (Nitro-Bid 2% Ointment) 0.5 inch TOP Q8HR BONITA Last Admin: 11/09/19 14:56 Dose: 0.5 inch Discontinue Previous Narcotic Pain Medications And Benzodiazepines 1 each FS .ONE [facility] Stop: 12/07/19 22:20 Ondansetron HCl (Zofran) 4 mg IVP Q6H PRN PRN Reason: Nausea/Vomiting Vital Signs & Weight: Vital Signs Temp Pulse Resp Pulse Ox 11/09/19 15:00 98.9 F 11/09/19 12:00 100 11/09/19 11:00 97.7 F 11/09/19 08:30 100 11/09/19 08:00 100 11/09/19 07:42 70 11/09/19 07:32 15 11/09/19 07:00 98.6 F 11/09/19 06:00 15 Admit Weight 177 lb Weight 177 lb 0.499 oz - Physical Exam General: alert & oriented x3 HEENT: mucus membranes moist Neck: supple neck Cardiac: regular rate and rhythm Lungs: bibasilar rales Neuro: grossly intact Abdomen: active bowel sounds Extremities: no edema Skin: clear Musculoskeletal: no pain - Labs Result Diagrams: 11/09/19 03:00 11/09/19 03:00 Troponin/CKMB CK-MB (CK-2) 3.0 ng/mL (0-6.6) 11/07/19 19:21 Troponin I 2.837 ng/mL (< 0.028) H* 11/08/19 02:02 - Telemetry Sinus rhythms and dysrhythmias: sinus rhythm - Assessment/Plan Assessment/Plan: 1. Acute on chronic systolic and diastolic heart failure. 2. CKD stage 5 3. NSTEMI, demand ischemia versus a cardiac event. 4 Possible COVID-19 PLAN: - Awaiting COVID-19 test result. Unlikely to be case as he has significant improvement with dialysis and not leucopenic. - Continue dialysis. Still making urine. - Will need C in the near future once he is more stable. - Critical Care Time Critical care time (mins): 30
[2019-11-09] MEDS: Carvedilol 6.25 MG TAB PO SCH (20:30)
[2019-11-09] MEDS: Atorvastatin Calcium 20 MG TAB PO SCH (20:31)
[2019-11-09] MEDS: Isosorbide Dinitrate 20 MG TAB PO SCH (20:38)
[2019-11-09] MEDS: HumaLOG 300 UNITS/3 ML VIAL SC PRN (22:27)
[2019-11-10 04:19] LABS: Anion Gap 18 mmol/L (10-20); BUN (Urea Nitrogen) 72 mg/dL (8.4-25.7); Calc. Creatinine Clearance 15 mL/min (70-130); Calcium 8.9 mg/dL (7.8-10.44); Carbon Dioxide 19 mmol/L (23-31); Chloride 102 mmol/L (98-107); Estimated GFR-MDRD 12; Glucose 169 mg/dL (83-110); Potassium 4.1 mmol/L (3.5-5.1); Sodium 135 mmol/L (136-145)
[2019-11-10] MEDS: Nitroglycerin 2% Ointment 1 INCH/1 GM Packet TOP SCH ×3 (05:19→22:03)
[2019-11-10] MEDS: HumaLOG 300 UNITS/3 ML VIAL SC PRN ×3 (06:49→22:03)
[2019-11-10] MEDS: Ferrous Sulfate 325 MG TAB PO SCH (07:32)
[2019-11-10] MEDS: Clopidogrel Bisulfate 75 MG TAB PO SCH (07:32)
[2019-11-10] MEDS: Aspirin 81 mg Enteric Coated Tablet PO SCH (07:33)
[2019-11-10] MEDS: Isosorbide Dinitrate 20 MG TAB PO SCH ×2 (07:33→22:06)
[2019-11-10] MEDS: Carvedilol 6.25 MG TAB PO SCH ×2 (07:33→22:04)
[2019-11-10] MEDS: Heparin 5,000 UNITS/ML VIAL SC SCH ×3 (07:34→22:04)
[2019-11-10] MEDS: Insulin Glargine 16 UNITS in Pre-Filled Syringe 1 EACH SC SCH (08:47)
[2019-11-10] MEDS ORDERED: Heparin 10,000 UNITS/ 10 ML VIAL ONE (09:25)
[2019-11-10] MEDS ORDERED: Tuberculin PPD 0.1 ML VIAL I-DERMAL SCH ×2 (10:30)
--- NOTE | 2019-11-10 10:33 | PRG ---
DATE OF SERVICE: 11/10/2019 SUBJECTIVE: Patient was seen and examined at bedside and overnight events noted. Patient denies any shortness of breath or chest pain or palpitation. No history of nausea or vomiting or diarrhea or fever or chills or cramps. OBJECTIVE: GENERAL: This is a well-built male, in no apparent distress. VITAL SIGNS: Temperature 97.3. Heart rate 73. Respiratory rate 18. Blood pressure 114/60. HEENT: Atraumatic, normocephalic. Oral mucosa is moist NECK: Supple. CARDIOVASCULAR: S1, S2 heard. Rate and rhythm regular. RESPIRATORY: Clear to auscultation. GASTROINTESTINAL: Abdomen is soft. MUSCULOSKELETAL: No tenderness. No edema. DERMATOLOGIC: No skin rash. NEUROLOGIC: Alert and awake and oriented X3. No focal neurologic deficits. Moving all the extremities. PSYCHIATRIC: Mood and affect normal. LABORATORY DATA: Potassium 4.1, BUN is 72, and creatinine is 4.9. ASSESSMENT AND PLAN: 1. Acute kidney injury on chronic kidney disease, stage 5 with worsening labs. The patient is not making urine. We will check bladder scan. I will check a renal ultrasound too. 2. Edema, remove fluid. 3. Hypertension. 4. Hyperkalemia, better. 5. Anemia. 6. Acidosis. We will ask Dr. Hodge to have a tunneled dialysis catheter. It seems like it will be dialysis dependent. We will check bladder scan and also renal ultrasound. We will also check PPD and have Case Management consult for outpatient dialysis placement. We will follow. Job ID: [id number]
--- NOTE | 2019-11-10 15:16 | PDOC.HOSPP ---
- Subjective Encounter Date: 11/10/19 Encounter Time: 15:15 Subjective: f/u for ESRD with volume overload s/p mech ventilation. Ruled out for COVID-19 today. No new issues noted. - Objective Vital Signs & Weight: Vital Signs (12 hours) Temp BP Pulse Ox 11/10/19 11:00 98.0 F 11/10/19 08:00 99 11/10/19 07:33 154/77 H 11/10/19 07:00 97.3 F L 11/10/19 04:00 98.3 F Weight Admit Weight 177 lb Weight 177 lb 0.499 oz Most Recent Monitor Data Heart Rate from ECG 67 NIBP 160/111 NIBP BP-Mean 127 Respiration from ECG 17 SpO2 100 I&O: 11/09/19 11/10/19 11/11/19 06:59 06:59 06:59 Intake Total 395 965 320 Output Total 1465 570 100 Balance -1070 395 220 Result Diagrams: 11/09/19 03:00 11/10/19 03:48 Additional Labs: Accuchecks 11/10/19 11/09/19 11/09/19 10:34 21:29 17:22 POC Glucose 462 H 315 H 165 H 11/09/19 11:24 POC Glucose 129 H Microbiology 11/07/19 19:14 Nasal swab Influenza Types A,B Direct EIA - Final 11/07/19 19:46 Urine osorio catheter Urine Culture - Preliminary NO GROWTH AT 12 HOURS 11/07/19 19:21 Venous blood - Right Arm Blood Culture - Preliminary Specimen has been received and culture in progress. No Growth to date. 11/07/19 19:21 Venous blood - Right Arm Blood Culture - Preliminary NO GROWTH AT 48 HOURS 11/07/19 19:05 Venous blood - Left Arm Blood Culture - Preliminary Specimen has been received and culture in progress. No Growth to date. 11/07/19 19:05 Venous blood - Left Arm Blood Culture - Preliminary NO GROWTH AT 48 HOURS Laboratory Tests 01/19/19 11/07/19 11/07/19 23:20 19:21 19:21 WBC 15.1 H Hgb 12.9 L Troponin I 0.251 H B-Natriuretic Peptide 295.9 H 11/07/19 11/07/19 11/08/19 19:21 22:20 02:02 WBC Hgb Troponin I 0.936 H* 2.837 H* B-Natriuretic Peptide 968.6 H EKG Reviewed by me: Yes (Tele - SR) Hospitalist ROS - Medication Medications: Active Medications Generic Name Dose Route Start Last Admin Trade Name Freq PRN Reason Stop Dose Admin Aspirin 81 mg 11/10/19 09:00 11/10/19 07:33 Ecotrin PO 81 mg DAILY BONITA Administration Atorvastatin Calcium 20 mg 11/09/19 21:00 11/09/19 20:31 Lipitor PO 20 mg QPM BONITA Administration Carvedilol 6.25 mg 11/09/19 21:00 11/10/19 07:33 Coreg PO 6.25 mg BID BONITA Administration Cholecalciferol 1,000 units 11/10/19 09:00 11/10/19 07:33 Vitamin D3 PO 1,000 units DAILY BONITA Administration Clopidogrel Bisulfate 75 mg 11/10/19 09:00 11/10/19 07:32 Plavix PO 75 mg DAILY BONITA Administration Ferrous Sulfate 325 mg 11/10/19 09:00 11/10/19 07:32 Feosol PO 325 mg DAILY BONITA Administration Heparin Sodium (Porcine) 5,000 units 11/08/19 09:00 11/10/19 14:59 Heparin SC Not Given TID BONITA Levofloxacin 250 mg/ Device 50 mls @ 100 mls/hr 11/08/19 21:00 11/09/19 20:32 IVPB 11/12/19 21:29 50 mls 2100 BONITA Administration Insulin Glargine 16 units/ 0.16 mls @ 0 mls/hr 11/10/19 09:00 11/10/19 08:47 Miscellaneous Medication SC 0.16 mls QAM BONITA Administration Insulin Human Lispro 0 units 11/07/19 22:18 11/10/19 10:32 Humalog SC 6 unit .MILD SLIDING SCALE PRN Administration Mild Correctional Scale Insulin Human Lispro 0 units 11/07/19 22:18 11/09/19 22:27 Humalog SC 4 unit .BEDTIME SLIDING SC PRN Administration Bedtime Correctional Scale Isosorbide Dinitrate 40 mg 11/09/19 21:00 11/10/19 07:33 Isordil PO 40 mg BID BONITA Administration Mirabegron 25 mg 11/10/19 09:00 11/10/19 08:47 Myrbetriq Er PO 25 mg DAILY BONITA Administration Nitroglycerin 0.5 inch 11/08/19 06:00 11/10/19 14:06 Nitro-Bid 2% Ointment TOP 0.5 inch Q8HR BONITA Administration - Exam General Appearance: NAD, awake alert Eye: PERRL, anicteric sclera ENT: normocephalic atraumatic, no oropharyngeal lesions Neck: supple, symmetric, no JVD, no thyromegaly Heart: RRR, no murmur, no gallops, no rubs, normal peripheral pulses Heart - other findings: S1, S2 Respiratory: CTAB, no wheezes, no rales, no ronchi, normal chest expansion Gastrointestinal: soft, non-tender, non-distended, normal bowel sounds, no palpable masses Extremities: no cyanosis, no clubbing, no edema Skin: normal turgor, no lesions Neurological: cranial nerve grossly intact, no new deficit Musculoskeletal: normal tone, generalized weakness Psychiatric: normal affect, A&O x 3 Hosp A/P (1) Acute respiratory failure with hypoxia Code(s): J96.01 - ACUTE RESPIRATORY FAILURE WITH HYPOXIA Status: Acute Plan: Resolving with volume removal, continue supportive mgmt (2) ESRD (end stage renal disease) on dialysis Code(s): N18.6 - END STAGE RENAL DISEASE; Z99.2 - DEPENDENCE ON RENAL DIALYSIS Status: Acute Plan: Plan for HD catheter placement, continue HD per Renal service (3) Hyperkalemia Code(s): E87.5 - HYPERKALEMIA Status: Acute Plan: Resolved with HD (4) Type [address] elevation Code(s): I21.A1 - MYOCARDIAL INFARCTION TYPE 2 Status: Acute (5) Diabetes type 2, controlled Code(s): E11.9 - TYPE 2 DIABETES MELLITUS WITHOUT COMPLICATIONS Status: Chronic Qualifiers: Diabetes mellitus steamboat pilot insulin use: with steamboat pilot use Diabetes mellitus complication status: with kidney complications Diabetes mellitus complication detail: with chronic kidney disease Chronic kidney disease stage : stage 4 (severe) Qualified Code(s): E11.22 - Type 2 diabetes mellitus with diabetic chronic kidney disease; N18.4 - Chronic kidney disease, stage 4 (severe ); Z79.4 - USP (current) use of insulin (6) Hypertension Code(s): I10 - ESSENTIAL (PRIMARY) HYPERTENSION Status: Chronic Qualifiers: Hypertension type: essential hypertension Qualified Code(s): I10 - Essential (primary) hypertension - Plan continue antibiotics, PT/OT, health care social worker, out of bed/ambulate, DVT proph w/ SCDs Continue critical support D/C respiratory isolation Continue Levaquin 250mg daily ISS, serial accuchecks HD per Renal service Continue dual antiplatelet therapy with ASA/Plavix HD catheter placement today AM lab: BMP, H/H
--- NOTE | 2019-11-10 15:16 | CON ---
DATE OF CONSULTATION: HISTORY OF PRESENT ILLNESS: Marco Montelongo is a 73-year-old male patient. I have been asked to see him regarding his dialysis access. The patient has been admitted and dialysis initiated. A temporary dialysis catheter placed by Dr. Sanders recently. On 09/23/2019, I placed a right Arminda fistula. Outflow 3.5 mm coronary dilator initiated. On presentation in the emergency room, the patient had a right proximal forearm IV placed in the area of his fistula. He had a left antecubital IV placed. The right arm IV has been removed. On immediate visitation of the patient today, I removed his left antecubital IV. Now that, he started dialysis and his fistula is not matured for use. I would recommend a hemodialysis catheter and central line placement tomorrow under IV sedation and local anesthesia. The patient has been seen by Cardiology, Dr. Corley, and he will need a cardiac catheterization at some point. The patient's right arm fistula needs more time to mature, and hopefully, outflow was not compromised by IV access from the emergency room, placing the IV in his fistula outflow. ALLERGIES: PENICILLIN. SOCIAL HISTORY: Tobacco, none. Alcohol, none. MEDICATIONS: 1. Vitamin D3. 2. Aspirin. 3. Plavix. 4. Carvedilol. 5. Lipitor. 6. Isosorbide. 7. Insulin. 8. Furosemide. 9. Ferrous sulfate. 10. Nifedipine. 11. Hydralazine. 12. Myrbetriq. PAST SURGICAL HISTORY: Dr. Jarrell performed in 2012 endoscopy, large gastric mass. Dr. Diego on 03/10/2013, performed laparotomy, partial resection of the stomach. Pathology revealing polypoid vascular neoplasm, benign. Repeat endoscopy in June 2018. Colonoscopy in 2013. TURP on 02/26/2017. Open appendectomy in the past. Another operation 40 years ago in [place] for an unknown reasons. Right Arminda fistula placed recently 2 weeks ago. IV access, left antecubital area; IV access, right forearm on presentation in the area of his fistula. PAST MEDICAL HISTORY: End-stage renal disease, diabetes mellitus, hypertension, coronary artery disease per Dr. Corley. The patient is asymptomatic from cardiac standpoint. Past cardiac event determined by EKG, although asymptomatic. FAMILY HISTORY: Noncontributory. REVIEW OF SYSTEMS: Noncontributory. PHYSICAL EXAMINATION: VITAL SIGNS: Height 5 foot and 7 inches. Weight 177 pounds. BMI 27. Blood pressure 160/111, heart rate 67. HEAD, EARS, EYES, NOSE, AND THROAT: Unremarkable. LUNGS: Clear to auscultation. CARDIAC: Regular rate and rhythm without murmur or gallop. ABDOMEN: Soft, nontender. IV left antecubital area removed. Bandage in right proximal forearm in his fistula. Good thrill and bruit, right arm fistula. EXTREMITIES: Without ankle edema. ASSESSMENT AND PLAN: 1. Acute coronary event. Cardiac catheterization per Dr. Corley. 2. Initiating dialysis, needs cuffed tunneled dialysis catheter and a central line. We will place that tomorrow. 3. Immature right Arminda fistula, has good thrill and bruit on exam. Continue to exercise his arm and follow this. It will need time to mature. It is too early to consider a fistulogram at this time. Job ID: [id number]
--- NOTE | 2019-11-10 16:44 | PDOC.CPN ---
- Subjective Date: 11/10/19 Time: 16:43 Interval history: Feeling better. COVID-19 was negative. - Review of Systems General: denies: fever/chills, weight/appetite/sleep changes, night sweats, fatigue Respiratory: denies: cough, congestion, shortness of breath, exercise intolerance Cardiovascular: denies: chest pain, palpitation, edema, paroxysmal nocturnal dyspnea, orthopnea Gastrointestinal: denies: nausea, vomiting, diarrhea, constipation, abd pain, GI bleeding Musculoskeletal: denies: pain, tenderness, stiffness, swelling, arthritis/ arthralgias Neurological: denies: numbness, syncope, seizure, weakness - Objective Allergies/Adverse Reactions: Allergies Allergy/AdvReac Type Severity Reaction Status Date / Time Penicillins Allergy Intermediate Short of Verified 11/07/19 22:48 Breath Visit Medications: Current Medications Aspirin (Ecotrin) 81 mg PO DAILY [facility] Last Admin: 11/10/19 07:33 Dose: 81 mg Atorvastatin Calcium (Lipitor) 20 mg PO QPM [facility] Last Admin: 11/09/19 20:31 Dose: 20 mg Carvedilol (Coreg) 6.25 mg PO BID [facility] Last Admin: 11/10/19 07:33 Dose: 6.25 mg Cholecalciferol (Vitamin D3) 1,000 units PO DAILY [facility] Last Admin: 11/10/19 07:33 Dose: 1,000 units Clopidogrel Bisulfate (Plavix) 75 mg PO DAILY [facility] Last Admin: 11/10/19 07:32 Dose: 75 mg Dextrose/Water (Dextrose 50%) 25 gm SLOW IVP PRN PRN PRN Reason: Hypoglycemia Ferrous Sulfate (Feosol) 325 mg PO DAILY [facility] Last Admin: 11/10/19 07:32 Dose: 325 mg Glucagon (Glucagon) 1 mg IM PRN PRN PRN Reason: Hypoglycemia Heparin Sodium (Porcine) (Heparin) 5,000 units SC TID [facility] Last Admin: 11/10/19 14:59 Dose: Not Given Hydralazine HCl (Apresoline) 10 mg SLOW IVP Q4H PRN PRN Reason: SBP > 180 and HR < 70 Dextrose/Water (D5w) 1,000 mls @ 0 mls/hr IV .Q0M PRN PRN Reason: Hypoglycemia Levofloxacin 250 mg/ Device 50 mls @ 100 mls/hr IVPB 2100 [facility] Stop: 11/12/19 21:29 Last Admin: 11/09/19 20:32 Dose: 50 mls Insulin Glargine 16 units/ (Miscellaneous Medication) 0.16 mls @ 0 mls/hr SC QAM [facility] Last Admin: 11/10/19 08:47 Dose: 0.16 mls Insulin Human Lispro (Humalog) 0 units SC .MILD SLIDING SCALE PRN PRN Reason: Mild Correctional Scale Last Admin: 11/10/19 10:32 Dose: 6 unit Insulin Human Lispro (Humalog) 0 units SC .BEDTIME SLIDING SC PRN PRN Reason: Bedtime Correctional Scale Last Admin: 11/09/19 22:27 Dose: 4 unit Isosorbide Dinitrate (Isordil) 40 mg PO BID [facility] Last Admin: 11/10/19 07:33 Dose: 40 mg Mirabegron (Myrbetriq Er) 25 mg PO DAILY [facility] Last Admin: 11/10/19 08:47 Dose: 25 mg Nitroglycerin (Nitro-Bid 2% Ointment) 0.5 inch TOP Q8HR [facility] Last Admin: 11/10/19 14:06 Dose: 0.5 inch Discontinue Previous Narcotic Pain Medications And Benzodiazepines 1 each FS .ONE [facility] Stop: 12/07/19 22:20 Read Ppd Test Site 0 each PO ONE [facility] Stop: 11/12/19 09:01 Ondansetron HCl (Zofran) 4 mg IVP Q6H PRN PRN Reason: Nausea/Vomiting Vital Signs & Weight: Vital Signs Temp BP Pulse Ox 11/10/19 11:00 98.0 F 11/10/19 08:00 99 11/10/19 07:33 154/77 H 11/10/19 07:00 97.3 F L Admit Weight 177 lb Weight 177 lb 0.499 oz - Physical Exam General: alert & oriented x3 HEENT: mucus membranes moist Neck: supple neck Cardiac: regular rate and rhythm Lungs: normal breath sounds Neuro: grossly intact Abdomen: active bowel sounds Extremities: no edema Skin: clear Musculoskeletal: no pain - Labs Result Diagrams: 11/09/19 03:00 11/10/19 03:48 Troponin/CKMB CK-MB (CK-2) 3.0 ng/mL (0-6.6) 11/07/19 19:21 Troponin I 2.837 ng/mL (< 0.028) H* 11/08/19 02:02 - Telemetry Sinus rhythms and dysrhythmias: sinus rhythm - Assessment/Plan Assessment/Plan: 1. Acute on chronic systolic and diastolic heart failure. 2. CKD stage 5 3. NSTEMI, demand ischemia versus a cardiac event. PLAN: - COVID-19 test negative. - Continue dialysis. Still making urine. - Will need C in the near future once he is more stable. - OK to transfer to telemetry from cardiac perspective. - Will follow
[2019-11-10] MEDS: Atorvastatin Calcium 20 MG TAB PO SCH (22:04)
--- NOTE | 2019-11-11 00:03 | ULT ---
RENAL ULTRASOUND: 11/10/19 INDICATIONs: Acute kidney insufficiency. Assess for obstruction. FINDINGS: Right kidney measures 10 cm in length. Left kidney measures 10.5 cm in length. There is a 2.0 cm cyst superior right kidney. There is no evidence of hydronephrosis. Mild increased cortical echogenicity seen bilaterally. Mild c ortical thinning. The bladder is contracted and not well evaluated. IMPRESSION: Small right renal cyst. Mild cortical thinning and mild increased cortical echogenicity. POS: PAULY
[2019-11-11] MEDS: Activase 2 MG VIAL CATH SCH ×2 (01:22→04:13)
[2019-11-11] MEDS: Sterile Water 10 ML VIAL IVP SCH ×2 (01:22→04:13)
[2019-11-11 04:36] LABS: Hemoglobin 11.8 g/dL (14.0-18.0); Platelet Count 197 thou/uL (130-400)
[2019-11-11 05:01] LABS: Anion Gap 18 mmol/L (10-20); BUN (Urea Nitrogen) 65 mg/dL (8.4-25.7); Calc. Creatinine Clearance 13 mL/min (70-130); Carbon Dioxide 22 mmol/L (23-31); Chloride 99 mmol/L (98-107); Estimated GFR-MDRD 10; Glucose 201 mg/dL (83-110); Potassium 4.1 mmol/L (3.5-5.1); Sodium 135 mmol/L (136-145)
[2019-11-11] MEDS: Nitroglycerin 2% Ointment 1 INCH/1 GM Packet TOP SCH ×3 (05:57→22:38)
[2019-11-11] MEDS: Carvedilol 6.25 MG TAB PO SCH ×2 (10:01→22:37)
[2019-11-11] MEDS: Isosorbide Dinitrate 20 MG TAB PO SCH ×2 (10:01→22:37)
--- NOTE | 2019-11-11 11:54 | PRG ---
DATE OF SERVICE: 11/11/2019 SUBJECTIVE: Patient was seen and examined at bedside and overnight events noted. Patient denies any shortness of breath or chest pain or palpitation. No history of nausea or vomiting or diarrhea or fever or chills or cramps. OBJECTIVE: General: This is well-built male, in no acute distress. Vital Signs: Temperature 97.9. Heart Rate 104. Respiratory rate 20. Blood pressure 167/76. HEENT: Atraumatic, normocephalic. Oral mucosa is moist. Neck: Supple. Cardiovascular: S1, S2 heard. Rate and rhythm regular. Respiratory: Clear to auscultation. Gastrointestinal: Abdomen is soft. Musculoskeletal: No tenderness. No edema. Dermatologic: No skin rash. Neurologic: Alert and awake and oriented x3. No focal neurologic deficits. Moving all the extremities. Psychiatric: Mood and affect normal. LABORATORY DATA: Potassium is 4.1, BUN is 65, and creatinine 5.4. ASSESSMENT AND PLAN: 1. End-stage renal disease. Continue on dialysis as tolerated. 2. Edema. 3. History of hypertension. 4. Hyperkalemia better. 5. Acidosis. 6. Appreciate help from Surgery. Plan to have a tunneled dialysis catheter. No dialysis today. We will continue dialysis as tolerated. Plan to have dialysis tomorrow. Job ID: [id number]
--- NOTE | 2019-11-11 13:40 | PDOC.HOSPP ---
- Subjective Encounter Date: 11/11/19 Encounter Time: 13:30 Subjective: f/u for ESRD on HD for volume overload. No new complaints noted. - Objective Vital Signs & Weight: Vital Signs (12 hours) Temp Pulse Resp BP BP Pulse Ox 11/11/19 12:00 97.6 F 81 18 97/59 L 95 11/11/19 10:01 134/67 11/11/19 09:00 97.9 F 104 H 20 167/76 H 95 11/11/19 08:43 68 20 145/67 H 97 11/11/19 07:45 95 11/11/19 06:00 97 11/11/19 04:00 98.9 F 69 18 141/67 H 91 L Weight Admit Weight 177 lb Weight 157 lb 4.8 oz Most Recent Monitor Data Heart Rate from ECG 67 NIBP 160/111 NIBP BP-Mean 127 Respiration from ECG 17 SpO2 100 I&O: 11/10/19 11/11/19 11/12/19 06:59 06:59 06:59 Intake Total 965 850 Output Total 570 200 Balance 395 650 Result Diagrams: 11/11/19 04:22 11/11/19 04:22 Additional Labs: Accuchecks 11/11/19 11/11/19 11/10/19 11:48 06:27 20:55 POC Glucose 229 H 199 H 283 H Microbiology 11/07/19 19:14 Nasal swab Influenza Types A,B Direct EIA - Final 11/07/19 19:46 Urine osorio catheter Urine Culture - Preliminary NO GROWTH AT 12 HOURS 11/07/19 19:21 Venous blood - Right Arm Blood Culture - Preliminary Specimen has been received and culture in progress. No Growth to date. 11/07/19 19:21 Venous blood - Right Arm Blood Culture - Preliminary NO GROWTH AT 48 HOURS 11/07/19 19:05 Venous blood - Left Arm Blood Culture - Preliminary Specimen has been received and culture in progress. No Growth to date. 11/07/19 19:05 Venous blood - Left Arm Blood Culture - Preliminary NO GROWTH AT 48 HOURS Laboratory Tests 01/19/19 11/07/19 11/07/19 23:20 19:21 19:21 WBC 15.1 H Hgb 12.9 L Troponin I 0.251 H B-Natriuretic Peptide 295.9 H 11/07/19 11/07/19 11/08/19 19:21 22:20 02:02 WBC Hgb Troponin I 0.936 H* 2.837 H* B-Natriuretic Peptide 968.6 H EKG Reviewed by me: Yes (Tele - SR) Hospitalist ROS - Medication Medications: Active Medications Generic Name Dose Route Start Last Admin Trade Name Freq PRN Reason Stop Dose Admin Aspirin 81 mg 11/10/19 09:00 11/10/19 07:33 Ecotrin PO 81 mg DAILY BONITA Administration Atorvastatin Calcium 20 mg 11/09/19 21:00 11/10/19 22:04 Lipitor PO 20 mg QPM BONITA Administration Carvedilol 6.25 mg 11/09/19 21:00 11/11/19 10:01 Coreg PO 6.25 mg BID BONITA Administration Cholecalciferol 1,000 units 11/10/19 09:00 11/10/19 07:33 Vitamin D3 PO 1,000 units DAILY BONITA Administration Clopidogrel Bisulfate 75 mg 11/10/19 09:00 11/10/19 07:32 Plavix PO 75 mg DAILY BONITA Administration Ferrous Sulfate 325 mg 11/10/19 09:00 11/10/19 07:32 Feosol PO 325 mg DAILY BONITA Administration Heparin Sodium (Porcine) 5,000 units 11/08/19 09:00 11/10/19 22:04 Heparin SC 5,000 units TID BONITA Administration Levofloxacin 250 mg/ Device 50 mls @ 100 mls/hr 11/08/19 21:00 11/11/19 01:57 IVPB 11/12/19 21:29 50 mls 2100 BONITA Administration Insulin Glargine 16 units/ 0.16 mls @ 0 mls/hr 11/10/19 09:00 11/10/19 08:47 Miscellaneous Medication SC 0.16 mls QAM BONITA Administration Insulin Human Lispro 0 units 11/07/19 22:18 11/10/19 10:32 Humalog SC 6 unit .MILD SLIDING SCALE PRN Administration Mild Correctional Scale Insulin Human Lispro 0 units 11/07/19 22:18 11/10/19 22:03 Humalog SC 3 unit .BEDTIME SLIDING SC PRN Administration Bedtime Correctional Scale Isosorbide Dinitrate 40 mg 11/09/19 21:00 11/11/19 10:01 Isordil PO 40 mg BID BONITA Administration Mirabegron 25 mg 11/10/19 09:00 11/10/19 08:47 Myrbetriq Er PO 25 mg DAILY BONITA Administration Nitroglycerin 0.5 inch 11/08/19 06:00 11/11/19 05:57 Nitro-Bid 2% Ointment TOP 0.5 inch Q8HR BONITA Administration - Exam General Appearance: NAD, awake alert General - other findings: smiling Eye: PERRL, anicteric sclera ENT: normocephalic atraumatic, no oropharyngeal lesions Neck: supple, symmetric, no JVD, no thyromegaly Heart: RRR, no murmur, no gallops, no rubs, normal peripheral pulses Heart - other findings: S1, S2 Respiratory: CTAB, no wheezes, no rales, no ronchi, normal chest expansion, no tachypnea Gastrointestinal: soft, non-tender, non-distended, normal bowel sounds, no palpable masses Extremities: no cyanosis, no clubbing, no edema Skin: normal turgor, no lesions Neurological: cranial nerve grossly intact, no new deficit Musculoskeletal: normal tone, normal strength Psychiatric: normal affect, A&O x 3 Hosp A/P (1) Acute respiratory failure with hypoxia Code(s): J96.01 - ACUTE RESPIRATORY FAILURE WITH HYPOXIA Status: Acute Plan: Resolved, tolerating RA (2) ESRD (end stage renal disease) on dialysis Code(s): N18.6 - END STAGE RENAL DISEASE; Z99.2 - DEPENDENCE ON RENAL DIALYSIS Status: Acute Plan: Plan for tunneled HD cath placement today, coordination for outpt HD (3) Hyperkalemia Code(s): E87.5 - HYPERKALEMIA Status: Acute Plan: Resolved with HD (4) Type [address] elevation Code(s): I21.A1 - MYOCARDIAL INFARCTION TYPE 2 Status: Acute (5) Diabetes type 2, controlled Code(s): E11.9 - TYPE 2 DIABETES MELLITUS WITHOUT COMPLICATIONS Status: Chronic Qualifiers: 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: with termite renewal inspector use Diabetes mellitus complication status: with kidney complications Diabetes mellitus complication detail: with chronic kidney disease Chronic kidney disease stage : stage 4 (severe) Qualified Code(s): E11.22 - Type 2 diabetes mellitus with diabetic chronic kidney disease; N18.4 - Chronic kidney disease, stage 4 (severe ); Z79.4 - adjunct faculty for medical terminology (current) use of insulin (6) Hypertension Code(s): I10 - ESSENTIAL (PRIMARY) HYPERTENSION Status: Chronic Qualifiers: Hypertension type: essential hypertension Qualified Code(s): I10 - Essential (primary) hypertension - Plan plan discussed w/ family, 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
--- NOTE | 2019-11-11 13:56 | PDOC.CPN ---
- Subjective Date: 11/11/19 Time: 13:54 Interval history: He is tolerating HD. He is not having any angina during HD. He does admit to leg cramping towards the end. - Review of Systems General: denies: fever/chills, weight/appetite/sleep changes, night sweats, fatigue Respiratory: denies: cough, congestion, shortness of breath, exercise intolerance Cardiovascular: denies: chest pain, palpitation, edema, paroxysmal nocturnal dyspnea, orthopnea Gastrointestinal: denies: nausea, vomiting, diarrhea, constipation, abd pain, GI bleeding Musculoskeletal: denies: pain, tenderness, stiffness, swelling, arthritis/ arthralgias Neurological: denies: numbness, syncope, seizure, weakness - Objective Allergies/Adverse Reactions: Allergies Allergy/AdvReac Type Severity Reaction Status Date / Time Penicillins Allergy Intermediate Short of Verified 11/07/19 22:48 Breath Visit Medications: Current Medications Aspirin (Ecotrin) 81 mg PO DAILY [facility] Last Admin: 11/10/19 07:33 Dose: 81 mg Atorvastatin Calcium (Lipitor) 20 mg PO QPM [facility] Last Admin: 11/10/19 22:04 Dose: 20 mg Carvedilol (Coreg) 6.25 mg PO BID [facility] Last Admin: 11/11/19 10:01 Dose: 6.25 mg Cholecalciferol (Vitamin D3) 1,000 units PO DAILY [facility] Last Admin: 11/10/19 07:33 Dose: 1,000 units Clopidogrel Bisulfate (Plavix) 75 mg PO DAILY [facility] Last Admin: 11/10/19 07:32 Dose: 75 mg Dextrose/Water (Dextrose 50%) 25 gm SLOW IVP PRN PRN PRN Reason: Hypoglycemia Ferrous Sulfate (Feosol) 325 mg PO DAILY [facility] Last Admin: 11/10/19 07:32 Dose: 325 mg Glucagon (Glucagon) 1 mg IM PRN PRN PRN Reason: Hypoglycemia Heparin Sodium (Porcine) (Heparin) 5,000 units SC TID [facility] Last Admin: 11/10/19 22:04 Dose: 5,000 units Hydralazine HCl (Apresoline) 10 mg SLOW IVP Q4H PRN PRN Reason: SBP > 180 and HR < 70 Dextrose/Water (D5w) 1,000 mls @ 0 mls/hr IV .Q0M PRN PRN Reason: Hypoglycemia Levofloxacin 250 mg/ Device 50 mls @ 100 mls/hr IVPB 2100 [facility] Stop: 11/12/19 21:29 Last Admin: 11/11/19 01:57 Dose: 50 mls Insulin Glargine 16 units/ (Miscellaneous Medication) 0.16 mls @ 0 mls/hr SC QAM [facility] Last Admin: 11/10/19 08:47 Dose: 0.16 mls Insulin Human Lispro (Humalog) 0 units SC .MILD SLIDING SCALE PRN PRN Reason: Mild Correctional Scale Last Admin: 11/10/19 10:32 Dose: 6 unit Insulin Human Lispro (Humalog) 0 units SC .BEDTIME SLIDING SC PRN PRN Reason: Bedtime Correctional Scale Last Admin: 11/10/19 22:03 Dose: 3 unit Isosorbide Dinitrate (Isordil) 40 mg PO BID [facility] Last Admin: 11/11/19 10:01 Dose: 40 mg Mirabegron (Myrbetriq Er) 25 mg PO DAILY [facility] Last Admin: 11/10/19 08:47 Dose: 25 mg Nitroglycerin (Nitro-Bid 2% Ointment) 0.5 inch TOP Q8HR [facility] Last Admin: 11/11/19 05:57 Dose: 0.5 inch Discontinue Previous Narcotic Pain Medications And Benzodiazepines 1 each FS .ONE [facility] Stop: 12/07/19 22:20 Read Ppd Test Site 0 each PO ONE [facility] Stop: 11/12/19 09:01 Ondansetron HCl (Zofran) 4 mg IVP Q6H PRN PRN Reason: Nausea/Vomiting Vital Signs & Weight: Vital Signs Temp Pulse Resp BP BP Pulse Ox 11/11/19 12:00 97.6 F 81 18 97/59 L 95 11/11/19 10:01 134/67 11/11/19 09:00 97.9 F 104 H 20 167/76 H 95 11/11/19 08:43 68 20 145/67 H 97 11/11/19 07:45 95 11/11/19 06:00 97 11/11/19 04:00 98.9 F 69 18 141/67 H 91 L Admit Weight 177 lb 0.499 oz Weight 157 lb 4.8 oz - Physical Exam General: alert & oriented x3 HEENT: mucus membranes moist Neck: supple neck Cardiac: regular rate and rhythm Lungs: normal breath sounds Neuro: grossly intact Abdomen: active bowel sounds Extremities: no edema Skin: clear Musculoskeletal: no pain - Labs Result Diagrams: 11/11/19 04:22 11/11/19 04:22 Troponin/CKMB CK-MB (CK-2) 3.0 ng/mL (0-6.6) 11/07/19 19:21 Troponin I 2.837 ng/mL (< 0.028) H* 11/08/19 02:02 - Telemetry Sinus rhythms and dysrhythmias: sinus rhythm - Assessment/Plan Assessment/Plan: 1. Acute on chronic systolic and diastolic heart failure. 2. CKD stage 5 3. NSTEMI, demand ischemia versus a cardiac event. PLAN: - COVID-19 test negative. - Continue dialysis. Minimal urine production since HD started. - Will need LHC in the near future once he is more stable. - Will follow peripherally over the weekend and I will re evaluate Thursday if still here.
[2019-11-11] MEDS: Insulin Glargine 16 UNITS in Pre-Filled Syringe 1 EACH SC SCH (19:19)
[2019-11-11] MEDS: Ferrous Sulfate 325 MG TAB PO SCH (19:20)
[2019-11-11] MEDS: Heparin 5,000 UNITS/ML VIAL SC SCH ×2 (19:20→22:38)
[2019-11-11] MEDS: Clopidogrel Bisulfate 75 MG TAB PO SCH (19:20)
[2019-11-11] MEDS: Aspirin 81 mg Enteric Coated Tablet PO SCH (19:20)
[2019-11-11] MEDS ORDERED: Lidocaine 1% w/Epinephrine 1:100K 20 ML VIAL ONE (19:54)
[2019-11-11] MEDS ORDERED: Bupivacaine PF 0.5% 30 ML VIAL ONE (19:54)
[2019-11-11] MEDS ORDERED: Sodium Chloride 0.9% 20 ML ONE (19:54)
[2019-11-11] MEDS ORDERED: Heparin 10,000 UNITS/1 ML VIAL ONE (19:54)
[2019-11-11] MEDS ORDERED: PROPOFOL 20 ML ONE (20:12)
[2019-11-11] MEDS ORDERED: Midazolam HCl 2 mg/2 ml Vial ONE (20:12)
[2019-11-11] MEDS ORDERED: Fentanyl 100 MCG/2 ML VIAL ONE ×2 (20:12→21:17)
[2019-11-11] MEDS ORDERED: Acetaminophen 500 MG TAB PO PRN (20:15)
[2019-11-11] MEDS ORDERED: traMADol HCl 50 MG TAB PO PRN (20:15)
[2019-11-11] MEDS ORDERED: Promethazine HCl 25 MG/ML VIAL SLOW IVP PRN (21:05)
[2019-11-11] MEDS ORDERED: Promethazine HCl 25 MG/ML VIAL IM PRN (21:05)
[2019-11-11] MEDS ORDERED: Ondansetron HCl/PF 4 MG/2 ML Vial IVP PRN (21:05)
--- NOTE | 2019-11-11 21:25 | RAD ---
EXAM: Single view of the chest HISTORY: Central line placement COMPARISON: 11/09/2019 FINDINGS: Single view of the chest shows a normal sized cardiomediastinal silhouette. A right IJ leilani lysis catheter seen with its tip in the superior vena cava. A left IJ central venous catheter seen with its tip in the azygos vein. No pneumothorax is seen. There is no evidence of consolidation, mas s, or pleural effusion. The bones are unremarkable. IMPRESSION: Status post central line placement without evidence of complication.
--- NOTE | 2019-11-11 21:32 | OP ---
DATE OF PROCEDURE: 11/11/2019 PREOPERATIVE DIAGNOSES: End-stage renal disease, immature right Arminda fistula ( placed IV in proximal forearm below the AC on admission and in left AC), poor IV access. PROCEDURES PERFORMED: Right IJ cuffed tunneled hemodialysis catheter, AngioDynamics pre-curved, left IJ central line triple lumen, ultrasound and fluoroscopy used. ANESTHESIA: TIVA, local 0.5% Marcaine with epinephrine 30 mL mixed with 2% Xylocaine, 10 mL. DESCRIPTION OF PROCEDURE: Patient was taken to the operating room, where under intravenous sedation, neck and chest were clipped of hair, prepared with ChloraPrep and draped in routine fashion. Local anesthetic was infiltrated in the skin and subcutaneous tissue about the operative sites. Using ultrasound guidance, the right and left internal jugular vein cannulated with trocar catheter. J-wire was threaded. Trocar catheter removed. Skin site was enlarged sharply, stab incision of the right chest made. Using the tunneling device, pre-curved AngioDynamics cuffed tunneled hemodialysis catheter tunneled between 2 incisions on the right, placed the fabric cuff beneath the skin exit site over the right chest. Catheter secured with 2 interrupted sutures of 3-0 nylon and sterile dressing applied. Small and medium size dilators placed with J-wire into the internal jugular vein removed. Dilator and peel-away sheath placed with J-wire in superior vena cava. Dilator and J-wire were removed. Catheter placed with the Peel-Away sheath. Peel-Away sheath removed. Platysma was approximated with 4-0 Monocryl, skin with subdermal 4-0 Monocryl and [place] glue applied. Each port aspirated blood flushed with saline solution and heparinized saline solution 1000 units of heparin per milliliter indicated the volume of the port. Seldinger technique used to place a left IJ triple-lumen catheter securing it with 3-0 nylon suture, removed the J-wire, and each port aspirated blood flushed with saline solution. Job ID: [id number]
[2019-11-11] MEDS: Atorvastatin Calcium 20 MG TAB PO SCH (22:38)
[2019-11-12] MEDS: HumaLOG 300 UNITS/3 ML VIAL SC PRN ×2 (00:40→18:42)
[2019-11-12] MEDS: Nitroglycerin 2% Ointment 1 INCH/1 GM Packet TOP SCH ×3 (06:12→20:40)
--- NOTE | 2019-11-12 08:45 | EKG ---
Test Reason : Blood Pressure : / mmHG Vent. Rate : 080 BPM Atrial Rate : 080 BPM P-R Int : 184 ms QRS Dur : 120 ms QT Int : 378 ms P-R-T Axes : 008 044 225 degrees QTc Int : 435 ms Normal sinus rhythm Possible Left atrial enlargement Left ventricular hypertrophy with QRS widening and repolarization abnormality Abnormal ECG Confirmed by MITCHELL EISENBERG D.O. ([id number]), editor at large BIRDIE JUNIOR ([id number]) on 11/12/2019 8:45:15 AM Referred By: Confirmed By:MITCHELL EISENBERG D.O.
[2019-11-12] MEDS ORDERED: READ PPD TEST SITE PO SCH (09:00)
[2019-11-12] MEDS: Insulin Glargine 16 UNITS in Pre-Filled Syringe 1 EACH SC SCH (09:25)
[2019-11-12] MEDS: Aspirin 81 mg Enteric Coated Tablet PO SCH (09:26)
[2019-11-12] MEDS: Ferrous Sulfate 325 MG TAB PO SCH (09:26)
[2019-11-12] MEDS: Carvedilol 6.25 MG TAB PO SCH ×2 (09:27→20:50)
[2019-11-12] MEDS: Heparin 5,000 UNITS/ML VIAL SC SCH ×3 (09:27→20:50)
[2019-11-12] MEDS: Clopidogrel Bisulfate 75 MG TAB PO SCH (09:27)
[2019-11-12] MEDS: Isosorbide Dinitrate 20 MG TAB PO SCH ×2 (09:27→20:50)
[2019-11-12] MEDS ORDERED: Heparin 10,000 UNITS/ 10 ML VIAL ONE (09:28)
--- NOTE | 2019-11-12 10:46 | PDOC.HOSPP ---
- Subjective Encounter Date: 11/12/19 Encounter Time: 10:45 Subjective: Mr. Cortez was seen today in follow-up of respiratory failure due to ESRD and volume overload. He is currently in dialysis. He notes some drness and soreness in his throat. He continues to have some cough. He denies chest pain or shortness of breath. - Objective Vital Signs & Weight: Vital Signs (12 hours) Temp Pulse Resp BP Pulse Ox 11/12/19 07:34 99.0 F 77 20 143/67 H 95 11/12/19 04:00 98.3 F 71 18 131/65 97 11/11/19 22:55 145/65 H Weight Admit Weight 177 lb 0.499 oz Weight 160 lb 2 oz Most Recent Monitor Data Heart Rate from ECG 67 NIBP 160/111 NIBP BP-Mean 127 Respiration from ECG 17 SpO2 100 I&O: 11/11/19 11/12/19 11/13/19 06:59 06:59 06:59 Intake Total 850 960 Output Total 200 300 Balance 650 660 Result Diagrams: 11/11/19 04:22 11/11/19 04:22 Additional Labs: Accuchecks 11/12/19 11/12/19 11/11/19 05:54 00:26 18:00 POC Glucose 166 H 333 H 189 H 11/11/19 11:48 POC Glucose 229 H Hospitalist ROS - Medication Medications: Active Medications Generic Name Dose Route Start Last Admin Trade Name Freq PRN Reason Stop Dose Admin Aspirin 81 mg 11/10/19 09:00 11/11/19 19:20 Ecotrin PO Not Given DAILY [facility] Atorvastatin Calcium 20 mg 11/09/19 21:00 11/11/19 22:38 Lipitor PO 20 mg QPM [facility] Administration Carvedilol 6.25 mg 11/09/19 21:00 11/11/19 22:37 Coreg PO 6.25 mg BID [facility] Administration Cholecalciferol 1,000 units 11/10/19 09:00 11/11/19 19:20 Vitamin D3 PO Not Given DAILY [facility] Clopidogrel Bisulfate 75 mg 11/10/19 09:00 11/11/19 19:20 Plavix PO Not Given DAILY [facility] Ferrous Sulfate 325 mg 11/10/19 09:00 11/11/19 19:20 Feosol PO Not Given DAILY [facility] Heparin Sodium (Porcine) 5,000 units 11/08/19:00 11/11/19 22:38 Heparin SC Not Given TID [facility] Levofloxacin 250 mg/ Device 50 mls @ 100 mls/hr 11/08/19 21:00 11/11/19 22:36 IVPB 11/12/19 21:29 50 mls 2100 [facility] Administration Insulin Glargine 16 units/ 0.16 mls @ 0 mls/hr 11/10/19 09:00 11/11/19 19:19 Miscellaneous Medication SC Not Given QAM [facility] Insulin Human Lispro 0 units 11/07/19 22:18 11/10/19 10:32 Humalog SC 6 unit .MILD SLIDING SCALE PRN Administration Mild Correctional Scale Insulin Human Lispro 0 units 11/07/19 22:18 11/12/19 00:40 Humalog SC 4 unit .BEDTIME SLIDING SC PRN Administration Bedtime Correctional Scale Isosorbide Dinitrate 40 mg 11/09/19 21:00 11/11/19 22:37 Isordil PO 40 mg BID [facility] Administration Mirabegron 25 mg 11/10/19 09:00 11/11/19 19:18 Myrbetriq Er PO Not Given DAILY [facility] Nitroglycerin 0.5 inch 11/08/19 06:00 11/12/19 06:12 Nitro-Bid 2% Ointment TOP 0.5 inch Q8HR [facility] Administration - Exam Eye: PERRL Heart: RRR, no murmur, no gallops, no rubs, normal peripheral pulses Respiratory: CTAB, no wheezes (+ occasional rales, no rhonchi or wheezing) Gastrointestinal: soft, non-tender, non-distended, normal bowel sounds, no palpable masses, no hepatomegaly Extremities: no cyanosis, no clubbing, no edema Hosp A/P (1) ESRD (end stage renal disease) on dialysis Code(s): N18.6 - END STAGE RENAL DISEASE; Z99.2 - DEPENDENCE ON RENAL DIALYSIS Status: Acute (2) Acute respiratory failure with hypoxia Code(s): J96.01 - ACUTE RESPIRATORY FAILURE WITH HYPOXIA Status: Acute (3) Diabetes type 2, controlled Code(s): E11.9 - TYPE 2 DIABETES MELLITUS WITHOUT COMPLICATIONS Status: Chronic Qualifiers: Diabetes mellitus ferry terminal agent insulin use: with retirement use Diabetes mellitus complication status: with kidney complications Diabetes mellitus complication detail: with chronic kidney disease Chronic kidney disease stage : stage 4 (severe) Qualified Code(s): E11.22 - Type 2 diabetes mellitus with diabetic chronic kidney disease; N18.4 - Chronic kidney disease, stage 4 (severe ); Z79.4 - long term care administrator (current) use of insulin (4) Hypertension Code(s): I10 - ESSENTIAL (PRIMARY) HYPERTENSION Status: Chronic Qualifiers: Hypertension type: essential hypertension Qualified Code(s): I10 - Essential (primary) hypertension - Plan * New End stage renal disease requiring dialysis- he is tolerating hemodialysis so far * HTN- blood pressure has been stable * DM- blood glucose is a bit labile- will continue currentl Lantus dose with SSI and monitor * Respiratory failure- resolved * Discharge once out patient dialysis arrangements are made
--- NOTE | 2019-11-12 12:16 | PRG ---
DATE OF SERVICE: 11/12/2019 SUBJECTIVE: Patient was seen and examined at bedside and overnight events noted. Patient denies any shortness of breath or chest pain or palpitation. No history of nausea or vomiting or diarrhea or fever or chills or cramps. OBJECTIVE: GENERAL: This is a well-built male, in no apparent distress. VITAL SIGNS: Temperature 97. Heart rate 81. Respiratory rate 20. Blood pressure 123/66. HEENT: Atraumatic, normocephalic. Oral mucosa is moist NECK: Supple. CARDIOVASCULAR: S1, S2 heard. Rate and rhythm regular. RESPIRATORY: Clear to auscultation. GASTROINTESTINAL: Abdomen is soft. MUSCULOSKELETAL: No tenderness. No edema. DERMATOLOGIC: No skin rash. NEUROLOGIC: Alert and awake and oriented X3. No focal neurologic deficits. Moving all the extremities. PSYCHIATRIC: Mood and affect normal. LABORATORY DATA: Not done today. ASSESSMENT AND PLAN: 1. End-stage renal disease, continue dialysis as tolerated. 2. Edema. 3. History of hypertension. 4. Hyperkalemia. 5. Acidosis. Labs are better. Continue dialysis, tolerating dialysis well. Job ID: [id number]
[2019-11-12] MEDS: Ondansetron PF 4 MG/2 ML Vial IVP PRN (20:40)
[2019-11-12] MEDS: Atorvastatin Calcium 20 MG TAB PO SCH (20:50)
[2019-11-13] MEDS: Nitroglycerin 2% Ointment 1 INCH/1 GM Packet TOP SCH ×2 (05:39→16:20)
[2019-11-13] MEDS ORDERED: Chloraseptic Spray 180 ml Bottle PO PRN (09:34)
--- NOTE | 2019-11-13 09:53 | PRG ---
DATE OF SERVICE: 11/12/2019 Marco Montelongo is doing well today. He is one day status post placement of hemodialysis catheter and central line. His right Arminda fistula had been passed previously as an outpatient, although not mature yet for use. On admission to the emergency room, nursing placed an IV in his fistula as well as his left IC which I removed. Central line was placed to protect his veins. The patient is doing well. He should exercise his right arm. I will see him as needed this hospitalization. Central line and left IJ can be removed prior to discharge. Job ID: [id number]
[2019-11-13] MEDS: Isosorbide Dinitrate 20 MG TAB PO SCH ×2 (09:55→21:08)
[2019-11-13] MEDS: Clopidogrel Bisulfate 75 MG TAB PO SCH (09:55)
[2019-11-13] MEDS: Aspirin 81 mg Enteric Coated Tablet PO SCH (09:55)
[2019-11-13] MEDS: Heparin 5,000 UNITS/ML VIAL SC SCH ×3 (09:56→21:09)
[2019-11-13] MEDS: Carvedilol 6.25 MG TAB PO SCH ×2 (09:56→21:09)
[2019-11-13] MEDS: Ferrous Sulfate 325 MG TAB PO SCH (09:56)
[2019-11-13] MEDS: Insulin Glargine 16 UNITS in Pre-Filled Syringe 1 EACH SC SCH (09:57)
[2019-11-13] MEDS: Ondansetron PF 4 MG/2 ML Vial IVP PRN (11:46)
--- NOTE | 2019-11-13 12:27 | PRG ---
DATE OF SERVICE: 11/13/2019 SUBJECTIVE: Patient was seen and examined at bedside and overnight events noted. Patient denies any shortness of breath or chest pain or palpitation. No history of nausea or vomiting or diarrhea or fever or chills or cramps. OBJECTIVE: General: This is well-built male, in no acute distress. Vital Signs: Temperature 98.1. Heart Rate 67. Respiratory rate 20. Blood pressure 156/70. HEENT: Atraumatic, normocephalic. Oral mucosa is moist. Neck: Supple. Cardiovascular: S1, S2 heard. Rate and rhythm regular. Respiratory: Clear to auscultation. Gastrointestinal: Abdomen is soft. Musculoskeletal: No tenderness. No edema. Dermatologic: No skin rash. Neurologic: Alert and awake and oriented x3. No focal neurologic deficits. Moving all the extremities. Psychiatric: Mood and affect normal. LABORATORY DATA: No labs done today. ASSESSMENT AND PLAN: 1. End-stage renal disease continue dialysis as tolerated. 2. Edema. 3. History of hypertension. 4. Hyperkalemia. Continue dialysis as tolerated. Job ID: [id number] [facility]
--- NOTE | 2019-11-13 12:59 | PDOC.HOSPP ---
- Subjective Encounter Date: 11/13/19 Encounter Time: 12:58 Subjective: Mr. Cortez was seen today in follow-up. He is complaining of stinging and dry lips. He syill has a dry cough. No new complaints. He denies shortness of breath. - Objective Vital Signs & Weight: Vital Signs (12 hours) Temp Pulse Resp BP BP Pulse Ox 11/13/19 09:56 134/67 11/13/19 07:33 98.1 F 67 20 156/70 H 97 11/13/19 03:46 98.9 F 72 18 146/68 H 97 Weight Admit Weight 177 lb 0.499 oz Weight 159 lb 6 oz Most Recent Monitor Data Heart Rate from ECG 67 NIBP 160/111 NIBP BP-Mean 127 Respiration from ECG 17 SpO2 100 I&O: 11/12/19 11/13/19 11/14/19 06:59 06:59 06:59 Intake Total 960 1590 Output Total 300 620 Balance 660 970 Result Diagrams: 11/11/19 04:22 11/11/19 04:22 Additional Labs: Accuchecks 11/13/19 11/13/19 11/12/19 11:54 05:48 23:49 POC Glucose 301 H 166 H 160 H 11/12/19 17:06 POC Glucose 333 H Hospitalist ROS - Medication Medications: Active Medications Generic Name Dose Route Start Last Admin Trade Name Freq PRN Reason Stop Dose Admin Aspirin 81 mg 11/10/19 09:00 11/13/19 09:55 Ecotrin PO 81 mg DAILY [facility] Administration Atorvastatin Calcium 20 mg 11/09/19 21:00 11/12/19 20:50 Lipitor PO 20 mg QPM [facility] Administration Carvedilol 6.25 mg 11/09/19 21:00 11/13/19 09:56 Coreg PO 6.25 mg BID [facility] Administration Cholecalciferol 1,000 units 11/10/19 09:00 11/13/19 09:55 Vitamin D3 PO 1,000 units DAILY [facility] Administration Clopidogrel Bisulfate 75 mg 11/10/19 09:00 11/13/19 09:55 Plavix PO 75 mg DAILY [facility] Administration Ferrous Sulfate 325 mg 11/10/19 09:00 11/13/19 09:56 Feosol PO 325 mg DAILY [facility] Administration Heparin Sodium (Porcine) 5,000 units 11/08/19 09:00 11/13/19 09:56 Heparin SC 5,000 units TID [facility] Administration Insulin Glargine 16 units/ 0.16 mls @ 0 mls/hr 11/10/19 09:00 11/13/19 09:57 Miscellaneous Medication SC 0.16 mls QAM [facility] Administration Insulin Human Lispro 0 units 11/07/19 22:18 11/12/19 18:42 Humalog SC 6 unit .MILD SLIDING SCALE PRN Administration Mild Correctional Scale Insulin Human Lispro 0 units 11/07/19 22:18 11/12/19 00:40 Humalog SC 4 unit .BEDTIME SLIDING SC PRN Administration Bedtime Correctional Scale Isosorbide Dinitrate 40 mg 11/09/19 21:00 11/13/19 09:55 Isordil PO 40 mg BID [facility] Administration Mirabegron 25 mg 11/10/19 09:00 11/13/19 09:54 Myrbetriq Er PO 25 mg DAILY [facility] Administration Nitroglycerin 0.5 inch 11/08/19 06:00 11/13/19 05:39 Nitro-Bid 2% Ointment TOP 0.5 inch Q8HR [facility] Administration Ondansetron HCl 4 mg 11/07/19 22:18 11/13/19 11:46 Zofran IVP 4 mg Q6H PRN Administration Nausea/Vomiting - Exam Eye: PERRL, anicteric sclera ENT - other findings: + dry, mildly erythematous lips Heart: RRR, no murmur, no gallops, no rubs, normal peripheral pulses Respiratory: CTAB, no wheezes, no rales, no ronchi, normal chest expansion Gastrointestinal: soft, non-tender, non-distended, normal bowel sounds, no palpable masses Extremities: no cyanosis Hosp A/P (1) ESRD (end stage renal disease) on dialysis Code(s): N18.6 - END STAGE RENAL DISEASE; Z99.2 - DEPENDENCE ON RENAL DIALYSIS Status: Acute (2) Acute respiratory failure with hypoxia Code(s): J96.01 - ACUTE RESPIRATORY FAILURE WITH HYPOXIA Status: Acute (3) Diabetes type 2, controlled Code(s): E11.9 - TYPE 2 DIABETES MELLITUS WITHOUT COMPLICATIONS Status: Chronic Qualifiers: Diabetes mellitus assisted insulin use: with terminologist use Diabetes mellitus complication status: with kidney complications Diabetes mellitus complication detail: with chronic kidney disease Chronic kidney disease stage : stage 4 (severe) Qualified Code(s): E11.22 - Type 2 diabetes mellitus with diabetic chronic kidney disease; N18.4 - Chronic kidney disease, stage 4 (severe ); Z79.4 - [facility] (current) use of insulin (4) Hypertension Code(s): I10 - ESSENTIAL (PRIMARY) HYPERTENSION Status: Chronic Qualifiers: Hypertension type: essential hypertension Qualified Code(s): I10 - Essential (primary) hypertension - Plan * New End stage renal disease requiring dialysis-continue Hemodialysis * HTN- blood pressure has been stable * DM- blood glucose is a bit labile- continue the current regimen * Awaiting out patient dialysis arrangements
[2019-11-13] MEDS: HumaLOG 300 UNITS/3 ML VIAL SC PRN ×2 (13:34→18:55)
[2019-11-13] MEDS: Atorvastatin Calcium 20 MG TAB PO SCH (21:09)
[2019-11-14] MEDS: Aspirin 81 mg Enteric Coated Tablet PO SCH (09:35)
[2019-11-14] MEDS: Carvedilol 6.25 MG TAB PO SCH ×2 (09:35→20:52)
[2019-11-14] MEDS: Isosorbide Dinitrate 20 MG TAB PO SCH ×2 (09:36→20:52)
[2019-11-14] MEDS: Heparin 5,000 UNITS/ML VIAL SC SCH ×3 (09:36→20:53)
[2019-11-14] MEDS: Ferrous Sulfate 325 MG TAB PO SCH (09:36)
[2019-11-14] MEDS: Clopidogrel Bisulfate 75 MG TAB PO SCH (09:36)
[2019-11-14] MEDS: Insulin Glargine 16 UNITS in Pre-Filled Syringe 1 EACH SC SCH (09:37)
[2019-11-14] MEDS ORDERED: traMADol HCl 50 MG TAB PO PRN (10:50)
[2019-11-14 10:55] LABS: Hemoglobin 11.8 g/dL (14.0-18.0)
--- NOTE | 2019-11-14 11:07 | PRG ---
DATE OF SERVICE: 11/14/2019 SUBJECTIVE: A 73-year-old gentleman being seen for end-stage renal disease. The patient denied nausea, vomiting, or chest pain. OBJECTIVE: GENERAL: The patient is awake and alert. Vital Signs: Afebrile, pulse 75, breathing at 16, and blood pressure 152/68. HEENT: Head normocephalic and atraumatic. Eyes intact, no ulcers. Nose intact, no ulcers. Ears intact, no ulcers. NECK: Supple. No JVD. CHEST: Symmetrical and clear. CARDIOVASCULAR: Shows S1 and S2, no rub, no murmur. GASTROINTESTINAL: Abdomen is soft, bowel sounds positive. EXTREMITIES: Show no edema or ulcers. SKIN: Shows no rash or petechiae. MUSCULOSKELETAL: Shows no joint swelling or stiffness. GENITOURINARY: Shows no [place] or CVA tenderness. NEUROLOGIC: Motor intact. Cranial nerves intact. LABORATORY DATA: Reviewed. ASSESSMENT AND PLAN: 1. Stage 6 chronic kidney disease. Plan dialysis tomorrow. 2. Hypertension, stable. 3. Anemia, stable. Discharge planning is in progress. Job ID: [id number]
--- NOTE | 2019-11-14 11:15 | PDOC.HOSPP ---
- Subjective Encounter Date: 11/14/19 Encounter Time: 11:11 Subjective: Mr. Diego Montelongo was seen today in follow-up of new ESRD. He does not have any new complaints. He notes pain on his lower lip. He also continues to have a dry cough at night. - Objective Vital Signs & Weight: Vital Signs (12 hours) Temp Pulse Resp BP BP BP Pulse Ox 11/14/19 09:35 152/68 H 11/14/19 07:25 98.3 F 68 16 150/66 H 97 11/14/19 04:04 98.1 F 72 14 148/71 H 99 Weight Admit Weight 177 lb 0.499 oz Weight 158 lb 9.6 oz Most Recent Monitor Data Heart Rate from ECG 67 NIBP 160/111 NIBP BP-Mean 127 Respiration from ECG 17 SpO2 100 I&O: 11/13/19 11/14/19 11/15/19 06:59 06:59 06:59 Intake Total 1590 Output Total 620 Balance 970 Result Diagrams: 11/14/19 10:41 11/11/19 04:22 Additional Labs: Accuchecks 11/14/19 11/14/19 11/13/19 05:26 00:13 16:08 POC Glucose 157 H 197 H 240 H 11/13/19 11:54 POC Glucose 301 H Hospitalist ROS - Medication Medications: Active Medications Generic Name Dose Route Start Last Admin Trade Name Ciscoq PRN Reason Stop Dose Admin Aspirin 81 mg 11/10/19 09:00 11/14/19 09:35 Ecotrin PO 81 mg DAILY BONITA Administration Atorvastatin Calcium 20 mg 11/09/19 21:00 11/13/19 21:09 Lipitor PO 20 mg QPM BONITA Administration Carvedilol 6.25 mg 11/09/19 21:00 11/14/19 09:35 Coreg PO 6.25 mg BID BONITA Administration Cholecalciferol 1,000 units 11/10/19 09:00 11/14/19 09:36 Vitamin D3 PO 1,000 units DAILY [facility] Administration Clopidogrel Bisulfate 75 mg 11/10/19 09:00 11/14/19 09:36 Plavix PO 75 mg DAILY [facility]ITA Administration Ferrous Sulfate 325 mg 11/10/19 09:00 11/14/19 09:36 Feosol PO 325 mg DAILY [facility]ITA Administration Heparin Sodium (Porcine) 5,000 units 11/08/19 09:00 11/14/19 09:36 Heparin SC 5,000 units TID [facility]ON[facility] Administration Insulin Glargine 16 units/ 0.16 mls @ 0 mls/hr 11/10/19 09:00 11/14/19 09:37 Miscellaneous Medication SC 0.16 mls QAM [facility]ON[facility] Administration Insulin Human Lispro 0 units 11/07/19 22:18 11/13/19 18:55 Humalog SC 3 unit .MILD SLIDING SCALE PRN Administration Mild Correctional Scale Insulin Human Lispro 0 units 11/07/19 22:18 11/12/19 00:40 Humalog SC 4 unit .BEDTIME SLIDING SC PRN Administration Bedtime Correctional Scale Isosorbide Dinitrate 40 mg 11/09/19 21:00 11/14/19 09:36 Isordil PO 40 mg BID BONITA Administration Mirabegron 25 mg 11/10/19 09:00 11/14/19 09:36 Myrbetriq Er PO 25 mg DAILY BONITA Administration Ondansetron HCl 4 mg 11/07/19 22:18 11/13/19 11:46 Zofran IVP 4 mg Q6H PRN Administration Nausea/Vomiting Hosp A/P (1) ESRD (end stage renal disease) on dialysis Code(s): N18.6 - END STAGE RENAL DISEASE; Z99.2 - DEPENDENCE ON RENAL DIALYSIS Status: Acute (2) Acute respiratory failure with hypoxia Code(s): J96.01 - ACUTE RESPIRATORY FAILURE WITH HYPOXIA Status: Acute (3) Diabetes type 2, controlled Code(s): E11.9 - TYPE 2 DIABETES MELLITUS WITHOUT COMPLICATIONS Status: Chronic Qualifiers: Diabetes mellitus chcf insulin use: with chcf use Diabetes mellitus complication status: with kidney complications Diabetes mellitus complication detail: with chronic kidney disease Chronic kidney disease stage : stage 4 (severe) Qualified Code(s): E11.22 - Type 2 diabetes mellitus with diabetic chronic kidney disease; N18.4 - Chronic kidney disease, stage 4 (severe ); Z79.4 - retirement (current) use of insulin (4) Hypertension Code(s): I10 - ESSENTIAL (PRIMARY) HYPERTENSION Status: Chronic Qualifiers: Hypertension type: essential hypertension Qualified Code(s): I10 - Essential (primary) hypertension - Plan * New End stage renal disease requiring dialysis-continue Hemodialysis * Chronic cough- ? allergies- will add Claritin scheduled * Lip pain- lesion appears viral- will add Zovirax ointment * HTN- blood pressure has been stable * DM- continue the current regimen * Awaiting out patient dialysis arrangements
[2019-11-14 11:32] LABS: Anion Gap 24 mmol/L (10-20); BUN (Urea Nitrogen) 115 mg/dL (8.4-25.7); Calc. Creatinine Clearance 9 mL/min (70-130); Carbon Dioxide 20 mmol/L (23-31); Chloride 91 mmol/L (98-107); Estimated GFR-MDRD 7; Glucose 225 mg/dL (83-110); Potassium 4.2 mmol/L (3.5-5.1); Sodium 131 mmol/L (136-145)
[2019-11-14] MEDS: HumaLOG 300 UNITS/3 ML VIAL SC PRN ×3 (12:59→21:00)
[2019-11-14] MEDS ORDERED: Acyclovir 5% Oint. 15 GM TUBE TOP SCH (15:00)
[2019-11-14] MEDS: Benzonatate 100 MG CAP PO SCH ×2 (15:44→20:52)
--- NOTE | 2019-11-14 16:49 | PDOC.CPN ---
- Subjective Date: 11/14/19 Time: 16:46 Interval history: He is doing better. He is no longer having cramps with HD. He developed lesion on his lower lip. - Review of Systems General: denies: fever/chills, weight/appetite/sleep changes, night sweats, fatigue Respiratory: denies: cough, congestion, shortness of breath, exercise intolerance Cardiovascular: denies: chest pain, palpitation, edema, paroxysmal nocturnal dyspnea, orthopnea Gastrointestinal: denies: nausea, vomiting, diarrhea, constipation, abd pain, GI bleeding Musculoskeletal: denies: pain, tenderness, stiffness, swelling, arthritis/ arthralgias Neurological: denies: numbness, syncope, seizure, weakness - Objective Allergies/Adverse Reactions: Allergies Allergy/AdvReac Type Severity Reaction Status Date / Time Penicillins Allergy Intermediate Short of Verified 11/07/19 22:48 Breath Visit Medications: Current Medications Acetaminophen (Tylenol) 1,000 mg PO Q6H PRN PRN Reason: Moderate to Severe Pain (6-10) Acyclovir (Zovirax 5% Ointment) 1 gm TOP TID [facility] Aspirin (Ecotrin) 81 mg PO DAILY [facility] Last Admin: 11/14/19 09:35 Dose: 81 mg Atorvastatin Calcium (Lipitor) 20 mg PO QPM [facility] Last Admin: 11/13/19 21:09 Dose: 20 mg Benzonatate (Tessalon) 100 mg PO TID [facility] Last Admin: 11/14/19 15:44 Dose: 100 mg Carvedilol (Coreg) 6.25 mg PO BID [facility] Last Admin: 11/14/19 09:35 Dose: 6.25 mg Cholecalciferol (Vitamin D3) 1,000 units PO DAILY [facility] Last Admin: 11/14/19 09:36 Dose: 1,000 units Clopidogrel Bisulfate (Plavix) 75 mg PO DAILY [facility] Last Admin: 11/14/19 09:36 Dose: 75 mg Dextrose/Water (Dextrose 50%) 25 gm SLOW IVP PRN PRN PRN Reason: Hypoglycemia Ferrous Sulfate (Feosol) 325 mg PO DAILY [facility] Last Admin: 11/14/19 09:36 Dose: 325 mg Glucagon (Glucagon) 1 mg IM PRN PRN PRN Reason: Hypoglycemia Heparin Sodium (Porcine) (Heparin) 5,000 units SC TID [facility] Last Admin: 11/14/19 15:44 Dose: 5,000 units Hydralazine HCl (Apresoline) 10 mg SLOW IVP Q4H PRN PRN Reason: SBP > 180 and HR < 70 Dextrose/Water (D5w) 1,000 mls @ 0 mls/hr IV .Q0M PRN PRN Reason: Hypoglycemia Insulin Glargine 16 units/ (Miscellaneous Medication) 0.16 mls @ 0 mls/hr SC QAM [facility] Last Admin: 11/14/19 09:37 Dose: 0.16 mls Insulin Human Lispro (Humalog) 0 units SC .MILD SLIDING SCALE PRN PRN Reason: Mild Correctional Scale Last Admin: 11/14/19 12:59 Dose: 3 unit Insulin Human Lispro (Humalog) 0 units SC .BEDTIME SLIDING SC PRN PRN Reason: Bedtime Correctional Scale Last Admin: 11/12/19 00:40 Dose: 4 unit Isosorbide Dinitrate (Isordil) 40 mg PO BID [facility] Last Admin: 11/14/19 09:36 Dose: 40 mg Loratadine (Claritin) 10 mg PO DAILY [facility] Mirabegron (Myrbetriq Er) 25 mg PO DAILY [facility] Last Admin: 11/14/19 09:36 Dose: 25 mg Discontinue Previous Narcotic Pain Medications And Benzodiazepines 1 each FS .ONE [facility] Stop: 12/07/19 22:20 Ondansetron HCl (Zofran) 4 mg IVP Q6H PRN PRN Reason: Nausea/Vomiting Last Admin: 11/13/19 11:46 Dose: 4 mg Phenol (Chloraseptic [place] 180 Ml Bot) 0 ml PO BIDPRN PRN PRN Reason: Sore Throat Tramadol HCl (Ultram) 50 mg PO Q12H PRN PRN Reason: Pain 1-5 Vital Signs & Weight: Vital Signs Temp Pulse Pulse Pulse Resp BP BP 11/14/19 15:48 98.9 F 80 16 11/14/19 12:14 98.8 F 70 16 11/14/19 11:11 74 76 150/66 H 11/14/19 10:15 71 74 159/66 H 11/14/19 09:35 152/68 H 11/14/19 07:25 98.3 F 68 16 BP BP Pulse Ox 11/14/19 15:48 123/59 L 96 11/14/19 12:14 115/58 L 96 11/14/19 11:11 165/71 H 11/14/19 10:15 150/66 H 11/14/19 09:35 11/14/19 07:25 150/66 H 97 Admit Weight 177 lb 0.499 oz Weight 158 lb 9.6 oz - Physical Exam General: alert & oriented x3 HEENT: mucus membranes moist Neck: supple neck Cardiac: regular rate and rhythm Lungs: normal breath sounds Neuro: grossly intact Abdomen: active bowel sounds Extremities: no edema Skin: clear Musculoskeletal: no pain - Labs Result Diagrams: 11/14/19 10:41 11/14/19 10:41 Troponin/CKMB CK-MB (CK-2) 3.0 ng/mL (0-6.6) 11/07/19 19:21 Troponin I 2.837 ng/mL (< 0.028) H* 11/08/19 02:02 - Telemetry Sinus rhythms and dysrhythmias: sinus rhythm - Assessment/Plan Assessment/Plan: 1. Acute on chronic systolic and diastolic heart failure. Improved. 2. CKD stage 5 3. NSTEMI, demand ischemia versus a cardiac event. PLAN: - COVID-19 test negative. - Continue dialysis. Minimal urine production since HD started. - Will likely need [facility] later in the week.
[2019-11-14] MEDS: Atorvastatin Calcium 20 MG TAB PO SCH (20:53)
[2019-11-15] MEDS ORDERED: Heparin 10,000 UNITS/ 10 ML VIAL ONE (09:09)
--- NOTE | 2019-11-15 10:51 | PRG ---
DATE OF SERVICE: 11/15/2019 SUBJECTIVE: A 73-year-old gentleman being seen for end-stage renal disease. The patient denied nausea, vomiting, or chest pain. OBJECTIVE: General: The patient is awake and alert. VITAL SIGNS: Afebrile, pulse 64, breathing at 16, blood pressure 140/65. HEENT: Head normocephalic and atraumatic. Eyes intact, no ulcers. Nose intact, no ulcers. Ears intact, no ulcers. Neck: Supple. No JVD. Chest: Symmetrical and clear. Cardiovascular: Shows S1 and S2, no rub, no murmur. Gastrointestinal: Abdomen is soft, bowel sounds positive. Extremities: Show no edema or ulcers. Skin: Shows no rash or petechiae. Musculoskeletal: Shows no joint swelling or stiffness. Genitourinary: Shows no [place] or CVA tenderness. Neurologic: Motor intact. Cranial nerves intact. LABORATORY DATA: Labs reviewed. ASSESSMENT AND PLAN: Stage 6 chronic kidney disease, continue hemodialysis. Hypertension, stable. Anemia, stable. Medication based on GFR appropriate. Job ID: [id number]
[2019-11-15] MEDS: Carvedilol 6.25 MG TAB PO SCH ×2 (11:39→20:53)
[2019-11-15] MEDS: Benzonatate 100 MG CAP PO SCH ×3 (11:39→20:53)
[2019-11-15] MEDS: Aspirin 81 mg Enteric Coated Tablet PO SCH (11:39)
[2019-11-15] MEDS: Insulin Glargine 16 UNITS in Pre-Filled Syringe 1 EACH SC SCH (11:40)
[2019-11-15] MEDS: Ferrous Sulfate 325 MG TAB PO SCH (11:40)
[2019-11-15] MEDS: Isosorbide Dinitrate 20 MG TAB PO SCH ×2 (11:40→20:54)
[2019-11-15] MEDS: Heparin 5,000 UNITS/ML VIAL SC SCH ×3 (11:41→20:54)
[2019-11-15] MEDS: Loratadine 10 MG TAB PO SCH (11:41)
[2019-11-15] MEDS: Clopidogrel Bisulfate 75 MG TAB PO SCH (14:33)
--- NOTE | 2019-11-15 14:45 | PDOC.HOSPP ---
- Subjective Encounter Date: 11/15/19 Encounter Time: 14:44 Subjective: Mr. Cortez was seen today in follow-up of ESRD. He was feeling a bit dizzy and weak following dialysis. He also notes a bit of a headache. After sitting a while he is beginning to feel better. - Objective Vital Signs & Weight: Vital Signs (12 hours) Temp Pulse Resp BP Pulse Ox 11/15/19 11:38 98.2 F 77 18 153/74 H 99 11/15/19 07:36 97.3 F L 66 18 178/77 H 98 11/15/19 03:48 98.2 F 64 12 140/65 98 Weight Admit Weight 177 lb 0.499 oz Weight 159 lb Most Recent Monitor Data Heart Rate from ECG 67 NIBP 160/111 NIBP BP-Mean 127 Respiration from ECG 17 SpO2 100 I&O: 11/14/19 11/15/19 11/16/19 06:59 06:59 06:59 Intake Total 600 Output Total 740 Balance -140 Result Diagrams: 11/14/19 10:41 11/14/19 10:41 Additional Labs: Accuchecks 11/15/19 11/15/19 11/15/19 12:21 11:08 05:52 POC Glucose 154 H 141 H 127 H 11/14/19 11/14/19 20:17 16:52 POC Glucose 256 H 196 H Hospitalist ROS - Medication Medications: Active Medications Generic Name Dose Route Start Last Admin Trade Name Freq PRN Reason Stop Dose Admin Aspirin 81 mg 11/10/19 09:00 11/15/19 11:39 Ecotrin PO 81 mg DAILY [facility]ONITA Administration Atorvastatin Calcium 20 mg 11/09/19 21:00 11/14/19 20:53 Lipitor PO 20 mg QPM [facility] Administration Benzonatate 100 mg 11/14/19 15:00 11/15/19 14:32 Tessalon PO 100 mg TID [facility]ONITA Administration Carvedilol 6.25 mg 11/09/19 21:00 11/15/19 11:39 Coreg PO 6.25 mg BID BONITA Administration Cholecalciferol 1,000 units 11/10/19 09:00 11/15/19 11:40 Vitamin D3 PO 1,000 units DAILY [facility] Administration Clopidogrel Bisulfate 75 mg 11/10/19 09:00 11/15/19 14:33 Plavix PO 75 mg DAILY [facility] Administration Ferrous Sulfate 325 mg 11/10/19 09:00 11/15/19 11:40 Feosol PO 325 mg DAILY [facility]ONITA Administration Heparin Sodium (Porcine) 5,000 units 11/08/19 09:00 11/15/19 14:31 Heparin SC Not Given TID [facility] Insulin Glargine 16 units/ 0.16 mls @ 0 mls/hr 11/10/19 09:00 11/15/19 11:40 Miscellaneous Medication SC 0.16 mls QAM [facility]ONITA Administration Insulin Human Lispro 0 units 11/07/19 22:18 11/14/19 21:00 Humalog SC 4 unit .MILD SLIDING SCALE PRN Administration Mild Correctional Scale Insulin Human Lispro 0 units 11/07/19 22:18 11/12/19 00:40 Humalog SC 4 unit .BEDTIME SLIDING SC PRN Administration Bedtime Correctional Scale Isosorbide Dinitrate 40 mg 11/09/19 21:00 11/15/19 11:40 Isordil PO 40 mg BID [facility] Administration Loratadine 10 mg 11/15/19 09:00 11/15/19 11:41 Claritin PO 10 mg DAILY [facility] Administration Mirabegron 25 mg 11/10/19 09:00 11/15/19 11:41 Myrbetriq Er PO 25 mg DAILY [facility] Administration Ondansetron HCl 4 mg 11/07/19 22:18 11/13/19 11:46 Zofran IVP 4 mg Q6H PRN Administration Nausea/Vomiting - Exam Eye: PERRL Heart: RRR, no murmur, no gallops, no rubs, normal peripheral pulses Respiratory: CTAB, no wheezes, no rales, no ronchi, normal chest expansion Gastrointestinal: soft, non-tender, non-distended, normal bowel sounds Extremities: no cyanosis, no clubbing, no edema Hosp A/P (1) ESRD (end stage renal disease) on dialysis Code(s): N18.6 - END STAGE RENAL DISEASE; Z99.2 - DEPENDENCE ON RENAL DIALYSIS Status: Acute (2) Acute respiratory failure with hypoxia Code(s): J96.01 - ACUTE RESPIRATORY FAILURE WITH HYPOXIA Status: Acute (3) Diabetes type 2, controlled Code(s): E11.9 - TYPE 2 DIABETES MELLITUS WITHOUT COMPLICATIONS Status: Chronic Qualifiers: Diabetes mellitus shelter insulin use: with shelter use Diabetes mellitus complication status: with kidney complications Diabetes mellitus complication detail: with chronic kidney disease Chronic kidney disease stage : stage 4 (severe) Qualified Code(s): E11.22 - Type 2 diabetes mellitus with diabetic chronic kidney disease; N18.4 - Chronic kidney disease, stage 4 (severe ); Z79.4 - residential (current) use of insulin (4) Hypertension Code(s): I10 - ESSENTIAL (PRIMARY) HYPERTENSION Status: Chronic Qualifiers: Hypertension type: essential hypertension Qualified Code(s): I10 - Essential (primary) hypertension - Plan * New End stage renal disease requiring dialysis-continue Hemodialysis * Chronic cough- is a little better, primarily at night * Lip pain- improved- continue Zovirax ointment * HTN- blood pressure has been stable * DM- continue the current regimen * Awaiting out patient dialysis arrangements
--- NOTE | 2019-11-15 16:47 | PDOC.CPN ---
- Subjective Date: 11/15/19 Time: 16:46 Interval history: He had an episode one hour after HD today were he was lying down sat up on the bed to eat and slumped back, his HR went down to 40. He woke up and felt well afterwards. He was orthostatic dropping 30 points systolic from lying to sitting. No chest pain during episode. - Review of Systems General: denies: fever/chills, weight/appetite/sleep changes, night sweats, fatigue Respiratory: denies: cough, congestion, shortness of breath, exercise intolerance Cardiovascular: denies: chest pain, palpitation, edema, paroxysmal nocturnal dyspnea, orthopnea Gastrointestinal: denies: nausea, vomiting, diarrhea, constipation, abd pain, GI bleeding Musculoskeletal: denies: pain, tenderness, stiffness, swelling, arthritis/ arthralgias Neurological: denies: numbness, syncope, seizure, weakness - Objective Allergies/Adverse Reactions: Allergies Allergy/AdvReac Type Severity Reaction Status Date / Time Penicillins Allergy Intermediate Short of Verified 11/07/19 22:48 Breath Visit Medications: Current Medications Acetaminophen (Tylenol) 1,000 mg PO Q6H PRN PRN Reason: Moderate to Severe Pain (6-10) Acyclovir (Zovirax 5% Ointment) 1 gm TOP TID [facility] Aspirin (Ecotrin) 81 mg PO DAILY [facility] Last Admin: 11/15/19 11:39 Dose: 81 mg Atorvastatin Calcium (Lipitor) 20 mg PO QPM [facility] Last Admin: 11/14/19 20:53 Dose: 20 mg Benzonatate (Tessalon) 100 mg PO TID [facility] Last Admin: 11/15/19 14:32 Dose: 100 mg Carvedilol (Coreg) 6.25 mg PO BID [facility] Last Admin: 11/15/19 11:39 Dose: 6.25 mg Cholecalciferol (Vitamin D3) 1,000 units PO DAILY [facility] Last Admin: 11/15/19 11:40 Dose: 1,000 units Clopidogrel Bisulfate (Plavix) 75 mg PO DAILY [facility] Last Admin: 11/15/19 14:33 Dose: 75 mg Dextrose/Water (Dextrose 50%) 25 gm SLOW IVP PRN PRN PRN Reason: Hypoglycemia Ferrous Sulfate (Feosol) 325 mg PO DAILY [facility] Last Admin: 11/15/19 11:40 Dose: 325 mg Glucagon (Glucagon) 1 mg IM PRN PRN PRN Reason: Hypoglycemia Heparin Sodium (Porcine) (Heparin) 5,000 units SC TID [facility] Last Admin: 11/15/19 14:31 Dose: Not Given Hydralazine HCl (Apresoline) 10 mg SLOW IVP Q4H PRN PRN Reason: SBP > 180 and HR < 70 Dextrose/Water (D5w) 1,000 mls @ 0 mls/hr IV .Q0M PRN PRN Reason: Hypoglycemia Insulin Glargine 16 units/ (Miscellaneous Medication) 0.16 mls @ 0 mls/hr SC QAM [facility] Last Admin: 11/15/19 11:40 Dose: 0.16 mls Insulin Human Lispro (Humalog) 0 units SC .MILD SLIDING SCALE PRN PRN Reason: Mild Correctional Scale Last Admin: 11/14/19 21:00 Dose: 4 unit Insulin Human Lispro (Humalog) 0 units SC .BEDTIME SLIDING SC PRN PRN Reason: Bedtime Correctional Scale Last Admin: 11/12/19 00:40 Dose: 4 unit Isosorbide Dinitrate (Isordil) 40 mg PO BID [facility] Last Admin: 11/15/19 11:40 Dose: 40 mg Loratadine (Claritin) 10 mg PO DAILY [facility] Last Admin: 11/15/19 11:41 Dose: 10 mg Mirabegron (Myrbetriq Er) 25 mg PO DAILY [facility] Last Admin: 11/15/19 11:41 Dose: 25 mg Ondansetron HCl (Zofran) 4 mg IVP Q6H PRN PRN Reason: Nausea/Vomiting Last Admin: 11/13/19 11:46 Dose: 4 mg Phenol (Chloraseptic [place] 180 Ml Bot) 0 ml PO BIDPRN PRN PRN Reason: Sore Throat Tramadol HCl (Ultram) 50 mg PO Q12H PRN PRN Reason: Pain 1-5 Vital Signs & Weight: Vital Signs Temp Pulse Resp BP Pulse Ox 11/15/19 11:38 98.2 F 77 18 153/74 H 99 11/15/19 07:36 97.3 F L 66 18 178/77 H 98 Admit Weight 177 lb 0.499 oz Weight 159 lb - Physical Exam General: alert & oriented x3 HEENT: mucus membranes moist Neck: supple neck Cardiac: regular rate and rhythm Lungs: normal breath sounds Neuro: grossly intact Abdomen: active bowel sounds Extremities: no edema Skin: clear Musculoskeletal: no pain - Labs Result Diagrams: 11/14/19 10:41 11/14/19 10:41 Troponin/CKMB CK-MB (CK-2) 3.0 ng/mL (0-6.6) 11/07/19 19:21 Troponin I 2.837 ng/mL (< 0.028) H* 11/08/19 02:02 - Telemetry Sinus rhythms and dysrhythmias: sinus rhythm - Assessment/Plan Assessment/Plan: 1. Acute on chronic systolic and diastolic heart failure. Improved. 2. CKD stage 5 3. NSTEMI, demand ischemia versus a cardiac event. 4. Orthostatic Hypetention post HD. 5. Symptomatic Bradycardia. PLAN: - COVID-19 test negative. - Continue dialysis. Minimal urine production since HD started. - Will need [facility], will plan on doing on Thursday after is next HD on . - Would keep in the hospital until then. May have ischemia to AV node causing bradycardia.
[2019-11-15] MEDS: HumaLOG 300 UNITS/3 ML VIAL SC PRN ×2 (17:58→20:55)
[2019-11-15] MEDS: Atorvastatin Calcium 20 MG TAB PO SCH (20:52)
[2019-11-16] MEDS: Benzonatate 100 MG CAP PO SCH ×3 (08:53→22:20)
[2019-11-16] MEDS: Aspirin 81 mg Enteric Coated Tablet PO SCH (08:53)
[2019-11-16] MEDS: Heparin 5,000 UNITS/ML VIAL SC SCH ×3 (08:54→22:21)
[2019-11-16] MEDS: Carvedilol 6.25 MG TAB PO SCH ×2 (08:54→22:21)
[2019-11-16] MEDS: Insulin Glargine 16 UNITS in Pre-Filled Syringe 1 EACH SC SCH (08:54)
[2019-11-16] MEDS: Clopidogrel Bisulfate 75 MG TAB PO SCH (08:54)
[2019-11-16] MEDS: Isosorbide Dinitrate 20 MG TAB PO SCH ×2 (08:54→22:22)
[2019-11-16] MEDS: Ferrous Sulfate 325 MG TAB PO SCH (08:54)
[2019-11-16] MEDS: Loratadine 10 MG TAB PO SCH (08:55)
--- NOTE | 2019-11-16 09:46 | PRG ---
DATE OF SERVICE: 11/16/2019 SUBJECTIVE: OBJECTIVE: GENERAL: The patient is awake and alert. VITAL SIGNS: Afebrile, pulse 73, breathing at 16, blood pressure 150/65. HEENT: Head normocephalic and atraumatic. Eyes intact, no ulcers. Nose intact, no ulcers. Ears intact, no ulcers. NECK: Supple. No JVD. CHEST: Symmetrical and clear. CARDIOVASCULAR: Shows S1 and S2, no rub, no murmur. GASTROINTESTINAL: Abdomen is soft, bowel sounds positive. EXTREMITIES: Show no edema or ulcers. SKIN: Shows no rash or petechiae. MUSCULOSKELETAL: Shows no joint swelling or stiffness. GENITOURINARY: Shows no [place] or CVA tenderness. NEUROLOGIC: Motor intact. Cranial nerves intact. LABORATORY DATA: Reviewed. ASSESSMENT AND PLAN: Stage 6 chronic kidney disease, plan dialysis per schedule. Hypertensive, stable. Anemia, stable. Medication based on GFR appropriate. Job ID: [id number]
[2019-11-16] MEDS: HumaLOG 300 UNITS/3 ML VIAL SC PRN ×2 (11:19→17:37)
--- NOTE | 2019-11-16 11:37 | PDOC.HOSPP ---
- Subjective Encounter Date: 11/16/19 Encounter Time: 11:32 Subjective: Mr. Cortez was seen today in follow-up of new ESRD. He notes constipation, and says he has not had a bowel movement in several days. He also was not sure how much water he can take in. - Objective Vital Signs & Weight: Vital Signs (12 hours) Temp Pulse Pulse Pulse Resp BP BP 11/16/19 11:05 97.9 F 74 18 11/16/19 09:51 82 80 135/58 L 11/16/19 08:54 143/63 H 11/16/19 08:04 11/16/19 07:56 97.3 F L 73 18 11/16/19 03:35 98.5 F 75 15 BP BP BP BP Pulse Ox 11/16/19 11:05 125/66 97 11/16/19 09:51 113/55 L 11/16/19 08:54 11/16/19 08:04 99 11/16/19 07:56 150/65 H 99 11/16/19 03:35 149/70 H 99 Weight Admit Weight 177 lb 0.499 oz Weight 162 lb 8 oz Most Recent Monitor Data Heart Rate from ECG 67 NIBP 160/111 NIBP BP-Mean 127 Respiration from ECG 17 SpO2 100 I&O: 11/15/19 11/16/19 11/17/19 06:59 06:59 06:59 Intake Total 600 970 Output Total 740 550 Balance -140 420 Result Diagrams: 11/14/19 10:41 11/14/19 10:41 Additional Labs: Accuchecks 11/16/19 11/16/19 11/15/19 10:38 05:18 23:59 POC Glucose 249 H 117 H 225 H 11/15/19 11/15/19 11/15/19 20:19 17:18 12:21 POC Glucose 492 H 276 H 154 H Hospitalist ROS - Medication Medications: Active Medications Generic Name Dose Route Start Last Admin Trade Name Freq PRN Reason Stop Dose Admin Aspirin 81 mg 11/10/19 09:00 11/16/19 08:53 Ecotrin PO 81 mg DAILY BONITA Administration Atorvastatin Calcium 20 mg 11/09/19 21:00 11/15/19 20:52 Lipitor PO 20 mg QPM BONITA Administration Benzonatate 100 mg 11/14/19 15:00 11/16/19 08:53 Tessalon PO 100 mg TID BONITA Administration Carvedilol 6.25 mg 11/09/19 21:00 11/16/19 08:54 Coreg PO 6.25 mg BID BONITA Administration Cholecalciferol 1,000 units 11/10/19 09:00 11/16/19 08:54 Vitamin D3 PO 1,000 units DAILY [facility] Administration Clopidogrel Bisulfate 75 mg 11/10/19 09:00 11/16/19 08:54 Plavix PO 75 mg DAILY [facility] Administration Ferrous Sulfate 325 mg 11/10/19 09:00 11/16/19 08:54 Feosol PO 325 mg DAILY [facility]ITA Administration Heparin Sodium (Porcine) 5,000 units 11/08/19 09:00 11/16/19 08:54 Heparin SC 5,000 units TID BONITA Administration Insulin Glargine 16 units/ 0.16 mls @ 0 mls/hr 11/10/19 09:00 11/16/19 08:54 Miscellaneous Medication SC 0.16 mls QAM BONITA Administration Insulin Human Lispro 0 units 11/07/19 22:18 11/16/19 11:19 Humalog SC 3 unit .MILD SLIDING SCALE PRN Administration Mild Correctional Scale Insulin Human Lispro 0 units 11/07/19 22:18 11/12/19 00:40 Humalog SC 4 unit .BEDTIME SLIDING SC PRN Administration Bedtime Correctional Scale Isosorbide Dinitrate 40 mg 11/09/19 21:00 11/16/19 08:54 Isordil PO 40 mg BID BONITA Administration Loratadine 10 mg 11/15/19 09:00 11/16/19 08:55 Claritin PO 10 mg DAILY [facility] Administration Mirabegron 25 mg 11/10/19 09:00 11/16/19 08:55 Myrbetriq Er PO 25 mg DAILY [facility] Administration Ondansetron HCl 4 mg 11/07/19 22:18 11/13/19 11:46 Zofran IVP 4 mg Q6H PRN Administration Nausea/Vomiting - Exam Eye: PERRL Heart: RRR, no murmur, no gallops, no rubs, normal peripheral pulses Respiratory: CTAB, no wheezes, no rales, no ronchi, normal chest expansion Gastrointestinal: soft, non-tender, non-distended, normal bowel sounds, no palpable masses, no hepatomegaly Extremities: no cyanosis, no edema Hosp A/P (1) ESRD (end stage renal disease) on dialysis Code(s): N18.6 - END STAGE RENAL DISEASE; Z99.2 - DEPENDENCE ON RENAL DIALYSIS Status: Acute (2) Acute respiratory failure with hypoxia Code(s): J96.01 - ACUTE RESPIRATORY FAILURE WITH HYPOXIA Status: Acute (3) Diabetes type 2, controlled Code(s): E11.9 - TYPE 2 DIABETES MELLITUS WITHOUT COMPLICATIONS Status: Chronic Qualifiers: Diabetes mellitus fdc insulin use: with intermediate project manager use Diabetes mellitus complication status: with kidney complications Diabetes mellitus complication detail: with chronic kidney disease Chronic kidney disease stage : stage 4 (severe) Qualified Code(s): E11.22 - Type 2 diabetes mellitus with diabetic chronic kidney disease; N18.4 - Chronic kidney disease, stage 4 (severe ); Z79.4 - residential (current) use of insulin (4) Hypertension Code(s): I10 - ESSENTIAL (PRIMARY) HYPERTENSION Status: Chronic Qualifiers: Hypertension type: essential hypertension Qualified Code(s): I10 - Essential (primary) hypertension - Plan * New End stage renal disease requiring dialysis-continue Hemodialysis * Bradycardia- he had an episode yesterday. Today his heart rate has been stable around the mid 60's. * Plan is for cardiac cath on Thursday * Constipation- will add lactulose * He can liberalize his fluid intake a bit * HTN- blood pressure has been stable * DM- continue the current regimen
[2019-11-16] MEDS: Acyclovir 5% Oint. 15 GM TUBE TOP SCH (12:23)
[2019-11-16 12:55] VITALS: BMI 25.4
[2019-11-16 14:46] LABS: #Eosinphils 0.4 thou/uL (0.0-0.7); #Lymphocytes 1.4 thou/uL (1.20-3.40); #Monocytes 0.9 thou/uL (0.11-0.59); #Neutrophils 5.3 thou/uL (1.40-6.50); %Basophils 0.4 % (0.0-1.0); %Eosinophils 5.3 % (0.0-10.0); %Lymphocytes 17.6 % (21.0-51.0); %Monocytes 10.9 % (0.0-10.0); %Neutrophils 65.8 % (42.0-75.0); Mean Corpuscular HGB CONC 34.5 g/dL (32.0-36.0); Mean Corpuscular Hemoglobin 28.6 pg (27.0-31.0); Mean Corpuscular Volume 82.8 fL (78.0-98.0); Mean Platelet Volume 8.8 fL (7.4-10.4); Platelet Count 166 thou/uL (130-400); RBC Distribution Width 12.5 % (11.5-14.5); Red Blood Cell (RBC) Count 3.86 mill/uL (4.70-6.10)
--- NOTE | 2019-11-16 18:20 | PDOC.CPN ---
- Subjective Date: 11/16/19 Time: 18:19 Interval history: No chest pain. No SOB. Only complaint today is constipation. No BM for 3 days now. - Review of Systems General: denies: fever/chills, weight/appetite/sleep changes, night sweats, fatigue Respiratory: denies: cough, congestion, shortness of breath, exercise intolerance Cardiovascular: denies: chest pain, palpitation, edema, paroxysmal nocturnal dyspnea, orthopnea Gastrointestinal: reports: constipation. denies: nausea, vomiting, diarrhea, abd pain, GI bleeding Musculoskeletal: denies: pain, tenderness, stiffness, swelling, arthritis/ arthralgias Neurological: denies: numbness, syncope, seizure, weakness - Objective Allergies/Adverse Reactions: Allergies Allergy/AdvReac Type Severity Reaction Status Date / Time Penicillins Allergy Intermediate Short of Verified 11/07/19 22:48 Breath Visit Medications: Current Medications Acetaminophen (Tylenol) 1,000 mg PO Q6H PRN PRN Reason: Moderate to Severe Pain (6-10) Aspirin (Ecotrin) 81 mg PO DAILY [facility] Last Admin: 11/16/19 08:53 Dose: 81 mg Atorvastatin Calcium (Lipitor) 20 mg PO QPM [facility] Last Admin: 11/15/19 20:52 Dose: 20 mg Benzonatate (Tessalon) 100 mg PO TID [facility] Last Admin: 11/16/19 15:01 Dose: 100 mg Carvedilol (Coreg) 6.25 mg PO BID [facility] Last Admin: 11/16/19 08:54 Dose: 6.25 mg Cholecalciferol (Vitamin D3) 1,000 units PO DAILY [facility] Last Admin: 11/16/19 08:54 Dose: 1,000 units Clopidogrel Bisulfate (Plavix) 75 mg PO DAILY [facility] Last Admin: 11/16/19 08:54 Dose: 75 mg Dextrose/Water (Dextrose 50%) 25 gm SLOW IVP PRN PRN PRN Reason: Hypoglycemia Ferrous Sulfate (Feosol) 325 mg PO DAILY [facility] Last Admin: 11/16/19 08:54 Dose: 325 mg Glucagon (Glucagon) 1 mg IM PRN PRN PRN Reason: Hypoglycemia Heparin Sodium (Porcine) (Heparin) 5,000 units SC TID [facility] Last Admin: 11/16/19 15:01 Dose: 5,000 units Hydralazine HCl (Apresoline) 10 mg SLOW IVP Q4H PRN PRN Reason: SBP > 180 and HR < 70 Dextrose/Water (D5w) 1,000 mls @ 0 mls/hr IV .Q0M PRN PRN Reason: Hypoglycemia Insulin Glargine 16 units/ (Miscellaneous Medication) 0.16 mls @ 0 mls/hr SC QAM [facility] Last Admin: 11/16/19 08:54 Dose: 0.16 mls Insulin Human Lispro (Humalog) 0 units SC .MILD SLIDING SCALE PRN PRN Reason: Mild Correctional Scale Last Admin: 11/16/19 17:37 Dose: 2 unit Insulin Human Lispro (Humalog) 0 units SC .BEDTIME SLIDING SC PRN PRN Reason: Bedtime Correctional Scale Last Admin: 11/12/19 00:40 Dose: 4 unit Isosorbide Dinitrate (Isordil) 40 mg PO BID [facility] Last Admin: 11/16/19 08:54 Dose: 40 mg Lactulose (Lactulose) 20 gm PO DAILYPRN PRN PRN Reason: Constipation Last Admin: 11/16/19 17:41 Dose: 20 gm Loratadine (Claritin) 10 mg PO DAILY [facility] Last Admin: 11/16/19 08:55 Dose: 10 mg Mirabegron (Myrbetriq Er) 25 mg PO DAILY [facility] Last Admin: 11/16/19 08:55 Dose: 25 mg Ondansetron HCl (Zofran) 4 mg IVP Q6H PRN PRN Reason: Nausea/Vomiting Last Admin: 11/13/19 11:46 Dose: 4 mg Phenol (Chloraseptic [place] 180 Ml Bot) 0 ml PO BIDPRN PRN PRN Reason: Sore Throat Tramadol HCl (Ultram) 50 mg PO Q12H PRN PRN Reason: Pain 1-5 Vital Signs & Weight: Vital Signs Temp Pulse Pulse Pulse Resp BP BP 11/16/19 15:01 99.6 F 71 18 11/16/19 11:05 97.9 F 74 18 11/16/19 09:51 82 80 135/58 L 11/16/19 08:54 143/63 H 11/16/19 08:04 11/16/19 07:56 97.3 F L 73 18 BP BP BP Pulse Ox 11/16/19 15:01 114/55 L 98 11/16/19 11:05 125/66 97 11/16/19 09:51 113/55 L 11/16/19 08:54 11/16/19 08:04 99 11/16/19 07:56 150/65 H 99 Admit Weight 177 lb 0.499 oz Weight 162 lb 8 oz - Physical Exam General: alert & oriented x3 HEENT: mucus membranes moist Neck: supple neck Cardiac: regular rate and rhythm Lungs: normal breath sounds Neuro: grossly intact Abdomen: active bowel sounds Extremities: no edema Skin: clear Musculoskeletal: no pain - Labs Result Diagrams: 11/16/19 14:39 11/14/19 10:41 Troponin/CKMB CK-MB (CK-2) 3.0 ng/mL (0-6.6) 11/07/19 19:21 Troponin I 2.837 ng/mL (< 0.028) H* 11/08/19 02:02 - Telemetry Sinus rhythms and dysrhythmias: sinus rhythm - Assessment/Plan Assessment/Plan: 1. Acute on chronic systolic and diastolic heart failure. Improved. 2. CKD stage 5 3. NSTEMI, demand ischemia versus a cardiac event. 4. Orthostatic Hypotention post HD. 5. Symptomatic Bradycardia. PLAN: - COVID-19 test negative. - Continue dialysis. Minimal urine production since HD started. - Will need [facility], will plan on doing on Thursday after is next HD on . - Would keep in the hospital until then. May have ischemia to AV node causing bradycardia. - he has lactulose PRN.
[2019-11-16] MEDS: Atorvastatin Calcium 20 MG TAB PO SCH (22:20)
[2019-11-17 04:51] LABS: Anion Gap 23 mmol/L (10-20); BUN (Urea Nitrogen) 111 mg/dL (8.4-25.7); Calc. Creatinine Clearance 11 mL/min (70-130); Calcium 7.6 mg/dL (7.8-10.44); Carbon Dioxide 18 mmol/L (23-31); Chloride 97 mmol/L (98-107); Estimated GFR-MDRD 9; Glucose 133 mg/dL (83-110); Potassium 3.5 mmol/L (3.5-5.1); Sodium 134 mmol/L (136-145)
[2019-11-17] MEDS: Aspirin 81 mg Enteric Coated Tablet PO SCH (08:30)
[2019-11-17] MEDS: Ferrous Sulfate 325 MG TAB PO SCH (08:31)
[2019-11-17] MEDS: Isosorbide Dinitrate 20 MG TAB PO SCH ×2 (08:31→21:01)
[2019-11-17] MEDS: Benzonatate 100 MG CAP PO SCH ×3 (08:31→21:01)
[2019-11-17] MEDS: Loratadine 10 MG TAB PO SCH (08:31)
[2019-11-17] MEDS: Carvedilol 6.25 MG TAB PO SCH ×2 (08:31→21:01)
[2019-11-17] MEDS: Clopidogrel Bisulfate 75 MG TAB PO SCH (08:31)
[2019-11-17] MEDS: Heparin 5,000 UNITS/ML VIAL SC SCH ×3 (08:32→21:02)
[2019-11-17] MEDS: Insulin Glargine 16 UNITS in Pre-Filled Syringe 1 EACH SC SCH (08:32)
[2019-11-17] MEDS ORDERED: Heparin 10,000 UNITS/ 10 ML VIAL ONE (09:18)
--- NOTE | 2019-11-17 09:27 | PRG ---
DATE OF SERVICE: 11/17/2019 SUBJECTIVE: A 73-year-old male, being seen for end-stage renal disease. The patient denies any nausea, vomiting, or chest pain. OBJECTIVE: GENERAL: The patient is awake and alert. VITAL SIGNS: Afebrile, pulse 75, breathing at 16, blood pressure 156/70. HEENT: Head normocephalic and atraumatic. Eyes intact, no ulcers. Nose intact, no ulcers. Ears intact, no ulcers. NECK: Supple. No JVD. CHEST: Symmetrical and clear. CARDIOVASCULAR: Shows S1 and S2, no rub, no murmur. GASTROINTESTINAL: Abdomen is soft, bowel sounds positive. EXTREMITIES: Show no edema or ulcers. SKIN: Shows no rash or petechiae. MUSCULOSKELETAL: Shows no joint swelling or stiffness. GENITOURINARY: Shows no [place] or CVA tenderness. NEUROLOGIC: Motor intact. Cranial nerves intact. LABORATORY DATA: Reviewed. ASSESSMENT AND PLAN: 1. Stage 6 chronic kidney disease. Plan dialysis. 2. Hypertension, stable. 3. Anemia, stable. 4. Medication based on GFR, appropriate. Job ID: [id number]
--- NOTE | 2019-11-17 12:45 | PDOC.HOSPP ---
- Subjective Encounter Date: 11/17/19 Encounter Time: 12:44 Subjective: Mr. Cortez was seen today in follow-up of new ESRD. He does not have any new complaints. - Objective Vital Signs & Weight: Vital Signs (12 hours) Temp Pulse Resp BP BP Pulse Ox 11/17/19 08:25 99.2 F 66 18 117/67 98 11/17/19 03:28 98.0 F 64 18 156/70 H 98 Weight Admit Weight 177 lb 0.499 oz Weight 162 lb 9.6 oz Most Recent Monitor Data Heart Rate from ECG 67 NIBP 160/111 NIBP BP-Mean 127 Respiration from ECG 17 SpO2 100 I&O: 11/16/19 11/17/19 11/18/19 06:59 06:59 06:59 Intake Total 970 1220 Output Total 550 725 Balance 420 495 Result Diagrams: 11/16/19 14:39 11/17/19 04:12 Additional Labs: Accuchecks 11/17/19 11/17/19 11/16/19 10:59 05:31 20:19 POC Glucose 120 H 128 H 208 H 11/16/19 16:32 POC Glucose 169 H Hospitalist ROS - Medication Medications: Active Medications Generic Name Dose Route Start Last Admin Trade Name Freq PRN Reason Stop Dose Admin Aspirin 81 mg 11/10/19 09:00 11/17/19 08:30 Ecotrin PO 81 mg DAILY [facility] Administration Atorvastatin Calcium 20 mg 11/09/19 21:00 11/16/19 22:20 Lipitor PO 20 mg QPM [facility] Administration Benzonatate 100 mg 11/14/19 15:00 11/17/19 08:31 Tessalon PO 100 mg TID [facility] Administration Carvedilol 6.25 mg 11/09/19 21:00 11/17/19 08:31 Coreg PO 6.25 mg BID BONITA Administration Cholecalciferol 1,000 units 11/10/19 09:00 11/17/19 08:31 Vitamin D3 PO 1,000 units DAILY [facility] Administration Clopidogrel Bisulfate 75 mg 11/10/19 09:00 11/17/19 08:31 Plavix PO 75 mg DAILY [facility] Administration Ferrous Sulfate 325 mg 11/10/19 09:00 11/17/19 08:31 Feosol PO 325 mg DAILY [facility] Administration Heparin Sodium (Porcine) 5,000 units 11/08/19 09:00 11/17/19 08:32 Heparin SC 5,000 units TID [facility]ONITA Administration Insulin Glargine 16 units/ 0.16 mls @ 0 mls/hr 11/10/19 09:00 11/17/19 08:32 Miscellaneous Medication SC 0.16 mls QAM [facility] Administration Insulin Human Lispro 0 units 11/07/19 22:18 11/16/19 17:37 Humalog SC 2 unit .MILD SLIDING SCALE PRN Administration Mild Correctional Scale Insulin Human Lispro 0 units 11/07/19 22:18 11/12/19 00:40 Humalog SC 4 unit .BEDTIME SLIDING SC PRN Administration Bedtime Correctional Scale Isosorbide Dinitrate 40 mg 11/09/19 21:00 11/17/19 08:31 Isordil PO 40 mg BID [facility] Administration Lactulose 20 gm 11/16/19 11:30 11/16/19 17:41 Lactulose PO 20 gm DAILYPRN PRN Administration Constipation Loratadine 10 mg 11/15/19 09:00 11/17/19 08:31 Claritin PO 10 mg DAILY [facility] Administration Mirabegron 25 mg 11/10/19 09:00 11/17/19 08:31 Myrbetriq Er PO 25 mg DAILY [facility] Administration Ondansetron HCl 4 mg 11/07/19 22:18 11/13/19 11:46 Zofran IVP 4 mg Q6H PRN Administration Nausea/Vomiting - Exam Eye: PERRL Heart: RRR, no murmur, no gallops, no rubs, normal peripheral pulses Respiratory: CTAB, no wheezes, no rales, no ronchi, normal chest expansion Gastrointestinal: soft, non-tender, non-distended, normal bowel sounds, no palpable masses, no hepatomegaly Extremities: no cyanosis, no edema Hosp A/P (1) ESRD (end stage renal disease) on dialysis Code(s): N18.6 - END STAGE RENAL DISEASE; Z99.2 - DEPENDENCE ON RENAL DIALYSIS Status: Acute (2) Acute respiratory failure with hypoxia Code(s): J96.01 - ACUTE RESPIRATORY FAILURE WITH HYPOXIA Status: Acute (3) Diabetes type 2, controlled Code(s): E11.9 - TYPE 2 DIABETES MELLITUS WITHOUT COMPLICATIONS Status: Chronic Qualifiers: Diabetes mellitus superintendent terminal insulin use: with superintendent terminal use Diabetes mellitus complication status: with kidney complications Diabetes mellitus complication detail: with chronic kidney disease Chronic kidney disease stage : stage 4 (severe) Qualified Code(s): E11.22 - Type 2 diabetes mellitus with diabetic chronic kidney disease; N18.4 - Chronic kidney disease, stage 4 (severe ); Z79.4 - superintendent marine oil terminal (current) use of insulin (4) Hypertension Code(s): I10 - ESSENTIAL (PRIMARY) HYPERTENSION Status: Chronic Qualifiers: Hypertension type: essential hypertension Qualified Code(s): I10 - Essential (primary) hypertension - Plan * New End stage renal disease requiring dialysis-continue Hemodialysis * Bradycardia- heart rate stable so far * Left heart cath tomorrow * Constipation- symptom management * HTN- blood pressure has been stable * DM- continue the current regimen
--- NOTE | 2019-11-17 16:47 | PDOC.CPN ---
- Subjective Date: 11/17/19 Time: 16:45 Interval history: No chest pain. No SOB. Tolerated HD better today. Still Constipated. - Review of Systems General: denies: fever/chills, weight/appetite/sleep changes, night sweats, fatigue Respiratory: denies: cough, congestion, shortness of breath, exercise intolerance Cardiovascular: denies: chest pain, palpitation, edema, paroxysmal nocturnal dyspnea, orthopnea Gastrointestinal: reports: constipation. denies: nausea, vomiting, diarrhea, abd pain, GI bleeding Musculoskeletal: denies: pain, tenderness, stiffness, swelling, arthritis/ arthralgias Neurological: denies: numbness, syncope, seizure, weakness - Objective Allergies/Adverse Reactions: Allergies Allergy/AdvReac Type Severity Reaction Status Date / Time Penicillins Allergy Intermediate Short of Verified 11/07/19 22:48 Breath Visit Medications: Current Medications Acetaminophen (Tylenol) 1,000 mg PO Q6H PRN PRN Reason: Moderate to Severe Pain (6-10) Aspirin (Ecotrin) 81 mg PO DAILY [facility] Last Admin: 11/17/19 08:30 Dose: 81 mg Atorvastatin Calcium (Lipitor) 20 mg PO QPM [facility] Last Admin: 11/16/19 22:20 Dose: 20 mg Benzonatate (Tessalon) 100 mg PO TID [facility] Last Admin: 11/17/19 14:08 Dose: 100 mg Carvedilol (Coreg) 6.25 mg PO BID [facility] Last Admin: 11/17/19 08:31 Dose: 6.25 mg Cholecalciferol (Vitamin D3) 1,000 units PO DAILY [facility] Last Admin: 11/17/19 08:31 Dose: 1,000 units Clopidogrel Bisulfate (Plavix) 75 mg PO DAILY [facility] Last Admin: 11/17/19 08:31 Dose: 75 mg Dextrose/Water (Dextrose 50%) 25 gm SLOW IVP PRN PRN PRN Reason: Hypoglycemia Ferrous Sulfate (Feosol) 325 mg PO DAILY [facility] Last Admin: 11/17/19 08:31 Dose: 325 mg Glucagon (Glucagon) 1 mg IM PRN PRN PRN Reason: Hypoglycemia Heparin Sodium (Porcine) (Heparin) 5,000 units SC TID [facility] Last Admin: 11/17/19 14:08 Dose: 5,000 units Hydralazine HCl (Apresoline) 10 mg SLOW IVP Q4H PRN PRN Reason: SBP > 180 and HR < 70 Dextrose/Water (D5w) 1,000 mls @ 0 mls/hr IV .Q0M PRN PRN Reason: Hypoglycemia Insulin Glargine 16 units/ (Miscellaneous Medication) 0.16 mls @ 0 mls/hr SC QAM [facility] Last Admin: 11/17/19 08:32 Dose: 0.16 mls Insulin Human Lispro (Humalog) 0 units SC .MILD SLIDING SCALE PRN PRN Reason: Mild Correctional Scale Last Admin: 11/16/19 17:37 Dose: 2 unit Insulin Human Lispro (Humalog) 0 units SC .BEDTIME SLIDING SC PRN PRN Reason: Bedtime Correctional Scale Last Admin: 11/12/19 00:40 Dose: 4 unit Isosorbide Dinitrate (Isordil) 40 mg PO BID [facility] Last Admin: 11/17/19 08:31 Dose: 40 mg Lactulose (Lactulose) 20 gm PO DAILYPRN PRN PRN Reason: Constipation Last Admin: 11/17/19 15:27 Dose: 20 gm Loratadine (Claritin) 10 mg PO DAILY [facility] Last Admin: 11/17/19 08:31 Dose: 10 mg Mirabegron (Myrbetriq Er) 25 mg PO DAILY [facility] Last Admin: 11/17/19 08:31 Dose: 25 mg Ondansetron HCl (Zofran) 4 mg IVP Q6H PRN PRN Reason: Nausea/Vomiting Last Admin: 11/13/19 11:46 Dose: 4 mg Phenol (Chloraseptic [place] 180 Ml Bot) 0 ml PO BIDPRN PRN PRN Reason: Sore Throat Tramadol HCl (Ultram) 50 mg PO Q12H PRN PRN Reason: Pain 1-5 Vital Signs & Weight: Vital Signs Temp Pulse Resp BP Pulse Ox 11/17/19 08:25 99.2 F 66 18 117/67 98 Admit Weight 177 lb 0.499 oz Weight 162 lb 9.6 oz - Physical Exam General: alert & oriented x3 HEENT: mucus membranes moist Neck: supple neck Cardiac: regular rate and rhythm Lungs: normal breath sounds Neuro: grossly intact Abdomen: active bowel sounds Extremities: no edema Skin: clear Musculoskeletal: no pain - Labs Result Diagrams: 11/16/19 14:39 11/17/19 04:12 Troponin/CKMB CK-MB (CK-2) 3.0 ng/mL (0-6.6) 11/07/19 19:21 Troponin I 2.837 ng/mL (< 0.028) H* 11/08/19 02:02 - Telemetry Sinus rhythms and dysrhythmias: sinus rhythm - Assessment/Plan Assessment/Plan: 1. Acute on chronic systolic and diastolic heart failure. Improved. 2. CKD stage 5 3. NSTEMI, demand ischemia versus a cardiac event. 4. Orthostatic Hypotention post HD. 5. Symptomatic Bradycardia. PLAN: - COVID-19 test negative. - Continue dialysis. Minimal urine production since HD started. - [facility] tomorrow. Consents done with patient in [place]. He has had 3 attempts for this in the past but were not successful due to elevated creatinine. - Would keep in the hospital until then. May have ischemia to AV node causing bradycardia. - He has lactulose and he received a dos elast night, Will give another today.
[2019-11-17] MEDS ORDERED: Communication Order-Pharmacy FS SCH (17:00)
[2019-11-17] MEDS: HumaLOG 300 UNITS/3 ML VIAL SC PRN (18:17)
[2019-11-17] MEDS: Atorvastatin Calcium 20 MG TAB PO SCH (21:01)
[2019-11-18] MEDS: Carvedilol 6.25 MG TAB PO SCH ×2 (07:11→20:34)
--- NOTE | 2019-11-18 08:09 | PRG ---
DATE OF SERVICE: 11/18/2019 SUBJECTIVE: This is a 73-year-old male being seen for end-stage renal disease. The patient denies any nausea, vomiting, or chest pain. OBJECTIVE: GENERAL: Patient is awake, alert. VITAL SIGNS: Afebrile, pulse 71, breathing 16, blood pressure 147/64. HEENT: Head normocephalic and atraumatic. Eyes intact, no ulcers. Nose intact, no ulcers. Ears intact, no ulcers. NECK: Supple. No JVD. CHEST: Symmetrical and clear. CARDIOVASCULAR: Shows S1 and S2, no rub, no murmur. GASTROINTESTINAL: Abdomen is soft, bowel sounds positive. EXTREMITIES: Show no edema or ulcers. SKIN: Shows no rash or petechiae. MUSCULOSKELETAL: Shows no joint swelling or stiffness. GENITOURINARY: Shows no [place] or CVA tenderness. NEUROLOGIC: Motor intact. Cranial nerves intact. LABORATORY DATA: Reviewed. ASSESSMENT AND PLAN: 1. Stage 6 chronic kidney disease. Continue hemodialysis. 2. Hypertension, stable. 3. Anemia, stable. 4. Medication based on GFR appropriate. Job ID: [id number]
[2019-11-18] MEDS ORDERED: Heparin 10,000 UNITS/ 10 ML VIAL ONE (08:34)
[2019-11-18] MEDS ORDERED: Iopamidol 370 76% 100 ML VIAL ONE (09:01)
[2019-11-18] MEDS ORDERED: Fentanyl 100 MCG/2 ML VIAL ONE (09:19)
[2019-11-18] MEDS ORDERED: Midazolam HCl 2 mg/2 ml Vial ONE (09:19)
[2019-11-18] MEDS ORDERED: Heparin 10,000 UNITS/1 ML VIAL ONE ×2 (10:10→10:13)
[2019-11-18] MEDS ORDERED: Clopidogrel Bisulfate 300 MG TAB ONE (10:11)
[2019-11-18] MEDS ORDERED: Nitroglycerin 0.4 MG TAB (25 Tab Bottle) SL PRN (11:46)
[2019-11-18 12:49] LABS: Anion Gap 22 mmol/L (10-20); BUN (Urea Nitrogen) 71 mg/dL (8.4-25.7); Calc. Creatinine Clearance 14 mL/min (70-130); Calcium 7.8 mg/dL (7.8-10.44); Carbon Dioxide 17 mmol/L (23-31); Chloride 97 mmol/L (98-107); Estimated GFR-MDRD 12; Glucose 113 mg/dL (83-110); Potassium 3.9 mmol/L (3.5-5.1); Sodium 132 mmol/L (136-145)
[2019-11-18] MEDS: Benzonatate 100 MG CAP PO SCH ×3 (13:38→20:34)
[2019-11-18] MEDS: Heparin 5,000 UNITS/ML VIAL SC SCH ×3 (13:38→20:34)
--- NOTE | 2019-11-18 14:48 | PDOC.HOSPP ---
- Subjective Encounter Date: 11/18/19 Encounter Time: 14:46 Subjective: Mr. Cortez was seen today in follow-up of new end stage renal failure. He does not have any complaints. He had cardiac cath and STENT placement. - Objective Vital Signs & Weight: Vital Signs (12 hours) Temp Pulse Resp BP BP Pulse Ox 11/18/19 07:30 98.0 F 69 16 132/60 69 L 11/18/19 07:11 164/68 H 11/18/19 03:27 98.2 F 71 18 147/65 H 98 Weight Admit Weight 177 lb 0.499 oz Weight 165 lb 5.547 oz Most Recent Monitor Data Heart Rate from ECG 67 NIBP 160/111 NIBP BP-Mean 127 Respiration from ECG 17 SpO2 100 I&O: 11/17/19 11/18/19 11/19/19 06:59 06:59 06:59 Intake Total 1220 840 Output Total 725 225 Balance 495 615 Result Diagrams: 11/16/19 14:39 11/18/19 12:11 Additional Labs: Accuchecks 11/18/19 11/17/19 06:30 16:56 POC Glucose 129 H 288 H Hospitalist ROS - Medication Medications: Active Medications Generic Name Dose Route Start Last Admin Trade Name Freq PRN Reason Stop Dose Admin Aspirin 81 mg 11/10/19 09:00 11/17/19 08:30 Ecotrin PO 81 mg DAILY BONITA Administration Atorvastatin Calcium 20 mg 11/09/19 21:00 11/17/19 21:01 Lipitor PO 20 mg QPM BONITA Administration Benzonatate 100 mg 11/14/19 15:00 11/18/19 13:38 Tessalon PO Not Given TID BONITA Carvedilol 6.25 mg 11/09/19 21:00 11/18/19 07:11 Coreg PO 6.25 mg BID BONITA Administration Cholecalciferol 1,000 units 11/10/19 09:00 11/17/19 08:31 Vitamin D3 PO 1,000 units DAILY BONITA Administration Clopidogrel Bisulfate 75 mg 11/10/19 09:00 11/17/19 08:31 Plavix PO 75 mg DAILY BONITA Administration Ferrous Sulfate 325 mg 11/10/19 09:00 11/17/19 08:31 Feosol PO 325 mg DAILY BONITA Administration Heparin Sodium (Porcine) 5,000 units 11/08/19 09:00 11/18/19 13:38 Heparin SC Not Given TID BONITA Isosorbide Dinitrate 40 mg 11/09/19 21:00 11/17/19 21:01 Isordil PO 40 mg BID BONITA Administration Lactulose 20 gm 11/16/19 11:30 11/17/19 21:02 Lactulose PO 20 gm DAILYPRN PRN Administration Constipation Loratadine 10 mg 11/15/19 09:00 11/17/19 08:31 Claritin PO 10 mg DAILY BONITA Administration Mirabegron 25 mg 11/10/19 09:00 11/17/19 08:31 Myrbetriq Er PO 25 mg DAILY BONITA Administration Ondansetron HCl 4 mg 11/07/19 22:18 11/13/19 11:46 Zofran IVP 4 mg Q6H PRN Administration Nausea/Vomiting - Exam Eye: PERRL Heart: RRR, no murmur, no gallops, no rubs, normal peripheral pulses Respiratory: CTAB, no wheezes, no rales, no ronchi, normal chest expansion, no tachypnea, normal percussion Gastrointestinal: soft, non-tender, non-distended, normal bowel sounds, no palpable masses, no hepatomegaly Extremities: no cyanosis, no edema Hosp A/P (1) ESRD (end stage renal disease) on dialysis Code(s): N18.6 - END STAGE RENAL DISEASE; Z99.2 - DEPENDENCE ON RENAL DIALYSIS Status: Acute (2) Acute respiratory failure with hypoxia Code(s): J96.01 - ACUTE RESPIRATORY FAILURE WITH HYPOXIA Status: Acute (3) Diabetes type 2, controlled Code(s): E11.9 - TYPE 2 DIABETES MELLITUS WITHOUT COMPLICATIONS Status: Chronic Qualifiers: Diabetes mellitus long term care social worker insulin use: with jail use Diabetes mellitus complication status: with kidney complications Diabetes mellitus complication detail: with chronic kidney disease Chronic kidney disease stage : stage 4 (severe) Qualified Code(s): E11.22 - Type 2 diabetes mellitus with diabetic chronic kidney disease; N18.4 - Chronic kidney disease, stage 4 (severe ); Z79.4 - group home (current) use of insulin (4) Hypertension Code(s): I10 - ESSENTIAL (PRIMARY) HYPERTENSION Status: Chronic Qualifiers: Hypertension type: essential hypertension Qualified Code(s): I10 - Essential (primary) hypertension - Plan * New End stage renal disease requiring dialysis-continue Hemodialysis * CAD- patient had cardiac cath a required STENT placement * He will be monitord overnight, due to some oozing around the cath site. * HTN- blood pressure has been stable * DM- continue the current regimen * Out patient dialysis arrangements have been made for [facility] in [place], for MWF.
[2019-11-18] MEDS: Aspirin 81 mg Enteric Coated Tablet PO SCH (14:51)
[2019-11-18] MEDS: Isosorbide Dinitrate 20 MG TAB PO SCH ×2 (14:53→20:33)
[2019-11-18] MEDS: Clopidogrel Bisulfate 75 MG TAB PO SCH (14:53)
[2019-11-18] MEDS: Ferrous Sulfate 325 MG TAB PO SCH (14:53)
[2019-11-18] MEDS: Loratadine 10 MG TAB PO SCH (14:53)
[2019-11-18] MEDS: Atorvastatin Calcium 20 MG TAB PO SCH (20:33)
[2019-11-19 04:59] LABS: #Eosinphils 0.2 thou/uL (0.0-0.7); #Lymphocytes 1.2 thou/uL (1.20-3.40); #Monocytes 0.8 thou/uL (0.11-0.59); #Neutrophils 7.2 thou/uL (1.40-6.50); %Basophils 0.5 % (0.0-1.0); %Lymphocytes 13.1 % (21.0-51.0); %Neutrophils 76.4 % (42.0-75.0); Hemoglobin 11.1 g/dL (14.0-18.0); Mean Corpuscular HGB CONC 34.5 g/dL (32.0-36.0); Mean Corpuscular Hemoglobin 29.1 pg (27.0-31.0); Mean Corpuscular Volume 84.3 fL (78.0-98.0); Mean Platelet Volume 8.7 fL (7.4-10.4); Platelet Count 189 thou/uL (130-400); RBC Distribution Width 12.4 % (11.5-14.5); Red Blood Cell (RBC) Count 3.82 mill/uL (4.70-6.10); White Blood Cell (WBC) Count 9.5 thou/uL (4.8-10.8)
[2019-11-19 05:28] LABS: ALT (SGPT) 20 U/L (8-55); AST (SGOT) 21 U/L (5-34); Albumin 3.6 g/dL (3.4-4.8); Alkaline Phosphatase 78 U/L (40-110); Anion Gap 20 mmol/L (10-20); BUN (Urea Nitrogen) 49 mg/dL (8.4-25.7); Bilirubin, Total 0.4 mg/dL (0.2-1.2); Calc. Creatinine Clearance 16 mL/min (70-130); Carbon Dioxide 22 mmol/L (23-31); Chloride 96 mmol/L (98-107); Estimated GFR-MDRD 14; Globulin 2.8 g/dL (2.4-3.5); Glucose 125 mg/dL (83-110); Potassium 4.1 mmol/L (3.5-5.1); Protein, Total 6.4 g/dL (5.8-8.1); Sodium 134 mmol/L (136-145)
[2019-11-19] MEDS ORDERED: Fentanyl 100 MCG/2 ML VIAL SLOW IVP PRN (06:53)
--- NOTE | 2019-11-19 06:55 | PDOC.EVN ---
Event Note - Event Note Event Note: Notified patient had pain at cath site. US confirmed pseudoaneurysm. industrial laborer coming to apply pressure. Fentanyl ordered for pain.
[2019-11-19] MEDS ORDERED: Fentanyl 100 MCG/2 ML VIAL SLOW IVP SCH (08:00)
[2019-11-19] MEDS: Heparin 5,000 UNITS/ML VIAL SC SCH ×3 (08:53→21:49)
[2019-11-19] MEDS: Aspirin 81 mg Enteric Coated Tablet PO SCH (09:37)
[2019-11-19] MEDS: Ferrous Sulfate 325 MG TAB PO SCH (09:37)
[2019-11-19] MEDS: Carvedilol 6.25 MG TAB PO SCH ×2 (09:38→21:48)
[2019-11-19] MEDS: Isosorbide Dinitrate 20 MG TAB PO SCH ×2 (09:39→21:49)
[2019-11-19] MEDS: Loratadine 10 MG TAB PO SCH (09:39)
[2019-11-19] MEDS: Benzonatate 100 MG CAP PO SCH ×3 (09:39→21:49)
[2019-11-19] MEDS: Clopidogrel Bisulfate 75 MG TAB PO SCH (09:40)
--- NOTE | 2019-11-19 10:03 | PRG ---
DATE OF SERVICE: 11/19/2019 SUBJECTIVE: This is a 73-year-old gentleman being seen for end-stage renal disease. The patient denied nausea, vomiting, or chest pain. PHYSICAL EXAMINATION: GENERAL: The patient is awake and alert. VITAL SIGNS: Afebrile, pulse 61, breathing at 16, blood pressure 125/85. HEENT: Head normocephalic and atraumatic. Eyes intact, no ulcers. Nose intact, no ulcers. Ears intact, no ulcers. NECK: Supple. No JVD. CHEST: Symmetrical and clear. CARDIOVASCULAR: Shows S1 and S2, no rub, no murmur. GASTROINTESTINAL: Abdomen is soft, bowel sounds positive. EXTREMITIES: Show no edema or ulcers. SKIN: Shows no rash or petechiae. MUSCULOSKELETAL: Shows no joint swelling or stiffness. GENITOURINARY: Shows no [place] or CVA tenderness. NEUROLOGIC: Motor intact. Cranial nerves intact. ASSESSMENT: 1. Stage 6 chronic kidney disease, plan dialysis Thursday, Thursday, Thursday. 2. Hypertension, stable. 3. Anemia, stable. 4. Medication based on GFR appropriate. Job ID: [id number]
--- NOTE | 2019-11-19 11:28 | PDOC.HOSPP ---
- Subjective Encounter Date: 11/19/19 Encounter Time: 10:15 Subjective: mild pain in his right groin cath site, no oozing now son at bedside no chest pain or sob - Objective Vital Signs & Weight: Vital Signs (12 hours) Temp Pulse Resp BP BP BP Pulse Ox 11/19/19 09:38 128/58 L 11/19/19 07:29 99.0 F 61 18 125/58 L 95 11/19/19 04:00 97.5 F L 75 18 144/66 H 96 11/19/19 00:00 99.6 F 72 18 115/59 L 99 Weight Admit Weight 177 lb 0.499 oz Weight 167 lb 5.294 oz Most Recent Monitor Data Heart Rate from ECG 67 NIBP 160/111 NIBP BP-Mean 127 Respiration from ECG 17 SpO2 100 I&O: 11/18/19 11/19/19 11/20/19 06:59 06:59 06:59 Intake Total 840 360 Output Total 225 600 Balance 615 -240 Result Diagrams: 11/19/19 04:23 11/19/19 04:23 Additional Labs: Accuchecks 11/19/19 11/19/19 11/19/19 10:57 05:28 03:38 POC Glucose 318 H 127 H 126 H 11/18/19 20:53 POC Glucose 244 H Hospitalist ROS - Medication Medications: Active Medications Generic Name Dose Route Start Last Admin Trade Name Ciscoq PRN Reason Stop Dose Admin Aspirin 81 mg 11/10/19 09:00 11/19/19 09:37 Ecotrin PO 81 mg DAILY BONITA Administration Atorvastatin Calcium 20 mg 11/09/19 21:00 11/18/19 20:33 Lipitor PO 20 mg QPM BONITA Administration Benzonatate 100 mg 11/14/19 15:00 11/19/19 09:39 Tessalon PO 100 mg TID BONITA Administration Carvedilol 6.25 mg 11/09/19 21:00 11/19/19 09:38 Coreg PO 6.25 mg BID BONITA Administration Cholecalciferol 1,000 units 11/10/19 09:00 11/19/19 09:39 Vitamin D3 PO 1,000 units DAILY BONITA Administration Clopidogrel Bisulfate 75 mg 11/10/19 09:00 11/19/19 09:40 Plavix PO 75 mg DAILY BONITA Administration Fentanyl 25 mcg 11/19/19 06:53 11/19/19 06:59 Sublimaze SLOW IVP 25 mcg Q2H PRN Administration Severe Pain (7-10) Ferrous Sulfate 325 mg 11/10/19 09:00 11/19/19 09:37 Feosol PO 325 mg DAILY BONITA Administration Heparin Sodium (Porcine) 5,000 units 11/08/19 09:00 11/19/19 08:53 Heparin SC Not Given TID BONITA Isosorbide Dinitrate 40 mg 11/09/19 21:00 11/19/19 09:39 Isordil PO 40 mg BID BONITA Administration Lactulose 20 gm 11/16/19 11:30 11/17/19 21:02 Lactulose PO 20 gm DAILYPRN PRN Administration Constipation Loratadine 10 mg 11/15/19 09:00 11/19/19 09:39 Claritin PO 10 mg DAILY BONITA Administration Mirabegron 25 mg 11/10/19 09:00 11/19/19 09:44 Myrbetriq Er PO 25 mg DAILY BONITA Administration Ondansetron HCl 4 mg 11/07/19 22:18 11/13/19 11:46 Zofran IVP 4 mg Q6H PRN Administration Nausea/Vomiting Tramadol HCl 50 mg 11/14/19 10:50 11/19/19 06:43 Ultram PO 50 mg Q12H PRN Administration Pain 1-5 - Exam General Appearance: awake alert Eye: PERRL, anicteric sclera ENT: no oropharyngeal lesions, moist mucosa Neck: supple, no JVD Heart: RRR, no murmur Respiratory: no wheezes, no rales Gastrointestinal: soft, non-tender, non-distended, normal bowel sounds Extremities: no cyanosis, no edema Extremities - other findings: right groin cath site has mild swelling with no oozing Neurological: cranial nerve grossly intact, no focal deficits Psychiatric: normal affect, A&O x 3 Hosp A/P (1) CAD (coronary artery disease) Code(s): I25.10 - ATHSCL HEART DISEASE OF [place] CORONARY ARTERY W/O ANG PCTRS Status: Acute Qualifiers: Coronary Disease-Associated Artery/Lesion type: [place] artery [place] vs. transplanted heart: [place] heart Associated angina: without angina Qualified Code(s): I25.10 - Atherosclerotic heart disease of [place] coronary artery without angina pectoris (2) ESRD (end stage renal disease) on dialysis Code(s): N18.6 - END STAGE RENAL DISEASE; Z99.2 - DEPENDENCE ON RENAL DIALYSIS Status: Acute (3) Acute on chronic diastolic ACC/AHA stage C congestive heart failure Code(s): I50.33 - ACUTE ON CHRONIC DIASTOLIC (CONGESTIVE) HEART FAILURE Status : Acute (4) Acute respiratory failure with hypoxia Code(s): J96.01 - ACUTE RESPIRATORY FAILURE WITH HYPOXIA Status: Resolved (5) Anxiety and depression Code(s): F41.9 - ANXIETY DISORDER, UNSPECIFIED; F32.9 - MAJOR DEPRESSIVE DISORDER, SINGLE EPISODE, UNSPECIFIED Status: Chronic (6) BPH (benign prostatic hyperplasia) Code(s): N40.0 - BENIGN PROSTATIC HYPERPLASIA WITHOUT LOWER URINRY TRACT SYMP Status: Chronic Qualifiers: Lower urinary tract symptom presence: symptoms absent Qualified Code(s): N40.0 - Benign prostatic hyperplasia without lower urinary tract symptoms (7) Diabetes type 2, controlled Code(s): E11.9 - TYPE 2 DIABETES MELLITUS WITHOUT COMPLICATIONS Status: Chronic Qualifiers: Diabetes mellitus intermediate accountant insulin use: with halfway use Diabetes mellitus complication status: with kidney complications Diabetes mellitus complication detail: with chronic kidney disease Chronic kidney disease stage : stage 4 (severe) Qualified Code(s): E11.22 - Type 2 diabetes mellitus with diabetic chronic kidney disease; N18.4 - Chronic kidney disease, stage 4 (severe ); Z79.4 - assisted (current) use of insulin (8) Dyslipidemia Code(s): E78.5 - HYPERLIPIDEMIA, UNSPECIFIED Status: Chronic (9) Hypertension Code(s): I10 - ESSENTIAL (PRIMARY) HYPERTENSION Status: Chronic Qualifiers: Hypertension type: essential hypertension Qualified Code(s): I10 - Essential (primary) hypertension - Plan has pseudoaneursym and has sand bag placed over right groin cath site on asp, plavix, lipitor, coreg, isordil outpt HD has been set up at [facility] test was -ve hemostable dc plan per Cardiology adv, likely in am to see if his groin issue resolves.
--- NOTE | 2019-11-19 11:29 | ULT ---
PRELIMINARY REPORT/[facility]/AFTER HOURS PROCEDURE RIGHT LOWER EXTREMITY SOFT TISSUE ULTRASOUND: CLINICAL HISTORY: Swelling right groin s/p cath. Eval for pseudo. See notes on last image. Thanks. TECHNIQUE: Real-time ultrasound scan of the right lower extremity with image documentation. COMPARISON: None provided. FINDINGS: A pseudoaneurysm is noted in the RIGHT groin demonstrating a neck of 6.4 mm and an overall size of 1. 8 x 2.6 x 1.4 cm. SOFT TISSUES: No fluid collection to indicate a drainable abscess. IMPRESSION: Pseudoaneurysm in the RIGHT inguinal region. ELECTRONICALLY SIGNED BY: Gurdeep Maradiaga MD Nov 19, 2019 5:33:58 AM CDT This report is intended for review by the ordering physician only, in accordance of law. If you recei ve this report in error, please call [facility] at [phone]. FINAL REPORT EMERGENT AFTER HOURS ULTRASOUND RIGHT INGUINAL REGION: IMPRESSION: 1. Hypoechoic structure measuring 2.7 cm x 1.4 cm x 1.9 cm, with color-flow evaluation demonstrating flow within the base of this hypoechoic structure, which is anterior to the right common femoral joel ry. Findings are compatible with a partially thrombosed pseudoaneurysm. The pseudoaneurysm neck camelia ures approximately 0.6 cm in maximal dimension. 2. Findings are in agreement with the preliminary report by [facility]. CODE QA POS: OFF
--- NOTE | 2019-11-19 11:37 | ULT ---
LIMITED ULTRASOUND RIGHT INGUINAL REGION: HISTORY: Post compression of right common femoral artery pseudoaneurysm. COMPARISON: 11/19/2019 at 0502 hours. FINDINGS: Previously described hypoechoic structure in the right inguinal region, above the level of the common iliac artery and vein is again seen with a measurement of 2.5 cm x 0.8 cm x 1.7 cm. Measurements are slightly smaller compared to the prior exam. On this examination, no obvious flow is present within this hypoechoic structure suggesting interval thrombosis of the pseudoaneurysm. The pseudoaneurysm ne ck is not visualized on the provided sonographic images. IMPRESSION: Interval thrombosis of the right common femoral artery pseudoaneurysm. Follow-up evaluation is sugges jacki. POS: OFF
[2019-11-19] MEDS ORDERED: Dextrose 5% in Water 1,000 ML IV PRN (11:39)
[2019-11-19] MEDS ORDERED: Dextrose 50% Abboject 50 ML SYRINGE SLOW IVP PRN (11:39)
[2019-11-19] MEDS: HumaLOG 300 UNITS/3 ML VIAL SC PRN ×2 (13:31→18:35)
[2019-11-19] MEDS ORDERED: Insulin Glargine 16 UNITS in Pre-Filled Syringe 1 EACH SC SCH (21:00)
[2019-11-19] MEDS: Atorvastatin Calcium 20 MG TAB PO SCH (21:49)
--- NOTE | 2019-11-20 08:39 | ULT ---
EXAM: US PseudoAneurysm Brittanie Evl PROVIDED CLINICAL HISTORY: Follow-up pseudoaneurysm. Patient is post compression of pseudoaneurysm one day ago. COMPARISON: Studies on 11/19/2019 FINDINGS: As noted on the prior exam, there is an oval-shaped hypoechoic area with increased echogenicity seen internally within this hypoechoic area located just anterior to the right common femoral artery. The collection measures 2.3 cm x 0.8 cm x 1.5 cm with previous measurement of 2.5 cm x 0.8 cm x 1.7 c m. Color flow evaluation does not demonstrate flow within this structure again suggestive of a thrombosed pseudoaneurysm. Color flow evaluation does demonstrate flow within the right common femora l artery and vein. IMPRESSION: 1. Persistent thrombosed pseudoaneurysm right inguinal region with slight interval decrease in size c ompared to prior exam.
[2019-11-20] MEDS: Carvedilol 6.25 MG TAB PO SCH (08:44)
[2019-11-20] MEDS: Isosorbide Dinitrate 20 MG TAB PO SCH (08:44)
[2019-11-20] MEDS: Aspirin 81 mg Enteric Coated Tablet PO SCH (08:44)
[2019-11-20] MEDS: Benzonatate 100 MG CAP PO SCH ×2 (08:45→14:30)
[2019-11-20] MEDS: Heparin 5,000 UNITS/ML VIAL SC SCH ×2 (08:45→14:30)
[2019-11-20] MEDS: Loratadine 10 MG TAB PO SCH (08:45)
[2019-11-20] MEDS: Clopidogrel Bisulfate 75 MG TAB PO SCH (08:45)
[2019-11-20] MEDS: Ferrous Sulfate 325 MG TAB PO SCH (08:45)
[2019-11-20] MEDS ORDERED: Insulin Glargine 10 UNITS in Pre-Filled Syringe 1 EACH SC SCH (09:00)
--- NOTE | 2019-11-20 10:28 | PDOC.HOSPP ---
- Subjective Encounter Date: 11/20/19 Encounter Time: 08:30 Subjective: right groin pain is better, has not ambulated yet this am son at bedside - Objective Vital Signs & Weight: Vital Signs (12 hours) Temp Pulse Resp BP BP Pulse Ox 11/20/19 08:45 97 11/20/19 08:00 98.1 F 73 15 123/86 97 11/20/19 04:00 98.3 F 72 16 128/60 97 11/19/19 23:28 98.3 F 76 16 117/59 L 97 Weight Admit Weight 177 lb 0.499 oz Weight 169 lb 15.622 oz Most Recent Monitor Data Heart Rate from ECG 67 NIBP 160/111 NIBP BP-Mean 127 Respiration from ECG 17 SpO2 100 I&O: 11/19/19 11/20/19 11/21/19 06:59 06:59 06:59 Intake Total 360 1360 Output Total 600 475 Balance -240 885 Result Diagrams: 11/19/19 04:23 11/19/19 04:23 Additional Labs: Accuchecks 11/20/19 11/19/19 11/19/19 06:26 20:37 17:59 POC Glucose 171 H 199 H 284 H 11/19/19 11/19/19 13:31 10:57 POC Glucose 372 H 318 H Hospitalist ROS - Medication Medications: Active Medications Generic Name Dose Route Start Last Admin Trade Name Ciscoq PRN Reason Stop Dose Admin Aspirin 81 mg 11/10/19 09:00 11/20/19 08:44 Ecotrin PO 81 mg DAILY BONITA Administration Atorvastatin Calcium 20 mg 11/09/19 21:00 11/19/19 21:49 Lipitor PO 20 mg QPM BONITA Administration Benzonatate 100 mg 11/14/19 15:00 11/20/19 08:45 Tessalon PO 100 mg TID BONITA Administration Carvedilol 6.25 mg 11/09/19 21:00 11/20/19 08:44 Coreg PO 6.25 mg BID BONITA Administration Cholecalciferol 1,000 units 11/10/19 09:00 11/20/19 08:44 Vitamin D3 PO 1,000 units DAILY BONITA Administration Clopidogrel Bisulfate 75 mg 11/10/19 09:00 11/20/19 08:45 Plavix PO 75 mg DAILY BONITA Administration Fentanyl 25 mcg 11/19/19 06:53 11/19/19 06:59 Sublimaze SLOW IVP 25 mcg Q2H PRN Administration Severe Pain (7-10) Ferrous Sulfate 325 mg 11/10/19 09:00 11/20/19 08:45 Feosol PO 325 mg DAILY BONITA Administration Heparin Sodium (Porcine) 5,000 units 11/08/19 09:00 11/20/19 08:45 Heparin SC 5,000 units TID BONITA Administration Insulin Glargine 16 units/ 0.16 mls @ 0 mls/hr 11/19/19 21:00 11/19/19 21:50 Miscellaneous Medication SC 0.16 mls HS BONITA Administration Insulin Glargine 10 units/ 0.1 mls @ 0 mls/hr 11/20/19 09:00 11/20/19 08:45 Miscellaneous Medication SC 0.1 mls QAM BONITA Administration Insulin Human Lispro 0 units 11/19/19 11:39 11/19/19 18:35 Humalog SC 6 unit .MODERATE SLIDING SC PRN Administration Moderate Correctional Scale Isosorbide Dinitrate 40 mg 11/09/19 21:00 11/20/19 08:44 Isordil PO 40 mg BID BONITA Administration Lactulose 20 gm 11/16/19 11:30 11/17/19 21:02 Lactulose PO 20 gm DAILYPRN PRN Administration Constipation Loratadine 10 mg 11/15/19 09:00 11/20/19 08:45 Claritin PO 10 mg DAILY BONITA Administration Mirabegron 25 mg 11/10/19 09:00 11/20/19 08:44 Myrbetriq Er PO 25 mg DAILY BONITA Administration Ondansetron HCl 4 mg 11/07/19 22:18 11/13/19 11:46 Zofran IVP 4 mg Q6H PRN Administration Nausea/Vomiting Tramadol HCl 50 mg 11/14/19 10:50 11/19/19 06:43 Ultram PO 50 mg Q12H PRN Administration Pain 1-5 - Exam General Appearance: awake alert Eye: PERRL, anicteric sclera ENT: no oropharyngeal lesions, moist mucosa Neck: supple, no JVD Heart: RRR, no murmur Respiratory: no wheezes, no rales Gastrointestinal: soft, non-tender, non-distended, normal bowel sounds Extremities: no cyanosis, no edema Neurological: cranial nerve grossly intact, no focal deficits Psychiatric: normal affect, A&O x 3 Hosp A/P (1) CAD (coronary artery disease) Code(s): I25.10 - ATHSCL HEART DISEASE OF [place] CORONARY ARTERY W/O ANG PCTRS Status: Acute Qualifiers: Coronary Disease-Associated Artery/Lesion type: [place] artery [place] vs. transplanted heart: [place] heart Associated angina: without angina Qualified Code(s): I25.10 - Atherosclerotic heart disease of [place] coronary artery without angina pectoris (2) ESRD (end stage renal disease) on dialysis Code(s): N18.6 - END STAGE RENAL DISEASE; Z99.2 - DEPENDENCE ON RENAL DIALYSIS Status: Acute (3) Acute on chronic diastolic ACC/AHA stage C congestive heart failure Code(s): I50.33 - ACUTE ON CHRONIC DIASTOLIC (CONGESTIVE) HEART FAILURE Status : Resolved (4) Acute respiratory failure with hypoxia Code(s): J96.01 - ACUTE RESPIRATORY FAILURE WITH HYPOXIA Status: Resolved (5) Anxiety and depression Code(s): F41.9 - ANXIETY DISORDER, UNSPECIFIED; F32.9 - MAJOR DEPRESSIVE DISORDER, SINGLE EPISODE, UNSPECIFIED Status: Chronic (6) BPH (benign prostatic hyperplasia) Code(s): N40.0 - BENIGN PROSTATIC HYPERPLASIA WITHOUT LOWER URINRY TRACT SYMP Status: Chronic Qualifiers: Lower urinary tract symptom presence: symptoms absent Qualified Code(s): N40.0 - Benign prostatic hyperplasia without lower urinary tract symptoms (7) Diabetes type 2, controlled Code(s): E11.9 - TYPE 2 DIABETES MELLITUS WITHOUT COMPLICATIONS Status: Chronic Qualifiers: Diabetes mellitus rolling down machine operator insulin use: with fci use Diabetes mellitus complication status: with kidney complications Diabetes mellitus complication detail: with chronic kidney disease Chronic kidney disease stage : stage 4 (severe) Qualified Code(s): E11.22 - Type 2 diabetes mellitus with diabetic chronic kidney disease; N18.4 - Chronic kidney disease, stage 4 (severe ); Z79.4 - ancient art curator (current) use of insulin (8) Dyslipidemia Code(s): E78.5 - HYPERLIPIDEMIA, UNSPECIFIED Status: Chronic (9) Hypertension Code(s): I10 - ESSENTIAL (PRIMARY) HYPERTENSION Status: Chronic Qualifiers: Hypertension type: essential hypertension Qualified Code(s): I10 - Essential (primary) hypertension - Plan has pseudoaneursym over right groin cath site, appears like the size is stable and decreasing. had stent placed to IR. on asp, plavix, lipitor, coreg, isordil outpt HD has been set up at [facility] test was -ve hemostable dc plan per Cardiology adv. d/w patient and son at bedside
[2019-11-20 12:50] VITALS: TEMP 97.9
[2019-11-20] MEDS ORDERED: Bisacodyl 10 MG SUPP PR SCH (14:15)
--- NOTE | 2019-11-20 14:34 | PRG ---
DATE OF SERVICE: 11/20/2019 SUBJECTIVE: A 73-year-old gentleman, being seen for end-stage renal disease. The patient denied nausea, vomiting, or chest pain. OBJECTIVE: General: The patient is awake, alert. Vital Signs: Afebrile, pulse 75, breathing 16, blood pressure 114/63. HEENT: Head normocephalic and atraumatic. Eyes intact, no ulcers. Nose intact, no ulcers. Ears intact, no ulcers. Neck: Supple. No JVD. Chest: Symmetrical and clear. Cardiovascular: Shows S1 and S2, no rub, no murmur. Gastrointestinal: Abdomen is soft, bowel sounds positive. Extremities: Show no edema or ulcers. Skin: Shows no rash or petechiae. Musculoskeletal: Shows no joint swelling or stiffness. Genitourinary: Shows no [place] or CVA tenderness. Neurologic: Motor intact. Cranial nerves intact. LABORATORY DATA: Reviewed. ASSESSMENT AND PLAN: 1. Stage 6 chronic kidney disease, continue hemodialysis. 2. Hypertension, stable. 3. Anemia, stable. 4. Medication based on GFR appropriate. Job ID: [id number]
[2019-11-20 16:32] VITALS: BP 165/69
--- NOTE | 2019-11-21 12:55 | DIS ---
DATE OF ADMISSION: 11/07/2019 DATE OF DISCHARGE: 11/20/2019 DISCHARGE DISPOSITION: Home. PRIMARY DISCHARGE DIAGNOSES: New onset end-stage renal disease, on hemodialysis; coronary artery disease status post stent to intermediate ramus; right groin pseudoaneurysm at the cath site, stable; acute respiratory failure with hypoxia on arrival due to volume overload, resolved; acute on chronic CHF exacerbation with diastolic dysfunction, resolved; diabetes mellitus, type 2; benign prostatic hypertrophy; dyslipidemia and hypertension. PROCEDURES DONE DURING HOSPITALIZATION: The patient has had coronary angiogram done on 11/18/[address] Corley with placement of Synergy CANDY stent to mid intermediate ramus. Renal ultrasound done on 11/10/2019 showed small right renal cyst, mild cortical thinning and mild increased cortical echogenicity. He had right IJ cuffed tunneled hemodialysis catheter placed by Dr. Hodge on 11/11/2019. Blood cultures x2, no growth. Influenza A and B antigens were negative. Urine culture, no growth. LABORATORY FINDINGS: Discharge H and H are 11 and 32, platelet count 189, MCV is 84. Discharge BUN and creatinine are 49 and 4.2, serum bicarb of 22 on the . Albumin is 3.6 on the . COVID-19 PCR was negative. Hepatitis panel was nonreactive. DISCHARGE MEDICATIONS: 1. Aspirin 81 mg p.o. daily. 2. Plavix 75 mg p.o. daily. 3. Ferrous sulfate 325 mg p.o. daily. 4. Isosorbide dinitrate 40 mg twice daily. 5. Myrbetriq 25 mg p.o. daily. 6. Ultram 50 mg 4 times daily p.r.n. 7. Atorvastatin 20 mg p.o. q.p.m. 8. Coreg 6.25 mg twice daily. 9. Vitamin D3 of 1000 units p.o. daily. 10. Lantus 16 units subcu q.a.m. 11. Zofran p.r.n. ALLERGIES: ALLERGIC TO PENICILLIN. DISCHARGE PLAN: The patient to follow up with his primary care physician, Dr. Wes Avalos on 11/22/2019 at 11 a.m. He needs to follow up with [facility] in 3 to [address] Siddiqui in 2 weeks. BRIEF COURSE DURING HOSPITALIZATION: The patient initially got admitted on the with complaints of shortness of breath and cough. He had known history of CKD stage 4 disease and had severe volume overload. He was also intubated on arrival. The patient has had successful extubation done and was downgraded to telemetry. Due to worsening renal failure, the patient was initiated on hemodialysis. His volume overload has resolved. During the course of his stay here, the patient has had cardiac catheterization done by Dr. Corley with placement of stent to intermediate ramus. He has had pseudoaneurysm at the right groin site, the prior cardiac cath site in the femoral artery. He has had serial ultrasound done which showed stabilization of the thrombus in the pseudoaneurysm. Prior to discharge, he is ambulating and eating well. Outpatient hemodialysis has been set up. Please see a [id number] documentation for the day of discharge on [facility]. Job ID: [id number]
--- NOTE | 2019-11-22 05:59 | PQF ---
CRISTHIAN RODRIGUEZ VINAYA KUMAR MD [id number] [facility]-265 [id number] CLINICAL DOCUMENTATION CLARIFICATION FORM: POST DISCHARGE Addendum to original discharge summary date: ____ Late entry note date: __ DATE: 11/22/2019 ATTN: Saúl Laurent Please exercise your independent, professional judgment in responding to the clarification form. Clinical indicators are provided on the bottom of this form for your review In your clinical opinion based on clinical findings below, can you please identify the etiology of Volume overload if due to: Please check appropriate box(s): [ ] Acute CHF Exacerbation [ x ] ESRD [ ] Other diagnosis [ ] Unable to determine In addition, please specify: Present on Admission (POA): [x ] Yes [ ] No [ ] Unable to determine For continuity of documentation, please document condition throughout progress notes and discharge summary. Thank You. CLINICAL INDICATORS - SIGNS / SYMPTOMS / LABS Laboratory 11/06 Potassium 5.4, BUN 64, Creatinine 4.20, GFR 14, Glucose 224, Lactic acid 5.9, Troponin I 0.251, CK-MB 3.0, BNP 968.6 Vital signs 11/06 BP 207/83, Pulse 95, Resp 23 H&P p1 11/06 Dr Perrin On and Thursday, he started coughing and felt a little dizzy and then on Thursday, he noticed some difficulty breathing H&P p1 11/06 Dr Perrin they brought him to the ER, where he became hypoxic and chest x-ray showed bilateral pulmonary infiltrates H&P p1 11/06 Dr Perrin It is to mention that the pt does have advanced kidney disease H&P p2 11/06 Dr Perrin Acute respiratory failure with hypoxemia, I suspect due to pulmonary edema and this is related to his advance kidney disease H&P p3 11/06 Dr Perrin Elevated troponin. I suspect is a demand ischemia from the acute respiratory failure Cardio consult p1 11/07 Dr Campbell his BNP was elevated at 986, which would not be unusual with volume overload associated with his end-stage renal disease DS p1 11/19 Dr. Raines - acute respiratory failure with hypoxia on arrival due to volume overload RISK FACTORS ED notes p12 Acute Pulmonary Edema ED notes p12 Hypoxic, Respiratory failure H&P p1 11/06 73-year-old male H&P p1 11/06 HTN H&P p1 11/06 DM type 2 H&P p1 11/06 CAD H&P p1 11/06 hx of three heart attacks H&P p2 11/06 ESRD TREATMENTS: Admitte to ICU 11/06OCT 24 IV Lasix 40mg OCT 24 Heparin 1 vial [place] OCT 24 Plavix 75mg PO PICC for HD 11/17 Tunnelled Catheter insertion for HD 11/10 Hemodialysis 11/11 Respiratory Panel 11/06 Intubated on Mechanical Ventilator H&P p3 11/06 Conitnue trend his troponin Cardiology consult 11/07 Herb Lloyd Pulmonology Consult 11/07 Aron Shaw Nephrology Consult 11/07 Dr Siddiqui [facility] Cardiac Cath with CANDY insertion 11/17 Dr Campbell Collected 11/08 Chest Xray (This form is maintained as a part of the permanent medical record) 2014 [email or web address] All Rights Reserved [email or web address]
--- NOTE | 2019-11-22 06:00 | PQF ---
CRISTHIAN RODRIGUEZ VINAYA KUMAR MD [id number] [facility]- 265 [id number] CLINICAL DOCUMENTATION CLARIFICATION FORM: POST DISCHARGE Addendum to original discharge summary date: ____ Late entry note date: __ DATE: 11/22/2019 ATTN: Saúl Laurent Please exercise your independent, professional judgment in responding to the clarification form. Clinical indicators are provided on the bottom of this form for your review Please check appropriate box(s) to clarify if the following diagnosis has been ruled in or ruled out: Sepsis [ ] Ruled in diagnosis [ ] Continue to treat [ ] Resolved [ x ] Ruled out diagnosis [ ] Cannot rule out diagnosis [ ] Other diagnosis [ ] Unable to determine In addition, please specify: Present on Admission (POA): [ ] Yes [ ] No [ ] Unable to determine For continuity of documentation, please document condition throughout progress notes and discharge summary. Thank You. CLINICAL INDICATORS - SIGNS / SYMPTOMS / LABS Laboratory 11/06 WBC 15.1, BUN 64, Creatinine 4.20, GFR 14, Glucose 224, Lactic acid 5.9, Troponin I 0.251, CK-MB 3.0, BNP 968.6 CoVid-19 test 11/06 - Negative Vital signs 11/06 BP 207/83, Pulse 95, Resp 23 H&P p1 11/06 Dr Perrin On and thursday, he started coughing and felt a little dizzy and then on Thursday, he noticed some difficulty breathing H&P p1 11/06 Dr Perrin they brought him to the ER, where he became hypoxic and chest x-ray showed bilateral pulmonary infiltrates H&P p2 11/06 Dr Perrin Acute rspiratory failure with hypoxemia, I suspect due to pulmonary edema and this is related to his advance kidney disease H&P p3 11/06 Dr Perrin Also being treated for presumptive Pneumonia and also for rule out of CoVid-19, although this is much less likely Cardiology consult p1 11/07 Dr Campbell He was in hospital previously also, I believe last year with Pneumonia and at this time, i6t appears he also again has Pneumonia may be septic Cardiology consult p3 11/07 Dr Campbell abnormal cardiac enzymes, which may be refection of his underlying sepsis and also ESRD Hospitalist PN Consult p2 11/07 Dr. Siddiqui Acidosis RISK FACTORS H&P p1 11/06 73-year-old male H&P p1 11/06 HTN H&P p1 11/06 DM type 2 H&P p1 11/06 CAD Cardio p1 11/07 ESRD Consult p1 11/07 Presence of AV fistula CRISTHIAN BLACKMON VINAYA KUMAR MD [id number] [facility]- 265 [id number] CLINICAL DOCUMENTATION CLARIFICATION FORM: POST DISCHARGE Addendum to original discharge summary date: ____ Late entry note date: __ DATE: 11/22/2019 ATTN: Saúl Laurent Please exercise your independent, professional judgment in responding to the clarification form. Clinical indicators are provided on the bottom of this form for your review Please check appropriate box(s) to clarify if the following diagnosis has been ruled in or ruled out: Sepsis [ ] Ruled in diagnosis [ ] Continue to treat [ ] Resolved [ ] Ruled out diagnosis [ ] Cannot rule out diagnosis [ ] Other diagnosis [ ] Unable to determine In addition, please specify: Present on Admission (POA): [ ] Yes [ ] No [ ] Unable to determine For continuity of documentation, please document condition throughout progress notes and discharge summary. Thank You. CLINICAL INDICATORS - SIGNS / SYMPTOMS / LABS Laboratory 11/06 WBC 15.1, BUN 64, Creatinine 4.20, GFR 14, Glucose 224, Lactic acid 5.9, Troponin I 0.251, CK-MB 3.0, BNP 968.6 CoVid-19 test 11/06 - Negative Vital signs 11/06 BP 207/83, Pulse 95, Resp 23 H&P p1 11/06 Dr Perrin On and thursday, he started coughing and felt a little dizzy and then on Thursday, he noticed some difficulty breathing H&P p1 11/06 Dr Perrin they brought him to the ER, where he became hypoxic and chest x-ray showed bilateral pulmonary infiltrates H&P p2 11/06 Dr Perrin Acute respiratory failure with hypoxemia, I suspect due to pulmonary edema and this is related to his advance kidney disease H&P p3 11/06 Dr Perrin Also being treated for presumptive Pneumonia and also for rule out of CoVid-19, although this is much less likely Cardiology consult p1 11/07 Dr Campbell He was in hospital previously also, I believe last year with Pneumonia and at this time, i6t appears he also again has Pneumonia may be septic Cardiology consult p3 11/07 Dr Campbell abnormal cardiac enzymes, which may be refection of his underlying sepsis and also ESRD Hospitalist PN Consult p2 11/07 Dr. Siddiqui Acidosis RISK FACTORS H&P p1 11/06 73-year-old male H&P p1 11/06 HTN H&P p1 11/06 DM type 2 H&P p1 11/06 CAD Cardio p1 11/07 ESRD Consult p1 11/07 Presence of AV fistula TREATMENTS [place] to ICU 11/06OCT 24 IV Vancomycin 1.25 gm OCT 24 IV Cefepime 2gm OCT 24 IV Lasix 40mg Respiratory Panel 11/06 Intubated on Mechanical Ventilator Cardiology consult 11/07 Herb Lloyd Pulmonolgy Consult 11/07 Aron Shaw Nephrology Consult 11/07 Dr Siddiqui [facility] H&P p3 11/06 Isolation CoVid-19 test 11/06 (This form is maintained as a part of the permanent medical record) 2014 [employer] All Rights Reserved [email or web address] Admitte to ICU 11/06OCT 24 IV Vancomycin 1.25 gm OCT 24 IV Cefepime 2gm OCT 24 IV Lasix 40mg Respiratory Panel 11/06 Intubated on Mechanical Ventilator Cardiology consult 11/07 Herb Lloyd Pulmonology Consult 11/07 Aron Shaw Nephrology Consult 11/07 Christiano Cerna H&P p3 11/06 Isolation CoVid-19 test 11/06 (This form is maintained as a part of the permanent medical record) 2014 [employer] All Rights Reserved [email or web address]
== END 2019-11-20 17:07 | disposition home or self-care (01) | DRG 981 ==
LOC: ERS 19:04 → CCU 20:15 → 2NO 11-10 14:53
PROVIDERS: ADMIT Internal Medicine; ATTEND Internal Medicine
PROC: 5A1945Z Respiratory Ventilation, 24-96 Consecutive Hours (ICD-10-PCS; principal; 2019-11-07)
PROC: 0BH17EZ Insertion of Endotracheal Airway into Trachea, Via Natural or Artificial Opening (ICD-10-PCS; 2019-11-07)
PROC: 8E0ZXY6 Isolation (ICD-10-PCS; 2019-11-07)
PROC: 06HY33Z Insertion of Infusion Device into Lower Vein, Percutaneous Approach (ICD-10-PCS; 2019-11-08)
PROC: 0JH63XZ Insertion of Tunneled Vascular Access Device into Chest Subcutaneous Tissue and Fascia, Percutaneous Approach (ICD-10-PCS; 2019-11-11)
PROC: 02HV33Z Insertion of Infusion Device into Superior Vena Cava, Percutaneous Approach (ICD-10-PCS; 2019-11-11)
PROC: B518ZZA Fluoroscopy of Superior Vena Cava, Guidance (ICD-10-PCS; 2019-11-11)
PROC: 02HV33Z Insertion of Infusion Device into Superior Vena Cava, Percutaneous Approach (ICD-10-PCS; 2019-11-11)
PROC: B548ZZA Ultrasonography of Superior Vena Cava, Guidance (ICD-10-PCS; 2019-11-11)
PROC: 027034Z Dilation of Coronary Artery, One Artery with Drug-eluting Intraluminal Device, Percutaneous Approach (ICD-10-PCS; 2019-11-18)
PROC: 5A1D70Z Performance of Urinary Filtration, Intermittent, Less than 6 Hours Per Day (ICD-10-PCS; 2019-11-18)
PROC: 4A023N7 Measurement of Cardiac Sampling and Pressure, Left Heart, Percutaneous Approach (ICD-10-PCS; 2019-11-18)
PROC: B2111ZZ Fluoroscopy of Multiple Coronary Arteries using Low Osmolar Contrast (ICD-10-PCS; 2019-11-18)
PROC: B2151ZZ Fluoroscopy of Left Heart using Low Osmolar Contrast (ICD-10-PCS; 2019-11-18)
DX: J96.01 Acute respiratory failure with hypoxia (principal); N18.6 End stage renal disease; I21.A1 Myocardial infarction type 2; I50.43 Acute on chronic combined systolic (congestive) and diastolic (congestive) heart failure; I13.2 Hypertensive heart and chronic kidney disease with heart failure and with stage 5 chronic kidney disease, or end stage renal disease; N17.9 Acute kidney failure, unspecified; E87.2 Acidosis; E87.70 Fluid overload, unspecified; I25.10 Atherosclerotic heart disease of native coronary artery without angina pectoris; E11.22 Type 2 diabetes mellitus with diabetic chronic kidney disease; E78.5 Hyperlipidemia, unspecified; N40.0 Benign prostatic hyperplasia without lower urinary tract symptoms; I72.4 Aneurysm of artery of lower extremity; G47.33 Obstructive sleep apnea (adult) (pediatric); E87.5 Hyperkalemia; D63.1 Anemia in chronic kidney disease; F32.9 Major depressive disorder, single episode, unspecified; F41.9 Anxiety disorder, unspecified; K13.79 Other lesions of oral mucosa; I95.1 Orthostatic hypotension; R00.1 Bradycardia, unspecified; K59.00 Constipation, unspecified; Z88.0 Allergy status to penicillin; Z90.49 Acquired absence of other specified parts of digestive tract; Z79.899 Other long term (current) drug therapy; Z79.82 Long term (current) use of aspirin; Z78.1 Physical restraint status; Z99.2 Dependence on renal dialysis; Z79.02 Long term (current) use of antithrombotics/antiplatelets; Z79.4 Long term (current) use of insulin
CPT/HCPCS: 36415; 36416; 51702; 71045; 76000; 76770; 76936; 80048; 80053; 81003; 81015; 82550; 82553; 83605; 83880; 84100; 84484; 85007; 85014; 85018; 85025; 85027; 85049; 85347; 86580; 86704; 86706; 86803; 87040; 87086; 87340; 87804; 90935; 92928; 93005; 93010; 93458; 93798; 94003; 94760; 96365; 96366; 96368; 96375; 96376; 99152; 99153; C1752; C1769; C1874; C1887; C9600; G0257; J0692; J1642; J1644; J1815; J1940; J1956; J2250; J2405; J2704; J2997; J3010; J3370; J3490; J7050; Q9967; S0020; S0028; U0001

== ENCOUNTER 2020-02-06 14:53 | Observation (INO) | payer MEDICARE, MEDICAID ==
[2020-02-06 15:28] LABS: #Eosinphils 0.1 thou/uL (0.0-0.7); #Monocytes 0.3 thou/uL (0.11-0.59); #Neutrophils 3.2 thou/uL (1.40-6.50); %Basophils 0.1 % (0.0-1.0); %Eosinophils 2.2 % (0.0-10.0); %Lymphocytes 21.2 % (21.0-51.0); %Monocytes 7.3 % (0.0-10.0); %Neutrophils 69.3 % (42.0-75.0); Hemoglobin 11.5 g/dL (14.0-18.0); Mean Corpuscular HGB CONC 32.8 g/dL (32.0-36.0); Mean Corpuscular Hemoglobin 29.3 pg (27.0-31.0); Mean Corpuscular Volume 89.2 fL (78.0-98.0); Mean Platelet Volume 8.5 fL (7.4-10.4); Platelet Count 171 thou/uL (130-400); RBC Distribution Width 12.5 % (11.5-14.5); Red Blood Cell (RBC) Count 3.92 mill/uL (4.70-6.10); White Blood Cell (WBC) Count 4.7 thou/uL (4.8-10.8)
[2020-02-06 15:48] LABS: ALT (SGPT) 25 U/L (8-55); AST (SGOT) 21 U/L (5-34); Alkaline Phosphatase 113 U/L (40-110); Anion Gap 12 mmol/L (10-20); BUN (Urea Nitrogen) 51 mg/dL (8.4-25.7); Bilirubin, Total 0.3 mg/dL (0.2-1.2); Calc. Creatinine Clearance 0 mL/min (70-130); Calcium 8.7 mg/dL (7.8-10.44); Carbon Dioxide 29 mmol/L (23-31); Chloride 100 mmol/L (98-107); Estimated GFR-MDRD 15; Globulin 2.9 g/dL (2.4-3.5); Glucose 300 mg/dL (83-110); Potassium 4.2 mmol/L (3.5-5.1); Protein, Total 6.9 g/dL (5.8-8.1); Sodium 137 mmol/L (136-145)
[2020-02-06] MEDS ORDERED: Pantoprazole 40 MG VIAL ONE (16:18)
[2020-02-06] MEDS ORDERED: Nitroglycerin 2% Ointment 1 INCH/1 GM Packet ONE (17:12)
[2020-02-06] MEDS ORDERED: Ondansetron PF 4 MG/2 ML Vial IVP PRN (18:19)
[2020-02-06] MEDS ORDERED: Ondansetron ODT 4 MG TAB SL PRN (18:19)
[2020-02-06] MEDS ORDERED: Pantoprazole 80 MG, Admixture Fee 1 EACH in Sodium Chloride 0.9% 100 ML IVPB SCH (18:30)
[2020-02-06] MEDS ORDERED: Acetaminophen 325 MG TAB PO PRN (19:22)
[2020-02-06] MEDS ORDERED: Dextrose 50% Abboject 50 ML SYRINGE SLOW IVP PRN (19:22)
[2020-02-06] MEDS ORDERED: Dextrose 5% in Water 1,000 ML IV PRN (19:22)
[2020-02-06] MEDS ORDERED: HumaLOG 300 UNITS/3 ML VIAL SC PRN (19:22)
[2020-02-06 21:27] VITALS: BMI 25.7
--- NOTE | 2020-02-06 21:58 | PDOC.HHP ---
Hospitalist HPI - History of Present Illness rectal bleeding History of Present Illness: Mr Cortez is a very pleasant 74 year old male with a PMH significant for DM II , ESRD on dialysis, and HTN. He had a few days of very dark stools earlier this week and then this morning he noticed bright red drops of blood in the toilet with his bowel movement. He states that he was on a diabetic vitamin (unknown name) and he stopped it when he noticed the dark stool thinking it may have contributed to it. He does take aspirin and Plavix as home medications. He denies diarrhea, sick contacts, abdominal pain, chest pain, or urinary symptoms. He missed his regularly scheduled dialysis treatment this morning to come to the ER. In 2013, he had two bleeding polyps which were fixed after he had dark stools such as what he had this week. PCP: Patient does not remember his PCP name ED Course: Today in the ER they completed lab work, EKG, and a stool guiac test. He had a nitro patch placed for his elevated blood pressure and was given Protonix IVP. His stool guaic test was positive. His hemoglobin and hematocrit are at their baseline. Dr Nury arroyo nephro has been consulted regarding his missed dialysis treatment and GI was consulted regarding his possible GI bleed. Hospitalist ROS - Review of Systems Constitutional: denies: fever, chills, sweats, weakness, malaise, other Eyes: denies: pain, vision change, conjunctivae inflammation, eyelid inflammation, redness, other ENT: denies: ear pain, ear discharge, nose pain, nose discharge, nose congestion , mouth pain, mouth swelling, throat pain, throat swelling, other Respiratory: denies: cough, dry, shortness of breath, hemoptysis, SOB with excertion, pleuritic pain, sputum, wheezing, other Cardiovascular: denies: chest pain, palpitations, orthopnea, paroxysmal noc. dyspnea, edema, light headedness, other Gastrointestinal: reports: melena, hematochezia Genitourinary: denies: dysuria, frequency, incontinence, hematuria, retention, other Musculoskeletal: denies: neck pain, shoulder pain, arm pain, back pain, hand pain, leg pain, foot pain, other Skin: denies: rash, lesions, eli, bruising, other Neurological: denies: weakness, numbness, incoordination, change in speech, confusion, seizures, other All other systems reviewed; all pertinent +/- noted in HPI/Subj - Medication Medications: Allergy: PCN Active Medications Generic Name Dose Route Start Last Admin Trade Name Brittni PRN Reason Stop Dose Admin Pantoprazole Sodium 80 mg/ 100 mls @ 10 mls/hr 02/06/20 18:30 02/06/20 21:36 Miscellaneous Medication 1 IVPB 100 mls each/ Sodium Chloride INF BONITA Administration Home Medications: gathered from ER records, patient does not know medications Myrbetriq ThuFeb 06, 2020 15:52 ABHIJIT Hernandez Anna TABLET, EXTENDED RELEASE 24 HR : Strength - 25 mg : ORAL Patient Dose: 1 tab(s) Oral once a day. aspirin oral ThuFeb 06, 2020 15:52 ABHIJIT Hernandez Anna TABLET : Strength - 81 mg : ORAL Patient Dose: 81 mg Oral once a day. clopidogrel ThuFeb 06, 2020 15:52 ABHIJIT Hernandez Anna TABLET : Strength - 75 mg : ORAL Patient Dose: 75 mg once a day. atorvastatin ThuFeb 06, 2020 15:53 ABHIJIT Hernandez Anna tablet : Strength - 20 mg : ORAL Patient Dose: Unknown. 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 MANAGER: reports: no pertinent history Gastrointestinal: reports: GI bleed (2013) Heme/Onc: reports: no pertinent history Hepatobiliary: reports: no pertinent history Psych: reports: no pertinent history Musculoskeletal: reports: no pertinent history Rheumatologic: reports: no pertinent history Infectious Disease: reports: no pertinent history ENT: reports: no pertinent history Renal/: reports: Chronic renal insuff (dialysis) Endocrine: reports: Diabetes Dermatology: reports: no pertinent history - Past Surgical History Past Surgical History: reports: Appendectomy - Family History Family History: reports: no pertinent history - Social History Smoking Status: Never smoker Alcohol: reports: None Drugs: reports: none Living Situation: With Family Occupation: disabled Activity level: independent ambulation - Exam General Appearance: NAD, awake alert Eye: PERRL, anicteric sclera ENT: normocephalic atraumatic, moist mucosa Neck: supple, symmetric, no JVD, no lymphadenopathy Heart: RRR, no murmur, no gallops, no rubs Respiratory: CTAB, no wheezes, no rales, no ronchi Gastrointestinal: soft, non-tender, non-distended, normal bowel sounds Extremities: no cyanosis, no edema Skin: normal turgor Neurological: no focal deficits Psychiatric: normal affect, normal behavior Hospitalist Results - Labs Result Diagrams: 02/07/20 01:19 02/06/20 15:14 Lab results: WBC 4.7 thou/uL (4.8-10.8) L 02/06/20 15:14 Hgb 11.5 g/dL (14.0-18.0) L 02/06/20 15:14 Hct 35.0 % (42.0-52.0) L 02/06/20 15:14 MCV 89.2 fL (78.0-98.0) 02/06/20 15:14 Plt Count 171 thou/uL (130-400) 02/06/20 15:14 Neutrophils % 69.3 % (42.0-75.0) 02/06/20 15:14 Sodium 137 mmol/L (136-145) 02/06/20 15:14 Potassium 4.2 mmol/L (3.5-5.1) 02/06/20 15:14 Chloride 100 mmol/L (98-107) 02/06/20 15:14 Carbon Dioxide 29 mmol/L (23-31) 02/06/20 15:14 BUN 51 mg/dL (8.4-25.7) H 02/06/20 15:14 Creatinine 3.85 mg/dL (0.7-1.3) H 02/06/20 15:14 Glucose 300 mg/dL (83-110) H 02/06/20 15:14 Calcium 8.7 mg/dL (7.8-10.44) 02/06/20 15:14 Total Bilirubin 0.3 mg/dL (0.2-1.2) 02/06/20 15:14 AST 21 U/L (5-34) 02/06/20 15:14 ALT 25 U/L (8-55) 02/06/20 15:14 Alkaline Phosphatase 113 U/L (40-110) H 02/06/20 15:14 Serum Total Protein 6.9 g/dL (5.8-8.1) 02/06/20 15:14 Albumin 4.0 g/dL (3.4-4.8) 02/06/20 15:14 - EKG Interpretation EKG: SB 1st deg AVB Rate: 57 Hospitalist H&P A/P - Problem (1) GI bleed Code(s): K92.2 - GASTROINTESTINAL HEMORRHAGE, UNSPECIFIED Status: Acute (2) Diabetes mellitus, type 2 Status: Chronic Qualifiers: Diabetes mellitus energy economist insulin use: with half-way use Diabetes mellitus complication status: with kidney complications Diabetes mellitus complication detail: with chronic kidney disease Chronic kidney disease stage : on chronic dialysis Qualified Code(s): E11.22 - Type 2 diabetes mellitus with diabetic chronic kidney disease; N18.6 - End stage renal disease; Z79.4 - shelter (current) use of insulin; Z99.2 - Dependence on renal dialysis (3) ESRD (end stage renal disease) on dialysis Code(s): N18.6 - END STAGE RENAL DISEASE; Z99.2 - DEPENDENCE ON RENAL DIALYSIS Status: Chronic (4) Hypertension Code(s): I10 - ESSENTIAL (PRIMARY) HYPERTENSION Status: Chronic Qualifiers: Hypertension type: essential hypertension Qualified Code(s): I10 - Essential (primary) hypertension - Plan Plan: GI Bleed: Consult GI Trend H/H Protonix gtt NPO after midnight Hold ASA and Plavix for now SCDs for VTE proph., hold other anticoagulants ESRD on dialysis: Consult nephro Missed today's treatment, Dr. Arrington aware of pt. HTN: stable at this time, restart home medications once reconciled DM II: monitor ACHS accucheks, mild SSI humalog Full Code Surrogate decision maker: Chuy, daughter,
[2020-02-06 22:42] LABS: HBSAg Index 0.16 S/CO (0-0.99); Hep B Surf Ag Non-Reactive S/CO (NonReactive)
[2020-02-07 01:25] LABS: Hemoglobin 12.1 g/dL (14.0-18.0)
[2020-02-07] MEDS ORDERED: Sodium Chloride 0.9% (PF) 10 ML VIAL FS PRN (02:20)
[2020-02-07 05:51] LABS: #Eosinphils 0.2 thou/uL (0.0-0.7); #Lymphocytes 1.3 thou/uL (1.20-3.40); #Monocytes 0.6 thou/uL (0.11-0.59); #Neutrophils 4.2 thou/uL (1.40-6.50); %Basophils 0.6 % (0.0-1.0); %Eosinophils 2.9 % (0.0-10.0); %Lymphocytes 20.8 % (21.0-51.0); %Monocytes 8.8 % (0.0-10.0); Hemoglobin 10.9 g/dL (14.0-18.0); Mean Corpuscular HGB CONC 31.5 g/dL (32.0-36.0); Mean Corpuscular Hemoglobin 27.9 pg (27.0-31.0); Mean Corpuscular Volume 88.5 fL (78.0-98.0); Mean Platelet Volume 8.7 fL (7.4-10.4); Platelet Count 174 thou/uL (130-400); RBC Distribution Width 12.6 % (11.5-14.5); Red Blood Cell (RBC) Count 3.92 mill/uL (4.70-6.10); White Blood Cell (WBC) Count 6.3 thou/uL (4.8-10.8)
[2020-02-07 06:10] LABS: Anion Gap 13 mmol/L (10-20); BUN (Urea Nitrogen) 19 mg/dL (8.4-25.7); Calc. Creatinine Clearance 31 mL/min (70-130); Calcium 8.5 mg/dL (7.8-10.44); Carbon Dioxide 27 mmol/L (23-31); Chloride 100 mmol/L (98-107); Estimated GFR-MDRD 29; Glucose 95 mg/dL (83-110); Potassium 3.1 mmol/L (3.5-5.1); Sodium 137 mmol/L (136-145)
--- NOTE | 2020-02-07 08:25 | PDOC.HOSPP ---
- Subjective Encounter Date: 02/07/20 Encounter Time: 13:00 Subjective: Patient with one BM this AM with a few drops of fresh blood, denies further melena. No abdominal pain. - Objective Vital Signs & Weight: Vital Signs (12 hours) Temp Pulse Resp BP BP Pulse Ox 02/07/20 07:22 97.4 F L 61 14 127/60 97 02/07/20 03:00 97.9 F 58 L 14 125/59 L 98 02/07/20 01:10 97.8 F 59 L 20 136/64 100 Weight Weight 167 lb 15.876 oz I&O: 02/06/20 02/07/20 02/08/20 06:59 06:59 06:59 Intake Total 306 Output Total 50 Balance 256 Result Diagrams: 02/07/20 05:41 02/07/20 05:41 Additional Labs: Accuchecks 02/07/20 05:59 POC Glucose 107 Hospitalist ROS - Review of Systems Constitutional: denies: fever, chills Respiratory: denies: cough, shortness of breath Cardiovascular: denies: chest pain, palpitations, orthopnea Gastrointestinal: reports: hematochezia. denies: nausea, vomiting, abdominal pain, melena Neurological: denies: weakness - Exam General Appearance: NAD, awake alert ENT: moist mucosa Heart: RRR, no murmur, no gallops, no rubs Respiratory: CTAB, no wheezes, no rales, no ronchi Gastrointestinal: soft, non-tender, non-distended, normal bowel sounds Psychiatric: normal affect, normal behavior, A&O x 3 Hosp A/P (1) GI bleed Code(s): K92.2 - GASTROINTESTINAL HEMORRHAGE, UNSPECIFIED Status: Acute (2) Diabetes mellitus, type 2 Status: Chronic Qualifiers: Diabetes mellitus intermediate designer insulin use: with jail use Diabetes mellitus complication status: with kidney complications Diabetes mellitus complication detail: with chronic kidney disease Chronic kidney disease stage : on chronic dialysis Qualified Code(s): E11.22 - Type 2 diabetes mellitus with diabetic chronic kidney disease; N18.6 - End stage renal disease; Z79.4 - custodial (current) use of insulin; Z99.2 - Dependence on renal dialysis (3) CAD (coronary artery disease) Code(s): I25.10 - ATHSCL HEART DISEASE OF [place] CORONARY ARTERY W/O ANG PCTRS Status: Chronic Qualifiers: Coronary Disease-Associated Artery/Lesion type: [place] artery [place] vs. transplanted heart: [place] heart Associated angina: without angina Qualified Code(s): I25.10 - Atherosclerotic heart disease of [place] coronary artery without angina pectoris (4) Hypokalemia Code(s): E87.6 - HYPOKALEMIA Status: Acute (5) Anxiety and depression Code(s): F41.9 - ANXIETY DISORDER, UNSPECIFIED; F32.9 - MAJOR DEPRESSIVE DISORDER, SINGLE EPISODE, UNSPECIFIED Status: Chronic (6) BPH (benign prostatic hyperplasia) Code(s): N40.0 - BENIGN PROSTATIC HYPERPLASIA WITHOUT LOWER URINRY TRACT SYMP Status: Chronic Qualifiers: Lower urinary tract symptom presence: symptoms absent Qualified Code(s): N40.0 - Benign prostatic hyperplasia without lower urinary tract symptoms (7) ESRD (end stage renal disease) on dialysis Code(s): N18.6 - END STAGE RENAL DISEASE; Z99.2 - DEPENDENCE ON RENAL DIALYSIS Status: Chronic (8) Hypertension Code(s): I10 - ESSENTIAL (PRIMARY) HYPERTENSION Status: Chronic Qualifiers: Hypertension type: essential hypertension Qualified Code(s): I10 - Essential (primary) hypertension - Plan GI Bleed: Consulted GI- likely EGD in the morning per patient's discussion with the retirement sales consultant Trend H/H- relatively stable this morning, down less than a point from baseline Protonix gtt NPO after midnight Hold ASA and Plavix for now SCDs for VTE proph., hold other anticoagulants ESRD on dialysis: Consulted nephro Dr. Arrington following HTN: restarted home medications DM II: monitor ACHS accucheks, mild SSI humalog, holding Lantus due to NPO and blood sugar normal this morning Full Code Surrogate decision maker: Chuy, daughter,
[2020-02-07] MEDS: Pantoprazole 40 MG VIAL IVP SCH ×3 (09:48→21:18)
[2020-02-07] MEDS: Carvedilol 6.25 MG TAB PO SCH ×2 (09:48→21:16)
[2020-02-07] MEDS: Ferrous Sulfate 325 MG TAB PO SCH (09:48)
[2020-02-07] MEDS: HumaLOG 300 UNITS/3 ML VIAL SC PRN ×2 (12:07→18:12)
--- NOTE | 2020-02-07 13:11 | PRG ---
DATE OF SERVICE: 02/07/2020 SUBJECTIVE: A 74-year-old gentleman being seen for end-stage renal disease. The patient denies nausea, vomiting, or chest pain. PHYSICAL EXAMINATION: GENERAL: The patient is awake and alert. VITAL SIGNS: Afebrile, pulse 61, breathing at 16, blood pressure 127/60. HEENT: Head normocephalic and atraumatic. Eyes intact, no ulcers. Nose intact, no ulcers. Ears intact, no ulcers. NECK: Supple. No JVD. CHEST: Symmetrical and clear. CARDIOVASCULAR: Shows S1 and S2, no rub, no murmur. GASTROINTESTINAL: Abdomen is soft, bowel sounds positive. EXTREMITIES: Show no edema or ulcers. SKIN: Shows no rash or petechiae. MUSCULOSKELETAL: Shows no joint swelling or stiffness. GENITOURINARY: Shows no [place] or CVA tenderness. NEUROLOGIC: Motor intact. Cranial nerves intact. LABORATORY DATA: Show hemoglobin 10.9. ASSESSMENT AND PLAN: 1. Stage 6 chronic kidney disease, stable. 2. Hypertension, stable. 3. Anemia, stable. 4. Medication based on GFR appropriate. Job ID: [id number]
--- NOTE | 2020-02-07 15:36 | CON ---
DATE OF CONSULTATION: 02/06/2020 HISTORY: This is a 74-year-old gentleman, who presented to the hospital with rectal bleeding. He does dialysis on Thursday, Thursday, and Thursday. The patient denies any nausea, vomiting, or chest pain. PAST MEDICAL HISTORY: Significant for hypertension, coronary artery disease, appendectomy, congestive heart failure, tunneled dialysis catheter, AV fistula. SOCIOECONOMIC HISTORY: No alcohol or drug use. FAMILY HISTORY: Negative for ESRD. ALLERGIES: REVIEWED. MEDICATIONS: Home medications list reviewed. Hospital medications list reviewed. REVIEW OF SYSTEMS: Fifteen-point review of system was performed and negative except for positives noted above. HEENT: Eyes intact, no diplopia. Ears: No hearing loss or earache. Nose: No discharge or bleeding. CHEST: No cough or phlegm. ABDOMEN: No nausea or vomiting. GENITOURINARY: No hematuria. No [place] catheter. MUSCULOSKELETAL: No low back pain. No joint swelling or pain. NEUROLOGICAL: No syncope. No seizures. SKIN: No complaints of rash or itching. PSYCHIATRIC: No depression. CONSTITUTIONAL: No weight loss or loss of appetite. PHYSICAL EXAMINATION: GENERAL: On examination, the patient is awake and alert. VITAL SIGNS: Afebrile, pulse 75, breathing is 16, and blood pressure was 160/ 100. HEENT: Head normocephalic and atraumatic. Eyes intact, no ulcers. Nose intact , no ulcers. Ears intact, no ulcers. NECK: Supple. No JVD. CHEST: Symmetrical and clear. CARDIOVASCULAR: Shows S1 and S2, no rub, no murmur. GASTROINTESTINAL: Abdomen is soft, bowel sounds positive. EXTREMITIES: Show no edema or ulcers. SKIN: Shows no rash or petechiae. MUSCULOSKELETAL: Shows no joint swelling or stiffness. GENITOURINARY: Shows no [place] or CVA tenderness. NEUROLOGIC: Motor intact. Cranial nerves intact. LABORATORY DATA: Reviewed. ASSESSMENT AND PLAN: 1. Stage 6 chronic kidney disease. Plan dialysis today. 2. Hypertension. Plan dialysis. 3. Anemia, stable. 4. Medications based on GFR are appropriate. Job ID: [id number] MTDD
[2020-02-07] MEDS: Atorvastatin Calcium 20 MG TAB PO SCH (21:16)
[2020-02-08 04:32] LABS: #Basophils 0.1 thou/uL (0.0-0.2); #Eosinphils 0.1 thou/uL (0.0-0.7); #Lymphocytes 1.4 thou/uL (1.20-3.40); #Monocytes 0.5 thou/uL (0.11-0.59); #Neutrophils 3.1 thou/uL (1.40-6.50); %Basophils 1.4 % (0.0-1.0); %Eosinophils 2.7 % (0.0-10.0); %Lymphocytes 26.6 % (21.0-51.0); %Neutrophils 59.3 % (42.0-75.0); Hemoglobin 11.8 g/dL (14.0-18.0); Mean Corpuscular HGB CONC 34.1 g/dL (32.0-36.0); Mean Corpuscular Hemoglobin 30.2 pg (27.0-31.0); Mean Corpuscular Volume 88.6 fL (78.0-98.0); Mean Platelet Volume 8.5 fL (7.4-10.4); Platelet Count 163 thou/uL (130-400); RBC Distribution Width 12.5 % (11.5-14.5); White Blood Cell (WBC) Count 5.2 thou/uL (4.8-10.8)
[2020-02-08 04:50] LABS: Anion Gap 16 mmol/L (10-20); BUN (Urea Nitrogen) 34 mg/dL (8.4-25.7); Calc. Creatinine Clearance 21 mL/min (70-130); Calcium 8.6 mg/dL (7.8-10.44); Carbon Dioxide 26 mmol/L (23-31); Chloride 101 mmol/L (98-107); Estimated GFR-MDRD 19; Glucose 104 mg/dL (83-110); Potassium 3.5 mmol/L (3.5-5.1); Sodium 139 mmol/L (136-145)
--- NOTE | 2020-02-08 05:39 | CON ---
DATE OF CONSULTATION: 02/07/2020 CHIEF COMPLAINT: Blood in the stool. HISTORY OF PRESENT ILLNESS: Mr. Cortez is a 74-year-old man, who presented with a 3-day history of red bloody stool, several times per day over the last 3 days. His last episode was last night. He has been passing some red blood with stool and then some just red liquidy blood by itself. He has had no abdominal pain associated with this. He has had a headache over the last day. No nausea or vomiting. No preceding diarrhea or constipation. His weight has been stable. He has been on aspirin and Plavix at home. He had no fever associated with this. PAST MEDICAL HISTORY: Diabetes mellitus; hypertension; hyperlipidemia; end-stage renal disease, on dialysis. He had four colon polyps removed back in June of 2018, which were small and benign adenomas. PAST SURGICAL HISTORY: Appendectomy. FAMILY HISTORY: Negative for GI malignancy. SOCIAL HISTORY: No alcohol, tobacco, or drugs. ALLERGIES: PENICILLIN. OUTPATIENT MEDICATIONS: Include, 1. Insulin. 2. Mirabegron. 3. Ferrous sulfate. 4. Clopidogrel 75 mg daily. 5. Cholecalciferol. 6. Carvedilol. 7. Atorvastatin. 8. Aspirin 81 mg daily. REVIEW OF SYSTEMS: Negative x10 systems reviewed except as stated in the History of Present Illness. PHYSICAL EXAMINATION: VITAL SIGNS: Temperature 98.3, pulse 67, and blood pressure 135/61. GENERAL: He is in no acute distress. Alert and oriented x3. Primarily Japanese speaking and daughter is with him to help translate. HEENT: Eyes have no scleral icterus. Oropharynx is clear without lesions. No cervical or supraclavicular lymphadenopathy. LUNGS: Clear to auscultation bilaterally. HEART: Regular rate and rhythm without murmur. ABDOMEN: Soft, nontender, nondistended, bowel sounds present. EXTREMITIES: 1+ pitting lower extremity edema. LABORATORY DATA: White blood cell count 6.3, hemoglobin is 10.9, his baseline hemoglobin is around 11 chronically, platelet count of 174. Creatinine 2.23, bilirubin 0.3, AST 21, ALT 25, alkaline phosphatase 113, albumin 4.0. IMPRESSION: 1. Gastrointestinal bleed, presenting with multiple episodes of hematochezia. He has had 4 polyps removed from his colon back in June of 2018, but nothing that would explain the obvious hematochezia at this time. His bleeding sounds to be more diverticular in origin, but no diverticulosis was commented on previous endoscopy report. He could have ischemic colitis or hemorrhoidal bleeding. More proximal source is also possible. He did have endoscopy back in 2012, that showed a mass in the stomach, for which he underwent wedge resection from the gastric body. 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 Back in June 2018, he had endoscopy that showed the scar from the previous surgery and small Wilbert gland hyperplasia. Duodenal polyp was removed. Given his history of vascular mass causing bleeding in the past, I think a repeat upper endoscopy would be reasonable. If upper and lower endoscopies are negative for bleeding source, then capsule endoscopy might also be considered. Hemoglobin, however, is pretty stable. I will check iron studies. He is on dialysis could have multifactorial anemia. 2. Anemia. RECOMMENDATIONS: 1. EGD and colonoscopy tomorrow. 2. Check iron studies. 3. If upper and lower endoscopies are negative, then capsule endoscopy could be considered . Job ID: [id number]
--- NOTE | 2020-02-08 12:04 | PDOC.HOSPP ---
- Subjective Encounter Date: 02/08/20 Encounter Time: 08:30 Subjective: Patient seen and examined. No new complaints. No overnight events - Objective Vital Signs & Weight: Vital Signs (12 hours) Temp Pulse Resp BP Pulse Ox 02/08/20 07:36 97.5 F L 59 L 16 150/67 H 98 02/08/20 04:00 98.0 F 57 L 18 151/67 H Weight Weight 169 lb 1.6 oz I&O: 02/07/20 02/08/20 02/09/20 06:59 06:59 06:59 Intake Total 306 720 Output Total 50 0 Balance 256 720 Result Diagrams: 02/08/20 03:55 02/08/20 03:55 Additional Labs: Accuchecks 02/08/20 02/08/20 02/07/20 10:57 05:28 20:41 POC Glucose 110 117 H 159 H 02/07/20 17:09 POC Glucose 291 H Radiology Reviewed by me: Yes EKG Reviewed by me: Yes Hospitalist ROS - Review of Systems ENT: denies: ear pain, ear discharge, nose pain, nose discharge, nose congestion , mouth pain, mouth swelling, throat pain, throat swelling, other Respiratory: denies: cough, dry, shortness of breath, hemoptysis, SOB with excertion, pleuritic pain, sputum, wheezing, other Cardiovascular: denies: chest pain, palpitations, orthopnea, paroxysmal noc. dyspnea, edema, light headedness, other Gastrointestinal: denies: nausea, vomiting, abdominal pain, diarrhea, constipation, melena, hematochezia, other Genitourinary: denies: dysuria, frequency, incontinence, hematuria, retention, other Musculoskeletal: denies: neck pain, shoulder pain, arm pain, back pain, hand pain, leg pain, foot pain, other - Medication Medications: Active Medications Generic Name Dose Route Start Last Admin Trade Name Freq PRN Reason Stop Dose Admin Atorvastatin Calcium 20 mg 02/07/20 21:00 02/07/20 21:16 Lipitor PO 20 mg QPM [facility] Administration Carvedilol 6.25 mg 02/07/20 09:00 02/07/20 21:16 Coreg PO 6.25 mg BID [facility] Administration Cholecalciferol 1,000 units 02/07/20 09:00 02/07/20 09:48 Vitamin D3 PO 1,000 units DAILY [facility] Administration Ferrous Sulfate 325 mg 02/07/20 09:00 02/07/20 09:48 Feosol PO 325 mg DAILY [facility] Administration Insulin Human Lispro 0 units 02/06/20 19:22 02/07/20 18:12 Humalog SC 4 unit .MILD SLIDING SCALE PRN Administration Mild Correctional Scale Mirabegron 25 mg 02/07/20 09:00 02/07/20 10:28 Myrbetriq Er PO 25 mg DAILY [facility] Administration Pantoprazole Sodium 40 mg 02/07/20 09:00 02/07/20 21:18 Protonix IVP 40 mg Q12HR [facility] Administration - Exam General Appearance: NAD, awake alert Eye: PERRL, anicteric sclera ENT: normocephalic atraumatic, no oropharyngeal lesions Neck: supple, symmetric, no JVD Heart: RRR, no murmur, no gallops, no rubs Respiratory: CTAB, no wheezes, no rales, no ronchi Gastrointestinal: soft, non-tender, non-distended, normal bowel sounds Extremities: no cyanosis, no clubbing Skin: normal turgor, no lesions Neurological: no focal deficits Musculoskeletal: normal tone, normal strength Psychiatric: normal affect, normal behavior Hosp A/P (1) GI bleed Code(s): K92.2 - GASTROINTESTINAL HEMORRHAGE, UNSPECIFIED Status: Acute (2) Chronic diastolic (congestive) heart failure Code(s): I50.32 - CHRONIC DIASTOLIC (CONGESTIVE) HEART FAILURE Status: Chronic (3) Diabetes mellitus, type 2 Status: Chronic Qualifiers: Diabetes mellitus medical terminologist insulin use: with medical terminologist use Diabetes mellitus complication status: with kidney complications Diabetes mellitus complication detail: with chronic kidney disease Chronic kidney disease stage : on chronic dialysis Qualified Code(s): E11.22 - Type 2 diabetes mellitus with diabetic chronic kidney disease; N18.6 - End stage renal disease; Z79.4 - group home (current) use of insulin; Z99.2 - Dependence on renal dialysis (4) Anxiety and depression Code(s): F41.9 - ANXIETY DISORDER, UNSPECIFIED; F32.9 - MAJOR DEPRESSIVE DISORDER, SINGLE EPISODE, UNSPECIFIED Status: Chronic (5) BPH (benign prostatic hyperplasia) Code(s): N40.0 - BENIGN PROSTATIC HYPERPLASIA WITHOUT LOWER URINRY TRACT SYMP Status: Chronic Qualifiers: Lower urinary tract symptom presence: symptoms absent Qualified Code(s): N40.0 - Benign prostatic hyperplasia without lower urinary tract symptoms (6) CAD (coronary artery disease) Code(s): I25.10 - ATHSCL HEART DISEASE OF [place] CORONARY ARTERY W/O ANG PCTRS Status: Chronic Qualifiers: Coronary Disease-Associated Artery/Lesion type: [place] artery [place] vs. transplanted heart: [place] heart Associated angina: without angina Qualified Code(s): I25.10 - Atherosclerotic heart disease of [place] coronary artery without angina pectoris (7) Dyslipidemia Code(s): E78.5 - HYPERLIPIDEMIA, UNSPECIFIED Status: Chronic (8) ESRD (end stage renal disease) on dialysis Code(s): N18.6 - END STAGE RENAL DISEASE; Z99.2 - DEPENDENCE ON RENAL DIALYSIS Status: Chronic - Plan old records reviewed/req discussed with daughter and updated plan today egd and colonoscopy as per GI medication reviewed symptomatic treatment discharge pending above hd as per nephrology
--- NOTE | 2020-02-08 12:45 | PRG ---
DATE OF SERVICE: 02/08/2020 SUBJECTIVE: Mr. Cortez is doing fine, being seen in dialysis this morning. His bleeding apparently has stopped as he has no further bleeding since last night. He denies having any abdominal pain. There is no nausea or vomiting. OBJECTIVE: VITAL SIGNS: Temperature is 97.5, blood pressure 150/67, pulse of 59. GENERAL: He is alert, in no distress. HEENT: Exam shows anicteric sclerae. Oropharynx is clear. CV: Shows normal S1 and S2. Regular rate and rhythm. CHEST: Shows breath sounds. ABDOMEN: Soft and nontender. He has active bowel sounds. EXTREMITIES: Exam shows no edema. LABORATORY DATA: Hemoglobin 11.8, hematocrit 34.5. Electrolytes, normal. Creatinine 3.24. ASSESSMENT: 1. Painless hematochezia, resolved. Diverticular bleed is the leading candidate. 2. Chronic anemia, multifactorial. 3. End-stage renal disease, on maintenance hemodialysis. 4. Hypertension/diabetes/hyperlipidemia. 5. History of colon polyps. RECOMMENDATIONS: Bowel prep later today to proceed with EGD and colonoscopy tomorrow. Job ID: [id number]
[2020-02-08] MEDS ORDERED: Calcium Carbonate 500 MG ChewTAB PO PRN (13:57)
[2020-02-08] MEDS ORDERED: Diabetic Tussin 200 MG/10 ML UDCUP PO PRN (13:57)
[2020-02-08] MEDS ORDERED: Artificial Tears 18 DROP/0.9 ML EA EYE PRN (13:57)
[2020-02-08] MEDS ORDERED: diphenhydrAMINE 25 MG CAP PO PRN (13:57)
[2020-02-08] MEDS ORDERED: Zolpidem Tartrate 5 MG TAB PO PRN (13:57)
[2020-02-08] MEDS ORDERED: HYDROcodone/Acetaminophen 5/325 mg Tablet PO PRN (13:57)
[2020-02-08] MEDS ORDERED: hydrALAZINE 20 MG/ML VIAL SLOW IVP PRN (13:57)
[2020-02-08] MEDS ORDERED: Loratadine 10 MG TAB PO PRN (13:57)
[2020-02-08] MEDS ORDERED: Ondansetron PF 4 MG/2 ML Vial IVP PRN (13:57)
[2020-02-08] MEDS ORDERED: Cepastat Lozenges 1 LOZ PO PRN (13:57)
[2020-02-08] MEDS ORDERED: Ondansetron ODT 4 MG TAB PO PRN (13:57)
[2020-02-08] MEDS ORDERED: Sodium Chloride 0.65% Nasal 44 ML BOT EA NARE PRN (13:57)
[2020-02-08] MEDS ORDERED: Loperamide HCl 2 MG CAP PO PRN (13:57)
[2020-02-08] MEDS ORDERED: Senokot S 8.6-50 MG TAB PO PRN (13:57)
[2020-02-08] MEDS: Carvedilol 6.25 MG TAB PO SCH ×2 (14:43→21:52)
[2020-02-08] MEDS: Ferrous Sulfate 325 MG TAB PO SCH (14:43)
[2020-02-08] MEDS: Pantoprazole 40 MG VIAL IVP SCH ×2 (14:45→21:53)
[2020-02-08] MEDS ORDERED: GoLYTELY 4,000 ml Bottle PO SCH (17:00)
[2020-02-08] MEDS: HumaLOG 300 UNITS/3 ML VIAL SC PRN (17:39)
--- NOTE | 2020-02-08 18:21 | PRG ---
DATE OF SERVICE: 02/08/2020 SUBJECTIVE: This is a 74-year-old gentleman, being seen for end-stage renal disease. The patient denied nausea, vomiting, or chest pain. PHYSICAL EXAMINATION: General: The patient is awake and alert. Vital Signs: Afebrile, pulse 75, breathing at 16, blood pressure 135/63. HEENT: Head normocephalic and atraumatic. Eyes intact, no ulcers. Nose intact, no ulcers. Ears intact, no ulcers. Neck: Supple. No JVD. Chest: Symmetrical and clear. Cardiovascular: Shows S1 and S2, no rub, no murmur. Gastrointestinal: Abdomen is soft, bowel sounds positive. Extremities: Show no edema or ulcers. Skin: Shows no rash or petechiae. Musculoskeletal: Shows no joint swelling or stiffness. Genitourinary: Shows no [place] or CVA tenderness. Neurologic: Motor intact. Cranial nerves intact. LABORATORY DATA: Showed hemoglobin 11.8. ASSESSMENT AND PLAN: 1. Stage 6 chronic kidney disease, stable. 2. Hypertension, stable. 3. Anemia, stable. 4. Medication based on GFR, appropriate. Job ID: [id number]
[2020-02-08] MEDS: Atorvastatin Calcium 20 MG TAB PO SCH (21:53)
[2020-02-09 04:43] LABS: #Eosinphils 0.1 thou/uL (0.0-0.7); #Lymphocytes 1.3 thou/uL (1.20-3.40); #Monocytes 0.6 thou/uL (0.11-0.59); #Neutrophils 3.7 thou/uL (1.40-6.50); %Basophils 0.7 % (0.0-1.0); %Eosinophils 2.2 % (0.0-10.0); %Lymphocytes 22.9 % (21.0-51.0); %Monocytes 9.8 % (0.0-10.0); %Neutrophils 64.3 % (42.0-75.0); Mean Corpuscular HGB CONC 32.4 g/dL (32.0-36.0); Mean Corpuscular Hemoglobin 28.5 pg (27.0-31.0); Mean Corpuscular Volume 88.1 fL (78.0-98.0); Mean Platelet Volume 7.8 fL (7.4-10.4); Platelet Count 162 thou/uL (130-400); RBC Distribution Width 12.7 % (11.5-14.5); Red Blood Cell (RBC) Count 4.22 mill/uL (4.70-6.10); White Blood Cell (WBC) Count 5.7 thou/uL (4.8-10.8)
[2020-02-09 05:03] LABS: Anion Gap 15 mmol/L (10-20); BUN (Urea Nitrogen) 21 mg/dL (8.4-25.7); Calc. Creatinine Clearance 22 mL/min (70-130); Calcium 8.5 mg/dL (7.8-10.44); Carbon Dioxide 30 mmol/L (23-31); Chloride 97 mmol/L (98-107); Estimated GFR-MDRD 20; Glucose 89 mg/dL (83-110); Potassium 3.4 mmol/L (3.5-5.1); Sodium 139 mmol/L (136-145)
[2020-02-09] MEDS ORDERED: Ondansetron HCl/PF 4 MG/2 ML Vial IVP PRN (08:03)
--- NOTE | 2020-02-09 09:58 | PDOC.HOSPP ---
- Subjective Encounter Date: 02/09/20 Encounter Time: 11:58 Subjective: Patient seen and examined. No new complaints. No overnight events - Objective Vital Signs & Weight: Vital Signs (12 hours) Temp Pulse Resp BP Pulse Ox 02/09/20 04:34 98.1 F 65 14 142/64 H 98 Weight Weight 164 lb 0.383 oz I&O: 02/08/20 02/09/20 02/10/20 06:59 06:59 06:59 Intake Total 720 600 Output Total 0 Balance 720 600 Result Diagrams: 02/09/20 04:33 02/09/20 04:33 Additional Labs: Accuchecks 02/09/20 02/08/20 02/08/20 05:48 20:28 16:11 POC Glucose 91 314 H 328 H 02/08/20 10:57 POC Glucose 110 EKG Reviewed by me: Yes Hospitalist ROS - Review of Systems ENT: denies: ear pain, ear discharge, nose pain, nose discharge, nose congestion , mouth pain, mouth swelling, throat pain, throat swelling, other Respiratory: denies: cough, dry, shortness of breath, hemoptysis, SOB with excertion, pleuritic pain, sputum, wheezing, other Cardiovascular: denies: chest pain, palpitations, orthopnea, paroxysmal noc. dyspnea, edema, light headedness, other Gastrointestinal: denies: nausea, vomiting, abdominal pain, diarrhea, constipation, melena, hematochezia, other Genitourinary: denies: dysuria, frequency, incontinence, hematuria, retention, other Musculoskeletal: denies: neck pain, shoulder pain, arm pain, back pain, hand pain, leg pain, foot pain, other - Medication Medications: Active Medications Generic Name Dose Route Start Last Admin Trade Name Freq PRN Reason Stop Dose Admin Atorvastatin Calcium 20 mg 02/07/20 21:00 02/08/20 21:53 Lipitor PO 20 mg QPM [facility] Administration Carvedilol 6.25 mg 02/07/20 09:00 02/08/20 21:52 Coreg PO 6.25 mg BID BONITA Administration Cholecalciferol 1,000 units 02/07/20 09:00 02/08/20 14:43 Vitamin D3 PO 1,000 units DAILY [facility] Administration Ferrous Sulfate 325 mg 02/07/20 09:00 02/08/20 14:43 Feosol PO 325 mg DAILY [facility] Administration Insulin Human Lispro 0 units 02/06/20 19:22 02/08/20 17:39 Humalog SC 5 unit .MILD SLIDING SCALE PRN Administration Mild Correctional Scale Insulin Human Lispro 0 units 02/06/20 19:22 02/08/20 21:53 Humalog SC 4 unit .BEDTIME SLIDING SC PRN Administration Bedtime Correctional Scale Mirabegron 25 mg 02/07/20 09:00 02/08/20 14:43 Myrbetriq Er PO 25 mg DAILY [facility] Administration Pantoprazole Sodium 40 mg 02/07/20 09:00 02/08/20 21:53 Protonix IVP 40 mg Q12HR [facility] Administration - Exam General Appearance: NAD, awake alert Eye: PERRL, anicteric sclera ENT: normocephalic atraumatic, no oropharyngeal lesions Neck: supple, symmetric, no JVD Heart: RRR, no murmur, no gallops Respiratory: CTAB, no wheezes, no rales Gastrointestinal: soft, non-tender, non-distended, normal bowel sounds Extremities: no cyanosis, no clubbing Skin: normal turgor, no lesions Neurological: cranial nerve grossly intact, no focal deficits Musculoskeletal: normal tone, normal strength Psychiatric: normal affect, normal behavior Hosp A/P (1) GI bleed Code(s): K92.2 - GASTROINTESTINAL HEMORRHAGE, UNSPECIFIED Status: Acute (2) Chronic diastolic (congestive) heart failure Code(s): I50.32 - CHRONIC DIASTOLIC (CONGESTIVE) HEART FAILURE Status: Chronic (3) Diabetes mellitus, type 2 Status: Chronic Qualifiers: Diabetes mellitus manager long term care insulin use: with manager long term care use Diabetes mellitus complication status: with kidney complications Diabetes mellitus complication detail: with chronic kidney disease Chronic kidney disease stage : on chronic dialysis Qualified Code(s): E11.22 - Type 2 diabetes mellitus with diabetic chronic kidney disease; N18.6 - End stage renal disease; Z79.4 - USP (current) use of insulin; Z99.2 - Dependence on renal dialysis (4) Anxiety and depression Code(s): F41.9 - ANXIETY DISORDER, UNSPECIFIED; F32.9 - MAJOR DEPRESSIVE DISORDER, SINGLE EPISODE, UNSPECIFIED Status: Chronic (5) BPH (benign prostatic hyperplasia) Code(s): N40.0 - BENIGN PROSTATIC HYPERPLASIA WITHOUT LOWER URINRY TRACT SYMP Status: Chronic Qualifiers: Lower urinary tract symptom presence: symptoms absent Qualified Code(s): N40.0 - Benign prostatic hyperplasia without lower urinary tract symptoms (6) CAD (coronary artery disease) Code(s): I25.10 - ATHSCL HEART DISEASE OF [place] CORONARY ARTERY W/O ANG PCTRS Status: Chronic Qualifiers: Coronary Disease-Associated Artery/Lesion type: [place] artery [place] vs. transplanted heart: [place] heart Associated angina: without angina Qualified Code(s): I25.10 - Atherosclerotic heart disease of [place] coronary artery without angina pectoris (7) Dyslipidemia Code(s): E78.5 - HYPERLIPIDEMIA, UNSPECIFIED Status: Chronic (8) ESRD (end stage renal disease) on dialysis Code(s): N18.6 - END STAGE RENAL DISEASE; Z99.2 - DEPENDENCE ON RENAL DIALYSIS Status: Chronic - Plan old records reviewed/req, plan discussed w/ family discussed with daughter and updated plan today egd and colonoscopy as per GI medication reviewed symptomatic treatment discharge pending above hd as per nephrology 02/09/20 today EGD and colonoscopy, reviewed and procedure result discussed with pt with help of son aspirin and plavix to start on 02/11/20 possible dc pending result discussed with son
--- NOTE | 2020-02-09 10:17 | OP ---
DATE OF PROCEDURE: 02/09/2020 PROCEDURES PERFORMED: 1. Esophagogastroduodenoscopy (diagnostic). 2. Colonoscopy with polypectomy. INDICATIONS FOR PROCEDURE: Hematochezia, history of partial gastrectomy. DESCRIPTION OF PROCEDURE: After the risks and benefits of the procedure were explained to the patient including risks of bleeding, infection, perforation, reactions to anesthesia, aspiration, and/or pain, informed consent was obtained. The patient was then taken to the endoscopy suite where he was maneuvered into the left lateral decubitus position followed by introduction of deep sedation via propofol and anesthesia support. Once adequate sedation was achieved, the standard gastroscope was introduced into the mouth with intubation of the esophagus, stomach, and the proximal small intestines with the findings listed below. The patient tolerated this portion of the procedure well with no immediate perioperative complications. Upon conclusion of the procedure, all equipment was removed from the patient and the bed was rotated 180 degrees in anticipation of the colonoscopy. Once in adequate position, a digital rectal examination was performed followed by introduction of the standard colonoscope, which was advanced to the terminal ileum with some difficulty, requiring manual abdominal pressure in order to facilitate passage of the scope. The quality of the prep was fair to good with a large amount of sterile water needed to lavage the colon to maintain adequate views. The patient tolerated the procedure well with no immediate perioperative complications. Upon conclusion of the procedure, all equipment was removed from the patient and he was transferred to PACU in satisfactory condition. EGD FINDINGS: Esophagus: Normal-appearing mucosa was seen in the proximal, mid, and distal esophagus. There was no evidence of ulcers, erosions, mass lesions, or active/recent bleeding. Stomach: Surgical change consistent with a partial gastrectomy was seen in the gastric body with the anastomosis exhibiting a very healthy appearance. There was no evidence of mucosal breakdown associated with this finding. Otherwise, normal mucosa was seen in the gastric cardia, fundus, body, greater curvature, antrum, and incisura. There was no evidence of erosions, ulcerations, mass lesions, or active/recent bleeding. Duodenum: Mild mucosal erythema was seen in the duodenal bulb without any evidence of erosions or ulcerations or mucosal breakdown. Otherwise, normal-appearing mucosa was seen in the second portion of the duodenum and extending into the 3rd portion of the duodenum. There was no evidence of active or recent bleeding seen during this portion of the exam. IMPRESSION: 1. Surgical change consistent with the partial gastrectomy with healthy-appearing anastomosis. 2. Mild mucosal erythema seen in the duodenal bulb, consistent with duodenitis, but no evidence of active/recent bleeding. 3. No etiology for the patient's recent bleeding was seen during this examination. COLONOSCOPY FINDINGS: Digital rectal exam: Small external hemorrhoids were seen on external examination. Internal hemorrhoids were palpated on digital rectal exam. Colon findings: Normal-appearing mucosa was seen in the terminal ileum without any evidence of old or recent bleeding seen in this section. A [id number] amount of retained semi-solid and liquid stool was seen throughout the entire colon, but was amenable to aggressive irrigation and suctioning with sterile water with adequate visualization of the colonic mucosa achieved. Normal-appearing mucosa was then seen at the ileocecal valve, appendiceal orifice, cecum, and ascending colon. Two polyps measuring 3 to 5 mm in size were seen in the transverse colon and completely removed with snare cautery polypectomy. They were retrieved and placed in a specimen jar for further evaluation. An additional 2- to 3-mm polyp was seen in the descending colon and completely removed with cold snare polypectomy. It was retrieved and placed in a specimen jar for further evaluation. Normal-appearing mucosa was then seen in the distal descending and sigmoid colon and rectum without any evidence of diverticulosis. Large grade 2/3 internal hemorrhoids were seen on rectal retroflexion that exhibited increased mucosal erythema, but no evidence of recent bleeding. IMPRESSION: 1. Two 3- to 5-mm transverse colon polyps status post hot snare polypectomy. 2. A 2- to 3-mm descending colon polyp status post cold snare polypectomy. 3. Large erythematous internal hemorrhoids (most likely source of the patient's hematochezia, especially with concurrent use of Plavix). 4. Small external hemorrhoids. RECOMMENDATIONS: 1. Would continue to trend the patient's hemoglobin and hematocrit and transfuse as necessary to maintain the hemoglobin and hematocrit of 7/21. 2. Continue to monitor clinically for signs of active GI bleeding. 3. Recommend a higher fiber diet given the presence of internal and external hemorrhoids. 4. Would restart his anticoagulation in 24 to 48 hours. 5. Would consider use of hydrocortisone suppositories for treatment of his internal hemorrhoids. 6. If he has a repeat or recurrence of his hematochezia, would then consider surgical evaluation for hemorrhoidectomy. We will sign off at this time. Please call with any questions. Job ID: [id number]
[2020-02-09 10:19] VITALS: BP 134/60; TEMP 97.9
[2020-02-09] MEDS: Ferrous Sulfate 325 MG TAB PO SCH (11:51)
[2020-02-09] MEDS: Carvedilol 6.25 MG TAB PO SCH (11:51)
[2020-02-09] MEDS: Pantoprazole 40 MG VIAL IVP SCH (11:52)
[2020-02-09] MEDS ORDERED: PROPOFOL 200 MG/20 ML VIAL ONE (12:00)
--- NOTE | 2020-02-09 13:14 | PDOC.FMACP ---
Advance Care Planning - Problem (1) Palliative care encounter Status: Acute Code(s): Z51.5 - ENCOUNTER FOR PALLIATIVE CARE (2) Diabetes mellitus, type 2 Status: Chronic Qualifiers: Diabetes mellitus oil heaterman insulin use: with retirement use Diabetes mellitus complication status: with kidney complications Diabetes mellitus complication detail: with chronic kidney disease Chronic kidney disease stage : on chronic dialysis Qualified Code(s): E11.22 - Type 2 diabetes mellitus with diabetic chronic kidney disease; N18.6 - End stage renal disease; Z79.4 - adjunct faculty for medical terminology (current) use of insulin; Z99.2 - Dependence on renal dialysis (3) CKD (chronic kidney disease) stage 4, GFR 15-29 ml/min Status: Chronic Code(s): N18.4 - CHRONIC KIDNEY DISEASE, STAGE 4 (SEVERE) (4) Obesity (BMI 30.0-34.9) Status: Chronic Code(s): E66.9 - OBESITY, UNSPECIFIED (5) Acute on chronic diastolic ACC/AHA stage C congestive heart failure Status: Resolved Code(s): I50.33 - ACUTE ON CHRONIC DIASTOLIC (CONGESTIVE) HEART FAILURE - Note Participants: patient, family, palliative care Summary: Palliative Care introduced Advanced Care Planning, Mr Cortez and family were allowed an opportunity to decline. The diagnosis, prognosis and goals of care were discussed. Appropriate forms and documentation to accomplish the goals of care were discussed. MPOA was completed, copies made for family, as well as placed on chart. Directive to Physician was completed. Mr Cortez continues to wish for all aggressive measures and resuscitation to occur to sustain life. All questions were answered. The Palliative Care Team assisted with completion of any outstanding forms. Please also refer to Jd Noe notes in note section. Time Spent (mins): 30
--- NOTE | 2020-02-09 13:14 | PRG ---
DATE OF SERVICE: 02/09/2020 SUBJECTIVE: A 74-year-old gentleman being seen for end-stage renal disease. The patient denied nausea, vomiting or chest pain. OBJECTIVE: GENERAL: The patient is awake, alert. VITAL SIGNS: Afebrile, pulse 75, breathing 16, blood pressure was 134/60. HEENT: Head normocephalic and atraumatic. Eyes intact, no ulcers. Nose intact, no ulcers. Ears intact, no ulcers. NECK: Supple. No JVD. CHEST: Symmetrical and clear. CARDIOVASCULAR: Shows S1 and S2, no rub, no murmur. GASTROINTESTINAL: Abdomen is soft, bowel sounds positive. EXTREMITIES: Show no edema or ulcers. SKIN: Shows no rash or petechiae. MUSCULOSKELETAL: Shows no joint swelling or stiffness. GENITOURINARY: Shows no [place] or CVA tenderness. NEUROLOGIC: Motor intact. Cranial nerves intact. LAB: Reviewed. ASSESSMENT AND PLAN: 1. Stage , chronic kidney disease, stable. 2. Hypertension, stable. 3. Anemia, stable. 4. Medication based on GFR are appropriate. Job ID: [id number]
--- NOTE | 2020-02-09 16:45 | DIS ---
DATE OF ADMISSION: 02/06/2020 DATE OF DISCHARGE: 02/09/2020 PRIMARY CARE PHYSICIAN: [facility] Call admission. DISCHARGE DISPOSITION: Home. PRIMARY DISCHARGE DIAGNOSES: 1. Lower gastrointestinal bleed/hematochezia due to internal hemorrhoid. 2. Status post EGD consistent with duodenitis, status post colonoscopy and polypectomy performed. RADIOLOGICAL INVESTIGATION: None. PRIMARY PROCEDURE/OPERATION: EGD showed finding consistent with partial gastrectomy, healthy-appearing anastomosis, duodenal erythema consistent with duodenitis. Colonoscopy showed transverse colon polyps, status post snare polypectomy; descending colon polyp, status post snare polypectomy. Large internal hemorrhoid. Small external hemorrhoid. SIGNIFICANT LABORATORY DATA: WBC 5.7, hemoglobin 12.0, platelets 162. Sodium 139, potassium 3.4, BUN 21, creatinine 3.12, glucose 314, calcium 8.5. DISCHARGE MEDICATIONS: The patient is advised to start aspirin and Plavix after 48 hours. The patient will start aspirin and Plavix on February 11, 2020. 1. Ferrous sulfate 325 mg p.o. daily. 2. Lantus insulin 16 units subcu in the morning. 3. Mirabegron 25 mg daily. 4. Lipitor 20 mg p.o. daily. 5. Coreg 6.25 mg p.o. b.i.d. 6. Vitamin D3, 1000 units p.o. daily. CONTRAINDICATION: None. CODE STATUS: Full code. INPATIENT YARD RIGGER: GI team was consulted while in the hospital. Nephrology was consulted for hemodialysis. TEST RESULT PENDING ON DISCHARGE: None. ALLERGIES: PENICILLIN. DISCHARGE PLAN: Post hospital, the patient will follow up with primary care physician. The patient will continue his maintenance hemodialysis. HOSPITAL COURSE: A 74-year-old male, who is taking aspirin and Plavix and who was admitted by Dr. Philip Tinoco. Please see his H and P for further details. The patient was having lower GI bleed. The patient was hemodynamically stable. His H and H remained pretty much stable while in the hospital and he did not require any blood transfusion. We consulted Gastroenterology. Gastroenterology did colon preparation and recommended EGD and colonoscopy. EGD was unremarkable other than mild duodenitis. Colonoscopy showed mild colon polyp which was removed. The patient was also found with external and internal hemorrhoids. If the patient continues to have hematochezia in future, then the patient will need a General Surgery evaluation for treatment of internal hemorrhoids. While in the hospital, Nephrology was also consulted and they did maintenance hemodialysis while in the hospital. Overall, the patient remained hemodynamically stable. The patient will continue all his previous medications. We have provided patient education to continue aspirin and Plavix after 48 hours that means on February 11, 2020. Rest of medication he will continue as per previous. The patient is seen and examined at bedside today. Please see my progress note from today for further details. Job ID: [id number]
--- NOTE | 2020-02-11 14:50 | EKG ---
Test Reason : Blood Pressure : / mmHG Vent. Rate : 057 BPM Atrial Rate : 057 BPM P-R Int : 214 ms QRS Dur : 110 ms QT Int : 446 ms P-R-T Axes : 025 -19 092 degrees QTc Int : 434 ms Sinus bradycardia with 1st degree A-V block Left ventricular hypertrophy with repolarization abnormality Inferior infarct , age undetermined Abnormal ECG Confirmed by DESMOND BLAND, TRAVIS ([id number]), editor in chief newspaper BIRDIE JUNIOR ([id number]) on 02/11/2020 2:50:22 PM Referred By: Confirmed By:TRAVIS LOGAN MD
== END 2020-02-09 13:31 | disposition home or self-care (01) ==
LOC: ERS 14:53 → INTOOBSV 16:00 → 2NO 16:00
PROVIDERS: ADMIT Internal Medicine; ATTEND Internal Medicine
PROC: 0DBM8ZZ Excision of Descending Colon, Via Natural or Artificial Opening Endoscopic (ICD-10-PCS; principal; 2020-02-06)
PROC: 0DBL8ZZ Excision of Transverse Colon, Via Natural or Artificial Opening Endoscopic (ICD-10-PCS; 2020-02-06)
PROC: 0DJ08ZZ Inspection of Upper Intestinal Tract, Via Natural or Artificial Opening Endoscopic (ICD-10-PCS; 2020-02-06)
DX: K63.5 Polyp of colon (principal); K31.89 Other diseases of stomach and duodenum; K64.4 Residual hemorrhoidal skin tags; K64.8 Other hemorrhoids; K92.2 Gastrointestinal hemorrhage, unspecified; I13.2 Hypertensive heart and chronic kidney disease with heart failure and with stage 5 chronic kidney disease, or end stage renal disease; E11.22 Type 2 diabetes mellitus with diabetic chronic kidney disease; N18.6 End stage renal disease; I50.32 Chronic diastolic (congestive) heart failure; D63.1 Anemia in chronic kidney disease; I25.10 Atherosclerotic heart disease of native coronary artery without angina pectoris; E78.5 Hyperlipidemia, unspecified; F41.9 Anxiety disorder, unspecified; F32.9 Major depressive disorder, single episode, unspecified; Z79.4 Long term (current) use of insulin; Z79.82 Long term (current) use of aspirin; Z79.899 Other long term (current) drug therapy; Z85.038 Personal history of other malignant neoplasm of large intestine; Z88.0 Allergy status to penicillin; Z99.2 Dependence on renal dialysis
CPT/HCPCS: 43235; 45385; 80048 ×3; 80053; 82274; 82962 ×3; 85014; 85018; 85025 ×4; 86850; 86900; 86901; 87340; 88305; 93005; 96365; 96366 ×2; 96376 ×3; 99285; G0378 ×5; 36415; 36416; 90935; 96374; C9113; G0257; J2704; J3490

== ENCOUNTER 2020-03-16 07:26 | Outpatient (CLI) | payer MEDICARE, MEDICAID ==
--- NOTE | 2020-03-16 07:52 | ULT ---
Sonogram abdomen complete HISTORY: Abdomen pain. FINDINGS: Gallbladder has a normal appearance. Common duct is 0.4 cm diameter. Liver is slightly heterogeneous without focal mass or intrahepatic biliary dilatation. No free fluid. An exophytic 1.9 cm cyst is noted at the superior pole of the right kidney. No hydronephrosis. The le ft kidney, spleen, and visualized portions of abdominal aorta, IVC, and pancreas are unremarkable. Sonographic survey in the area of described pain in the right lower quadrant shows no focal abnormali ties. IMPRESSION : No acute abnormalities are demonstrated. Incidental note of a small right renal cyst.
== END 2020-03-16 07:27 | disposition home or self-care (01) ==
LOC: BICULT 07:26
PROVIDERS: ATTEND Physician Assistant
DX: R10.32 Left lower quadrant pain (principal); R10.30 Lower abdominal pain, unspecified; N28.1 Cyst of kidney, acquired
CPT/HCPCS: 93975

== ENCOUNTER 2020-04-19 07:36 | Outpatient (CLI) | payer MEDICARE, MEDICAID, OTHER ==
[2020-04-19 11:31] LABS: Hemoglobin 13.1 g/dL (14.0-18.0); Mean Corpuscular Hemoglobin 29.5 pg (27.0-31.0); Mean Corpuscular Volume 92.1 fL (78.0-98.0); Mean Platelet Volume 8.7 fL (7.4-10.4); Platelet Count 178 thou/uL (130-400); RBC Distribution Width 13.1 % (11.5-14.5); Red Blood Cell (RBC) Count 4.45 mill/uL (4.70-6.10); White Blood Cell (WBC) Count 4.9 thou/uL (4.8-10.8)
[2020-04-19 12:23] LABS: Anion Gap 18 mmol/L (10-20); BUN (Urea Nitrogen) 38 mg/dL (8.4-25.7); Calc. Creatinine Clearance 0 mL/min (70-130); Calcium 9.1 mg/dL (7.8-10.44); Carbon Dioxide 31 mmol/L (23-31); Chloride 94 mmol/L (98-107); Estimated GFR-MDRD 16; Glucose 264 mg/dL (83-110); Sodium 139 mmol/L (136-145)
[2020-04-19 17:53] LABS: SARS-CoV-2 MS2 Positive; SARS-CoV-2 N Gene Negative; SARS-CoV-2 S Gene Negative; SARS-CoV-2 by NAA Not Detected (NotDetected); SARS-CoV-2 orf1ab Negative
== END 2020-04-19 07:37 | disposition home or self-care (01) ==
LOC: LABBT 07:36
PROVIDERS: ATTEND Specialist
DX: Z01.818 Encounter for other preprocedural examination (principal); Z20.828 Contact with and (suspected) exposure to other viral communicable diseases; N18.6 End stage renal disease; K42.9 Umbilical hernia without obstruction or gangrene
CPT/HCPCS: 80048; 85027; 93005; U0003; 87635; 93010

== ENCOUNTER 2020-04-24 09:52 | Day surgery (SDC) | payer MEDICARE, MEDICAID ==
[2020-04-19 11:02] VITALS: BMI 25.8
--- NOTE | 2020-04-23 08:33 | HP ---
HISTORY OF PRESENT ILLNESS: Marco Montelongo is a 74-year-old male, 1945, dialyzes at [facility] on Thursday, Thursday, and Thursday using the right forearm Arminda type fistula, established on September 23, 2019. He desires peritoneal dialysis. Plan is laparoscopic peritoneal dialysis catheter. He has very small umbilical hernia. We will plan open umbilical hernia repair probably without mesh, the defect is ever so small. He understands risks and benefits, consents. We will plan this on a nondialysis day. He dialyzes at [facility] on Thursday, Thursday, and Thursday. He is on Plavix and he can continue that perioperatively. MEDICATIONS: 1. Aspirin. 2. Plavix. 3. Insulin. 4. Pravastatin. 5. Atorvastatin. 6. Carvedilol. PAST MEDICAL HISTORY: Diabetes mellitus, hypertension, hyperlipidemia, BPH followed by Dr. Marvin, end-stage renal disease on maintenance dialysis, history of GERD, and past EGDs and colonoscopies. PAST SURGICAL HISTORY: Appendectomy, polyps, TURP in 2017, right Arminda fistula in August 2019, and hemodialysis catheter placement and removal once accessing this fistula. ALLERGIES: PENICILLIN. SOCIAL HISTORY: Tobacco, none. Alcohol, none. PHYSICAL EXAMINATION: VITAL SIGNS: 109/50, 59, and 97 degrees. 160 pounds, 65 inches, and 26 BMI. HEAD, EARS, EYES, NOSE, AND THROAT: Unremarkable. LUNGS: Clear to auscultation. CARDIAC: Regular rate and rhythm without murmur or gallop. ABDOMEN: Soft and nontender. Small umbilical hernia reducible. EXTREMITIES: Unremarkable. Right Arminda fistula good thrill and bruit. ASSESSMENT: End-stage renal disease. PLAN: Laparoscopic peritoneal dialysis catheter. He understands risks and benefits. He should see the peritoneal dialysis nurse in 3 to 7 days postoperatively and follow up with me in 3 to 4 weeks postoperatively. Job ID: [id number]
[~2020-04-24 09:52] MED LIST: Glycopyrrolate 0.2 MG/ML 5 ML SYRINGE ONE; Lidocaine 1% PF 5 ML VIAL ONE; Naloxone HCl 0.4 mg/ml Vial ONE; Ondansetron PF 4 MG/2 ML Vial ONE; PROPOFOL 200 MG/20 ML VIAL ONE; Rocuronium Bromide 10 MG/ML (10ML VIAL) ONE
[2020-04-24] MEDS ORDERED: Levofloxacin 500 mg/D5W 100 ml Premix Bag ONE (10:39)
[2020-04-24] MEDS ORDERED: SUGAMMADEX SODIUM 200 MG/2 ML VIAL ONE (12:05)
[2020-04-24] MEDS ORDERED: Fentanyl 100 MCG/2 ML VIAL ONE (12:05)
[2020-04-24] MEDS ORDERED: Bupivacaine PF 0.5% 30 ML VIAL ONE (12:09)
[2020-04-24] MEDS ORDERED: EPINEPHrine 1 MG/ML AMP ONE (12:09)
[2020-04-24] MEDS ORDERED: Heparin 10,000 UNITS/ 10 ML VIAL ONE (12:13)
[2020-04-24] MEDS ORDERED: Lidocaine 2% PF 5 ML VIAL ONE (12:13)
[2020-04-24] MEDS ORDERED: Bupivacaine 0.25% HCL 30 ML VIAL ONE (13:00)
[2020-04-24] MEDS ORDERED: HYDROcodone/Acetaminophen 5/325 mg Tablet ONE (14:49)
--- NOTE | 2020-04-24 17:40 | OP ---
DATE OF PROCEDURE: 04/24/2020 PREOPERATIVE DIAGNOSES: End-stage renal disease, umbilical hernia, desires peritoneal dialysis catheter, functioning right arm AV fistula. POSTOPERATIVE DIAGNOSES: End-stage renal disease, umbilical hernia, desires peritoneal dialysis catheter, functioning right arm AV fistula. PROCEDURES PERFORMED: Laparoscopic peritoneal dialysis catheter, double-cuffed pigtail. Umbilical hernia repair without mesh. Note, previous operation fused the omentum to the upper abdomen, omentopexy not necessary. ANESTHESIA: General, local 0.5% Marcaine 30 mL mixed with 1% Xylocaine with epinephrine 20 mL, total volume used DESCRIPTION OF PROCEDURE: The patient was taken to the operating room, where under general anesthesia, abdomen was clipped of hair, prepared with ChloraPrep and draped in routine fashion. Local anesthetic was infiltrated in the skin and subcutaneous tissue about all operative sites. Bilateral subcostal far lateral incision was made. Pneumoperitoneum to 15 mmHg was obtained with a Veress needle, replaced with a 5 port, and video laparoscope inserted. Through the contralateral subcostal port, a 5 port placed. Both visualized laparoscopically. Omentum fused to upper abdomen from previous surgery. Omentopexy not necessary. Stab incision was made in the left lower quadrant, counter incision made periumbilical just cephalad to that, and 8 mm port placed through this counter incision periumbilical left lower quadrant incision and directed caudally dependently towards the pelvis into the rectus sheath, laparoscopically visualized, penetrated the peritoneum and fascia dependently. Double-cuffed pigtail peritoneal dialysis catheter placed with the internal cuff placed in the rectus sheath and a [place] dissector placed through the planned exit site just left and lateral inferior to this and passed towards the counter incision, grasping the catheter, pulling it out, placing the external cuff beneath the skin exit site. Subcutaneous tissue was approximated with 3-0 Monocryl, skin with subdermal 4-0 Monocryl, and pneumoperitoneum was reduced. All instrument was removed and all skin incisions closed. Dermabond and Mastisol used. Infraumbilical incision made and carried down through skin and subcutaneous tissue, and a 0.5 cm fascial defect appreciated and closed with [id number] fashion with interrupted 0 PDS pop offs. Subcutaneous tissues approximated with 4-0 Monocryl, skin with subdermal 4-0 Monocryl, and [place] glue applied. Sterile dressing was applied. Job ID: [id number]
== END 2020-04-24 15:10 | disposition home or self-care (01) ==
LOC: SDC 09:52
PROVIDERS: ATTEND Specialist
PROC: 0WHG43Z Insertion of Infusion Device into Peritoneal Cavity, Percutaneous Endoscopic Approach (ICD-10-PCS; principal; 2020-04-24)
PROC: 0WQF0ZZ Repair Abdominal Wall, Open Approach (ICD-10-PCS; 2020-04-24)
DX: I12.0 Hypertensive chronic kidney disease with stage 5 chronic kidney disease or end stage renal disease (principal); E11.22 Type 2 diabetes mellitus with diabetic chronic kidney disease; N18.6 End stage renal disease; K42.9 Umbilical hernia without obstruction or gangrene; I25.10 Atherosclerotic heart disease of native coronary artery without angina pectoris; E78.5 Hyperlipidemia, unspecified; Z79.4 Long term (current) use of insulin; Z79.82 Long term (current) use of aspirin; Z79.899 Other long term (current) drug therapy; Z88.0 Allergy status to penicillin; Z99.2 Dependence on renal dialysis; Z86.73 Personal history of transient ischemic attack (TIA), and cerebral infarction without residual deficits
CPT/HCPCS: 36415; 80053; 85025; J0171; J1644; J1956; J2310; J2405; J2704; J3010; S0020

== ENCOUNTER 2020-04-24 23:29 | Emergency (ER) | payer MEDICARE, MEDICAID ==
[2020-04-25 00:03] LABS: #Eosinphils 0.1 thou/uL (0.0-0.7); #Lymphocytes 0.9 thou/uL (1.20-3.40); #Monocytes 0.6 thou/uL (0.11-0.59); %Basophils 0.6 % (0.0-1.0); %Eosinophils 1.6 % (0.0-10.0); %Lymphocytes 13.9 % (21.0-51.0); %Monocytes 8.3 % (0.0-10.0); %Neutrophils 75.7 % (42.0-75.0); Hemoglobin 11.9 g/dL (14.0-18.0); Mean Corpuscular HGB CONC 33.1 g/dL (32.0-36.0); Mean Corpuscular Volume 90.5 fL (78.0-98.0); Platelet Count 174 thou/uL (130-400); Red Blood Cell (RBC) Count 3.99 mill/uL (4.70-6.10); White Blood Cell (WBC) Count 6.7 thou/uL (4.8-10.8)
[2020-04-25 00:24] LABS: ALT (SGPT) 20 U/L (8-55); AST (SGOT) 19 U/L (5-34); Albumin 4.2 g/dL (3.4-4.8); Alkaline Phosphatase 84 U/L (40-110); Anion Gap 16 mmol/L (10-20); BUN (Urea Nitrogen) 65 mg/dL (8.4-25.7); Bilirubin, Total 0.5 mg/dL (0.2-1.2); Calc. Creatinine Clearance 0 mL/min (70-130); Calcium 8.7 mg/dL (7.8-10.44); Carbon Dioxide 26 mmol/L (23-31); Chloride 99 mmol/L (98-107); Estimated GFR-MDRD 14; Globulin 2.9 g/dL (2.4-3.5); Glucose 282 mg/dL (83-110); Potassium 4.3 mmol/L (3.5-5.1); Protein, Total 7.1 g/dL (5.8-8.1); Sodium 137 mmol/L (136-145)
== END 2020-04-25 01:04 | disposition home or self-care (01) ==
LOC: ERS 23:29
DX: R33.9 Retention of urine, unspecified (principal); I10 Essential (primary) hypertension; E11.9 Type 2 diabetes mellitus without complications; E78.5 Hyperlipidemia, unspecified; Z79.82 Long term (current) use of aspirin; Z79.899 Other long term (current) drug therapy
CPT/HCPCS: 36415; 80053; 85025

== ENCOUNTER 2020-06-25 11:56 | Outpatient (CLI) | payer MEDICARE, MEDICAID ==
[2020-06-25 13:41] LABS: #Basophils 0.1 10x3/uL (0.0-0.2); #Eosinphils 0.1 10x3/uL (0.0-0.5); #Monocytes 0.5 10x3/uL (0.0-1.1); #Neutrophils 4.3 10x3/uL (1.5-8.4); %Basophils 0.8 % (0.0-2.0); %Eosinophils 2.2 % (0.0-6.0); %Lymphocytes 17.4 % (18.0-47.0); %Monocytes 7.9 % (0.0-10.0); %Neutrophils 71.2 % (40.0-75.0); Hemoglobin 11.8 g/dL (14.0-18.0); Mean Corpuscular HGB CONC 31.7 G/DL (32.0-36.0); Mean Corpuscular Hemoglobin 28.1 PG (27.0-33.0); Mean Corpuscular Volume 88.6 fl (80.0-100.0); Platelet Count 185 10x3/uL (130-400); RBC Distribution Width 13.1 % (11.5-14.5)
[2020-06-25 13:48] LABS: Anion Gap 17 mmol/L (10-20); BUN (Urea Nitrogen) 62 mg/dL (8.4-25.7); Calc. Creatinine Clearance 0 mL/min (70-130); Calcium 8.7 mg/dL (7.8-10.44); Carbon Dioxide 25 mmol/L (23-31); Chloride 101 mmol/L (98-107); Estimated GFR-MDRD 11; Glucose 259 mg/dL (83-110); Potassium 4.1 mmol/L (3.5-5.1); Sodium 139 mmol/L (136-145)
--- NOTE | 2020-06-25 21:09 | EKG ---
Test Reason : Blood Pressure : / mmHG Vent. Rate : 058 BPM Atrial Rate : 058 BPM P-R Int : 222 ms QRS Dur : 120 ms QT Int : 448 ms P-R-T Axes : 040 -18 052 degrees QTc Int : 439 ms Sinus bradycardia with 1st degree A-V block Left ventricular hypertrophy with QRS widening Inferior infarct , age undetermined Abnormal ECG Confirmed by Beatriz CLARK ([id number]) on 06/25/2020 9:09:08 PM Referred By: GIULIA Confirmed By:Beatriz CLARK
[2020-06-26 12:11] LABS: SARS-CoV-2 MS2 Positive; SARS-CoV-2 N Gene Negative; SARS-CoV-2 S Gene Negative; SARS-CoV-2 by NAA Not Detected (NotDetected); SARS-CoV-2 orf1ab Negative
== END 2020-06-25 11:57 | disposition home or self-care (01) ==
LOC: LABBT 11:56
PROVIDERS: ATTEND Specialist
DX: Z01.818 Encounter for other preprocedural examination (principal); N40.0 Benign prostatic hyperplasia without lower urinary tract symptoms; K40.90 Unilateral inguinal hernia, without obstruction or gangrene, not specified as recurrent; Z20.828 Contact with and (suspected) exposure to other viral communicable diseases
CPT/HCPCS: 80048; 85025; 93005; U0003; 87635; 93010

== ENCOUNTER 2020-06-27 07:21 | Day surgery (SDC) | payer MEDICARE, MEDICAID ==
[2020-06-26 15:29] VITALS: BMI 27.6
--- NOTE | 2020-06-26 16:04 | HP ---
HISTORY OF PRESENT ILLNESS: Marco Montelongo is a 74-year-old male patient, undergoing peritoneal dialysis and has a right Arminda fistula, he has used in the past for dialysis. He is connected to [facility]. Currently, he does peritoneal dialysis at home. The patient reports to my office because of pain in his right groin radiating to his testicle. This occurs when he is up ambulating and walking. It does not bother him during peritoneal dialysis. It does not bother him when he is supine. Exam in the office today revealed a right inguinal hernia. Plan is for open repair with mesh, right inguinal hernia outpatient. We will arrange a week of hemodialysis after his hernia repair, then he can resume peritoneal dialysis. We will plan this as an open repair. MEDICATIONS: 1. Gabapentin. 2. Carvedilol. 3. . 4. D3. 5. Mirabegron. 6. Atorvastatin. 7. Protonix. 8. Iron. 9. Elenita aspirin. 10. Plavix. He can continue these medications perioperatively, he does not need to stop his Plavix. PAST MEDICAL HISTORY: Diabetes mellitus, hypertension, hyperlipidemia, end-stage renal disease on peritoneal dialysis with a functioning right arm fistula, history of GERD, EGD in 2014, and colonoscopy in 2013. PAST SURGICAL HISTORY: Appendectomy, TURP, right Arminda fistula in August 2019, HD catheter in October 2019, HD catheter removal on 01/31/2020, and laparoscopic peritoneal dialysis catheter on 04/24/2020. SOCIAL HISTORY: Tobacco, none. Alcohol, none. REVIEW OF SYSTEMS: Noncontributory. PHYSICAL EXAMINATION: VITAL SIGNS: 160 pounds, 65 inches, and 27 BMI. 151/55, 62, and 97.4 degrees. HEAD, EARS, EYES, NOSE, AND THROAT: Unremarkable. LUNGS: Clear to auscultation. CARDIAC: Regular rate and rhythm without murmur or gallop. ABDOMEN: Soft. Peritoneal dialysis catheter in place. Exit site looks normal. EXTREMITIES: Unremarkable. : Testicles normal on standing. Left groin without hernia. Right groin hernia on Valsalva. ASSESSMENT AND PLAN: 1. Right inguinal hernia. We will plan open mesh repair. He understands risks and benefits, consents. 2. End-stage renal disease, on peritoneal dialysis. We will plan hemodialysis a week after open inguinal hernia repair and then, return to peritoneal dialysis. 3. History of diabetes. 4. Hypertension. 5. History of gastroesophageal reflux disease. 6. Peyronie's disease. 7. Allergies to penicillin. We will plan Levaquin IV and prophylaxis preoperatively. Job ID: [id number]
[2020-06-27] MEDS ORDERED: Levofloxacin 500 mg/D5W 100 ml Premix Bag ONE (08:02)
[2020-06-27] MEDS ORDERED: Acetaminophen 500 MG TAB ONE (08:02)
[2020-06-27] MEDS ORDERED: Lidocaine 1% PF 5 ML VIAL ONE (08:49)
[2020-06-27] MEDS ORDERED: Ondansetron PF 4 MG/2 ML Vial ONE ×2 (08:49→11:21)
[2020-06-27] MEDS ORDERED: EPHEDRINE 25 MG/5 ML SYRINGE ONE (08:49)
[2020-06-27] MEDS ORDERED: PROPOFOL 200 MG/20 ML VIAL ONE (08:49)
[2020-06-27] MEDS ORDERED: Fentanyl 100 MCG/2 ML VIAL ONE ×3 (09:09→11:33)
[2020-06-27] MEDS ORDERED: Bupivacaine 0.25% HCL 30 ML VIAL ONE (09:24)
[2020-06-27] MEDS ORDERED: Lidocaine 1% w/Epinephrine 1:100K 20 ML VIAL ONE (09:24)
[2020-06-27] MEDS ORDERED: hydrALAZINE 20 MG/ML VIAL ONE (11:16)
--- NOTE | 2020-06-27 12:05 | OP ---
DATE OF PROCEDURE: 06/27/2020 PREOPERATIVE DIAGNOSES: Peritoneal dialysis status, end-stage renal disease, right inguinal hernia, previous upper abdominal surgeries. POSTOPERATIVE DIAGNOSES: Peritoneal dialysis status, end-stage renal disease, right inguinal hernia, previous upper abdominal surgeries. PROCEDURES PERFORMED: Open right inguinal hernia repair with PHS mesh. ANESTHESIA: General, local 0.5% Marcaine 30 mL mixed with 1% xylocaine with epinephrine 20 mL, total volume used. DESCRIPTION OF PROCEDURE: The patient was taken to the operating room where under general anesthesia, right groin was clipped of hair, prepared with ChloraPrep and draped in routine fashion. Ioban was used. A local anesthetic infiltrated in the skin and subcutaneous tissue for ilioinguinal nerve block and along the line of incision infiltrated in the space of ilioinguinal canal and space above and below Camper's fascia when closing. External oblique dissected free to the external ring incising the external oblique in the direction of its fibers, dissecting the cord structures, surrounded with a Kedar drain. Cord structures dissected free. Cremasteric fibers taken down. Hernia sac dissected free from the cord structures as well as a lipoma of the cord and the hernia sac opened under direct visualization, dissected free, and highly ligated with 0 Nurolon pursestring suture and high amputation of hernia sac performed. To the stump of the hernia sac the underlay portion of the PHS mesh secured with 0-Nurolon. An underlay portion placed in the floor of the inguinal canal. The underlay portion placed in the preperitoneal space. Onlay portion placed in the inguinal canal, placed in the extended portion superiorly. A slit made in the mesh laterally and mesh reapproximated laterally. Refashioned synthetic internal ring approximated the mesh to Poupart's ligament with 0 Nurolon suture. Mesh inferiorly approximated to Jose ligament with 0 Nurolon suture. The mesh lay flat on the inguinal canal floor. Good hemostasis noted. External oblique approximated with continuous suture of 3-0 Monocryl, Camper's with 3-0 Monocryl, skin with subdermal 4-0 Monocryl and [place] glue applied. The patient tolerated the procedure well. Job ID: [id number]
[2020-06-27] MEDS ORDERED: HYDROcodone/Acetaminophen 5/325 mg Tablet ONE (12:13)
[2020-06-27] MEDS ORDERED: Ondansetron ODT 4 MG TAB ONE (12:45)
== END 2020-06-27 13:00 | disposition home or self-care (01) ==
LOC: SDC 07:21
PROVIDERS: ATTEND Specialist
PROC: 0YU50JZ Supplement Right Inguinal Region with Synthetic Substitute, Open Approach (ICD-10-PCS; principal; 2020-06-27)
DX: K40.90 Unilateral inguinal hernia, without obstruction or gangrene, not specified as recurrent (principal); D17.6 Benign lipomatous neoplasm of spermatic cord; I12.0 Hypertensive chronic kidney disease with stage 5 chronic kidney disease or end stage renal disease; E11.22 Type 2 diabetes mellitus with diabetic chronic kidney disease; N18.6 End stage renal disease; K21.9 Gastro-esophageal reflux disease without esophagitis; E78.5 Hyperlipidemia, unspecified; N48.6 Induration penis plastica; Z79.02 Long term (current) use of antithrombotics/antiplatelets; Z79.4 Long term (current) use of insulin; Z79.82 Long term (current) use of aspirin; Z79.899 Other long term (current) drug therapy; Z88.0 Allergy status to penicillin; Z99.2 Dependence on renal dialysis
CPT/HCPCS: 49505; 82962; C1781; 36416; J0360; J1956; J2405; J2704; J3010; Q0162; S0020

== ENCOUNTER 2020-07-01 20:50 | Emergency (ER) | payer MEDICARE, MEDICAID ==
[2020-07-01 21:55] LABS: #Eosinphils 0.3 thou/uL (0.0-0.7); #Lymphocytes 1.1 thou/uL (1.20-3.40); #Monocytes 0.8 thou/uL (0.11-0.59); #Neutrophils 4.9 thou/uL (1.40-6.50); %Basophils 0.3 % (0.0-1.0); %Eosinophils 4.1 % (0.0-10.0); %Lymphocytes 15.5 % (21.0-51.0); %Monocytes 10.6 % (0.0-10.0); %Neutrophils 69.5 % (42.0-75.0); Hemoglobin 12.2 g/dL (14.0-18.0); Mean Corpuscular HGB CONC 33.7 g/dL (32.0-36.0); Platelet Count 183 thou/uL (130-400); RBC Distribution Width 12.4 % (11.5-14.5); Red Blood Cell (RBC) Count 4.08 mill/uL (4.70-6.10); White Blood Cell (WBC) Count 7.1 thou/uL (4.8-10.8)
[2020-07-01 22:14] LABS: ALT (SGPT) 15 U/L (8-55); AST (SGOT) 16 U/L (5-34); Albumin 3.8 g/dL (3.4-4.8); Alkaline Phosphatase 87 U/L (40-110); Anion Gap 16 mmol/L (10-20); BUN (Urea Nitrogen) 46 mg/dL (8.4-25.7); Bilirubin, Total 0.5 mg/dL (0.2-1.2); Calc. Creatinine Clearance 0 mL/min (70-130); Calcium 8.7 mg/dL (7.8-10.44); Carbon Dioxide 28 mmol/L (23-31); Chloride 96 mmol/L (98-107); Estimated GFR-MDRD 13; Globulin 3.5 g/dL (2.4-3.5); Glucose 208 mg/dL (83-110); Potassium 3.8 mmol/L (3.5-5.1); Protein, Total 7.3 g/dL (5.8-8.1); Sodium 136 mmol/L (136-145)
[2020-07-01 23:49] LABS: Bacteria/HPF None Seen HPF (None Seen); Bilirubin Negative (Negative); Blood, Urine Negative (Negative); Clarity Clear (Clear); Glucose, Urine (Dipstick) Greater than 1000 mg/dL (Negative); Ketone, Urine Negative (Negative); Leukocyte Negative Leu/uL (Negative); Nitrite Negative (Negative); Protein, Urine (Dipstick) 200 mg/dL (Neg-Trace); RBC/HPF 0-3 HPF (0-3); Specific Gravity, Urine 1.016 (1.002-1.036); Squamous Epithelial None Seen HPF (0-3); Urobilinogen Normal mg/dL (Less than 2); WBC/HPF 0-3 HPF (0-3)
--- NOTE | 2020-07-02 07:42 | CT ---
PRELIMINARY REPORT/[facility]/EMERGENCY AFTER HOURS PROCEDURE: EXAM: CT Abdomen and Pelvis Without Intravenous Contrast CLINICAL HISTORY: This is a 74-year-old male who presents to the emergency department for chief complaint of hematochez ia status post inguinal hernia repair on Thursday by Dr. Dowd TECHNIQUE: Axial computed tomography images of the abdomen and pelvis without intravenous contrast. CONTRAST: None. COMPARISON: None provided. FINDINGS: LUNG BASES: No basilar airspace consolidation or pleural effusion. LIVER: Unremarkable. GALLBLADDER AND BILE DUCTS: Unremarkable. No calcified stone. No ductal dilation. PANCREAS: Unremarkable. SPLEEN: Unremarkable. ADRENAL GLANDS: Unremarkable. KIDNEYS, URETERS, AND BLADDER: There is a low density lesion in the right kidney measuring about 2.5 cm, no hydronephrosis. The urinary bladder is contracted with a [place] catheter. STOMACH AND BOWEL: No obstruction. No wall thickening. No CT evidence of colitis or acute diverticulitis. APPENDIX: No CT evidence for appendicitis. PERITONEUM: No free fluid. No free air. LYMPH NODES: No lymphadenopathy. REPRODUCTIVE: Unremarkable as visualized. VASCULATURE: No aortic aneurysm. ABDOMINAL WALL AND SOFT TISSUES: There is a soft tissue swelling of the anterior abdominal wall in the right lower quadrant, centered at the right inguinal region with soft tissue emphysema, findings highly suggestive infection, althou gh this could be due to postsurgical changes. Clinical correlation recommended. BONES: No fracture or suspicious osseous abnormality. MISCELLANEOUS: There is a transabdominal catheter in the right lower quadrant. IMPRESSION: 1. There is a soft tissue swelling of the anterior abdominal wall in the right lower quadrant, center ed at the right inguinal region with soft tissue emphysema, findings highly suggestive infection, alt darron this could be due to postsurgical changes. Clinical correlation recommended. 2. There is a low density lesion in the right kidney measuring about 2.5 cm, no hydronephrosis. 3. There is a transabdominal catheter in the right lower quadrant. ELECTRONICALLY SIGNED BY: Gerald Hayes MD Jul 02, 2020 2:20:14 AM PHOTO PRINT SPECIALIST This report is intended for review by the ordering physician only, in accordance of law. If you recei ve this report in error, please call [facility] at [phone]. FINAL REPORT EMERGENT AFTER HOURS CT OF THE ABDOMEN AND PELVIS WITH CONTRAST: COMPARISON: 04/29/2019. FINDINGS/IMPRESSION: I agree with the findings and impression given in the preliminary report per [facility] physici an. 1. There are stranding changes and air in the right inguinal region. This is likely secondary to pr ior inguinal hernia repair. An infectious process cannot be entirely excluded. However, no drainabl e fluid collection is seen. A surgical drain is seen in the lower abdomen in the right inguinal jared on consistent with postoperative change. 2. Right renal cyst. POS: EAA
[2020-07-02] MEDS ORDERED: Iopamidol 370 76% 50 ML VIAL FS ONE (09:00)
== END 2020-07-02 02:47 | disposition home or self-care (01) ==
LOC: ERS 20:50
DX: K91.840 Postprocedural hemorrhage of a digestive system organ or structure following a digestive system procedure (principal); K59.00 Constipation, unspecified; R33.9 Retention of urine, unspecified; E11.9 Type 2 diabetes mellitus without complications; E78.5 Hyperlipidemia, unspecified; I10 Essential (primary) hypertension; Z79.899 Other long term (current) drug therapy
CPT/HCPCS: 36415; 51702; 74177; 80053; 81003; 81015; 85025; Q9967

== ENCOUNTER 2020-07-04 19:00 | Emergency (ER) | payer MEDICARE, MEDICAID ==
[2020-07-04 21:10] LABS: Bacteria/HPF None Seen HPF (None Seen); Bilirubin Negative (Negative); Blood, Urine Trace (Negative); Clarity Clear (Clear); Glucose, Urine (Dipstick) 100 mg/dL (Negative); Ketone, Urine Negative (Negative); Leukocyte Negative Leu/uL (Negative); Nitrite Negative (Negative); Protein, Urine (Dipstick) 100 mg/dL (Neg-Trace); RBC/HPF 0-3 HPF (0-3); Specific Gravity, Urine 1.006 (1.002-1.036); Squamous Epithelial None Seen HPF (0-3); Urobilinogen Normal mg/dL (Less than 2); WBC/HPF 0-3 HPF (0-3); pH, Urine 8.5 (5.0-9.0)
== END 2020-07-04 21:37 | disposition home or self-care (01) ==
LOC: ERS 19:00
DX: N34.2 Other urethritis (principal); E11.9 Type 2 diabetes mellitus without complications; E78.5 Hyperlipidemia, unspecified; I10 Essential (primary) hypertension; Z99.2 Dependence on renal dialysis; N28.9 Disorder of kidney and ureter, unspecified; Z79.82 Long term (current) use of aspirin; Z79.899 Other long term (current) drug therapy
CPT/HCPCS: 81003; 81015; 87086; 99283

== ENCOUNTER 2020-08-12 21:13 | Emergency (ER) | payer MEDICARE, MEDICAID ==
[2020-08-12 22:20] LABS: #Eosinphils 0.2 thou/uL (0.0-0.7); #Lymphocytes 1.2 thou/uL (1.20-3.40); #Monocytes 0.6 thou/uL (0.11-0.59); #Neutrophils 4.7 thou/uL (1.40-6.50); %Basophils 0.7 % (0.0-1.0); %Eosinophils 3.1 % (0.0-10.0); %Lymphocytes 17.4 % (21.0-51.0); %Monocytes 8.9 % (0.0-10.0); %Neutrophils 69.9 % (42.0-75.0); Hemoglobin 13.1 g/dL (14.0-18.0); Mean Corpuscular HGB CONC 32.8 g/dL (32.0-36.0); Mean Corpuscular Hemoglobin 28.6 pg (27.0-31.0); Mean Corpuscular Volume 87.2 fL (78.0-98.0); Mean Platelet Volume 8.4 fL (7.4-10.4); Platelet Count 187 thou/uL (130-400); RBC Distribution Width 13.4 % (11.5-14.5); Red Blood Cell (RBC) Count 4.59 mill/uL (4.70-6.10); White Blood Cell (WBC) Count 6.8 thou/uL (4.8-10.8)
[2020-08-12] MEDS ORDERED: Acetaminophen 500 MG TAB ONE (22:37)
[2020-08-12] MEDS ORDERED: diphenhydrAMINE 12.5 MG/5 ML UDCUP ONE (22:37)
[2020-08-12] MEDS ORDERED: Metoclopramide HCl 10 MG/2 ML VIAL ONE (22:37)
--- NOTE | 2020-08-12 22:37 | RAD ---
EXAM: CHEST ONE VIEW HISTORY: Hypertension and headache. COMPARISON: 11/11/2019 FINDINGS: Cardiac silhouette is magnified by projection. Pulmonary vasculature is within normal limits. The lef t-sided vascular catheter and right-sided hemodialysis catheter have been removed. Minimal linear bibasilar atelectasis is present. The lungs are otherwise clear without consolidation or pleural flui d. No other interval change. IMPRESSION: No acute cardiopulmonary process.
[2020-08-12] MEDS ORDERED: diphenhydrAMINE 50 MG/ML VIAL ONE (22:38)
[2020-08-12 22:42] LABS: ALT (SGPT) 24 U/L (8-55); AST (SGOT) 19 U/L (5-34); Alkaline Phosphatase 113 U/L (40-110); Anion Gap 19 mmol/L (10-20); BUN (Urea Nitrogen) 53 mg/dL (8.4-25.7); Bilirubin, Total 0.3 mg/dL (0.2-1.2); Calc. Creatinine Clearance 0 mL/min (70-130); Carbon Dioxide 21 mmol/L (23-31); Chloride 104 mmol/L (98-107); Globulin 3.5 g/dL (2.4-3.5); Glucose 194 mg/dL (83-110); Lipase 48 U/L (8-78); Protein, Total 7.5 g/dL (5.8-8.1); Sodium 140 mmol/L (136-145)
[2020-08-12 23:02] LABS: CKMB 2.4 ng/mL (0-6.6)
--- NOTE | 2020-08-12 23:46 | CT ---
CT HEAD WITHOUT IV CONTRAST COMPARISON: 09/20/2019 HISTORY: Headache. Elevated blood pressure. TECHNIQUE: Axial CT imaging at 5 mm intervals from vertex through skull base without contrast FINDINGS: There is no evidence of an acute infarction, hemorrhage, mass effect, or midline shift. The ventricul ar system is normal in size, shape, and position. Skull base has a normal CT appearance. Visualized paranasal sinuses are clear. Osseous structures appear intact. There has been no interval change when compared to the prior exam. IMPRESSION: 1. No acute intracranial abnormality demonstrated.
== END 2020-08-13 00:47 | disposition home or self-care (01) ==
LOC: ERS 21:13
DX: I10 Essential (primary) hypertension (principal); Z79.899 Other long term (current) drug therapy; Z79.4 Long term (current) use of insulin; E11.9 Type 2 diabetes mellitus without complications; E78.5 Hyperlipidemia, unspecified
CPT/HCPCS: 70450; 71045; 80053; 82553; 83690; 84484; 85025; 93005; 96365; 96375; J1200; J2765; Q0163

== ENCOUNTER 2021-02-13 15:25 | Observation (INO) | payer MEDICARE, MEDICAID ==
[2021-02-13 15:59] LABS: #Eosinphils 0.2 thou/uL (0.0-0.7); #Lymphocytes 1.2 thou/uL (1.20-3.40); #Monocytes 0.8 thou/uL (0.11-0.59); #Neutrophils 8.8 thou/uL (1.40-6.50); %Basophils 0.1 % (0.0-1.0); %Eosinophils 1.6 % (0.0-10.0); %Lymphocytes 11.1 % (21.0-51.0); %Monocytes 7.5 % (0.0-10.0); %Neutrophils 79.7 % (42.0-75.0); Mean Corpuscular HGB CONC 31.8 g/dL (32.0-36.0); Mean Corpuscular Hemoglobin 28.5 pg (27.0-31.0); Mean Corpuscular Volume 89.7 fL (78.0-98.0); Mean Platelet Volume 8.4 fL (7.4-10.4); Platelet Count 212 thou/uL (130-400); Red Blood Cell (RBC) Count 4.55 mill/uL (4.70-6.10); White Blood Cell (WBC) Count 11.1 thou/uL (4.8-10.8)
[2021-02-13 16:25] LABS: ALT (SGPT) 39 U/L (8-55); AST (SGOT) 23 U/L (5-34); Albumin 4.2 g/dL (3.4-4.8); Alkaline Phosphatase 112 U/L (40-110); Anion Gap 16 mmol/L (10-20); BUN (Urea Nitrogen) 63 mg/dL (8.4-25.7); Bilirubin, Total 0.4 mg/dL (0.2-1.2); Calc. Creatinine Clearance 0 mL/min (70-130); Calcium 9.1 mg/dL (7.8-10.44); Carbon Dioxide 26 mmol/L (23-31); Chloride 103 mmol/L (98-107); Globulin 3.8 g/dL (2.4-3.5); Glucose 70 mg/dL (83-110); Potassium 3.7 mmol/L (3.5-5.1); Sodium 141 mmol/L (136-145)
[2021-02-13 16:45] LABS: CKMB 1.9 ng/mL (0-6.6)
[2021-02-13] MEDS ORDERED: Meropenem 1 GM in Sodium Chloride 0.9% 100 ML IVPB SCH (19:30)
[2021-02-13] MEDS ORDERED: Dextrose 50% Abboject 50 ML SYRINGE SLOW IVP PRN (19:32)
[2021-02-13] MEDS ORDERED: Dextrose 5% in Water 1,000 ML IV PRN (19:32)
[2021-02-13 19:52] LABS: Troponin I 0.033 ng/mL (< 0.028)
[2021-02-13] MEDS ORDERED: MEROPENEM 1 GM/50 ML 1 GM in Premix Bag 1 BAG IVPB SCH (20:00)
[2021-02-13 20:24] LABS: Lactic Acid 1.3 mmol/L (0.5-2.2)
[2021-02-13] MEDS ORDERED: Atorvastatin Calcium 20 MG TAB PO SCH (21:00)
[2021-02-13 22:16] LABS: Troponin I 0.031 ng/mL (< 0.028)
[2021-02-14 01:27] VITALS: BMI 26.9
[2021-02-14 03:33] LABS: Bacteria/HPF None Seen HPF (None Seen); Bilirubin Negative (Negative); Blood, Urine Trace (Negative); Clarity Clear (Clear); Glucose, Urine (Dipstick) Greater than 1000 mg/dL (Negative); Ketone, Urine Negative (Negative); Leukocyte Negative Leu/uL (Negative); Nitrite Negative (Negative); Protein, Urine (Dipstick) 70 mg/dL (Neg-Trace); RBC/HPF None Seen HPF (0-3); Squamous Epithelial None Seen HPF (0-3); Urobilinogen Normal mg/dL (Less than 2); WBC/HPF 0-3 HPF (0-3)
[2021-02-14 03:34] LABS: Urine Culture Reflex No No
[2021-02-14] MEDS: HumaLOG 300 UNITS/3 ML VIAL SC PRN ×2 (05:58→12:00)
[2021-02-14] MEDS ORDERED: Meropenem 500 MG in Sodium Chloride 0.9% 100 ML IVPB SCH (06:00)
[2021-02-14] MEDS ORDERED: Lantus 1000 UNITS/10 ML VIAL SC SCH (09:00)
[2021-02-14] MEDS ORDERED: Calcitriol 0.25 MCG CAP PO SCH (09:00)
[2021-02-14] MEDS ORDERED: Ferrous Sulfate 325 MG TAB PO SCH (09:00)
[2021-02-14] MEDS ORDERED: Aspirin 81 mg Enteric Coated Tablet PO SCH (09:00)
[2021-02-14] MEDS ORDERED: Clopidogrel Bisulfate 75 MG TAB PO SCH (09:00)
[2021-02-14] MEDS ORDERED: Cholecalciferol 1,000 UNITS (25 MCG) TAB PO SCH (09:00)
[2021-02-14 11:17] VITALS: TEMP 98.5
[2021-02-14 11:48] LABS: #Eosinphils 0.1 thou/uL (0.0-0.7); #Lymphocytes 1.1 thou/uL (1.20-3.40); #Monocytes 0.6 thou/uL (0.11-0.59); #Neutrophils 4.7 thou/uL (1.40-6.50); %Basophils 0.2 % (0.0-1.0); %Eosinophils 2.2 % (0.0-10.0); %Lymphocytes 17.5 % (21.0-51.0); %Monocytes 8.6 % (0.0-10.0); %Neutrophils 71.5 % (42.0-75.0); Hemoglobin 11.5 g/dL (14.0-18.0); Mean Corpuscular HGB CONC 31.7 g/dL (32.0-36.0); Mean Corpuscular Hemoglobin 28.4 pg (27.0-31.0); Mean Corpuscular Volume 89.5 fL (78.0-98.0); Mean Platelet Volume 8.3 fL (7.4-10.4); Platelet Count 188 thou/uL (130-400); RBC Distribution Width 12.1 % (11.5-14.5); Red Blood Cell (RBC) Count 4.07 mill/uL (4.70-6.10); White Blood Cell (WBC) Count 6.5 thou/uL (4.8-10.8)
[2021-02-14 12:28] LABS: Anion Gap 16 mmol/L (10-20); BUN (Urea Nitrogen) 60 mg/dL (8.4-25.7); Calc. Creatinine Clearance 14 mL/min (70-130); Calcium 8.3 mg/dL (7.8-10.44); Carbon Dioxide 26 mmol/L (23-31); Chloride 101 mmol/L (98-107); Glucose 197 mg/dL (83-110); Potassium 3.8 mmol/L (3.5-5.1); Sodium 139 mmol/L (136-145)
[2021-02-14] MEDS ORDERED: NIFEdipine XL 60 MG TAB PO SCH (12:45)
[2021-02-14 14:26] VITALS: BP 153/71
[2021-02-15] MEDS ORDERED: NIFEdipine XL 60 MG TAB PO SCH (09:00)
== END 2021-02-14 13:10 | disposition home or self-care (01) ==
LOC: ERS 15:25 → ERHOLD 17:36 → 2NO 19:53
PROVIDERS: ADMIT Internal Medicine; ATTEND Internal Medicine
DX: R00.1 Bradycardia, unspecified (principal); R55 Syncope and collapse; R77.8 Other specified abnormalities of plasma proteins; R42 Dizziness and giddiness; R53.1 Weakness; R07.89 Other chest pain; D72.829 Elevated white blood cell count, unspecified; I12.0 Hypertensive chronic kidney disease with stage 5 chronic kidney disease or end stage renal disease; E11.22 Type 2 diabetes mellitus with diabetic chronic kidney disease; N18.6 End stage renal disease; D63.1 Anemia in chronic kidney disease; I25.10 Atherosclerotic heart disease of native coronary artery without angina pectoris; I25.2 Old myocardial infarction; E78.00 Pure hypercholesterolemia, unspecified; I44.0 Atrioventricular block, first degree; E78.5 Hyperlipidemia, unspecified; Z86.73 Personal history of transient ischemic attack (TIA), and cerebral infarction without residual deficits; Z79.02 Long term (current) use of antithrombotics/antiplatelets; Z79.4 Long term (current) use of insulin; Z79.82 Long term (current) use of aspirin; Z79.899 Other long term (current) drug therapy; Z88.0 Allergy status to penicillin; Z99.2 Dependence on renal dialysis
CPT/HCPCS: 71045; 80048; 81001; 82553; 82962 ×2; 83605; 83880; 84484 ×2; 85025; 87040; 93005; 97139 ×2; 99285; G0378 ×3; 36415; 36416; 80053; 84443; 90945; G0257; J1815; J2185; J3490

== ENCOUNTER 2021-07-30 16:54 | Inpatient (IN) | payer MEDICARE, MEDICAID ==
[2021-07-30] MEDS ORDERED: Metoclopramide HCl 10 MG/2 ML VIAL ONE (17:40)
[2021-07-30] MEDS ORDERED: diphenhydrAMINE 50 MG/ML VIAL ONE (17:40)
[2021-07-30] MEDS ORDERED: diphenhydrAMINE 12.5 MG/5 ML UDCUP ONE (17:40)
[2021-07-30 17:57] LABS: #Eosinphils 0.2 thou/uL (0.0-0.7); #Lymphocytes 1.1 thou/uL (1.20-3.40); #Monocytes 0.6 thou/uL (0.11-0.59); #Neutrophils 5.4 thou/uL (1.40-6.50); %Basophils 0.3 % (0.0-1.0); %Eosinophils 2.8 % (0.0-10.0); %Lymphocytes 14.9 % (21.0-51.0); %Monocytes 8.3 % (0.0-10.0); %Neutrophils 73.7 % (42.0-75.0); Hemoglobin 12.2 g/dL (14.0-18.0); Mean Corpuscular HGB CONC 31.9 g/dL (32.0-36.0); Mean Corpuscular Hemoglobin 28.1 pg (27.0-31.0); Mean Corpuscular Volume 88.1 fL (78.0-98.0); Mean Platelet Volume 8.1 fL (7.4-10.4); Platelet Count 197 thou/uL (130-400); RBC Distribution Width 12.4 % (11.5-14.5); Red Blood Cell (RBC) Count 4.35 mill/uL (4.70-6.10); White Blood Cell (WBC) Count 7.4 thou/uL (4.8-10.8)
[2021-07-30 18:19] LABS: ALT (SGPT) 20 U/L (8-55); AST (SGOT) 16 U/L (5-34); Albumin 3.9 g/dL (3.4-4.8); Alkaline Phosphatase 99 U/L (40-110); Anion Gap 18 mmol/L (10-20); BUN (Urea Nitrogen) 74 mg/dL (8.4-25.7); Bilirubin, Total 0.3 mg/dL (0.2-1.2); Calc. Creatinine Clearance 0 mL/min (70-130); Calcium 8.5 mg/dL (7.8-10.44); Carbon Dioxide 23 mmol/L (23-31); Chloride 102 mmol/L (98-107); Globulin 3.1 g/dL (2.4-3.5); Glucose 304 mg/dL (83-110); Potassium 4.2 mmol/L (3.5-5.1); Sodium 139 mmol/L (136-145)
[2021-07-30 18:41] LABS: CKMB 3.1 ng/mL (0-6.6)
[2021-07-30] MEDS ORDERED: Aspirin Chewable 81 MG TAB ONE (20:27)
[2021-07-30] MEDS ORDERED: HumaLOG 300 UNITS/3 ML VIAL SC PRN (21:10)
[2021-07-30] MEDS ORDERED: Dextrose 5% in Water 1,000 ML IV PRN (21:10)
[2021-07-30] MEDS ORDERED: Dextrose 50% Abboject 50 ML SYRINGE SLOW IVP PRN (21:10)
[2021-07-30] MEDS ORDERED: Ondansetron PF 4 MG/2 ML Vial IVP PRN (21:58)
[2021-07-30] MEDS ORDERED: hydrALAZINE 20 MG/ML VIAL SLOW IVP PRN (21:58)
[2021-07-30] MEDS ORDERED: Acetaminophen 650 MG Suppository PR PRN (21:58)
[2021-07-30] MEDS ORDERED: Acetaminophen 325 MG TAB PO PRN (21:58)
[2021-07-30] MEDS ORDERED: Ondansetron ODT 4 MG TAB PO PRN (21:58)
[2021-07-30 23:37] VITALS: BMI 28.0
[2021-07-31 03:24] LABS: Anion Gap 15 mmol/L (10-20); BUN (Urea Nitrogen) 62 mg/dL (8.4-25.7); Calc. Creatinine Clearance 13 mL/min (70-130); Calcium 8.4 mg/dL (7.8-10.44); Carbon Dioxide 23 mmol/L (23-31); Chloride 104 mmol/L (98-107); Glucose 257 mg/dL (83-110); Potassium 3.5 mmol/L (3.5-5.1); Sodium 138 mmol/L (136-145)
[2021-07-31 03:44] LABS: Cardiac Risk 5.2 (Less than 4.5)
[2021-07-31 04:04] LABS: HBSAg Index 0.33 S/CO (0-0.99); Hep B Surf Ag Non-Reactive S/CO (NonReactive)
[2021-07-31] MEDS: HumaLOG 300 UNITS/3 ML VIAL SC PRN ×5 (06:00→20:06)
[2021-07-31 08:33] LABS: BF Color Colorless; Body Fluid Source Peritoneal Fluid; Clarity Clear (Clear); RBC Count-Automated (BF) 0 /cu.mm; Tube # EDTA; WBC/Nucleated-Auto (BF) 0 /cu.mm
[2021-07-31] MEDS: Aspirin 81 mg Enteric Coated Tablet PO SCH (09:06)
[2021-07-31] MEDS: Heparin 5,000 UNITS/ML VIAL SC SCH ×2 (09:06→16:52)
[2021-07-31 11:30] LABS: SARS-CoV-2 PCR by NAA Not Detected (NotDetected)
[2021-07-31] MEDS ORDERED: Clopidogrel Bisulfate 75 MG TAB PO SCH (12:00)
[2021-07-31] MEDS: Lisinopril 20 MG TAB PO SCH (17:22)
[2021-07-31] MEDS: NIFEdipine XL 60 MG TAB PO SCH (17:22)
[2021-07-31] MEDS: Docusate 100 MG CAP PO SCH ×2 (20:05→20:06)
[2021-07-31] MEDS ORDERED: Atorvastatin Calcium 20 MG TAB PO SCH (21:00)
[2021-08-01 05:15] LABS: #Eosinphils 0.2 thou/uL (0.0-0.7); #Lymphocytes 0.9 thou/uL (1.20-3.40); #Monocytes 0.7 thou/uL (0.11-0.59); #Neutrophils 5.1 thou/uL (1.40-6.50); %Basophils 0.1 % (0.0-1.0); %Eosinophils 2.9 % (0.0-10.0); %Lymphocytes 13.3 % (21.0-51.0); %Monocytes 9.5 % (0.0-10.0); %Neutrophils 74.3 % (42.0-75.0); Hemoglobin 12.1 g/dL (14.0-18.0); Mean Corpuscular HGB CONC 32.4 g/dL (32.0-36.0); Mean Corpuscular Hemoglobin 28.6 pg (27.0-31.0); Mean Corpuscular Volume 88.2 fL (78.0-98.0); Mean Platelet Volume 7.6 fL (7.4-10.4); Platelet Count 196 thou/uL (130-400); RBC Distribution Width 12.4 % (11.5-14.5); Red Blood Cell (RBC) Count 4.22 mill/uL (4.70-6.10); White Blood Cell (WBC) Count 6.8 thou/uL (4.8-10.8)
[2021-08-01 05:43] LABS: Anion Gap 16 mmol/L (10-20); BUN (Urea Nitrogen) 57 mg/dL (8.4-25.7); Calc. Creatinine Clearance 15 mL/min (70-130); Calcium 8.8 mg/dL (7.8-10.44); Carbon Dioxide 23 mmol/L (23-31); Chloride 101 mmol/L (98-107); Glucose 386 mg/dL (83-110); Potassium 4.1 mmol/L (3.5-5.1); Sodium 136 mmol/L (136-145)
[2021-08-01] MEDS: HumaLOG 300 UNITS/3 ML VIAL SC PRN ×2 (06:08→11:55)
[2021-08-01] MEDS: NIFEdipine XL 60 MG TAB PO SCH (08:19)
[2021-08-01] MEDS: Aspirin 81 mg Enteric Coated Tablet PO SCH (08:19)
[2021-08-01] MEDS: Lisinopril 20 MG TAB PO SCH (08:20)
[2021-08-01] MEDS ORDERED: Calcitriol 0.25 MCG CAP PO SCH (09:00)
[2021-08-01] MEDS ORDERED: Lantus 1000 UNITS/10 ML VIAL SC SCH (09:00)
[2021-08-01] MEDS ORDERED: Clopidogrel Bisulfate 75 MG TAB PO SCH ×2 (09:00)
[2021-08-01] MEDS ORDERED: Aspirin 81 mg Enteric Coated Tablet PO SCH (09:00)
[2021-08-01 12:00] VITALS: BP 163/70; TEMP 99
== END 2021-08-01 15:15 | disposition home or self-care (01) | DRG 91 ==
LOC: ERS 16:54 → NEURO 20:09 → OBSVTOIN 07-31 15:19
PROVIDERS: ADMIT Student in an Organized Health Care Education/Training Program; ATTEND Internal Medicine
PROC: 4A10X4Z Monitoring of Central Nervous Electrical Activity, External Approach (ICD-10-PCS; principal; 2021-07-31)
PROC: 3E1M39Z Irrigation of Peritoneal Cavity using Dialysate, Percutaneous Approach (ICD-10-PCS; 2021-07-31)
DX: R20.0 Anesthesia of skin (principal); N18.6 End stage renal disease; T85.71XA Infection and inflammatory reaction due to peritoneal dialysis catheter, initial encounter; I50.32 Chronic diastolic (congestive) heart failure; I13.2 Hypertensive heart and chronic kidney disease with heart failure and with stage 5 chronic kidney disease, or end stage renal disease; E11.22 Type 2 diabetes mellitus with diabetic chronic kidney disease; E78.5 Hyperlipidemia, unspecified; Y83.8 Other surgical procedures as the cause of abnormal reaction of the patient, or of later complication, without mention of misadventure at the time of the procedure; I25.5 Ischemic cardiomyopathy; I25.10 Atherosclerotic heart disease of native coronary artery without angina pectoris; I44.7 Left bundle-branch block, unspecified; D63.1 Anemia in chronic kidney disease; F32.A Depression, unspecified; F41.9 Anxiety disorder, unspecified; R53.1 Weakness; N40.0 Benign prostatic hyperplasia without lower urinary tract symptoms; Z20.822 Contact with and (suspected) exposure to COVID-19; Z88.0 Allergy status to penicillin; Z88.8 Allergy status to other drugs, medicaments and biological substances; Z79.82 Long term (current) use of aspirin; Z79.899 Other long term (current) drug therapy; Z79.4 Long term (current) use of insulin; Z99.2 Dependence on renal dialysis; Z86.73 Personal history of transient ischemic attack (TIA), and cerebral infarction without residual deficits; Z90.49 Acquired absence of other specified parts of digestive tract; I25.2 Old myocardial infarction
CPT/HCPCS: 36415; 36416; 70450; 70551; 80048; 80053; 80061; 82553; 83735; 84484; 85025; 87070; 87205; 87340; 89051; 90945; 93005; 93010; 93306; 95712; 95819; 95957; 96375; G0257; G0378; J1200; J1644; J1815; J1956; J2765; Q0163; U0003; U0005

== ENCOUNTER 2021-08-02 01:56 | Emergency (ER) | payer MEDICARE, MEDICAID ==
[2021-08-02 03:46] LABS: #Eosinphils 0.2 thou/uL (0.0-0.7); #Lymphocytes 0.6 thou/uL (1.20-3.40); #Monocytes 0.7 thou/uL (0.11-0.59); #Neutrophils 6.8 thou/uL (1.40-6.50); %Basophils 0.3 % (0.0-1.0); %Eosinophils 1.8 % (0.0-10.0); %Lymphocytes 7.3 % (21.0-51.0); %Neutrophils 82.5 % (42.0-75.0); Hemoglobin 12.3 g/dL (14.0-18.0); Mean Corpuscular HGB CONC 31.5 g/dL (32.0-36.0); Mean Corpuscular Hemoglobin 27.7 pg (27.0-31.0); Mean Corpuscular Volume 87.9 fL (78.0-98.0); Mean Platelet Volume 8.1 fL (7.4-10.4); Platelet Count 222 thou/uL (130-400); RBC Distribution Width 12.4 % (11.5-14.5); Red Blood Cell (RBC) Count 4.44 mill/uL (4.70-6.10); White Blood Cell (WBC) Count 8.3 thou/uL (4.8-10.8)
[2021-08-02 04:02] LABS: ALT (SGPT) 14 U/L (8-55); AST (SGOT) 11 U/L (5-34); Albumin 3.9 g/dL (3.4-4.8); Alkaline Phosphatase 97 U/L (40-110); Anion Gap 17 mmol/L (10-20); BUN (Urea Nitrogen) 69 mg/dL (8.4-25.7); Bilirubin, Total 0.5 mg/dL (0.2-1.2); Calc. Creatinine Clearance 0 mL/min (70-130); Carbon Dioxide 22 mmol/L (23-31); Chloride 98 mmol/L (98-107); Globulin 3.4 g/dL (2.4-3.5); Glucose 479 mg/dL (83-110); Potassium 3.9 mmol/L (3.5-5.1); Protein, Total 7.3 g/dL (5.8-8.1); Sodium 133 mmol/L (136-145)
== END 2021-08-02 06:41 | disposition home or self-care (01) ==
LOC: ERS 01:56
DX: R10.32 Left lower quadrant pain (principal); Z99.2 Dependence on renal dialysis; I10 Essential (primary) hypertension; E11.9 Type 2 diabetes mellitus without complications; E78.5 Hyperlipidemia, unspecified; Z86.73 Personal history of transient ischemic attack (TIA), and cerebral infarction without residual deficits; Z79.82 Long term (current) use of aspirin; Z79.899 Other long term (current) drug therapy
CPT/HCPCS: 74176; 80053; 85025

== ENCOUNTER 2022-01-11 19:21 | Observation (INO) | payer MEDICARE, MEDICAID ==
[2022-01-11 20:13] LABS: #Eosinphils 0.2 thou/uL (0.0-0.7); #Monocytes 0.6 thou/uL (0.11-0.59); #Neutrophils 5.2 thou/uL (1.40-6.50); %Eosinophils 2.7 % (0.0-10.0); %Lymphocytes 14.1 % (21.0-51.0); %Monocytes 8.7 % (0.0-10.0); %Neutrophils 74.5 % (42.0-75.0); Hemoglobin 12.2 g/dL (14.0-18.0); Mean Corpuscular HGB CONC 34.1 g/dL (32.0-36.0); Mean Corpuscular Hemoglobin 30.9 pg (27.0-31.0); Mean Corpuscular Volume 90.6 fL (78.0-98.0); Mean Platelet Volume 7.7 fL (7.4-10.4); Platelet Count 166 thou/uL (130-400); Red Blood Cell (RBC) Count 3.95 mill/uL (4.70-6.10)
[2022-01-11 20:35] LABS: ALT (SGPT) 37 U/L (8-55); AST (SGOT) 23 U/L (5-34); Albumin 3.6 g/dL (3.4-4.8); Alkaline Phosphatase 88 U/L (40-110); Anion Gap 17 mmol/L (10-20); BUN (Urea Nitrogen) 71 mg/dL (8.4-25.7); Bilirubin, Total 0.3 mg/dL (0.2-1.2); Calc. Creatinine Clearance 0 mL/min (70-130); Calcium 8.4 mg/dL (7.8-10.44); Carbon Dioxide 20 mmol/L (23-31); Chloride 107 mmol/L (98-107); Globulin 3.1 g/dL (2.4-3.5); Glucose 139 mg/dL (83-110); Potassium 4.2 mmol/L (3.5-5.1); Protein, Total 6.7 g/dL (5.8-8.1); Sodium 140 mmol/L (136-145)
[2022-01-11 23:29] LABS: Bacteria/HPF None Seen HPF (None Seen); Bilirubin Negative (Negative); Blood, Urine 2+ (Negative); Clarity Clear (Clear); Glucose, Urine (Dipstick) 150 mg/dL (Negative); Ketone, Urine Negative (Negative); Leukocyte Negative Leu/uL (Negative); Nitrite Negative (Negative); Protein, Urine (Dipstick) 300 mg/dL (Neg-Trace); RBC/HPF 0-3 HPF (0-3); Squamous Epithelial None Seen HPF (0-3); Urobilinogen Normal mg/dL (Less than 2); WBC/HPF 0-3 HPF (0-3); pH, Urine 6.5 (5.0-9.0)
[2022-01-11] MEDS ORDERED: Acetaminophen 325 MG TAB PO PRN (23:45)
[2022-01-11] MEDS ORDERED: Ondansetron PF 4 MG/2 ML Vial IVP PRN (23:45)
[2022-01-11] MEDS ORDERED: Ondansetron ODT 4 MG TAB SL PRN (23:45)
[2022-01-11 23:54] VITALS: BMI 26.7
[2022-01-12] MEDS ORDERED: Acetaminophen 650 MG Suppository PR PRN (00:30)
[2022-01-12 02:16] LABS: HBSAB Concentration Less than 8.00 mIU/mL; HBSAg Index 0.43 S/CO (0-0.99); Hep B Surf AB Non-Reactive (NonReactive); Hep B Surf Ag Non-Reactive S/CO (NonReactive)
[2022-01-12 06:47] LABS: #Eosinphils 0.2 thou/uL (0.0-0.7); #Lymphocytes 0.9 thou/uL (1.20-3.40); #Monocytes 0.6 thou/uL (0.11-0.59); #Neutrophils 4.2 thou/uL (1.40-6.50); %Basophils 0.1 % (0.0-1.0); %Eosinophils 2.7 % (0.0-10.0); %Lymphocytes 14.8 % (21.0-51.0); %Monocytes 9.7 % (0.0-10.0); %Neutrophils 72.7 % (42.0-75.0); Hemoglobin 10.5 g/dL (14.0-18.0); Mean Corpuscular HGB CONC 31.5 g/dL (32.0-36.0); Mean Corpuscular Hemoglobin 28.9 pg (27.0-31.0); Mean Corpuscular Volume 91.5 fL (78.0-98.0); Mean Platelet Volume 7.9 fL (7.4-10.4); Platelet Count 155 thou/uL (130-400); Red Blood Cell (RBC) Count 3.62 mill/uL (4.70-6.10); White Blood Cell (WBC) Count 5.8 thou/uL (4.8-10.8)
[2022-01-12 07:10] LABS: Anion Gap 13 mmol/L (10-20); BUN (Urea Nitrogen) 67 mg/dL (8.4-25.7); Calc. Creatinine Clearance 13 mL/min (70-130); Calcium 7.8 mg/dL (7.8-10.44); Carbon Dioxide 21 mmol/L (23-31); Chloride 110 mmol/L (98-107); Glucose 224 mg/dL (83-110); Potassium 3.7 mmol/L (3.5-5.1); Sodium 140 mmol/L (136-145)
[2022-01-12] MEDS: Heparin 5,000 UNITS/ML VIAL SC SCH ×2 (08:52→15:18)
[2022-01-12] MEDS ORDERED: Calcitriol 0.25 MCG CAP PO SCH (09:00)
[2022-01-12] MEDS ORDERED: Clopidogrel Bisulfate 75 MG TAB PO SCH (09:00)
[2022-01-12] MEDS ORDERED: Aspirin 81 mg Enteric Coated Tablet PO SCH (09:00)
[2022-01-12] MEDS ORDERED: Lisinopril 20 MG TAB PO SCH (09:00)
[2022-01-12] MEDS ORDERED: Metoprolol Tartrate 25 MG TAB PO SCH (09:00)
[2022-01-12] MEDS ORDERED: NIFEdipine XL 60 MG TAB PO SCH (09:00)
[2022-01-12 12:25] VITALS: BP 170/69; TEMP 97.9
[2022-01-12 18:05] LABS: SARS-CoV-2 PCR by NAA Not Detected (NotDetected)
[2022-01-12] MEDS ORDERED: Atorvastatin Calcium 40 MG TAB PO SCH (21:00)
== END 2022-01-12 16:30 | disposition home or self-care (01) ==
LOC: ERS 19:21 → T4-A 21:49
PROVIDERS: ADMIT Internal Medicine; ATTEND Internal Medicine
DX: G93.40 Encephalopathy, unspecified (principal); I12.0 Hypertensive chronic kidney disease with stage 5 chronic kidney disease or end stage renal disease; E11.22 Type 2 diabetes mellitus with diabetic chronic kidney disease; N18.6 End stage renal disease; D63.1 Anemia in chronic kidney disease; E78.5 Hyperlipidemia, unspecified; I25.2 Old myocardial infarction; Z86.73 Personal history of transient ischemic attack (TIA), and cerebral infarction without residual deficits; Z79.02 Long term (current) use of antithrombotics/antiplatelets; Z79.4 Long term (current) use of insulin; Z79.82 Long term (current) use of aspirin; Z79.899 Other long term (current) drug therapy; Z88.0 Allergy status to penicillin; Z88.8 Allergy status to other drugs, medicaments and biological substances; Z99.2 Dependence on renal dialysis; Z20.822 Contact with and (suspected) exposure to COVID-19
CPT/HCPCS: 70450; 71045; 80048; 80053; 82140; 82962; 85025 ×2; 86706; 87040; 87086; 87340; 93005; 99285; U0003; U0005; 36415; 36416; 81003; 81015; 90945; G0257; G0378; J1644

== ENCOUNTER 2022-04-11 02:14 | Inpatient (IN) | payer MEDICARE, MEDICAID ==
[2022-04-11 02:38] LABS: #Eosinphils 0.2 thou/uL (0.0-0.7); #Lymphocytes 0.9 thou/uL (1.20-3.40); #Neutrophils 7.8 thou/uL (1.40-6.50); %Basophils 0.1 % (0.0-1.0); %Eosinophils 2.2 % (0.0-10.0); %Lymphocytes 8.8 % (21.0-51.0); %Monocytes 10.5 % (0.0-10.0); %Neutrophils 78.3 % (42.0-75.0); Hemoglobin 13.3 g/dL (14.0-18.0); Mean Corpuscular HGB CONC 32.9 g/dL (32.0-36.0); Mean Corpuscular Hemoglobin 29.5 pg (27.0-31.0); Mean Corpuscular Volume 89.5 fL (78.0-98.0); Mean Platelet Volume 8.9 fL (7.4-10.4); Platelet Count 186 thou/uL (130-400); RBC Distribution Width 12.3 % (11.5-14.5); White Blood Cell (WBC) Count 9.9 thou/uL (4.8-10.8)
[2022-04-11 03:15] LABS: CKMB 6.3 ng/mL (0-6.6)
[2022-04-11 03:20] LABS: ALT (SGPT) 20 U/L (8-55); AST (SGOT) 18 U/L (5-34); Albumin 4.1 g/dL (3.4-4.8); Alkaline Phosphatase 111 U/L (40-110); Anion Gap 21 mmol/L (10-20); BUN (Urea Nitrogen) 73 mg/dL (8.4-25.7); Bilirubin, Total 0.6 mg/dL (0.2-1.2); Calc. Creatinine Clearance 0 mL/min (70-130); Calcium 10.6 mg/dL (7.8-10.44); Carbon Dioxide 21 mmol/L (23-31); Chloride 102 mmol/L (98-107); Estimated GFR 8; Globulin 2.9 g/dL (2.4-3.5); Glucose 196 mg/dL (83-110); Potassium 4.1 mmol/L (3.5-5.1); Sodium 140 mmol/L (136-145)
[2022-04-11] MEDS ORDERED: Furosemide 40 MG/4 ML VIAL ONE (03:41)
[2022-04-11] MEDS ORDERED: Ondansetron PF 4 MG/2 ML Vial IVP PRN (04:45)
[2022-04-11] MEDS ORDERED: Ondansetron ODT 4 MG TAB SL PRN (04:45)
[2022-04-11 06:12] VITALS: BMI 28.0
[2022-04-11 06:24] LABS: Troponin I 4.864 ng/mL (< 0.028)
[2022-04-11] MEDS ORDERED: Aspirin 325 MG TAB PO SCH (06:50)
[2022-04-11] MEDS ORDERED: Heparin 10,000 UNITS/ 10 ML VIAL SLOW IVP SCH (07:00)
[2022-04-11 07:04] LABS: SARS-CoV-2 NAA Rapid Test DETECTED (NotDetected)
[2022-04-11 08:26] LABS: Hemoglobin 11.1 g/dL (14.0-18.0); Platelet Count 154 thou/uL (130-400)
[2022-04-11 08:59] LABS: Troponin I 13.456 ng/mL (< 0.028)
[2022-04-11] MEDS: Heparin 25,000 units/D5W 500 ML IVPB SCH (09:06)
[2022-04-11] MEDS ORDERED: Nitroglycerin 0.4 MG TAB (25 Tab Bottle) SL PRN (09:42)
[2022-04-11] MEDS ORDERED: Acetaminophen 650 MG Suppository PR PRN (09:42)
[2022-04-11 09:47] LABS: HBSAg Index 0.24 S/CO (0-0.99); Hep B Surf Ag Non-Reactive S/CO (NonReactive)
[2022-04-11] MEDS ORDERED: Dextrose 50% Abboject 50 ML SYRINGE SLOW IVP PRN (19:06)
[2022-04-11] MEDS ORDERED: Dextrose 5% in Water 1,000 ML IV PRN (19:06)
[2022-04-11] MEDS: Metoprolol Tartrate 25 MG TAB PO SCH (20:09)
[2022-04-11] MEDS: NIFEdipine XL 60 MG TAB PO SCH (20:09)
[2022-04-11] MEDS ORDERED: Atorvastatin Calcium 40 MG TAB PO SCH (21:00)
[2022-04-11] MEDS ORDERED: REMDESIVIR 200 MG in Sodium Chloride 0.9% 250 ML 210 ML IV SCH ×2 (22:00→22:30)
[2022-04-11] MEDS ORDERED: REMDESIVIR 100 MG in Sodium Chloride 0.9% 250 ML 230 ML IV SCH (22:00)
[2022-04-12 00:28] LABS: Magnesium 1.8 mg/dL (1.6-2.6)
[2022-04-12] MEDS: HumaLOG 300 UNITS/3 ML VIAL SC PRN (01:08)
[2022-04-12] MEDS: Acetaminophen 325 MG TAB PO PRN (01:09)
[2022-04-12 04:29] LABS: #Lymphocytes 0.6 thou/uL (1.20-3.40); #Neutrophils 5.8 thou/uL (1.40-6.50); %Eosinophils 0.4 % (0.0-10.0); %Lymphocytes 7.9 % (21.0-51.0); %Monocytes 12.9 % (0.0-10.0); %Neutrophils 78.7 % (42.0-75.0); Hemoglobin 11.9 g/dL (14.0-18.0); Mean Corpuscular HGB CONC 33.6 g/dL (32.0-36.0); Mean Corpuscular Hemoglobin 30.3 pg (27.0-31.0); Mean Corpuscular Volume 90.4 fL (78.0-98.0); Mean Platelet Volume 8.9 fL (7.4-10.4); Platelet Count 155 thou/uL (130-400); RBC Distribution Width 12.2 % (11.5-14.5); Red Blood Cell (RBC) Count 3.91 mill/uL (4.70-6.10); White Blood Cell (WBC) Count 7.4 thou/uL (4.8-10.8)
[2022-04-12 04:35] LABS: Anion Gap 17 mmol/L (10-20); BUN (Urea Nitrogen) 59 mg/dL (8.4-25.7); CRP (Inflammatory) 4.31 mg/dL (= or < 0.5); Calc. Creatinine Clearance 11 mL/min (70-130); Calcium 9.2 mg/dL (7.8-10.44); Carbon Dioxide 23 mmol/L (23-31); Cardiac Risk 3.8 (Less than 4.5); Chloride 101 mmol/L (98-107); Cholesterol 138 mg/dl (< 200 Desired); Estimated GFR 9; Glucose 197 mg/dL (83-110); HDL Cholesterol 36 mg/dL (>60 Neg Risk); LDL Cholesterol, Calculated 84 mg/dL; Potassium 3.4 mmol/L (3.5-5.1); Sodium 138 mmol/L (136-145); Triglycerides 90 mg/dL (Less than 150)
[2022-04-12] MEDS: Dexamethasone 4 MG TAB PO SCH (09:58)
[2022-04-12] MEDS: Losartan 25 MG TAB PO SCH (09:58)
[2022-04-12] MEDS: Aspirin 81 mg Enteric Coated Tablet PO SCH (09:58)
[2022-04-12] MEDS: NIFEdipine XL 60 MG TAB PO SCH ×2 (09:58→20:00)
[2022-04-12] MEDS: Calcitriol 0.25 MCG CAP PO SCH (09:58)
[2022-04-12] MEDS: Metoprolol Tartrate 25 MG TAB PO SCH ×2 (09:59→20:01)
[2022-04-12] MEDS: Heparin 25,000 units/D5W 500 ML IVPB SCH (12:13)
[2022-04-12] MEDS ORDERED: Potassium Chloride 20 MEQ TAB PO SCH (15:45)
[2022-04-12] MEDS: Atorvastatin Calcium 40 MG TAB PO SCH (20:01)
[2022-04-12] MEDS ORDERED: REMDESIVIR 100 MG in Sodium Chloride 0.9% 250 ML 230 ML IV SCH (22:00)
[2022-04-13] MEDS: Acetaminophen 325 MG TAB PO PRN (00:13)
[2022-04-13] MEDS: HumaLOG 300 UNITS/3 ML VIAL SC PRN ×4 (00:13→22:48)
[2022-04-13 04:46] LABS: #Lymphocytes 0.6 thou/uL (1.20-3.40); #Monocytes 0.7 thou/uL (0.11-0.59); #Neutrophils 4.1 thou/uL (1.40-6.50); %Basophils 0.2 % (0.0-1.0); %Eosinophils 0.2 % (0.0-10.0); %Lymphocytes 11.1 % (21.0-51.0); %Monocytes 13.1 % (0.0-10.0); %Neutrophils 75.5 % (42.0-75.0); Hemoglobin 11.6 g/dL (14.0-18.0); Mean Corpuscular HGB CONC 32.6 g/dL (32.0-36.0); Mean Corpuscular Hemoglobin 29.2 pg (27.0-31.0); Mean Corpuscular Volume 89.5 fL (78.0-98.0); Mean Platelet Volume 9.2 fL (7.4-10.4); Platelet Count 153 thou/uL (130-400); RBC Distribution Width 12.4 % (11.5-14.5); Red Blood Cell (RBC) Count 3.96 mill/uL (4.70-6.10); White Blood Cell (WBC) Count 5.4 thou/uL (4.8-10.8)
[2022-04-13 05:00] LABS: PTT 196.6 sec (22.9-36.1)
[2022-04-13 05:12] LABS: Anion Gap 19 mmol/L (10-20); BUN (Urea Nitrogen) 68 mg/dL (8.4-25.7); Calc. Creatinine Clearance 11 mL/min (70-130); Calcium 8.8 mg/dL (7.8-10.44); Carbon Dioxide 23 mmol/L (23-31); Chloride 100 mmol/L (98-107); Estimated GFR 8; Glucose 292 mg/dL (83-110); Sodium 138 mmol/L (136-145)
[2022-04-13 07:20] LABS: Hemoglobin 11.5 g/dL (14.0-18.0); Platelet Count 144 thou/uL (130-400)
[2022-04-13] MEDS: Dexamethasone 4 MG TAB PO SCH (09:37)
[2022-04-13] MEDS: Metoprolol Tartrate 25 MG TAB PO SCH ×2 (09:38→20:34)
[2022-04-13] MEDS: Calcitriol 0.25 MCG CAP PO SCH (09:38)
[2022-04-13] MEDS: Aspirin 81 mg Enteric Coated Tablet PO SCH (09:38)
[2022-04-13] MEDS: Losartan 25 MG TAB PO SCH (09:38)
[2022-04-13] MEDS: NIFEdipine XL 60 MG TAB PO SCH ×2 (09:38→20:34)
[2022-04-13] MEDS: Heparin 25,000 units/D5W 500 ML IVPB SCH (18:27)
[2022-04-13] MEDS ORDERED: HumaLOG 300 UNITS/3 ML VIAL SC PRN (20:15)
[2022-04-13] MEDS: Atorvastatin Calcium 40 MG TAB PO SCH (20:34)
[2022-04-13] MEDS ORDERED: Bisacodyl 5 MG TAB PO PRN (21:07)
[2022-04-13] MEDS ORDERED: Senokot S 8.6-50 MG TAB PO PRN (21:07)
[2022-04-14] MEDS ORDERED: HumaLOG 300 UNITS/3 ML VIAL SC SCH (01:45)
[2022-04-14 04:40] LABS: #Lymphocytes 0.6 thou/uL (1.20-3.40); #Monocytes 0.6 thou/uL (0.11-0.59); #Neutrophils 5.2 thou/uL (1.40-6.50); %Eosinophils 0.2 % (0.0-10.0); %Lymphocytes 8.8 % (21.0-51.0); %Monocytes 9.8 % (0.0-10.0); %Neutrophils 81.2 % (42.0-75.0); Mean Corpuscular HGB CONC 32.8 g/dL (32.0-36.0); Mean Corpuscular Hemoglobin 29.2 pg (27.0-31.0); Mean Corpuscular Volume 88.9 fL (78.0-98.0); Mean Platelet Volume 9.3 fL (7.4-10.4); Platelet Count 156 thou/uL (130-400); RBC Distribution Width 12.1 % (11.5-14.5); Red Blood Cell (RBC) Count 4.11 mill/uL (4.70-6.10); White Blood Cell (WBC) Count 6.4 thou/uL (4.8-10.8)
[2022-04-14 06:51] LABS: Anion Gap 17 mmol/L (10-20); BUN (Urea Nitrogen) 67 mg/dL (8.4-25.7); Calc. Creatinine Clearance 11 mL/min (70-130); Calcium 8.4 mg/dL (7.8-10.44); Carbon Dioxide 22 mmol/L (23-31); Chloride 102 mmol/L (98-107); Estimated GFR 9; Glucose 179 mg/dL (83-110); Potassium 3.7 mmol/L (3.5-5.1); Sodium 137 mmol/L (136-145)
[2022-04-14] MEDS: Losartan 25 MG TAB PO SCH (08:38)
[2022-04-14] MEDS: Dexamethasone 4 MG TAB PO SCH (08:38)
[2022-04-14] MEDS: NIFEdipine XL 60 MG TAB PO SCH ×2 (08:39→21:35)
[2022-04-14] MEDS: Metoprolol Tartrate 25 MG TAB PO SCH ×2 (08:39→21:35)
[2022-04-14] MEDS: Calcitriol 0.25 MCG CAP PO SCH (08:39)
[2022-04-14] MEDS: Aspirin 81 mg Enteric Coated Tablet PO SCH (08:39)
[2022-04-14] MEDS ORDERED: Iopamidol 370 76% 100 ML VIAL ONE (08:53)
[2022-04-14] MEDS ORDERED: Lidocaine 1% MPF 2 ML VIAL ONE ×2 (12:07→12:08)
[2022-04-14] MEDS ORDERED: Midazolam HCl 2 mg/2 ml Vial ONE (12:07)
[2022-04-14] MEDS ORDERED: Fentanyl 100 MCG/2 ML VIAL ONE (12:07)
[2022-04-14] MEDS ORDERED: Heparin 10,000 UNITS/ 10 ML VIAL ONE ×3 (12:07→12:50)
[2022-04-14] MEDS: Insulin Glargine 30 UNITS/0.3 ML VIAL SC SCH (12:25)
[2022-04-14] MEDS: HumaLOG 300 UNITS/3 ML VIAL SC PRN ×2 (18:42→21:34)
[2022-04-14] MEDS: Atorvastatin Calcium 40 MG TAB PO SCH (21:34)
[2022-04-15] MEDS: HumaLOG 300 UNITS/3 ML VIAL SC PRN (00:44)
[2022-04-15 04:28] LABS: #Lymphocytes 0.6 thou/uL (1.20-3.40); #Monocytes 0.6 thou/uL (0.11-0.59); #Neutrophils 4.9 thou/uL (1.40-6.50); %Eosinophils 0.3 % (0.0-10.0); %Lymphocytes 9.3 % (21.0-51.0); %Monocytes 9.7 % (0.0-10.0); %Neutrophils 80.8 % (42.0-75.0); Hemoglobin 11.7 g/dL (14.0-18.0); Mean Corpuscular HGB CONC 32.4 g/dL (32.0-36.0); Mean Corpuscular Hemoglobin 28.8 pg (27.0-31.0); Mean Corpuscular Volume 88.7 fL (78.0-98.0); Mean Platelet Volume 9.2 fL (7.4-10.4); Platelet Count 139 thou/uL (130-400); RBC Distribution Width 12.2 % (11.5-14.5); Red Blood Cell (RBC) Count 4.06 mill/uL (4.70-6.10)
[2022-04-15 04:54] LABS: Anion Gap 18 mmol/L (10-20); BUN (Urea Nitrogen) 75 mg/dL (8.4-25.7); Calc. Creatinine Clearance 11 mL/min (70-130); Calcium 8.3 mg/dL (7.8-10.44); Carbon Dioxide 23 mmol/L (23-31); Chloride 99 mmol/L (98-107); Estimated GFR 9; Glucose 291 mg/dL (83-110); Potassium 3.8 mmol/L (3.5-5.1); Sodium 136 mmol/L (136-145)
[2022-04-15 07:06] LABS: Hemoglobin 11.8 g/dL (14.0-18.0); Platelet Count 141 thou/uL (130-400)
[2022-04-15] MEDS ORDERED: Clopidogrel Bisulfate 75 MG TAB PO SCH (09:00)
[2022-04-15] MEDS: NIFEdipine XL 60 MG TAB PO SCH (09:08)
[2022-04-15] MEDS: Aspirin 81 mg Enteric Coated Tablet PO SCH (09:08)
[2022-04-15] MEDS: Calcitriol 0.25 MCG CAP PO SCH (09:08)
[2022-04-15] MEDS: Metoprolol Tartrate 25 MG TAB PO SCH (09:08)
[2022-04-15] MEDS: Losartan 25 MG TAB PO SCH (09:08)
[2022-04-15] MEDS: Insulin Glargine 30 UNITS/0.3 ML VIAL SC SCH (09:09)
[2022-04-15 12:34] VITALS: BP 158/70; TEMP 99.1
== END 2022-04-15 13:40 | disposition home or self-care (01) | DRG 177 ==
LOC: ERS 02:14 → 2NO 04:28
PROVIDERS: ADMIT Internal Medicine; ATTEND Internal Medicine
PROC: XW033E5 Introduction of Remdesivir Anti-infective into Peripheral Vein, Percutaneous Approach, New Technology Group 5 (ICD-10-PCS; principal; 2022-04-11)
PROC: 8E0ZXY6 Isolation (ICD-10-PCS; 2022-04-11)
PROC: 5A1D70Z Performance of Urinary Filtration, Intermittent, Less than 6 Hours Per Day (ICD-10-PCS; 2022-04-11)
PROC: 4A023N7 Measurement of Cardiac Sampling and Pressure, Left Heart, Percutaneous Approach (ICD-10-PCS; 2022-04-14)
PROC: B2111ZZ Fluoroscopy of Multiple Coronary Arteries using Low Osmolar Contrast (ICD-10-PCS; 2022-04-14)
PROC: B2151ZZ Fluoroscopy of Left Heart using Low Osmolar Contrast (ICD-10-PCS; 2022-04-14)
DX: U07.1 COVID-19 (principal); I21.4 Non-ST elevation (NSTEMI) myocardial infarction; J96.01 Acute respiratory failure with hypoxia; N18.6 End stage renal disease; I50.43 Acute on chronic combined systolic (congestive) and diastolic (congestive) heart failure; I13.2 Hypertensive heart and chronic kidney disease with heart failure and with stage 5 chronic kidney disease, or end stage renal disease; E87.70 Fluid overload, unspecified; E11.22 Type 2 diabetes mellitus with diabetic chronic kidney disease; D63.1 Anemia in chronic kidney disease; I25.10 Atherosclerotic heart disease of native coronary artery without angina pectoris; E78.5 Hyperlipidemia, unspecified; Z88.8 Allergy status to other drugs, medicaments and biological substances; Z88.0 Allergy status to penicillin; Z99.2 Dependence on renal dialysis; Z90.49 Acquired absence of other specified parts of digestive tract; Z79.82 Long term (current) use of aspirin; Z79.899 Other long term (current) drug therapy; Z79.4 Long term (current) use of insulin; Z86.73 Personal history of transient ischemic attack (TIA), and cerebral infarction without residual deficits
CPT/HCPCS: 36415; 36416; 71045; 80048; 80053; 80061; 82553; 83735; 83880; 84484; 85014; 85018; 85025; 85049; 85347; 85730; 86140; 87340; 90945; 93005; 93306; 93458; 96374; 97139; 99152; C1769; C1894; G0257; J1644; J1815; J1940; J2250; J3010; J8540; Q9967; U0002

== ENCOUNTER 2022-05-23 22:10 | Emergency (ER) | payer MEDICARE, MEDICAID ==
[2022-05-23 23:20] LABS: #Eosinphils 0.2 thou/uL (0.0-0.7); #Lymphocytes 1.1 thou/uL (1.20-3.40); #Monocytes 0.8 thou/uL (0.11-0.59); #Neutrophils 5.6 thou/uL (1.40-6.50); %Basophils 0.5 % (0.0-1.0); %Lymphocytes 14.4 % (21.0-51.0); %Monocytes 10.5 % (0.0-10.0); %Neutrophils 71.6 % (42.0-75.0); Hemoglobin 10.6 g/dL (14.0-18.0); Mean Corpuscular HGB CONC 32.2 g/dL (32.0-36.0); Mean Corpuscular Hemoglobin 29.2 pg (27.0-31.0); Mean Corpuscular Volume 90.6 fL (78.0-98.0); Mean Platelet Volume 8.4 fL (7.4-10.4); Platelet Count 213 thou/uL (130-400); RBC Distribution Width 12.3 % (11.5-14.5); Red Blood Cell (RBC) Count 3.63 mill/uL (4.70-6.10); White Blood Cell (WBC) Count 7.9 thou/uL (4.8-10.8)
[2022-05-23 23:41] LABS: ALT (SGPT) 18 U/L (8-55); AST (SGOT) 20 U/L (5-34); Albumin 3.4 g/dL (3.4-4.8); Alkaline Phosphatase 112 U/L (40-110); Anion Gap 20 mmol/L (10-20); BUN (Urea Nitrogen) 84 mg/dL (8.4-25.7); Bilirubin, Total 0.3 mg/dL (0.2-1.2); CK (CPK) 176 U/L (30-200); Calc. Creatinine Clearance 0 mL/min (70-130); Calcium 9.1 mg/dL (7.8-10.44); Carbon Dioxide 22 mmol/L (23-31); Chloride 102 mmol/L (98-107); Estimated GFR 7; Globulin 3.4 g/dL (2.4-3.5); Glucose 140 mg/dL (83-110); Lipase 62 U/L (8-78); Potassium 4.2 mmol/L (3.5-5.1); Protein, Total 6.8 g/dL (5.8-8.1); Sodium 140 mmol/L (136-145)
[2022-05-23 23:59] LABS: SARS-CoV-2 NAA Rapid Test Not Detected (NotDetected)
[2022-05-24 00:04] LABS: CKMB 3.6 ng/mL (0-6.6)
== END 2022-05-24 00:26 | disposition home or self-care (01) ==
LOC: ERS 22:10
DX: J18.9 Pneumonia, unspecified organism (principal); N18.6 End stage renal disease; E11.22 Type 2 diabetes mellitus with diabetic chronic kidney disease; I12.0 Hypertensive chronic kidney disease with stage 5 chronic kidney disease or end stage renal disease; E78.5 Hyperlipidemia, unspecified; Z20.822 Contact with and (suspected) exposure to COVID-19; Z99.2 Dependence on renal dialysis; Z79.82 Long term (current) use of aspirin; Z79.4 Long term (current) use of insulin; Z79.899 Other long term (current) drug therapy
CPT/HCPCS: 71045; 80053; 82550; 82553; 83690; 83880; 84484; 85025; 93005; 99285; U0002

== ENCOUNTER 2022-11-25 08:41 | Outpatient (CLI) | payer MEDICARE, MEDICAID | END 2022-11-25 08:42 | disposition home or self-care (01) | LOC: RAD 08:41 | PROVIDERS: ATTEND Internal Medicine Critical Care Medicine | DX: R06.00 Dyspnea, unspecified (principal) | CPT/HCPCS: 71046 ==

== ENCOUNTER 2023-09-03 10:17 | Emergency (ER) | payer MEDICARE ==
[2023-09-03] MEDS ORDERED: HYDROcodone/Acetaminophen 5/325 mg Tablet ONE (11:52)
== END 2023-09-03 11:57 | disposition home or self-care (01) ==
LOC: ERS 10:17
DX: R10.9 Unspecified abdominal pain (principal); I12.0 Hypertensive chronic kidney disease with stage 5 chronic kidney disease or end stage renal disease; E11.22 Type 2 diabetes mellitus with diabetic chronic kidney disease; N18.6 End stage renal disease; E78.5 Hyperlipidemia, unspecified; Z99.2 Dependence on renal dialysis; Z79.82 Long term (current) use of aspirin; Z79.899 Other long term (current) drug therapy
CPT/HCPCS: 99283

== ENCOUNTER 2023-09-05 10:26 | Observation (INO) | payer MEDICARE, MEDICAID ==
[2023-09-05] MEDS ORDERED: Ondansetron ODT 4 MG TAB ONE (11:13)
[2023-09-05 11:28] LABS: #Eosinphils 0.2 thou/uL (0.0-0.7); #Monocytes 1.2 thou/uL (0.11-0.59); #Neutrophils 10.6 thou/uL (1.40-6.50); %Basophils 0.2 % (0.0-1.0); %Eosinophils 1.2 % (0.0-10.0); %Monocytes 9.6 % (0.0-10.0); %Neutrophils 84.4 % (42.0-75.0); Hematocrit 34.8 % (42.0-52.0); Mean Corpuscular HGB CONC 31.6 g/dL (32.0-36.0); Mean Corpuscular Hemoglobin 29.9 pg (27.0-31.0); Mean Corpuscular Volume 94.6 fl (78.0-98.0); Mean Platelet Volume 10.4 fL (7.4-10.4); Platelet Count 228 10x3/uL (130-400); RBC Distribution Width 15.5 % (11.5-14.5); Red Blood Cell (RBC) Count 3.68 mill/uL (4.70-6.10); White Blood Cell (WBC) Count 12.5 10x3/uL (4.8-10.8)
[2023-09-05 11:39] LABS: Bilirubin Negative (Negative); Blood, Urine 2+ (Negative); CAUTI Indications for Culture Pelvic or flank pain; Clarity Turbid (Clear); Glucose, Urine (Dipstick) 100 mg/dL (Negative); Ketone, Urine Negative (Negative); Leukocyte Negative Leu/uL (Negative); Nitrite Negative (Negative); Protein, Urine (Dipstick) 300 mg/dL (Neg-Trace); Specific Gravity, Urine 1.025 (1.002-1.036); Squamous Epithelial 0-3 HPF (0-3); Urobilinogen Normal mg/dL (Less than 2); pH, Urine 5.5 (5.0-9.0)
[2023-09-05 11:40] LABS: Bacteria/HPF 1+ HPF (None Seen)
[2023-09-05 11:41] LABS: Urine Culture Reflex No No
[2023-09-05 11:48] LABS: ALT (SGPT) 13 U/L (8-55); AST (SGOT) 18 U/L (5-34); Albumin 3.2 g/dL (3.4-4.8); Alkaline Phosphatase 85 U/L (40-110); Anion Gap 23 mmol/L (10-20); BUN (Urea Nitrogen) 72 mg/dL (8.4-25.7); Bilirubin, Total 0.5 mg/dL (0.2-1.2); Calc. Creatinine Clearance 0 mL/min (70-130); Calcium 8.8 mg/dL (7.8-10.44); Carbon Dioxide 21 mmol/L (23-31); Chloride 95 mmol/L (98-107); Estimated GFR 5; Globulin 3.9 g/dL (2.4-3.5); Glucose 176 mg/dL (83-110); Lipase 16 U/L (8-78); Protein, Total 7.1 g/dL (5.8-8.1); Sodium 135 mmol/L (136-145)
[2023-09-05 12:30] LABS: Critical Call Chem Troponin I NUR.JAJ @1230; Troponin I 0.389 ng/mL (< 0.028)
[2023-09-05] MEDS ORDERED: cefTRIAXone (ROCEPHIN) 1 GM VIAL ONE (12:37)
[2023-09-05] MEDS ORDERED: Ondansetron PF 4 MG/2 ML Vial IVP PRN (13:12)
[2023-09-05] MEDS ORDERED: Acetaminophen 325 MG TAB PO PRN (13:12)
[2023-09-05] MEDS ORDERED: Ondansetron ODT 4 MG TAB PO PRN (13:12)
[2023-09-05] MEDS ORDERED: Milk Of Magnesia 30 ML UDCUP PO PRN (13:19)
[2023-09-05] MEDS ORDERED: Bisacodyl 10 MG SUPP PR PRN (13:19)
[2023-09-05] MEDS ORDERED: Bisacodyl 10 MG SUPP PR SCH (13:30)
[2023-09-05] MEDS ORDERED: Polyethylene Glycol 3350 17 GM Packet PO SCH (13:30)
[2023-09-05] MEDS ORDERED: Milk Of Magnesia 30 ML UDCUP PO SCH (13:30)
[2023-09-05] MEDS ORDERED: Aspirin Chewable 81 MG TAB ONE (14:00)
[2023-09-05] MEDS ORDERED: Dextrose 5% in Water 1,000 ML IV PRN (14:05)
[2023-09-05] MEDS ORDERED: Glucagon 1 MG/ML KIT IM PRN (14:05)
[2023-09-05] MEDS ORDERED: Dextrose 50% Abboject 50 ML SYRINGE SLOW IVP PRN (14:05)
[2023-09-05] MEDS ORDERED: Naloxegol 12.5 MG TAB PO SCH (14:30)
[2023-09-05] MEDS: Heparin 5,000 UNITS/ML VIAL SC SCH ×2 (16:21→20:03)
[2023-09-05 16:44] VITALS: BMI 27.4
[2023-09-05] MEDS: HumaLOG 300 UNITS/3 ML VIAL SC PRN (19:58)
[2023-09-05] MEDS: Senokot S 8.6-50 MG TAB PO SCH (20:03)
[2023-09-05] MEDS: Ranolazine 500 MG ER.TAB PO SCH (20:03)
[2023-09-05] MEDS: Ciprofloxacin 500 MG TAB PO SCH (20:03)
[2023-09-06] MEDS: HumaLOG 300 UNITS/3 ML VIAL SC PRN ×4 (00:04→19:46)
[2023-09-06] MEDS ORDERED: Morphine 2 MG/ML VIAL SLOW IVP PRN (00:38)
[2023-09-06 06:46] LABS: #Basophils 0.1 thou/uL (0.0-0.2); #Eosinphils 0.2 thou/uL (0.0-0.7); #Monocytes 1.1 thou/uL (0.11-0.59); #Neutrophils 8.4 thou/uL (1.40-6.50); %Basophils 0.6 % (0.0-1.0); %Eosinophils 2.1 % (0.0-10.0); %Lymphocytes 5.2 % (21.0-51.0); %Monocytes 10.8 % (0.0-10.0); %Neutrophils 80.6 % (42.0-75.0); Hematocrit 32.9 % (42.0-52.0); Hemoglobin 10.4 g/dL (14.0-18.0); Mean Corpuscular HGB CONC 31.6 g/dL (32.0-36.0); Mean Corpuscular Hemoglobin 29.5 pg (27.0-31.0); Mean Corpuscular Volume 93.2 fl (78.0-98.0); Mean Platelet Volume 10.8 fL (7.4-10.4); Platelet Count 219 10x3/uL (130-400); RBC Distribution Width 15.4 % (11.5-14.5); Red Blood Cell (RBC) Count 3.53 mill/uL (4.70-6.10); White Blood Cell (WBC) Count 10.5 10x3/uL (4.8-10.8)
[2023-09-06 06:56] LABS: Actual Bicarbonate (HCO3v) 24.8 mEq/L (22-28); Base Excess -0.5 mEq/L (-2.0 to +3.0); Calcium, Ionized (venous) 1.07 mmol/L (1.16-1.32); Chloride (VBG) 95 mmol/L (98-106); Hematocrit-VBG 31 % (42.0-52.0); Hemoglobin (Hb) 10.6 g/dL (12.6-17.4); Sodium 134 mmol/L (133-146); pH (venous) 7.373 (7.32-7.43)
[2023-09-06 07:10] LABS: ALT (SGPT) 11 U/L (8-55); AST (SGOT) 12 U/L (5-34); Alkaline Phosphatase 72 U/L (40-110); Anion Gap 21 mmol/L (10-20); BUN (Urea Nitrogen) 76 mg/dL (8.4-25.7); Bilirubin, Direct 0.2 mg/dL (0.1-0.3); Bilirubin, Total 0.5 mg/dL (0.2-1.2); Calc. Creatinine Clearance 7 mL/min (70-130); Calcium 8.7 mg/dL (7.8-10.44); Carbon Dioxide 23 mmol/L (23-31); Chloride 94 mmol/L (98-107); Estimated GFR 5; Glucose 179 mg/dL (83-110); Magnesium 2.6 mg/dL (1.6-2.6); Potassium 3.8 mmol/L (3.5-5.1); Protein, Total 6.5 g/dL (5.8-8.1); Sodium 134 mmol/L (136-145)
[2023-09-06] MEDS ORDERED: Enoxaparin 40 MG (0.4 mL) SYRINGE SC SCH (09:00)
[2023-09-06] MEDS: Naloxegol 12.5 MG TAB PO SCH (09:09)
[2023-09-06] MEDS: Heparin 5,000 UNITS/ML VIAL SC SCH ×3 (09:09→19:46)
[2023-09-06] MEDS: Clopidogrel Bisulfate 75 MG TAB PO SCH (09:09)
[2023-09-06] MEDS: Calcitriol 0.25 MCG CAP PO SCH (09:09)
[2023-09-06] MEDS: Ranolazine 500 MG ER.TAB PO SCH ×2 (09:09→19:46)
[2023-09-06] MEDS: Senokot S 8.6-50 MG TAB PO SCH ×2 (09:09→19:46)
[2023-09-06] MEDS: Atorvastatin Calcium 40 MG TAB PO SCH (09:09)
[2023-09-06] MEDS: Aspirin 81 mg Enteric Coated Tablet PO SCH (09:10)
[2023-09-06] MEDS: Polyethylene Glycol 3350 17 GM Packet PO SCH (09:10)
[2023-09-06] MEDS: Mirabegron ER 25 MG ER.TAB PO SCH (09:10)
[2023-09-06] MEDS ORDERED: cefTRIAXone\\ROCEPHIN 1 GM in Sodium Chloride 0.9% 100 ML IVPB SCH (12:00)
[2023-09-06] MEDS ORDERED: Cefepime 1 GM in Sodium Chloride 0.9% 100 ML IVPB SCH (13:00)
[2023-09-06] MEDS: Docusate 100 MG CAP PO SCH (19:46)
[2023-09-06] MEDS: Ciprofloxacin 500 MG TAB PO SCH (19:46)
[2023-09-07] MEDS: HumaLOG 300 UNITS/3 ML VIAL SC PRN (05:26)
[2023-09-07 06:12] LABS: #Eosinphils 0.2 thou/uL (0.0-0.7); #Monocytes 0.8 thou/uL (0.11-0.59); #Neutrophils 6.3 thou/uL (1.40-6.50); %Basophils 0.5 % (0.0-1.0); %Eosinophils 2.5 % (0.0-10.0); %Lymphocytes 6.4 % (21.0-51.0); %Monocytes 9.7 % (0.0-10.0); %Neutrophils 79.9 % (42.0-75.0); Hematocrit 33.5 % (42.0-52.0); Hemoglobin 10.6 g/dL (14.0-18.0); Mean Corpuscular HGB CONC 31.6 g/dL (32.0-36.0); Mean Corpuscular Hemoglobin 29.7 pg (27.0-31.0); Mean Corpuscular Volume 93.8 fl (78.0-98.0); Mean Platelet Volume 10.8 fL (7.4-10.4); Platelet Count 249 10x3/uL (130-400); Red Blood Cell (RBC) Count 3.57 mill/uL (4.70-6.10); White Blood Cell (WBC) Count 7.9 10x3/uL (4.8-10.8)
[2023-09-07 06:42] LABS: Anion Gap 23 mmol/L (10-20); BUN (Urea Nitrogen) 76 mg/dL (8.4-25.7); Calc. Creatinine Clearance 8 mL/min (70-130); Calcium 8.9 mg/dL (7.8-10.44); Carbon Dioxide 22 mmol/L (23-31); Chloride 93 mmol/L (98-107); Estimated GFR 6; Glucose 239 mg/dL (83-110); Potassium 3.5 mmol/L (3.5-5.1); Sodium 134 mmol/L (136-145)
[2023-09-07 07:45] VITALS: BP 135/73; TEMP 98.5
[2023-09-07] MEDS: Clopidogrel Bisulfate 75 MG TAB PO SCH (09:23)
[2023-09-07] MEDS: Ranolazine 500 MG ER.TAB PO SCH (09:23)
[2023-09-07] MEDS: Naloxegol 12.5 MG TAB PO SCH (09:23)
[2023-09-07] MEDS: Docusate 100 MG CAP PO SCH (09:24)
[2023-09-07] MEDS: Aspirin 81 mg Enteric Coated Tablet PO SCH (09:24)
[2023-09-07] MEDS: Calcitriol 0.25 MCG CAP PO SCH (09:24)
[2023-09-07] MEDS: Heparin 5,000 UNITS/ML VIAL SC SCH (09:24)
[2023-09-07] MEDS: Mirabegron ER 25 MG ER.TAB PO SCH (09:24)
[2023-09-07] MEDS: Atorvastatin Calcium 40 MG TAB PO SCH (09:24)
[2023-09-07] MEDS: Polyethylene Glycol 3350 17 GM Packet PO SCH (09:24)
[2023-09-07] MEDS: Senokot S 8.6-50 MG TAB PO SCH (09:24)
== END 2023-09-07 11:56 | disposition home or self-care (01) ==
LOC: SUATTDRO 10:26 → ERS 10:26 → T4-B 13:15
PROVIDERS: ADMIT Family Medicine; ATTEND Family Medicine
DX: I12.0 Hypertensive chronic kidney disease with stage 5 chronic kidney disease or end stage renal disease (principal); N18.6 End stage renal disease; N12 Tubulo-interstitial nephritis, not specified as acute or chronic; K59.00 Constipation, unspecified; D63.1 Anemia in chronic kidney disease; E11.22 Type 2 diabetes mellitus with diabetic chronic kidney disease; E87.1 Hypo-osmolality and hyponatremia; R60.0 Localized edema; Z99.2 Dependence on renal dialysis; N39.0 Urinary tract infection, site not specified; Z79.82 Long term (current) use of aspirin; Z79.899 Other long term (current) drug therapy; R78.81 Bacteremia
CPT/HCPCS: 74176; 80048 ×2; 80053; 80076; 81001; 82805; 82962 ×2; 83036; 83605; 83690; 83735; 84443; 84484; 85025 ×3; 87040; 87086; 93005; 96365; 96372 ×3; 96375; 99285; G0378 ×4; 36415; 36416; 90945; G0257; J0692; J0696; J1644; J1815; J2272; J3490; Q0162

== ENCOUNTER 2023-10-09 12:08 | Emergency (ER) | payer OTHER, MEDICARE ==
[2023-10-09 12:42] LABS: #Eosinphils 0.1 thou/uL (0.0-0.7); #Neutrophils 6.7 thou/uL (1.40-6.50); %Basophils 0.4 % (0.0-1.0); %Eosinophils 0.8 % (0.0-10.0); %Lymphocytes 7.6 % (21.0-51.0); %Monocytes 12.1 % (0.0-10.0); %Neutrophils 78.9 % (42.0-75.0); Hematocrit 33.8 % (42.0-52.0); Hemoglobin 10.8 g/dL (14.0-18.0); Mean Corpuscular Hemoglobin 30.5 pg (27.0-31.0); Mean Corpuscular Volume 95.5 fl (78.0-98.0); Mean Platelet Volume 10.8 fL (7.4-10.4); Platelet Count 146 10x3/uL (130-400); RBC Distribution Width 14.4 % (11.5-14.5); Red Blood Cell (RBC) Count 3.54 mill/uL (4.70-6.10); White Blood Cell (WBC) Count 8.5 10x3/uL (4.8-10.8)
[2023-10-09 13:07] LABS: ALT (SGPT) 22 U/L (8-55); AST (SGOT) 24 U/L (5-34); Albumin 3.4 g/dL (3.4-4.8); Alkaline Phosphatase 92 U/L (40-110); Anion Gap 14 mmol/L (10-20); BUN (Urea Nitrogen) 72 mg/dL (8.4-25.7); Bilirubin, Total 0.5 mg/dL (0.2-1.2); Calc. Creatinine Clearance 0 mL/min (70-130); Calcium 9.2 mg/dL (7.8-10.44); Carbon Dioxide 25 mmol/L (23-31); Chloride 103 mmol/L (98-107); Estimated GFR 7; Globulin 3.3 g/dL (2.4-3.5); Glucose 164 mg/dL (83-110); Potassium 3.8 mmol/L (3.5-5.1); Protein, Total 6.7 g/dL (5.8-8.1); Sodium 138 mmol/L (136-145)
[2023-10-09 13:14] LABS: Critical Call Chem Troponin I NUR.CT6@1313; Troponin I 0.449 ng/mL (< 0.028)
== END 2023-10-09 15:17 | disposition home or self-care (01) ==
LOC: ERS 12:08
DX: I13.2 Hypertensive heart and chronic kidney disease with heart failure and with stage 5 chronic kidney disease, or end stage renal disease (principal); I50.9 Heart failure, unspecified; N18.6 End stage renal disease; E11.22 Type 2 diabetes mellitus with diabetic chronic kidney disease; E78.5 Hyperlipidemia, unspecified; Z99.2 Dependence on renal dialysis; Z79.82 Long term (current) use of aspirin; Z79.899 Other long term (current) drug therapy
CPT/HCPCS: 71045; 80053; 83880; 84484; 85025; 93005

== ENCOUNTER 2023-10-28 08:53 | Inpatient (IN) | payer MEDICARE, OTHER ==
[2023-10-28 09:28] LABS: #Eosinphils 0.1 thou/uL (0.0-0.7); #Monocytes 0.7 thou/uL (0.11-0.59); #Neutrophils 7.4 thou/uL (1.40-6.50); %Basophils 0.3 % (0.0-1.0); %Eosinophils 0.6 % (0.0-10.0); %Lymphocytes 6.2 % (21.0-51.0); %Monocytes 8.4 % (0.0-10.0); Hematocrit 39.7 % (42.0-52.0); Hemoglobin 12.6 g/dL (14.0-18.0); Mean Corpuscular HGB CONC 31.7 g/dL (32.0-36.0); Mean Corpuscular Hemoglobin 30.3 pg (27.0-31.0); Mean Corpuscular Volume 95.4 fl (78.0-98.0); Mean Platelet Volume 10.7 fL (7.4-10.4); Platelet Count 194 10x3/uL (130-400); RBC Distribution Width 13.9 % (11.5-14.5); Red Blood Cell (RBC) Count 4.16 mill/uL (4.70-6.10); White Blood Cell (WBC) Count 8.7 10x3/uL (4.8-10.8)
[2023-10-28 09:56] LABS: ALT (SGPT) 17 U/L (8-55); AST (SGOT) 19 U/L (5-34); Albumin 3.4 g/dL (3.4-4.8); Alkaline Phosphatase 92 U/L (40-110); Anion Gap 17 mmol/L (10-20); BUN (Urea Nitrogen) 57 mg/dL (8.4-25.7); Bilirubin, Total 0.5 mg/dL (0.2-1.2); Calc. Creatinine Clearance 0 mL/min (70-130); Calcium 9.3 mg/dL (7.8-10.44); Carbon Dioxide 26 mmol/L (23-31); Chloride 101 mmol/L (98-107); Estimated GFR 8; Globulin 3.4 g/dL (2.4-3.5); Glucose 154 mg/dL (83-110); Magnesium 2.4 mg/dL (1.6-2.6); Protein, Total 6.8 g/dL (5.8-8.1); Sodium 139 mmol/L (136-145)
[2023-10-28 10:05] LABS: Troponin I 0.284 ng/mL (< 0.028)
[2023-10-28 10:11] LABS: Actual Bicarbonate (HCO3v) 28.2 mEq/L (22-28); Analyzer IN Cardio ER; Base Excess 1.8 mEq/L (-2.0 to +3.0); Calcium, Ionized (venous) 1.14 mmol/L (1.16-1.32); Chloride (VBG) 100 mmol/L (98-106); Hematocrit-VBG 40 % (42.0-52.0); Hemoglobin (Hb) 13.5 g/dL (12.6-17.4); Potassium (VBG) 4.95 mmol/L (3.70-5.30); Sodium 138 mmol/L (133-146); pH (venous) 7.359 (7.32-7.43)
[2023-10-28] MEDS ORDERED: Nitroglycerin 0.4 MG TAB (25 Tab Bottle) SL PRN (12:36)
[2023-10-28] MEDS ORDERED: Glucagon 1 MG/ML KIT IM PRN (12:36)
[2023-10-28] MEDS ORDERED: Dextrose 50% Abboject 50 ML SYRINGE SLOW IVP PRN (12:36)
[2023-10-28] MEDS ORDERED: Dextrose 5% in Water 1,000 ML IV PRN (12:36)
[2023-10-28] MEDS ORDERED: Bisacodyl 10 MG SUPP PR PRN (12:36)
[2023-10-28] MEDS ORDERED: Acetaminophen 650 MG Suppository PR PRN (12:36)
[2023-10-28 14:06] LABS: Critical Call Chem Troponin I NUR.CJM1@1405; Troponin I 0.288 ng/mL (< 0.028)
[2023-10-28] MEDS ORDERED: HumaLOG 300 UNITS/3 ML VIAL ONE (14:34)
[2023-10-28] MEDS: HumaLOG 300 UNITS/3 ML VIAL SC PRN (14:36)
[2023-10-28 14:41] VITALS: BMI 25.0
[2023-10-28 14:55] LABS: Critical Call Chem Troponin I NUR.CJM1@1455; Troponin I 0.298 ng/mL (< 0.028)
[2023-10-28] MEDS ORDERED: Acetaminophen 325 MG TAB ONE (14:56)
[2023-10-28] MEDS: Acetaminophen 325 MG TAB PO PRN (14:59)
[2023-10-28 16:09] LABS: Influenza A by NAA Not Detected (NotDetected); Influenza B by NAA Not Detected (NotDetected); RSV by NAA Not Detected (NotDetected); SARS-CoV-2 NAA Rapid Test Not Detected (NotDetected)
[2023-10-28] MEDS: Prochlorperazine 10 MG/2 ML VIAL IVP SCH (19:29)
[2023-10-28 20:17] LABS: Bacteria/HPF None Seen HPF (None Seen); Bilirubin Negative (Negative); Blood, Urine Negative (Negative); CAUTI Indications for Culture Fever or rigors; Clarity Clear (Clear); Glucose, Urine (Dipstick) 300 mg/dL (Negative); Ketone, Urine Negative (Negative); Leukocyte Negative Leu/uL (Negative); Mucous/LPF Rare LPF (<2+); Nitrite Negative (Negative); Protein, Urine (Dipstick) 300 mg/dL (Neg-Trace); RBC/HPF 0-3 HPF (0-3); Specific Gravity, Urine 1.022 (1.002-1.036); Squamous Epithelial 0-3 HPF (0-3); Urobilinogen Normal mg/dL (Less than 2); WBC/HPF 0-3 HPF (0-3)
[2023-10-28 20:18] LABS: Urine Culture Reflex No No
[2023-10-28] MEDS: Ranolazine ER 500 MG TAB PO SCH (21:05)
[2023-10-29 04:45] LABS: #Eosinphils 0.1 thou/uL (0.0-0.7); #Monocytes 0.8 thou/uL (0.11-0.59); #Neutrophils 4.5 thou/uL (1.40-6.50); %Basophils 0.6 % (0.0-1.0); %Eosinophils 1.8 % (0.0-10.0); %Lymphocytes 12.1 % (21.0-51.0); %Monocytes 12.7 % (0.0-10.0); %Neutrophils 72.2 % (42.0-75.0); Hematocrit 37.2 % (42.0-52.0); Hemoglobin 11.8 g/dL (14.0-18.0); Mean Corpuscular HGB CONC 31.7 g/dL (32.0-36.0); Mean Corpuscular Volume 94.7 fl (78.0-98.0); Mean Platelet Volume 10.9 fL (7.4-10.4); Platelet Count 184 10x3/uL (130-400); RBC Distribution Width 13.8 % (11.5-14.5); Red Blood Cell (RBC) Count 3.93 mill/uL (4.70-6.10); White Blood Cell (WBC) Count 6.2 10x3/uL (4.8-10.8)
[2023-10-29 05:29] LABS: ALT (SGPT) 16 U/L (8-55); AST (SGOT) 18 U/L (5-34); Albumin 3.1 g/dL (3.4-4.8); Alkaline Phosphatase 89 U/L (40-110); Anion Gap 16 mmol/L (10-20); BUN (Urea Nitrogen) 61 mg/dL (8.4-25.7); Bilirubin, Total 0.4 mg/dL (0.2-1.2); Calc. Creatinine Clearance 9 mL/min (70-130); Calcium 8.9 mg/dL (7.8-10.44); Carbon Dioxide 25 mmol/L (23-31); Chloride 103 mmol/L (98-107); Estimated GFR 8; Globulin 3.1 g/dL (2.4-3.5); Glucose 155 mg/dL (83-110); Protein, Total 6.2 g/dL (5.8-8.1); Sodium 140 mmol/L (136-145)
[2023-10-29 09:13] LABS: Cardiac Risk 4.7 (Less than 4.5)
[2023-10-29] MEDS: Mirabegron ER 25 MG ER.TAB PO SCH (09:32)
[2023-10-29] MEDS: Clopidogrel Bisulfate 75 MG TAB PO SCH (09:32)
[2023-10-29] MEDS: Folic Acid/Vit B Comp W-C PO SCH (09:32)
[2023-10-29] MEDS: Aspirin 81 mg Enteric Coated Tablet PO SCH (09:33)
[2023-10-29] MEDS: Atorvastatin Calcium 40 MG TAB PO SCH (09:33)
[2023-10-29] MEDS: Meclizine HCl 25 MG TAB PO SCH (16:31)
[2023-10-29] MEDS: Midodrine HCl 5 MG TAB PO SCH (21:02)
[2023-10-29] MEDS: HumaLOG 300 UNITS/3 ML VIAL SC PRN (23:25)
[2023-10-30] MEDS: Senokot S 8.6-50 MG TAB PO PRN (06:39)
[2023-10-30] MEDS: Atorvastatin Calcium 40 MG TAB PO SCH (08:47)
[2023-10-30] MEDS: Calcitriol 0.25 MCG CAP PO SCH (08:47)
[2023-10-30] MEDS: Insulin Glargine 30 UNITS/0.3 ML VIAL SC SCH (08:48)
[2023-10-30] MEDS: Meclizine HCl 12.5 MG TAB PO SCH (15:15)
[2023-10-30] MEDS: traZODone HCl 50 MG TAB PO SCH (20:01)
[2023-10-31 05:30] LABS: #Eosinphils 0.1 thou/uL (0.0-0.7); #Monocytes 0.7 thou/uL (0.11-0.59); #Neutrophils 3.8 thou/uL (1.40-6.50); %Basophils 0.7 % (0.0-1.0); %Eosinophils 2.5 % (0.0-10.0); %Lymphocytes 15.2 % (21.0-51.0); %Monocytes 13.1 % (0.0-10.0); Hematocrit 37.6 % (42.0-52.0); Mean Corpuscular HGB CONC 31.9 g/dL (32.0-36.0); Mean Corpuscular Hemoglobin 29.7 pg (27.0-31.0); Mean Corpuscular Volume 93.1 fl (78.0-98.0); Mean Platelet Volume 10.5 fL (7.4-10.4); Platelet Count 170 10x3/uL (130-400); RBC Distribution Width 13.5 % (11.5-14.5); Red Blood Cell (RBC) Count 4.04 mill/uL (4.70-6.10); White Blood Cell (WBC) Count 5.6 10x3/uL (4.8-10.8)
[2023-10-31 05:48] LABS: Anion Gap 14 mmol/L (10-20); BUN (Urea Nitrogen) 57 mg/dL (8.4-25.7); Calc. Creatinine Clearance 10 mL/min (70-130); Calcium 8.9 mg/dL (7.8-10.44); Carbon Dioxide 24 mmol/L (23-31); Chloride 102 mmol/L (98-107); Estimated GFR 8; Glucose 242 mg/dL (83-110); Potassium 3.4 mmol/L (3.5-5.1); Sodium 137 mmol/L (136-145)
[2023-10-31] MEDS: Docusate 100 MG CAP PO SCH (09:02)
[2023-10-31] MEDS: Potassium Chloride 20 MEQ TAB PO SCH (09:12)
[2023-11-01 06:25] LABS: #Basophils 0.1 thou/uL (0.0-0.2); #Eosinphils 0.1 thou/uL (0.0-0.7); #Monocytes 0.6 thou/uL (0.11-0.59); #Neutrophils 3.6 thou/uL (1.40-6.50); %Eosinophils 2.4 % (0.0-10.0); %Lymphocytes 11.4 % (21.0-51.0); Hematocrit 37.2 % (42.0-52.0); Hemoglobin 11.6 g/dL (14.0-18.0); Mean Corpuscular HGB CONC 31.2 g/dL (32.0-36.0); Mean Corpuscular Hemoglobin 29.4 pg (27.0-31.0); Mean Corpuscular Volume 94.2 fl (78.0-98.0); Platelet Count 166 10x3/uL (130-400); RBC Distribution Width 13.4 % (11.5-14.5); Red Blood Cell (RBC) Count 3.95 mill/uL (4.70-6.10)
[2023-11-01 07:15] LABS: Anion Gap 15 mmol/L (10-20); BUN (Urea Nitrogen) 55 mg/dL (8.4-25.7); Calc. Creatinine Clearance 10 mL/min (70-130); Calcium 8.6 mg/dL (7.8-10.44); Carbon Dioxide 24 mmol/L (23-31); Chloride 103 mmol/L (98-107); Estimated GFR 8; Glucose 339 mg/dL (83-110); Potassium 3.5 mmol/L (3.5-5.1); Sodium 138 mmol/L (136-145)
[2023-11-01] MEDS ORDERED: Midodrine HCl 5 MG TAB PO SCH (13:00)
[2023-11-01] MEDS: Insulin Glargine 30 UNITS/0.3 ML VIAL SC SCH ×2 (14:27→15:24)
[2023-11-01] MEDS ORDERED: Communication Order-Pharmacy FS SCH (17:45)
[2023-11-01] MEDS: Midodrine HCl 5 MG TAB PO SCH (21:49)
[2023-11-02 04:26] LABS: #Basophils 0.1 thou/uL (0.0-0.2); #Eosinphils 0.2 thou/uL (0.0-0.7); #Neutrophils 4.6 thou/uL (1.40-6.50); %Basophils 0.9 % (0.0-1.0); %Eosinophils 2.2 % (0.0-10.0); %Lymphocytes 13.7 % (21.0-51.0); %Monocytes 14.9 % (0.0-10.0); %Neutrophils 67.4 % (42.0-75.0); Hematocrit 38.6 % (42.0-52.0); Hemoglobin 12.2 g/dL (14.0-18.0); Mean Corpuscular HGB CONC 31.6 g/dL (32.0-36.0); Mean Corpuscular Volume 91.7 fl (78.0-98.0); Mean Platelet Volume 10.3 fL (7.4-10.4); Platelet Count 181 10x3/uL (130-400); RBC Distribution Width 13.6 % (11.5-14.5); Red Blood Cell (RBC) Count 4.21 mill/uL (4.70-6.10); White Blood Cell (WBC) Count 6.8 10x3/uL (4.8-10.8)
[2023-11-02 04:46] LABS: Anion Gap 18 mmol/L (10-20); BUN (Urea Nitrogen) 55 mg/dL (8.4-25.7); Calc. Creatinine Clearance 10 mL/min (70-130); Calcium 9.1 mg/dL (7.8-10.44); Carbon Dioxide 24 mmol/L (23-31); Chloride 102 mmol/L (98-107); Estimated GFR 8; Glucose 240 mg/dL (83-110); Potassium 3.7 mmol/L (3.5-5.1); Sodium 140 mmol/L (136-145)
[2023-11-02] MEDS ORDERED: Midazolam HCl 2 mg/2 ml Vial ONE (07:48)
[2023-11-02] MEDS ORDERED: Heparin 10,000 UNITS/ 10 ML VIAL ONE (07:48)
[2023-11-02] MEDS ORDERED: fentaNYL 50 mcg/mL 1 mL Vial ONE (07:48)
[2023-11-02] MEDS ORDERED: Sodium Chloride 0.9% 200 ML IV PRN (09:36)
[2023-11-02] MEDS ORDERED: Acetaminophen/Codeine 30-300mg Tablet PO PRN (09:36)
[2023-11-02] MEDS ORDERED: Iopamidol 370 76% 100 ML VIAL ONE (10:32)
[2023-11-02] MEDS: Insulin Glargine 30 UNITS/0.3 ML VIAL SC SCH ×2 (12:22→22:58)
[2023-11-02] MEDS: Sacubitril 24MG/Valsartan 26 MG TAB PO SCH (22:57)
[2023-11-03 05:07] LABS: #Eosinphils 0.2 thou/uL (0.0-0.7); #Neutrophils 4.9 thou/uL (1.40-6.50); %Basophils 0.6 % (0.0-1.0); %Eosinophils 2.6 % (0.0-10.0); %Lymphocytes 11.4 % (21.0-51.0); %Monocytes 14.1 % (0.0-10.0); %Neutrophils 70.3 % (42.0-75.0); Hemoglobin 12.3 g/dL (14.0-18.0); Mean Corpuscular HGB CONC 31.5 g/dL (32.0-36.0); Mean Corpuscular Hemoglobin 29.6 pg (27.0-31.0); Mean Corpuscular Volume 93.8 fl (78.0-98.0); Mean Platelet Volume 10.7 fL (7.4-10.4); Platelet Count 179 10x3/uL (130-400); RBC Distribution Width 13.7 % (11.5-14.5); Red Blood Cell (RBC) Count 4.16 mill/uL (4.70-6.10)
[2023-11-03 05:33] LABS: Anion Gap 16 mmol/L (10-20); BUN (Urea Nitrogen) 56 mg/dL (8.4-25.7); Calc. Creatinine Clearance 10 mL/min (70-130); Calcium 9.2 mg/dL (7.8-10.44); Carbon Dioxide 25 mmol/L (23-31); Chloride 102 mmol/L (98-107); Estimated GFR 8; Glucose 200 mg/dL (83-110); Potassium 3.5 mmol/L (3.5-5.1); Sodium 139 mmol/L (136-145)
[2023-11-03 16:27] VITALS: BP 118/72; TEMP 97.8
[2023-11-05] MEDS ORDERED: SEMAGLUTIDE 4 MG/3 ML SC SCH (09:00)
== END 2023-11-03 17:45 | disposition home or self-care (01) | DRG 280 ==
LOC: ERS 08:53 → ERHOLD 12:43 → 2SW 17:39 → OBSVTOIN 10-30 13:31
PROVIDERS: ADMIT Family Medicine; ATTEND Hospitalist
PROC: 3E1M39Z Irrigation of Peritoneal Cavity using Dialysate, Percutaneous Approach (ICD-10-PCS; 2023-10-30)
PROC: 4A023N7 Measurement of Cardiac Sampling and Pressure, Left Heart, Percutaneous Approach (ICD-10-PCS; principal; 2023-11-02)
PROC: B2151ZZ Fluoroscopy of Left Heart using Low Osmolar Contrast (ICD-10-PCS; 2023-11-02)
PROC: B2101ZZ Fluoroscopy of Single Coronary Artery using Low Osmolar Contrast (ICD-10-PCS; 2023-11-02)
DX: I21.4 Non-ST elevation (NSTEMI) myocardial infarction (principal); N18.6 End stage renal disease; I50.42 Chronic combined systolic (congestive) and diastolic (congestive) heart failure; I13.2 Hypertensive heart and chronic kidney disease with heart failure and with stage 5 chronic kidney disease, or end stage renal disease; I42.0 Dilated cardiomyopathy; I35.0 Nonrheumatic aortic (valve) stenosis; R42 Dizziness and giddiness; E11.22 Type 2 diabetes mellitus with diabetic chronic kidney disease; I25.2 Old myocardial infarction; Z88.0 Allergy status to penicillin; Z88.8 Allergy status to other drugs, medicaments and biological substances; Z79.82 Long term (current) use of aspirin; Z79.4 Long term (current) use of insulin; Z79.899 Other long term (current) drug therapy; E78.5 Hyperlipidemia, unspecified; I25.10 Atherosclerotic heart disease of native coronary artery without angina pectoris; F41.9 Anxiety disorder, unspecified; Z90.49 Acquired absence of other specified parts of digestive tract; Z98.890 Other specified postprocedural states; Z99.2 Dependence on renal dialysis; D63.1 Anemia in chronic kidney disease; E87.6 Hypokalemia; F32.9 Major depressive disorder, single episode, unspecified; Z63.4 Disappearance and death of family member; Z86.73 Personal history of transient ischemic attack (TIA), and cerebral infarction without residual deficits; R51.9 Headache, unspecified; I44.7 Left bundle-branch block, unspecified; G47.00 Insomnia, unspecified
CPT/HCPCS: 0241U; 36415; 36416; 70450; 70544; 70547; 70551; 72125; 80048; 80053; 80061; 81001; 82805; 83735; 84443; 84484; 85025; 85347; 87040; 90945; 93005; 93306; 93460; 93798; 94760; 96374; 99152; 99153; C1751; C1769; C1894; G0257; G0378; J0780; J1644; J1815; J2250; J3010; Q9967